=== PATIENT | female | born 1985 | race Caucasian/White ===

== ENCOUNTER 2020-12-18 09:17 | Outpatient (REF) | payer MEDICAID, SELFPAY ==
--- NOTE | ~2020-12-18 | US_ITS ---
EXAMINATION: US ABDOMEN COMPLETE CLINICAL INFORMATION: Follow up renal and splenic cysts. COMPARISON: Renal ultrasound 04/09/2020. CT abdomen and pelvis 11/14/2019. TECHNIQUE: Real-time imaging of the abdominal viscera. FINDINGS: PANCREAS: Normal. ABDOMINAL AORTA: The proximal, mid, and distal segments are normal in caliber. INFERIOR VENA CAVA: Visualized portions are normal. LIVER: Normal. The liver is normal in size. The liver contour is normal. Parenchymal echogenicity is normal. No focal hepatic lesion. There is no intrahepatic biliary duct dilatation seen. GALLBLADDER: Surgically absent. COMMON BILE DUCT: Normal in caliber measuring 0.3 cm in diameter. RIGHT KIDNEY: Normal. No hydronephrosis. No renal calculi or focal parenchymal lesions. The kidney measures 10.8 cm in maximum dimension. LEFT KIDNEY: Normal. No hydronephrosis. No renal calculi or focal parenchymal lesions. The kidney measures 10.2 cm in maximum dimension. SPLEEN: There are numerous small clustered anechoic cysts versus one cyst with septation measuring 2.8 x 2.6 x 2.1 cm. The spleen measures 10.1 cm in maximum dimension. FREE FLUID: None. US/US abdomen complete IMPRESSION: Single septated cyst versus cluster of cysts in the spleen as described above. Rest of the abdominal ultrasound is unremarkable.
== END 2020-12-18 09:18 | disposition home or self-care (01) ==
LOC: HO.US 09:17
PROVIDERS: PCP Nurse Practitioner Family; Visit Provider Nurse Practitioner Family
DX: D73.4 Cyst of spleen (principal)
CPT/HCPCS: 76700

== ENCOUNTER 2021-02-21 18:18 | Emergency (ER) | payer MEDICAID, SELFPAY ==
--- NOTE | ~2021-02-21 | CT_ITS ---
EXAMINATION: CT ABDOMEN AND PELVIS WITHOUT CONTRAST CLINICAL INFORMATION: Abdominal pain. COMPARISON: November 14, 2019. TECHNIQUE: Contiguous axial thin section helical images of the abdomen and pelvis were performed without oral or IV contrast. The data set was reformatted in the coronal and sagittal planes and reviewed on an independent workstation. DLP: 639 mGy-cm. FINDINGS: The visualized lung bases are clear. The visualized portions of the heart are unremarkable. The liver is of normal size and attenuation without focal lesions nor intrahepatic biliary ductal dilation. The patient is status post cholecystectomy. Surgical clips are identified. The pancreas and adrenal glands are unremarkable. The spleen is of normal contour and attenuation. There are numerous areas of low-attenuation consistent with the presumed cysts identified on the prior CT. Both kidneys are of normal size and attenuation without hydronephrosis or nephrolithiasis. There is no abdominal free fluid. There is neither mesenteric nor retroperitoneal lymphadenopathy. Normal unopacified loops of small and large bowel are identified. A normal appendix is identified. There is no pelvic free fluid. The urinary bladder is unremarkable. There is neither pelvic nor inguinal lymphadenopathy. Bone windows: Neither sclerotic nor lytic bone lesions are identified. CT/CT abdomen pelvis wo con IMPRESSION: No acute abdominal or pelvic inflammatory or infectious processes. Automated exposure control (Care Dose) Adjustment of the mA and/or kv according to patient size (this includes techniques or standardized protocols for targeted exams where dose is matched to indication / reason for exam; i.e. extremities or head).
[2021-02-21 18:23] VITALS: BP 121/59; PULSE 77; RESP 18; TEMP 37.3; O2SAT 100; BMI 34.0
[2021-02-21 20:16] VITALS: BP 102/53; PULSE 59; RESP 16; TEMP 36.9; O2SAT 99
--- NOTE | 2021-02-21 20:22 | ED.FEMALEGU ---
HPI - Female Genitourinary General Chief complaint: Urogenital-Female Stated complaint: low back pain Time Seen by Provider: 02/21/21 22:04 Source: patient Mode of arrival: ambulatory Limitations: no limitations History of Present Illness HPI Narrative: 35-year-old female with no significant past medical history presents with several days of 10/10 lower abdominal pain, vaginal discharge, pelvic pain, and intermittent fevers and chills. She does not report any risk for sexually transmitted infection, does not report any trauma or assault. She also states that pain increases on sexual intercourse. She did recently have a partial hysterectomy on 12/13/2020, and did not report any adverse affects of the surgical procedure. She denies chest pain or pressure, palpitations, shortness of breath, shortness of breath on exertion, abdominal distention, dysuria, hematuria, and edema. MD elicited complaint: vaginal discharge and pelvic pain Onset (ago): day(s) Location of symptoms: suprapubic, vaginal and pelvis Severity: severe Female Urogenital Radiation: Suprapubic Severity scale (1-10): 9 Quality of pain: burning, stabbing and aching Consistency: constant Vaginal discharge: white and vaginal odor Vaginal bleeding: none Exacerbating factors: intercourse, movement and palpation Relieving factors: none Associated symptoms: abdominal pain, fever and chills Treatment prior to arrival: NSAIDs Sexual activity: Yes Patient : No Related Data Previous Rx's Medication Instructions Recorded ibuprofen 600 mg PO Q6H PRN #30 tab 02/21/21 metronidazole [Flagyl] 500 mg PO Q12H 7 Days #14 tab 02/21/21 Allergies Allergy/AdvReac Type Severity Reaction Status Date / Time No Known Allergies Allergy Unverified 07/25/20 19:43 [No Known Allergies*] Review of Systems Review of Systems: Constitutional: Positive Fever, positive Chills ENT/Mouth: No sore throat, No Rhinorrhea Eyes: No Eye Pain, No Redness Cardiovascular: No Chest Pain, No SOB Respiratory: No Cough, No Sputum, No Wheezing Gastrointestinal: positive Nausea, No Vomiting, No Diarrhea, positive abdominal pain, Genitourinary: Positive vaginal discharge, No irregular bleeding, No Dysuria, No Urinary Frequency, positive pelvic pain Musculoskeletal: No Myalgias Skin: No rash Neuro: No Weakness, No Headache Psych: No Anxiety/Panic, No Depression Heme/Lymph: No bruising, No Lymphadenopathy Endocrine: No Polyuria, No Polydipsia Yes all other systems are reviewed and are negative COUNT INCLUDES THE [facility] Past Medical History Attestation statement: The following information was validated with the patient. Source: old records reviewed Medical History Anxiety Asthma Depression Surgical History History of partial hysterectomy Social History Social History Advance Directives: No Advance Directives Information Provided: Yes Physical Exam Vital Signs: Vital Signs: Last Vital Signs Temp 97.9 F 02/21/21 22:07 Pulse 57 02/21/21 22:07 Resp 16 02/21/21 22:07 BP 116/53 L 02/21/21 22:07 Pulse Ox 100 02/21/21 22:07 Body Mass Index 34.0 Appearance: Alert. Oriented X3. Mild distress. Eyes: Pupils equal, round and reactive to light. ENT: Pharynx normal. Neck: Normal inspection. Neck supple. CVS: Normal heart rate and rhythm. Pulses normal. Respiratory: No respiratory distress. Breath sounds normal. Abdomen: Soft and diffusely tender greater to the lower abdomen than the upper abdomen Skin: Skin warm and dry. Normal skin color. Normal skin turgor. Extremities: No lower extremity edema. Neuro: No motor deficit. No sensory deficit. : General: Yes Bimanual renal exam normal bilaterally External Female Exam: normal external appearance Speculum Exam - Vagina: normal appearance of the vagina and abnormal vaginal discharge white and malodorous Speculum Exam - Cervix: normal appearance of the cervix Bimanual exam- vagina & uterus: other (Uterus absent) Bimanual Exam- Adnexa, other: normal adnexae Course Course Course Narrative: 35-year-old female past medical history of partial hysterectomy on 12/13/2020 presents with pelvic pain, vaginal discharge, and subjective fevers and chills. Will order CT scan of abdomen and pelvis, CBC, Chem 7, urinalysis, and perform pelvic exam. Cervix visualized on pelvic exam, copious amounts of thin yeung watery malodorous vaginal discharge noted. 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 CT scan is negative for acute findings requiring emergent intervention. Plan of care is to treat for bacterial vaginosis with Flagyl. Side effects of Flagyl alcohol discussed in detail with patient. Patient verbalized understanding of and agrees to plan of care discharge home. MDM - Female Genitourinary Differential Diagnosis Differential diagnosis: Likely urinary tract infection, bacterial vaginosis, trichomoniasis, cervicitis and vaginitis Medical Records Attestation: I reviewed the patient's medical records. Lab Data Attestation: I reviewed the patient's lab results. Result diagrams: 02/21/21 21:25 02/21/21 21:25 Labs: Lab Results 02/21/21 02/21/21 02/21/21 Range/Units 20:21 21:25 21:25 WBC 10.1 (4.8-10.8) X10*3/uL RBC 4.36 (4.20-5.50) X10*6/uL Hgb 13.2 (12.0-16.0) g/dl Hct 40.3 (37-47) % MCV 92.4 (80-98) fL MCH 30.3 (27.0-33.0) pg MCHC 32.8 (31.0-35.0) g/dl RDW 13.6 (11.0-16.0) % Plt Count 223 (160-400) X10*3/uL MPV 10.3 (9.4-12.3) fL Immature Gran % (Auto) 0.3 (0.0-0.4) % Neut % (Auto) 59.4 (45-73) % Lymph % (Auto) 32.1 (20-40) % [place] % (Auto) 6.2 (2-11) % Eos % (Auto) 1.5 (0-4) % Baso % (Auto) 0.5 (0-2) % Lymph # (Auto) 3.2 (1.2-4.9) X10*3/uL [place] # (Auto) 0.6 (0.1-1.2) X10*3/uL Eos # (Auto) 0.2 (0.0-0.4) X10*3/uL Baso # (Auto) 0.1 (0.0-0.2) X10*3/uL Abs Immat Gran (auto) 0.03 (0.00-0.03) X10*3/uL Absolute Neuts (auto) 6.0 (2.0-8.3) X10*3/uL Absolute Nucleated RBC 0.000 (0.0-0.012) X10*3/uL Nucleated RBC % (auto) 0.0 (0.0-0.2) /100WBC Sodium 141 (135-145) mmol/L Potassium 4.2 (3.3-5.1) mmol/L Chloride 110 H (96-108) mmol/L Carbon Dioxide 22 (22-29) mmol/L Anion Gap 13 (12-20) BUN 17 H (9-16) mg/dL Creatinine 0.69 (0.5-1.4) mg/dL Estim Creat Clear Calc 111.2 Estimated GFR > 60 Random Glucose 84 (60-115) mg/dL Lactic Acid (0.5-2.0) mmol/L Calcium 8.8 (8.4-10.2) mg/dL Total Bilirubin (0.0-1.0) mg/dL Direct Bilirubin (0.0-0.5) mg/dL AST (5-31) U/L ALT (0-31) U/L Alkaline Phosphatase (39-117) U/L Total Protein (6.5-8.0) g/dL Albumin (3.5-5.0) g/dL Lipase (8-78) U/L Urine Color YELLOW Urine Appearance CLEAR Urine pH 5.5 (5.0-8.0) Ur Specific [place] >= 1.030 H (1.005-1.025) Urine Protein NEG (NEG-TRACE) MG/DL Urine Glucose (UA) NEG (NEG) MG/DL Urine Ketones NEG (NEG) MG/DL Urine Blood NEG (NEG) Urine Nitrite NEG (NEG) Ur Leukocyte Esterase NEG (NEG) 02/21/21 02/21/21 02/21/21 Range/Units 21:25 21:25 21:25 WBC Cancelled (4.8-10.8) X10*3/uL RBC Cancelled (4.20-5.50) X10*6/uL Hgb Cancelled (12.0-16.0) g/dl Hct Cancelled (37-47) % MCV Cancelled (80-98) fL MCH Cancelled (27.0-33.0) pg MCHC Cancelled (31.0-35.0) g/dl RDW Cancelled (11.0-16.0) % Plt Count Cancelled (160-400) X10*3/uL MPV Cancelled (9.4-12.3) fL Immature Gran % (Auto) Cancelled (0.0-0.4) % Neut % (Auto) Cancelled (45-73) % Lymph % (Auto) Cancelled (20-40) % [place] % (Auto) Cancelled (2-11) % Eos % (Auto) Cancelled (0-4) % Baso % (Auto) Cancelled (0-2) % Lymph # (Auto) Cancelled (1.2-4.9) X10*3/uL [place] # (Auto) Cancelled (0.1-1.2) X10*3/uL Eos # (Auto) Cancelled (0.0-0.4) X10*3/uL Baso # (Auto) Cancelled (0.0-0.2) X10*3/uL Abs Immat Gran (auto) Cancelled (0.00-0.03) X10*3/uL Absolute Neuts (auto) Cancelled (2.0-8.3) X10*3/uL Absolute Nucleated RBC Cancelled (0.0-0.012) X10*3/uL Nucleated RBC % (auto) Cancelled (0.0-0.2) /100WBC Sodium 140 (135-145) mmol/L Potassium 4.2 (3.3-5.1) mmol/L Chloride 110 H (96-108) mmol/L Carbon Dioxide 22 (22-29) mmol/L Anion Gap 12 (12-20) BUN 16 (9-16) mg/dL Creatinine 0.68 (0.5-1.4) mg/dL Estim Creat Clear Calc 112.9 Estimated GFR > 60 Random Glucose 84 (60-115) mg/dL Lactic Acid 1.0 (0.5-2.0) mmol/L Calcium 8.8 (8.4-10.2) mg/dL Total Bilirubin 0.4 (0.0-1.0) mg/dL Direct Bilirubin 0.2 (0.0-0.5) mg/dL AST 18 (5-31) U/L ALT 17 (0-31) U/L Alkaline Phosphatase 67 (39-117) U/L Total Protein 6.7 (6.5-8.0) g/dL Albumin 4.0 (3.5-5.0) g/dL Lipase 22 (8-78) U/L Urine Color Urine Appearance Urine pH (5.0-8.0) Ur Specific [place] (1.005-1.025) Urine Protein (NEG-TRACE) MG/DL Urine Glucose (UA) (NEG) MG/DL Urine Ketones (NEG) MG/DL Urine Blood (NEG) Urine Nitrite (NEG) Ur Leukocyte Esterase (NEG) Imaging Data CT scan - abdomen: Attestation: I personally reviewed and interpreted this imaging study as follows: Radiologist's impression: EXAMINATION: CT ABDOMEN AND PELVIS WITHOUT CONTRAST CLINICAL INFORMATION: Abdominal pain. COMPARISON: November 14, 2019. TECHNIQUE: Contiguous axial thin section helical images of the abdomen and pelvis were performed without oral or IV contrast. The data set was reformatted in the coronal and sagittal planes and reviewed on an independent workstation. DLP: 639 mGy-cm. FINDINGS: The visualized lung bases are clear. The visualized portions of the heart are unremarkable. The liver is of normal size and attenuation without focal lesions nor intrahepatic biliary ductal dilation. The patient is status post cholecystectomy. Surgical clips are identified. The pancreas and adrenal glands are unremarkable. The spleen is of normal contour and attenuation. There are numerous areas of low-attenuation consistent with the presumed cysts identified on the prior CT. Both kidneys are of normal size and attenuation without hydronephrosis or nephrolithiasis. There is no abdominal free fluid. There is neither mesenteric nor retroperitoneal lymphadenopathy. Normal unopacified loops of small and large bowel are identified. A normal appendix is identified. There is no pelvic free fluid. The urinary bladder is unremarkable. There is neither pelvic nor inguinal lymphadenopathy. Bone windows: Neither sclerotic nor lytic bone lesions are identified. CT/CT abdomen pelvis wo con IMPRESSION: No acute abdominal or pelvic inflammatory or infectious processes. Automated exposure control (Care Dose) Adjustment of the mA and/or kv according to patient size (this includes techniques or standardized protocols for targeted exams where dose is matched to indication / reason for exam; i.e. extremities or head). Discharge Plan Discharge Clinical Impression: Bacterial vaginosis, Abdominal pain Patient Disposition: Home, Self-Care Instructions: Bacterial Vaginosis (ED), Abdominal Pain (ED) Additional Instructions: You were evaluated for abdominal pain. CT scan of abdomen and pelvis are negative for acute findings requiring emergent intervention. Your pelvic exam showed a copious amount of vaginal discharge consistent with bacterial vaginosis. We are treating you with Flagyl 500 mg twice a day for the next 7 days. Do not drink alcohol while taking this medication. You will have serious side effects. Please consider following up with Gastroenterology for chronic epigastric pain. I have made a referral for you. Please call on request an appointment. Thank you for choosing this emergency department for evaluation. Please follow-up with primary care physician as needed. Return to the emergency department for any new, concerning, or worsening symptoms. Prescriptions: New metronidazole [Flagyl] 500 mg tablet 500 mg PO Q12H 7 Days Qty: 14 RF: 0 ibuprofen 600 mg tablet 600 mg PO Q6H PRN (Reason: pain) Qty: 30 RF: 0 Referrals: Bob Joshi MD [Physician] - 2 days (Epigastric pain) Interventions: ED Discharge Assessment Last Done: 02/21/21 23:10 Discharge Date/Time: 02/21/21 23:12
[2021-02-21 20:29] LABS: Appearance Urine CLEAR; Color Urine YELLOW; Glucose Urine UA NEG (NEG); Leukocyte Esterase Urine NEG (NEG); Nitrite Urine NEG (NEG); PH 5.5 (5.0-8.0); Specific Gravity - Urine >= 1.030 (1.005-1.025); Urine Blood NEG (NEG); Urine Ketones NEG (NEG); Urine Protein NEG (NEG-TRACE)
--- NOTE | 2021-02-21 21:02 | PC.NURSE ---
NERUPA PCT IN MULE DEVELOPER FOR VAGINAL EXAM
--- NOTE | 2021-02-21 21:14 | PC.NURSE ---
THIS PATIENT SET UP AND ASSIST RETIREMENT MANAGER CANDY WITH PATIENT PELVIC EXAM .
[2021-02-21] MEDS: 0.9 % Sodium Chloride 1,000 ML 999 ML IVCONT (21:33)
[2021-02-21] MEDS: Morphine Sulfate 4 MG/ML CARTRIDGE IVPUSH ×2 (21:33→22:25)
[2021-02-21 21:34] LABS: MANUAL DIFF FLAG NO
[2021-02-21] MEDS: ondansetron HCL 4 MG/2 ML VIAL IVPUSH (21:34)
[2021-02-21 21:49] LABS: Basophils Absolute Auto 0.1 X10*3/uL (0.0-0.2); Basophils Percent Auto 0.5 % (0-2); Eosinophils Absolute Auto 0.2 X10*3/uL (0.0-0.4); Eosinophils Percent Auto 1.5 % (0-4); Hematocrit 40.3 % (37-47); Hemoglobin 13.2 g/dl (12.0-16.0); Imm Gran Abs Auto 0.03 X10*3/uL (0.00-0.03); Imm Gran Pct Auto 0.3 % (0.0-0.4); Lymphocytes Absolute Auto 3.2 X10*3/uL (1.2-4.9); Lymphocytes Percent Auto 32.1 % (20-40); Mean Corpuscular HGB Conc 32.8 g/dl (31.0-35.0); Mean Corpuscular Hemoglobin 30.3 pg (27.0-33.0); Mean Corpuscular Volume 92.4 fL (80-98); Mean Platelet Volume 10.3 fL (9.4-12.3); Monocytes Absolute Auto 0.6 X10*3/uL (0.1-1.2); Monocytes Percent Auto 6.2 % (2-11); Neutrophils Percent Auto 59.4 % (45-73); Platelet Count 223 X10*3/uL (160-400); Red Blood Count 4.36 X10*6/uL (4.20-5.50); Red Cell Distribution Width 13.6 % (11.0-16.0); White Blood Count 10.1 X10*3/uL (4.8-10.8)
[2021-02-21 22:07] VITALS: BP 116/53; PULSE 57; RESP 16; TEMP 36.6; O2SAT 100
[2021-02-21 22:12] LABS: Anion Gap 13 (12-20); Blood Urea Nitrogen 17 mg/dL (9-16); Calcium 8.8 mg/dL (8.4-10.2); Carbon Dioxide 22 mmol/L (22-29); Chloride 110 mmol/L (96-108); Creatinine Clr Calc Pharmacy 111.2; Estimated Glomerular Filt Rate > 60; Glucose Random 84 mg/dL (60-115); Potassium 4.2 mmol/L (3.3-5.1); Sodium 141 mmol/L (135-145)
[2021-02-21 22:15] LABS: Alanine Aminotransferase 17 U/L (0-31); Alkaline Phosphatase 67 U/L (39-117); Anion Gap 12 (12-20); Aspartate Amino Transferase 18 U/L (5-31); Bilirubin Direct 0.2 mg/dL (0.0-0.5); Bilirubin Total 0.4 mg/dL (0.0-1.0); Blood Urea Nitrogen 16 mg/dL (9-16); Calcium 8.8 mg/dL (8.4-10.2); Carbon Dioxide 22 mmol/L (22-29); Chloride 110 mmol/L (96-108); Creatinine Clr Calc Pharmacy 112.9; Estimated Glomerular Filt Rate > 60; Glucose Random 84 mg/dL (60-115); Lipase 22 U/L (8-78); Potassium 4.2 mmol/L (3.3-5.1); Sodium 140 mmol/L (135-145); Total Protein 6.7 g/dL (6.5-8.0)
[2021-02-21] MEDS: Ketorolac Tromethamine 30 MG/ML VIAL IVPUSH (22:26)
[2021-02-21] MEDS: metroNIDAZOLE 500 MG TABLET PO (22:53)
[2021-02-22 03:29] LABS: CT PCR NOT DETECTED (Not Detect.); NG PCR NOT DETECTED (Not Detect.)
[2021-02-22 12:10] LABS: BV Int Neg Control Negative (Negative); BV Int Pos Control Positive (Positive)
== END 2021-02-21 23:12 | disposition home or self-care (01) ==
PROVIDERS: Nurse Practitioner Family; Emergency Provider Internal Medicine; PCP Pediatrics
DX: N76.0 Acute vaginitis (principal); R10.30 Lower abdominal pain, unspecified; R50.9 Fever, unspecified
CPT/HCPCS: 36415; 74176; 80048; 80076; 81003; 83605; 83690; 85025; 87040; 87480; 87491; 87510; 87591; 87660; 96365; 96375; 99284; J1885; J2270; J2405

== ENCOUNTER 2021-07-23 07:32 | Outpatient (REF) | payer MEDICAID, SELFPAY ==
--- NOTE | ~2021-07-23 | CT_ITS ---
EXAMINATION: CT ABDOMEN AND PELVIS WITHOUT CONTRAST CLINICAL INFORMATION: Kidney stone COMPARISON: Previous CT of the abdomen and pelvis most recent February 2021 and abdominal ultrasound most recent December 2020 TECHNIQUE: Multidetector volumetric imaging was performed from the superior aspect of the liver through the pubic symphysis. Sagittal and coronal reformatted images were obtained on the technologist's workstation. This CT examination was performed using dose optimization techniques as appropriate, variously including the following: *Automated exposure control *Adjustment of mA and/or kV according to patient size (this includes techniques or standardized protocols for targeted exams where dose is matched to indication/reason for exam; i.e. extremities or head) *Use of iterative reconstruction technique DLP: 552 mGy-cm FINDINGS: LUNG BASES: The visualized lung bases are unremarkable. LIVER, GALLBLADDER, AND BILIARY TREE: The liver is normal in size, shape, and attenuation. No focal hepatic lesion or biliary ductal dilatation is present. The gallbladder has been removed. PANCREAS: Unremarkable. SPLEEN: There are multiple low-attenuation lesions in the spleen probably representing cysts that are stable. ADRENAL GLANDS: Unremarkable. KIDNEYS AND URETERS: There is a small 2 mm stone in the mid right kidney. No no other stone is seen. No hydronephrosis, ureteral dilatation or ureteral stone is seen. BLADDER: Unremarkable. GASTROINTESTINAL TRACT: The small and large bowel are unremarkable. The appendix is unremarkable. ABDOMINAL WALL: No significant hernia is appreciated. LYMPH NODES: Normal. VASCULAR: Unremarkable. PELVIC VISCERA: Unremarkable. OSSEOUS STRUCTURES: Unremarkable. CT/CT abdomen pelvis wo con IMPRESSION: Probable small right renal stone. No hydronephrosis. Stable low-attenuation splenic lesions probably representing cysts.
== END 2021-07-23 07:33 | disposition home or self-care (01) ==
LOC: HO.CT 07:32
PROVIDERS: Absent Provider Nurse Practitioner Primary Care; PCP Nurse Practitioner Primary Care; Visit Provider Emergency Medicine
DX: R34 Anuria and oliguria (principal); R31.9 Hematuria, unspecified; Z87.442 Personal history of urinary calculi
CPT/HCPCS: 74176

== ENCOUNTER 2021-10-08 07:58 | Outpatient (REF) | payer MEDICAID, SELFPAY ==
[2021-10-08 10:48] LABS: Alanine Aminotransferase 18 U/L (0-31); Alkaline Phosphatase 68 U/L (39-117); Aspartate Amino Transferase 17 U/L (5-31); Bilirubin Direct < 0.2 mg/dL (0.0-0.5); Bilirubin Total 0.3 mg/dL (0.0-1.0); Lipase 30 U/L (8-78); Total Protein 6.9 g/dL (6.5-8.0)
[2021-10-08 11:13] LABS: Folate 14.9 ng/mL (> or = 4.0); Vitamin B12 415 pg/mL (200-900)
[2021-10-09 10:12] LABS: H Pylori Breath Test Negative (Negative)
[2021-10-11 12:51] LABS: Transglutaminase Ab IgG <1.0 U/mL; Transglutaminase IgA <1.0 U/mL
[2021-10-13 14:51] LABS: Vitamin D 25-OH, D2 <4 ng/mL; Vitamin D 25-OH, D3 25 ng/mL; Vitamin D 25-OH, Total 25 ng/mL (30-100)
== END 2021-10-08 07:59 | disposition home or self-care (01) ==
LOC: HO.LAB 07:58
PROVIDERS: PCP Nurse Practitioner Primary Care; Referring Provider Nurse Practitioner Primary Care; Visit Provider Nurse Practitioner Family
DX: R19.7 Diarrhea, unspecified (principal); R10.11 Right upper quadrant pain; E55.9 Vitamin D deficiency, unspecified; R14.0 Abdominal distension (gaseous); K58.2 Mixed irritable bowel syndrome; Z79.899 Other long term (current) drug therapy
CPT/HCPCS: 36415; 80076; 81479; 82306; 82397; 82607; 82746; 83013; 83516; 83520; 83690; 86140; 88346; 88350; 99202

== ENCOUNTER 2021-11-05 12:31 | Emergency (ER) | payer MEDICAID, SELFPAY ==
[2021-11-05 15:23] VITALS: BP 109/61; PULSE 70; RESP 16; TEMP 36.8; O2SAT 98; BMI 33.2
--- NOTE | 2021-11-05 15:54 | ED.GENADULT ---
HPI - General Adult General Chief complaint: Upper Respiratory Symptoms Stated complaint: covid symptoms Time Seen by Provider: 11/05/21 15:18 Source: patient Mode of arrival: ambulatory Limitations: no limitations History of Present Illness HPI narrative: Patient presents to ED for sore throat and chills. Patient was exposed to family member was positive for COVID. Patient states herself and son having symptoms. Patient states no chest pain or shortness of breath. Related Data Home Medications Medication Instructions Recorded Confirmed albuterol sulfate 90 mcg/actuation 0 mcg INHALATION 10/08/21 aerosol inhaler (ProAir HFA) cholecalciferol (vitamin D3) 25 25 mcg PO DAILY 10/08/21 mcg (1,000 unit) capsule Previous Rx's Medication Instructions Recorded cholestyramine (with sugar) 4 gram 4 g PO BID #378 g 10/08/21 oral powder methylcellulose (laxative) 500 mg 500 mg PO DAILY #30 tab 10/08/21 tablet (Citrucel) pantoprazole 40 mg tablet,delayed 40 mg PO DAILY #30 tab 10/08/21 release Allergies Allergy/AdvReac Type Severity Reaction Status Date / Time No Known Allergies Allergy Unverified 10/08/21 08:08 [No Known Allergies*] Review of Systems Review of Systems: Yes all other systems are reviewed and are negative Constitutional: Constitutional: Reports as per HPI, Reports no additional constitutional complaints and Reports chills Eyes: Eyes: Reports as per HPI and Reports no additional eye complaints ENT: Reports system reviewed and no additional complaints, except as documented, Reports as per HPI and Reports sore throat Cardiovascular: Cardiovascular: Reports as per HPI and Reports no additional cardiovascular complaints Respiratory: Respiratory: Reports as per HPI and Reports no additional respiratory complaints Gastrointestinal: Gastrointestinal: Reports as per HPI and Reports no additional gastrointestinal complaints Genitourinary: Genitourinary: Reports no additional female genitourinary complaints and Reports as per HPI Integumentary/Breasts: Skin/Breast: Reports system reviewed and no additional complaints, except as docu and Reports as per HPI Neurologic: Reports system reviewed and no additional complaints, except as documented and Reports as per HPI [facility] Past Medical History Medical History (Updated 11/05/21 @ 16:51 by LEW Ray) Anxiety Asthma Depression Surgical History (Updated 10/08/21 @ 08:09 by CRISTINO Erazo) History of partial hysterectomy Hx of cholecystectomy Social History Social History Advance Directives: No Advance Directives Information Provided: No Patient : No Physical Exam Vital Signs: Vital Signs: Last Vital Signs Temp 98.3 F 11/05/21 15:23 Pulse 70 11/05/21 15:23 Resp 16 11/05/21 15:23 BP 109/61 11/05/21 15:23 Pulse Ox 98 11/05/21 15:23 BMI result Body Mass Index 33.2 Const: General: cooperative, healthy appearing, comfortable, no acute distress, well developed, alert, awake and Physically active Orientation/consciousness: patient oriented x3 HENMT: Head: Yes normal to inspection, Yes No palpable skull fracture present, Yes normocephalic, Yes atraumatic and No abrasion Ears: hearing grossly normal bilaterally, external ears normal, TM's normal bilaterally, EAC's normal, mastoids normal and no periauricular adenopathy Throat: Yes posterior oropharynx normal, Yes tonsils normal and Yes uvula midline Eyes: General: appearance normal, both eyes and all related structures Neck: Neck: Yes normal visual inspection, Yes full ROM, Yes no lymphadenopathy, Yes no meningeal signs, Yes trachea midline, Yes supple, No anterior neck swelling and No tender Chest: Chest palpation & inspection: normal inspection of the chest and normal palpation of entire chest wall Resp: Effort & Inspection: normal respiratory effort and able to speak in complete sentences Auscultation: clear to auscultation bilaterally Cardio: Jugular venous distension: no JVD Heart sounds: S1 normal heart sound present and S2 normal heart sound present GI: Inspection: Yes normal to inspection and No abdominal wall ecchymosis Palpation (GI): Soft to palpation, not firm, nontender, no guarding and not rigid : General: No CVA tenderness and Yes no CVA tenderness Back/Spine/Pelvis: Back: no CVA tenderness, No CVA tenderness and No back tenderness Skin: General skin exam: no rashes or lesions noted and elasticity normal Neuro: General: patient oriented x3, gait normal, no meningeal signs and CN's II-XI intact bilaterally Cranial nerves: Yes CN's II-XII intact bilaterally Extrem: General: Yes normal to inspection and Yes full ROM Psych: Appearance: grossly normal, well kempt and not disheveled Course Course Course Narrative: Is swabbed for COVID and strep. Patient will obtain Reevaluation(s) Reevaluation #1: Patient test came back negative. Mother informed this may be a false negative and should get re-tested in 4 to 5 days Medical Decision Making Lab Data Labs: Lab Results 11/05/21 11/05/21 Range/Units 15:40 15:40 Influenza Type A (PCR) NEGATIVE (Negative) Influenza Type B (PCR) NEGATIVE (Negative) RSV RNA Qual (PCR) NEGATIVE (Negative) SARS-CoV-2 RNA (RT-PCR) NEGATIVE (Negative) S. pyogenes GrpA ENRIQUE Negative (Negative) Discharge Plan Discharge Clinical Impression: Acute viral syndrome Patient Disposition: Home, Self-Care Instructions: Viral Syndrome (ED) Additional Instructions: Your COVID/strep/influenza/RSV came back negative. You may have a false negative test for COVID. Recommend retesting in 4-5 hours if symptoms worsen. Please follow-up with primary care provider. Return to the ED for any chest pain, shortness of breath, weakness, dizziness, abdominal pain, sore throat, headache, ear pain, or any other concerning symptoms. Please follow-up with provider Prescriptions: No Action cholecalciferol (vitamin D3) 25 mcg (1,000 unit) capsule 25 mcg PO DAILY RF: 0 albuterol sulfate [ProAir HFA] 90 mcg/actuation HFA aerosol inhaler 0 mcg inhalation RF: 0 cholestyramine (with sugar) 4 gram powder 4 g PO BID Qty: 378 RF: 0 pantoprazole 40 mg tablet,delayed release (DR/EC) 40 mg PO DAILY Qty: 30 RF: 2 Citrucel 500 mg tablet 500 mg PO DAILY Qty: 30 RF: 2 Interventions: ED Discharge Assessment Last Done: 11/05/21 17:15 Discharge Date/Time: 11/05/21 17:15 Print Language: Mold[place]
[2021-11-05 15:57] LABS: Strep A Nucleic Acid Negative (Negative)
[2021-11-05 16:25] LABS: Influenza A PCR NEGATIVE (Negative); Influenza B PCR NEGATIVE (Negative); Resp Syncy Virus RNA Qual PCR NEGATIVE (Negative); SARS COV2 PCR INHOUSE NEGATIVE (Negative)
== END 2021-11-05 17:15 | disposition home or self-care (01) ==
PROVIDERS: Physician Assistant; Emergency Provider Emergency Medicine; PCP Nurse Practitioner Primary Care
DX: B34.9 Viral infection, unspecified (principal); Z20.822 Contact with and (suspected) exposure to COVID-19; J02.9 Acute pharyngitis, unspecified; J45.909 Unspecified asthma, uncomplicated
CPT/HCPCS: 0241U; 87651; 99283

== ENCOUNTER 2021-11-14 12:47 | Emergency (ER) | payer MEDICAID, SELFPAY ==
[2021-11-14 13:47] VITALS: BP 100/58; PULSE 74; RESP 18; TEMP 36.7; O2SAT 97; BMI 33.2
[2021-11-14 14:22] LABS: COVID-19 Test Negative (Negative)
--- NOTE | 2021-11-14 16:12 | ED.GENADULT ---
HPI - General Adult General Chief complaint: Upper Respiratory Symptoms Stated complaint: diarrhea exposed to covid Time Seen by Provider: 11/14/21 16:12 History of Present Illness HPI narrative: Patient complains of diarrhea several times yesterday but improving today No nausea vomiting or abdominal pain, she is able to eat and drink normally no recent travel no fever Related Data Home Medications Medication Instructions Recorded Confirmed albuterol sulfate 90 mcg/actuation 0 mcg INHALATION 10/08/21 aerosol inhaler (ProAir HFA) cholecalciferol (vitamin D3) 25 25 mcg PO DAILY 10/08/21 mcg (1,000 unit) capsule Previous Rx's Medication Instructions Recorded cholestyramine (with sugar) 4 gram 4 g PO BID #378 g 10/08/21 oral powder methylcellulose (laxative) 500 mg 500 mg PO DAILY #30 tab 10/08/21 tablet (Citrucel) pantoprazole 40 mg tablet,delayed 40 mg PO DAILY #30 tab 10/08/21 release Allergies Allergy/AdvReac Type Severity Reaction Status Date / Time No Known Allergies Allergy Verified 11/14/21 13:47 [No Known Allergies*] Review of Systems Review of Systems: Positive for diarrhea Negatives no fever no chills no dizziness or weakness no fainting no feeling faint no headache no neck pain no chest pain no shortness of breath no abdominal pain no vomiting no nausea no dysuria no rash Yes all other systems are reviewed and are negative [facility] Past Medical History Source: nursing notes reviewed Medical History (Updated 11/14/21 @ 16:15 by LEW Low) Anxiety Asthma Depression Surgical History (Updated 10/08/21 @ 08:09 by CRISTINO Erazo) History of partial hysterectomy Hx of cholecystectomy Social History Social History Advance Directives: No Advance Directives Information Provided: No Physical Exam Vital Signs: Vital Signs: Last Vital Signs Temp 98.0 F 11/14/21 13:47 Pulse 74 11/14/21 13:47 Resp 18 11/14/21 13:47 BP 100/58 L 11/14/21 13:47 Pulse Ox 97 11/14/21 13:47 BMI result Body Mass Index 33.2 General appearance is no acute distress The eyes are not anicteric with no pallor The pharynx mucous membranes are moist Neck is supple Respiratory no distress Abdomen soft nontender Extremities full range of motion x4 Course Course Course Narrative: Well-appearing well hydrated patient with a negative COVID test tolerating p.o. is discharged with recommendation to stay hydrated and use Imodium if needed if diarrhea continues Medical Decision Making Lab Data Labs: Lab Results 11/14/21 Range/Units 13:51 COVID-19 (LUCINDA) Negative (Negative) COVID-19 Clin Com See Note Discharge Plan Discharge Clinical Impression: Diarrhea Patient Disposition: Home, Self-Care Additional Instructions: COVID test was negative You look well-hydrated now, drink plenty of fluids Use Imodium if needed , it is available [id number] Return any time if worse especially dehydrated severe vomiting pain fever any worse condition or any concerns Prescriptions: No Action cholecalciferol (vitamin D3) 25 mcg (1,000 unit) capsule 25 mcg PO DAILY RF: 0 albuterol sulfate [ProAir HFA] 90 mcg/actuation HFA aerosol inhaler 0 mcg inhalation RF: 0 cholestyramine (with sugar) 4 gram powder 4 g PO BID Qty: 378 RF: 0 pantoprazole 40 mg tablet,delayed release (DR/EC) 40 mg PO DAILY Qty: 30 RF: 2 Citrucel 500 mg tablet 500 mg PO DAILY Qty: 30 RF: 2 Interventions: ED Discharge Assessment Last Done: 11/14/21 17:16 Discharge Date/Time: 11/14/21 17:17
== END 2021-11-14 17:17 | disposition home or self-care (01) ==
PROVIDERS: Emergency Provider Emergency Medicine; PCP Nurse Practitioner Primary Care
DX: R19.7 Diarrhea, unspecified (principal); Z20.822 Contact with and (suspected) exposure to COVID-19
CPT/HCPCS: 87635; 99283

== ENCOUNTER 2022-02-16 09:00 | Outpatient (RCR) | payer MEDICAID, SELFPAY | END 2022-03-16 09:25 | disposition home or self-care (01) | LOC: HO.PT 09:00 | PROVIDERS: PCP Nurse Practitioner Primary Care; Visit Provider Nurse Practitioner Primary Care | DX: M54.9 Dorsalgia, unspecified (principal) | CPT/HCPCS: 97110; 97112; 97140; 97161 ==

== ENCOUNTER 2022-02-18 08:04 | Day surgery (SDC) | payer MEDICAID, SELFPAY ==
[2022-02-12 15:43] VITALS: BMI 33.4
--- NOTE | 2022-02-17 09:38 | P.CONAN_ITS ---
Documented by User: Jennifer Henderson NP 02/17/22 09:42 HPI - Anesthesia Eval Consult details Narrative: 36yo F for Upper Endoscopy COUNT INCLUDES THE [facility] Past Medical History Medical History Anxiety Asthma Depression GERD (gastroesophageal reflux disease) Surgical History Surgical History History of partial hysterectomy Hx of cholecystectomy Social History Social History Patient Tobacco Use Status: Never used Tobacco Use of substances other than those prescribed or required for medical reasons: No Are you DNR?: No Advance Directives: No Advance Directives Information Provided: Yes Patient : No (partial hysterectomy) Meds Allergies Allergy/AdvReac Type Severity Reaction Status Date / Time No Known Allergies Allergy Verified 11/14/21 13:47 [No Known Allergies*] Home Medications Medication Instructions Recorded Confirmed Last Taken Type albuterol sulfate 90 mcg/actuation 0 mcg INHALATION 10/08/21 Unknown History aerosol inhaler (ProAir HFA) cholecalciferol (vitamin D3) 25 25 mcg PO DAILY 10/08/21 Unknown History mcg (1,000 unit) capsule Exam Exam Date and Time: February 17, 2022 0938 Height,Weight and Vital Signs: Height 5 ft 1 in Weight 80.286 kg Assessment and Plan Assessment Anesthesia Assessment: Chart Reviewed Documented by User: Susan Gray MD 02/18/22 08:34 COUNT INCLUDES THE [facility] Past Medical History Medical History Anxiety Asthma Depression GERD (gastroesophageal reflux disease) Surgical History Surgical History History of partial hysterectomy Hx of cholecystectomy History of Problems with Anesthesia: No Social History Social History Patient Tobacco Use Status: Never used Tobacco Use of substances other than those prescribed or required for medical reasons: No Are you DNR?: No Advance Directives: No Advance Directives Information Provided: Yes Patient : No (partial hysterectomy) Meds Allergies Allergy/AdvReac Type Severity Reaction Status Date / Time No Known Allergies Allergy Verified 11/14/21 13:47 [No Known Allergies*] Home Medications Medication Instructions Recorded Confirmed Last Taken Type albuterol sulfate 90 mcg/actuation 0 mcg INHALATION 10/08/21 Unknown History aerosol inhaler (ProAir HFA) cholecalciferol (vitamin D3) 25 25 mcg PO DAILY 10/08/21 Unknown History mcg (1,000 unit) capsule Exam Airway Mallampati Class: II TM Dist: >3cm Neck ROM: Full Loose/Missing/Broken Teeth: No Heart: RRR Lungs: CTA Assessment and Plan Assessment Anesthesia Assessment: Anesthesia Plan Discussed Final Anesthetic Review History of Problems with Anesthesia: No NPO: Yes ASA Class: II Final Preanesthetic Review: Consent Obtained/Reviewed and Anes Risks/Benef Reviewed Patient Risk: Low Procedure Risk: Intermediate Anesthetic Plan Anesthetic Plan: MAC: Disposition: Standard PACU
[2022-02-18 08:26] VITALS: BMI 31.7
[2022-02-18 08:34] VITALS: BP 100/56; PULSE 72; RESP 16; TEMP 35.9; O2SAT 97
[2022-02-18] MEDS: Lactated Ringers 1,000 ML 100 ML IVCONT (08:40)
--- NOTE | 2022-02-18 08:59 | P.HPSUR_ITS ---
Pre-Procedural Eval Section A Date of Service: 02/18/22 Section B Chief Complaint: dysphagia Relevant Family History (Specify if Yes): No Relevant Social History: None Present Medications: see Short Stay Collaborative assessment Medical History: Significant History (Anxiety Asthma Depression GERD (gastroesophageal reflux disease)) History of Previous Operations: Relevant previous surgery/procedure and date(s) (History of partial hysterectomy Hx of cholecystectomy) Allergies: Allergies Allergy/AdvReac Type Severity Reaction Status Date / Time No Known Allergies Allergy Verified 11/14/21 13:47 [No Known Allergies*] Review of Systems Sugical H&P ROS: Negative: Constitution, Cardiovascular, Respiratory, Neurological, Psychiatric, Hem-Onc, Allergic/Immunologic, Gastrointestinal, Genitourinary, Musculoskeletal, Integumentary, Endocrine and Eyes/Ea rs/Nose/Throat Exam Surgical H&P Exam: Normal: HEENT, Normal: Heart, Normal: Lungs, Normal: Extremities, Normal: Abdomen, Normal: Skin and Normal: Neurological Plan Diagnosis/Plan: Unchanged I have reviewed the history and physical and performed a pertinent physical examination on my patient. No changes have occurred unless specified.
--- NOTE | 2022-02-18 09:24 | P.BOP_ITS ---
Brief Operative Note Date of Service: 02/18/22 Pre-op diagnosis: dysphagia Post-op diagnosis: same Procedure: see op note Surgeon: Tea Ron MD Anesthesia: MAC Was an Manager Plant used for this Procedure?: No Estimated blood loss (mL): 0 Condition: stable Disposition: PACU
--- NOTE | 2022-02-18 09:25 | W.PM.OPN ---
Operative Note Operative Note Date of Service: 02/18/22 Narrative: Procedure Description: EGD Indication: dysphagia Anesthesia: MAC FLEXIBLE TRANSORAL UPPER GASTROINTESTINAL ENDOSCOPY UPPER ENDOSCOPY Consent: Indications for the procedure and potential complications of bleeding, perforation, reaction to medications and missed diagnosis were discussed with the patient and informed consent was obtained. Instrument: Olympus GIF H 190 J mid size upper endoscope Monitoring: Vital signs and clinical assessment, continuous EKG monitoring, Pulse oximetry, Carbon Dioxide monitoring and blood pressure monitoring were done throughout the procedure. Procedure: The patient was placed in the left lateral decubitis position and pre-procedure medications were administered and a bite block was placed. The endoscope was inserted into the mouth and advanced under direct vision to the third part of duodenum. A careful inspection was made as the upper endoscope was withdrawn including a retroflexed examination of the proximal stomach; Findings and interventions are described below. Findings: Larynx:normal Esophagus: GE junction at 35 cm, diaphragm hiatus at 35 cm, LA grade A esophagitis at GEJ, with boggy mucosa and erythema and small erosion. Balloon dilation done at lower esophagus to 20 mm with heme noted and small tear. UES also stretched to 19 mm, no tear seen. Biopsies taken from proximal and distal esophagus in separate jars. At around 30 cm there was a yellowish nodule, probably a small lipoma or glycogen deposit, this was biopsied Stomach: Patchy gastric erythema with red streaks seen in antrum . Biopsies were obtained. Grade 2 flap valve on retroflexed examination of the cardia. Duodenum: mild bulbar duodenitis, bx taken Intervention: Biopsies as noted above, balloon dilation Impression/Findings: gastritis duodenitis; erosive esophagitis esophageal stricture esophgeal nodule PLAN: ensure compliance with PPI Reflux precautions
[2022-02-18 09:34] VITALS: BP 90/50; PULSE 63; RESP 16; TEMP 36.2; O2SAT 95
[2022-02-18 09:49] VITALS: BP 108/62; PULSE 58; RESP 18; TEMP 36.2; O2SAT 99
[2022-02-18] MEDS: Acetaminophen 325 MG TABLET 650 MG PO (10:00)
[2022-02-18 10:04] VITALS: BP 105/62; PULSE 48; RESP 16; O2SAT 97
[2022-02-18 10:19] VITALS: BP 103/59; PULSE 59; RESP 16; TEMP 36.2; O2SAT 98
== END 2022-02-18 10:48 | disposition home or self-care (01) ==
PROVIDERS: PCP Nurse Practitioner Primary Care; Visit Provider Internal Medicine Gastroenterology
PROC: 0DJ08ZZ Inspection of Upper Intestinal Tract, Via Natural or Artificial Opening Endoscopic (ICD-10-PCS; CPT 43235; principal; 2022-02-18 09:20)
DX: K20.80 Other esophagitis without bleeding (principal); K22.2 Esophageal obstruction; K22.89 Other specified disease of esophagus; K29.50 Unspecified chronic gastritis without bleeding; K29.80 Duodenitis without bleeding; K44.9 Diaphragmatic hernia without obstruction or gangrene; K21.9 Gastro-esophageal reflux disease without esophagitis; K58.2 Mixed irritable bowel syndrome; J45.909 Unspecified asthma, uncomplicated; F32.9 Major depressive disorder, single episode, unspecified; Z90.49 Acquired absence of other specified parts of digestive tract
CPT/HCPCS: 43249; 43239; 88305; 88341; 88342; C1726; J3010

== ENCOUNTER 2022-03-04 09:23 | Outpatient (REF) | payer MEDICAID, SELFPAY ==
[2022-03-04 12:02] LABS: Hematocrit 40.7 % (37.0-47.0); Hemoglobin 13.4 g/dl (12.0-16.0); Mean Corpuscular HGB Conc 32.9 g/dl (31.0-35.0); Mean Corpuscular Hemoglobin 30.6 pg (27.0-33.0); Mean Corpuscular Volume 92.9 fL (80.0-98.0); Mean Platelet Volume 10.5 fL (9.4-12.3); Platelet Count 242 X10*3/uL (160-400); Red Blood Count 4.38 X10*6/uL (4.20-5.50); Red Cell Distribution Width 12.9 % (11.0-16.0); White Blood Count 5.9 X10*3/uL (4.8-10.8)
== END 2022-03-04 09:24 | disposition home or self-care (01) ==
LOC: HO.LAB 09:23
PROVIDERS: PCP Nurse Practitioner Primary Care; Referring Provider Nurse Practitioner Primary Care; Visit Provider Nurse Practitioner Family
DX: K20.0 Eosinophilic esophagitis (principal); K21.9 Gastro-esophageal reflux disease without esophagitis
CPT/HCPCS: 36415; 85027; 86003; 99212

== ENCOUNTER 2022-10-09 17:57 | Emergency (ER) | payer MEDICAID, SELFPAY ==
--- NOTE | ~2022-10-09 | CT_ITS ---
EXAMINATION: CT ABDOMEN AND PELVIS WITHOUT CONTRAST CLINICAL INFORMATION: Right flank pain COMPARISON: 07/23/2021 TECHNIQUE: Multidetector volumetric imaging was performed from the superior aspect of the liver through the pubic symphysis. Sagittal and coronal reformatted images were obtained on the technologist's workstation. This CT examination was performed using dose optimization techniques as appropriate, variously including the following: *Automated exposure control *Adjustment of mA and/or kV according to patient size (this includes techniques or standardized protocols for targeted exams where dose is matched to indication/reason for exam; i.e. extremities or head) *Use of iterative reconstruction technique DLP: 656 mGy-cm FINDINGS: LUNG BASES: The visualized lung bases are unremarkable. LIVER, GALLBLADDER, AND BILIARY TREE: The liver is normal in size, shape, and attenuation. No focal hepatic lesion or biliary ductal dilatation is present. Cholecystectomy PANCREAS: Unremarkable. SPLEEN: Unremarkable. ADRENAL GLANDS: Unremarkable. KIDNEYS AND URETERS: The kidneys are normal in size, shape, and attenuation. No hydronephrosis, hydroureter, or measurable calculi seen. No perinephric stranding. BLADDER: Unremarkable. GASTROINTESTINAL TRACT: The small and large bowel are unremarkable. The appendix is unremarkable. ABDOMINAL WALL: No significant hernia is appreciated. LYMPH NODES: Normal. VASCULAR: Unremarkable. PELVIC VISCERA: Unremarkable. OSSEOUS STRUCTURES: Unremarkable. CT/CT abdomen pelvis wo IV con IMPRESSION: * No acute findings, specifically no urinary calculi or hydronephrosis. * Previous cholecystectomy. * Exam otherwise unremarkable. Fleischner guidelines were followed.
[2022-10-09 18:05] VITALS: BP 122/101; PULSE 84; RESP 18; TEMP 36.8; O2SAT 99; BMI 34.0
--- NOTE | 2022-10-09 18:07 | ED.GENADULT ---
HPI - General Adult General Chief complaint: Abdominal Pain <LEW Boogie - Last Filed: 10/09/22 18:09> Stated complaint: Kidney pain, vomitting, nauseous <LEW Boogie - Last Filed: 10/09/22 18:09> Time Seen by Provider: 10/09/22 20:59 <LEW Boogie - Last Filed: 10/09/22 18:09> Source: patient <LEW Boogie - Last Filed: 10/09/22 18:09> Mode of arrival: wheelchair <LEW Boogie - Last Filed: 10/09/22 18:09> Limitations: no limitations <LEW Boogie - Last Filed: 10/09/22 18:09> History of Present Illness HPI narrative: 37-year-old female who presents emergency department for evaluation of right-sided abdominal and flank pain x 8 days. Patient states that she developed right-sided abdominal pain and she points to her right upper quadrant when asked to localize the pain. She states the pain did radiate to her right flank. She states the pain is been an intermittent pain which is sharp, 7/10 at its worst, worse with movement and not worse with breathing. She states that approximately 6 days ago she started to feel sick with a flu-like illness which involved nausea, headache, cough, shortness of breath and body aches. She took a home COVID-19 test and this was positive. She was not vaccinated for COVID-19. She states that her COVID symptoms have significantly improved, she has continued to have occasional chills but no fever, occasional cough, dyspnea on exertion, nausea vomiting and diarrhea. She states she does have asthma is had used her inhaler several times over the past week. She states that the pain in her right side has gotten worse over the past 2-3 days therefore she came to the emergency department for evaluation. She states she does have a history of kidney stones in the pain feels similar to her kidney stone pain. Her last menstrual period was approximately 1 month prior <Damian Claudio MD - Last Filed: 10/10/22 00:17> MD complaint: 7 <Damian Claudio MD - Last Filed: 10/10/22 00:17> Onset (ago): day(s) <Damian Claudio MD - Last Filed: 10/10/22 00:17> Location: abdomen and right <Damian Claudio MD - Last Filed: 10/10/22 00:17> Radiation: flank (Right) <Damian Claudio MD - Last Filed: 10/10/22 00:17> Severity: moderate and severe <Damian Claudio MD - Last Filed: 10/10/22 00:17> Severity scale (1-10): 7 <Damian Claudio MD - Last Filed: 10/10/22 00:17> Quality: sharp <Damian Claudio MD - Last Filed: 10/10/22 00:17> Pain Consistency: intermittent <Damian Claudio MD - Last Filed: 10/10/22 00:17> Relieving factors: none <Damian Claudio MD - Last Filed: 10/10/22 00:17> Exacerbating factors: movement <Damian Claudio MD - Last Filed: 10/10/22 00:17> Associated symptoms: cough, fever/chills, headaches, malaise, nausea/vomiting and shortness of breath <Damian Claudio MD - Last Filed: 10/10/22 00:17> Treatments prior to arrival: NSAID and other (Acetaminophen) <Damian Claudio MD - Last Filed: 10/10/22 00:17> Related Data Home medications: Home Medications Medication Instructions Recorded Confirmed albuterol sulfate 90 mcg/actuation 0 mcg inhalation 10/08/21 aerosol inhaler (ProAir HFA) cholecalciferol (vitamin D3) 25 25 mcg PO DAILY 10/08/21 mcg (1,000 unit) capsule Previous Rx's Medication Instructions Recorded methylcellulose (laxative) 500 mg 500 mg PO DAILY #30 tabs 10/08/21 tablet (Citrucel) cholestyramine (with sugar) 4 gram 4 g PO BID #378 grams 03/04/22 oral powder famotidine 40 mg tablet 40 mg PO BEDTIME #30 tabs 03/04/22 pantoprazole 40 mg tablet,delayed 40 mg PO DAILY #90 tabs 03/04/22 release morphine 15 mg immediate release 15 mg PO Q4-6H PRN pain #10 tabs 10/10/22 tablet ondansetron 4 mg disintegrating 4 mg PO Q6-8H PRN nausea and 10/10/22 tablet vomiting #14 tabs <LEW Boogie - Last Filed: 10/09/22 18:09> Allergies/adverse reactions: Allergies Allergy/AdvReac Type Severity Reaction Status Date / Time No Known Allergies Allergy Verified 03/04/22 09:34 [No Known Allergies*] <LEW Boogie - Last Filed: 10/09/22 18:09> Review of Systems Review of Systems: Yes all other systems are reviewed and are negative <Damian Claudio MD - Last Filed: 10/10/22 00:17> [facility] Past Medical History [facility] Narrative: Social history: She denies tobacco, alcohol and drug use. <Damian Claudio MD - Last Filed: 10/10/22 00:17> Medical History: Medical History Anxiety Asthma Depression GERD (gastroesophageal reflux disease) <LEW Boogie - Last Filed: 10/09/22 18:09> Surgical History: Surgical History History of esophagogastroduodenoscopy (EGD) History of partial hysterectomy Hx of cholecystectomy <LEW Bogoie - Last Filed: 10/09/22 18:09> Family History Family History: Family History Mother Diabetes Father HTN (hypertension) <LEW Boogie - Last Filed: 10/09/22 18:09> Social History Social History: Social History Patient Tobacco Use Status: Never used Tobacco Advance Directives: No Advance Directives Information Provided: No <LEW Boogie - Last Filed: 10/09/22 18:09> Physical Exam ED Vital Signs: Vital Signs - 24 hr 10/09/22 18:05 10/09/22 23:53 Temperature 98.3 F 98.5 F Pulse Rate 84 60 Respiratory Rate 18 18 Blood Pressure 122/101 H 101/51 L Pulse Oximetry 99 97 Oxygen Delivery Method Room Air Room Air BMI result Body Mass Index 34.0 <LEW Boogie - Last Filed: 10/09/22 18:09> Vital Signs - 24 hr 10/09/22 18:05 10/09/22 23:53 Temperature 98.3 F 98.5 F Pulse Rate 84 60 Respiratory Rate 18 18 Blood Pressure 122/101 H 101/51 L Pulse Oximetry 99 97 Oxygen Delivery Method Room Air Room Air BMI result Body Mass Index 34.0 <Damina Claudio MD - Last Filed: 10/10/22 00:17> Const General: cooperative and no acute distress <Damian Claudio MD - Last Filed: 10/10/22 00:17> Orientation/consciousness: oriented to person and oriented to place <Damian Claudio MD - Last Filed: 10/10/22 00:17> Limitations: no limitations <Damian Claudio MD - Last Filed: 10/10/22 00:17> HENMT Head: Yes normal to inspection, Yes normocephalic and Yes atraumatic <Damian Claudio MD - Last Filed: 10/10/22 00:17> Ears: external ears normal <Damian Claudio MD - Last Filed: 10/10/22 00:17> General nose exam: Normal external nose present <Damian Claudio MD - Last Filed: 10/10/22 00:17> Face and sinus: Yes normal facial exam <Damian Claudio MD - Last Filed: 10/10/22 00:17> Mouth: Normal oral and palatal mucosa present <Damian Claudio MD - Last Filed: 10/10/22 00:17> Throat: Yes posterior oropharynx normal <Damian Claudio MD - Last Filed: 10/10/22 00:17> Eyes General: appearance normal, both eyes and all related structures <Damian Claudio MD - Last Filed: 10/10/22 00:17> Pupils: Equal, round and reactive pupils present <Damian Claudio MD - Last Filed: 10/10/22 00:17> Neck Neck: Yes normal visual inspection, Yes no lymphadenopathy, Yes trachea midline and Yes supple <Damian Claudio MD - Last Filed: 10/10/22 00:17> Chest Other: Tender right lower ribcage anteriorly and posteriorly <Damian Claudio MD - Last Filed: 10/10/22 00:17> Chest palpation & inspection: normal inspection of the chest <Damian Claudio MD - Last Filed: 10/10/22 00:17> Resp Effort & Inspection: normal respiratory effort and able to speak in complete sentences <Damian Claudio MD - Last Filed: 10/10/22 00:17> Auscultation: clear to auscultation bilaterally <Damian Claudio MD - Last Filed: 10/10/22 00:17> Cardio Rate: regular rate <Damian Claudio MD - Last Filed: 10/10/22 00:17> Rhythm: regular rhythm <Damian Claudio MD - Last Filed: 10/10/22 00:17> Heart sounds: S1 normal heart sound present, S2 normal heart sound present and no murmurs <Damian Claudio MD - Last Filed: 10/10/22 00:17> GI Inspection: Yes normal to inspection <Damian Claudio MD - Last Filed: 10/10/22 00:17> Palpation (GI): Soft to palpation, Tenderness to palpation present (GI) in the RLQ (Mild) and in the RUQ ([id number]) and no guarding <Damian Claudio MD - Last Filed: 10/10/22 00:17> Auscultation: normal bowel sounds <MD Jj Brumfield Last Filed: 10/10/22 00:17> General: Yes no CVA tenderness <MD Jj Brumfield Last Filed: 10/10/22 00:17> Back/Spine/Pelvis Back: no CVA tenderness <Damian Claudio MD - Last Filed: 10/10/22 00:17> Skin Other: There are no skin lesions noted on the patient's right anterior or posterior chest, no rashes or lesions noted on the patient's right abdomen <Damian Claudio MD - Last Filed: 10/10/22 00:17> Neuro General: oriented to person and oriented to place <Damian Claudio MD - Last Filed: 10/10/22 00:17> Cranial nerves: Yes CN's II-XII intact bilaterally and Yes Equal, round and reactive pupils present <Damian Claudio MD - Last Filed: 10/10/22 00:17> Cognition (Neuro): normal cognition <Damian Claudio MD - Last Filed: 10/10/22 00:17> Motor exam (neuro): 5/5 motor strength present throughout <Damian Claudio MD - Last Filed: 10/10/22 00:17> Extrem General: Yes normal to inspection <Damian Claudio MD - Last Filed: 10/10/22 00:17> Psych Appearance: grossly normal <Damian Claudio MD - Last Filed: 10/10/22 00:17> Speech and movement: Normal speech and movement present <Damian Claudio MD - Last Filed: 10/10/22 00:17> Affect: normal affect <Damian Claudio MD - Last Filed: 10/10/22 00:17> Attitude: cooperative <Damian Claudio MD - Last Filed: 10/10/22 00:17> Thought process: Normal thought process present <Damian Claudio MD - Last Filed: 10/10/22 00:17> Thought content: Normal thought content present <Damian Claudio MD - Last Filed: 10/10/22 00:17> Course Course Course Narrative: RME performed by Elsa Adamson PA-C. Patient is a 37 year old female presenting to the emergency department with right sided flank pain. Patient states that she has a history of kidney stones and as of this last Wednesday, 4 days ago, she tested positive for COVID-19. CBC, CMP, HCG, UA, and CT abd ordered. Patient placed back in the waiting room pending results and bed availability. <LEW Boogie - Last Filed: 10/09/22 18:09> RME performed by Elsa Adamson PA-C. Patient is a 37 year old female presenting to the emergency department with right sided flank pain. Patient states that she has a history of kidney stones and as of this last Wednesday, 4 days ago, she tested positive for COVID-19. CBC, CMP, HCG, UA, and CT abd ordered. Patient placed back in the waiting room pending results and bed availability. Course:RME above reviewed: 37-year-old female who presents emergency department for evaluation of 8 days of right-sided chest and upper abdominal pain radiating to her right flank, COVID-19 positive 6 days prior with bowel symptoms which have significantly improved, continues to have right-sided pain worse with movement, nausea, vomiting, chills. Vital signs were unremarkable. Physical examination did reveal right lower chest wall tenderness anteriorly and posteriorly with right upper quadrant tenderness, no CVA tenderness. Patient's laboratory evaluation revealed a normal CBC, CMP, and negative quantitative beta-hCG. CT scan of the abdomen pelvis without IV contrast did not reveal a clear cause for the patient's pain. At this time I suspect that is probably related to her viral syndrome and is consistent with musculoskeletal pain I did discuss this with her. Patient was ordered to get Toradol 15 mg IV, Zofran 4 mg IV and normal saline x1 L. I did add a lipase and will obtain a urine for urinalysis. 2319: Urinalysis unremarkable-consistent with non clean catch specimen. Lipase was normal . Patient only got minimal relief with the above treatment. Patient was ordered to get morphine 4 mg IV and Zofran 4 mg IV. 0011: Patient's pain improved after the above treatment is now 6/10. She was ordered to get morphine 4 mg IV. The patient will be discharged home. She was advised to take Tylenol and ibuprofen for pain not relieved by these medications she was prescribed morphine. She was also given a prescription for Zofran ODT. I did discuss the possibility of shingles with the patient, I told if she develops a rash she should return to the emergency department or follow-up with PCP. At this time I do not have a clear cause for pain she was advised to return if her symptoms get worse <Damian Claudio MD - Last Filed: 10/10/22 00:17> Medications Administered Discontinued Medications Generic Name Dose Route Start Last Admin Trade Name Yolanda PRN Reason Stop Dose Admin Sodium Chloride 1,000 mls @ 999 mls/hr 10/09/22 21:14 10/09/22 23:33 Ns IV 10/09/22 22:14 Infused .Q1H1M STA Infusion Ketorolac Tromethamine 15 mg 10/09/22 21:14 10/09/22 21:56 Ketorolac Tromethamine 15 Mg/Ml Vial IVPUSH 10/09/22 21:15 15 mg ONCE STA Administration Morphine Sulfate 4 mg 10/09/22 23:19 10/09/22 23:28 Morphine Sulfate 4 Mg/Ml Cartridge IVPUSH 10/09/22 23:20 4 mg ONCE STA Administration Protocol Ondansetron HCl 4 mg 10/09/22 21:14 10/09/22 21:55 Ondansetron Hcl 4 Mg/2 Ml Vial IVPUSH 10/09/22 21:15 4 mg ONCE ONE Administration Ondansetron HCl 4 mg 10/09/22 23:19 10/09/22 23:28 Ondansetron Hcl 4 Mg/2 Ml Vial IVPUSH 10/09/22 23:20 4 mg ONCE ONE Administration <LEW Boogie - Last Filed: 10/09/22 18:09> Medications Administered Discontinued Medications Generic Name Dose Route Start Last Admin Trade Name Yolanda PRN Reason Stop Dose Admin Sodium Chloride 1,000 mls @ 999 mls/hr 10/09/22 21:14 10/09/22 23:33 Ns IV 10/09/22 22:14 Infused .Q1H1M STA Infusion Ketorolac Tromethamine 15 mg 10/09/22 21:14 10/09/22 21:56 Ketorolac Tromethamine 15 Mg/Ml Vial IVPUSH 10/09/22 21:15 15 mg ONCE STA Administration Morphine Sulfate 4 mg 10/09/22 23:19 10/09/22 23:28 Morphine Sulfate 4 Mg/Ml Cartridge IVPUSH 10/09/22 23:20 4 mg ONCE STA Administration Protocol Ondansetron HCl 4 mg 10/09/22 21:14 10/09/22 21:55 Ondansetron Hcl 4 Mg/2 Ml Vial IVPUSH 10/09/22 21:15 4 mg ONCE ONE Administration Ondansetron HCl 4 mg 10/09/22 23:19 10/09/22 23:28 Ondansetron Hcl 4 Mg/2 Ml Vial IVPUSH 10/09/22 23:20 4 mg ONCE ONE Administration <Damian Claudio MD - Last Filed: 10/10/22 00:17> Medical Decision Making Lab Data Result diagrams: : 10/09/22 20:15 10/09/22 20:15 <LEW Boogie - Last Filed: 10/09/22 18:09> Labs: Lab Results 10/09/22 10/09/22 10/09/22 Range/Units 20:15 20:15 20:15 WBC 9.3 (4.8-10.8) X10*3/uL RBC 4.40 (4.20-5.50) X10*6/uL Hgb 13.3 (12.0-16.0) g/dl Hct 39.6 (37.0-47.0) % MCV 90.0 (80.0-98.0) fL MCH 30.2 (27.0-33.0) pg MCHC 33.6 (31.0-35.0) g/dl RDW 12.8 (11.0-16.0) % Plt Count 250 (160-400) X10*3/uL MPV 9.7 (9.4-12.3) fL Immature Gran % (Auto) 0.3 (0.0-0.4) % Neut % (Auto) 50.7 (45-73) % Lymph % (Auto) 40.8 H (20-40) % [place] % (Auto) 6.3 (2-11) % Eos % (Auto) 1.6 (0-4) % Baso % (Auto) 0.3 (0-2) % Lymph # (Auto) 3.8 (1.2-4.9) X10*3/uL [place] # (Auto) 0.6 (0.1-1.2) X10*3/uL Eos # (Auto) 0.2 (0.0-0.4) X10*3/uL Baso # (Auto) 0.0 (0.0-0.2) X10*3/uL Abs Immat Gran (auto) 0.03 (0.00-0.03) X10*3/uL Absolute Neuts (auto) 4.7 (2.0-8.3) x10*3/uL Absolute Nucleated RBC 0.000 (0.0-0.012) X10*3/uL Nucleated RBC % (auto) 0.0 (0.0-0.2) /100WBC Sodium 135 (135-145) mmol/L Potassium 4.3 (3.3-5.1) mmol/L Chloride 102 (96-108) mmol/L Carbon Dioxide 27 (22-29) mmol/L Anion Gap 10 L (12-20) BUN 13 (9-16) mg/dL Creatinine 0.73 (0.5-1.4) mg/dL Estim Creat Clear Calc 103.1 Estimated GFR > 60 Random Glucose 99 (60-115) mg/dL Calcium 9.3 (8.4-10.2) mg/dL Magnesium 2.1 (1.6-2.6) mg/dL Total Bilirubin 0.2 (0.0-1.0) mg/dL AST 17 (5-31) U/L ALT 15 (0-31) U/L Alkaline Phosphatase 59 (39-117) U/L Total Protein 6.9 (6.5-8.0) g/dL Albumin 4.1 (3.5-5.0) g/dL Lipase 28 (8-78) U/L Beta HCG, Quant < 2 mIU/mL Urine Color Urine Appearance Urine pH (5.0-9.0) Ur Specific Richardson (1.005-1.025) Urine Protein (Neg-Trace) mg/dL Urine Glucose (UA) (Negative) mg/dL Urine Ketones (Negative) mg/dL Urine Blood (Negative) Urine Nitrite (Negative) Ur Leukocyte Esterase (Negative) Urine RBC (0-2) /HPF Urine WBC (0-5) /HPF Ur Squamous Epith Cells (0-2) /HPF Urine Bacteria (None Seen) Hyaline Casts (0-2) /LPF 10/09/22 Range/Units 22:00 WBC (4.8-10.8) X10*3/uL RBC (4.20-5.50) X10*6/uL Hgb (12.0-16.0) g/dl Hct (37.0-47.0) % MCV (80.0-98.0) fL MCH (27.0-33.0) pg MCHC (31.0-35.0) g/dl RDW (11.0-16.0) % Plt Count (160-400) X10*3/uL MPV (9.4-12.3) fL Immature Gran % (Auto) (0.0-0.4) % Neut % (Auto) (45-73) % Lymph % (Auto) (20-40) % [place] % (Auto) (2-11) % Eos % (Auto) (0-4) % Baso % (Auto) (0-2) % Lymph # (Auto) (1.2-4.9) X10*3/uL [place] # (Auto) (0.1-1.2) X10*3/uL Eos # (Auto) (0.0-0.4) X10*3/uL Baso # (Auto) (0.0-0.2) X10*3/uL Abs Immat Gran (auto) (0.00-0.03) X10*3/uL Absolute Neuts (auto) (2.0-8.3) x10*3/uL Absolute Nucleated RBC (0.0-0.012) X10*3/uL Nucleated RBC % (auto) (0.0-0.2) /100WBC Sodium (135-145) mmol/L Potassium (3.3-5.1) mmol/L Chloride (96-108) mmol/L Carbon Dioxide (22-29) mmol/L Anion Gap (12-20) BUN (9-16) mg/dL Creatinine (0.5-1.4) mg/dL Estim Creat Clear Calc Estimated GFR Random Glucose (60-115) mg/dL Calcium (8.4-10.2) mg/dL Magnesium (1.6-2.6) mg/dL Total Bilirubin (0.0-1.0) mg/dL AST (5-31) U/L ALT (0-31) U/L Alkaline Phosphatase (39-117) U/L Total Protein (6.5-8.0) g/dL Albumin (3.5-5.0) g/dL Lipase (8-78) U/L Beta HCG, Quant mIU/mL Urine Color Yellow Urine Appearance Clear Urine pH 6.5 (5.0-9.0) Ur Specific Richardson 1.020 (1.005-1.025) Urine Protein Negative (Neg-Trace) mg/dL Urine Glucose (UA) Negative (Negative) mg/dL Urine Ketones Negative (Negative) mg/dL Urine Blood Negative (Negative) Urine Nitrite Negative (Negative) Ur Leukocyte Esterase Moderate (2+) H (Negative) Urine RBC 3-5 H (0-2) /HPF Urine WBC 11-20 H (0-5) /HPF Ur Squamous Epith Cells 11-20 (0-2) /HPF Urine Bacteria 1+ (None Seen) Hyaline Casts 0-2 (0-2) /LPF <LEW Boogie - Last Filed: 10/09/22 18:09> Lab Results 10/09/22 10/09/22 10/09/22 Range/Units 20:15 20:15 20:15 WBC 9.3 (4.8-10.8) X10*3/uL RBC 4.40 (4.20-5.50) X10*6/uL Hgb 13.3 (12.0-16.0) g/dl Hct 39.6 (37.0-47.0) % MCV 90.0 (80.0-98.0) fL MCH 30.2 (27.0-33.0) pg MCHC 33.6 (31.0-35.0) g/dl RDW 12.8 (11.0-16.0) % Plt Count 250 (160-400) X10*3/uL MPV 9.7 (9.4-12.3) fL Immature Gran % (Auto) 0.3 (0.0-0.4) % Neut % (Auto) 50.7 (45-73) % Lymph % (Auto) 40.8 H (20-40) % [place] % (Auto) 6.3 (2-11) % Eos % (Auto) 1.6 (0-4) % Baso % (Auto) 0.3 (0-2) % Lymph # (Auto) 3.8 (1.2-4.9) X10*3/uL [place] # (Auto) 0.6 (0.1-1.2) X10*3/uL Eos # (Auto) 0.2 (0.0-0.4) X10*3/uL Baso # (Auto) 0.0 (0.0-0.2) X10*3/uL Abs Immat Gran (auto) 0.03 (0.00-0.03) X10*3/uL Absolute Neuts (auto) 4.7 (2.0-8.3) x10*3/uL Absolute Nucleated RBC 0.000 (0.0-0.012) X10*3/uL Nucleated RBC % (auto) 0.0 (0.0-0.2) /100WBC Sodium 135 (135-145) mmol/L Potassium 4.3 (3.3-5.1) mmol/L Chloride 102 (96-108) mmol/L Carbon Dioxide 27 (22-29) mmol/L Anion Gap 10 L (12-20) BUN 13 (9-16) mg/dL Creatinine 0.73 (0.5-1.4) mg/dL Estim Creat Clear Calc 103.1 Estimated GFR > 60 Random Glucose 99 (60-115) mg/dL Calcium 9.3 (8.4-10.2) mg/dL Magnesium 2.1 (1.6-2.6) mg/dL Total Bilirubin 0.2 (0.0-1.0) mg/dL AST 17 (5-31) U/L ALT 15 (0-31) U/L Alkaline Phosphatase 59 (39-117) U/L Total Protein 6.9 (6.5-8.0) g/dL Albumin 4.1 (3.5-5.0) g/dL Lipase 28 (8-78) U/L Beta HCG, Quant < 2 mIU/mL Urine Color Urine Appearance Urine pH (5.0-9.0) Ur Specific Richardson (1.005-1.025) Urine Protein (Neg-Trace) mg/dL Urine Glucose (UA) (Negative) mg/dL Urine Ketones (Negative) mg/dL Urine Blood (Negative) Urine Nitrite (Negative) Ur Leukocyte Esterase (Negative) Urine RBC (0-2) /HPF Urine WBC (0-5) /HPF Ur Squamous Epith Cells (0-2) /HPF Urine Bacteria (None Seen) Hyaline Casts (0-2) /LPF 10/09/22 Range/Units 22:00 WBC (4.8-10.8) X10*3/uL RBC (4.20-5.50) X10*6/uL Hgb (12.0-16.0) g/dl Hct (37.0-47.0) % MCV (80.0-98.0) fL MCH (27.0-33.0) pg MCHC (31.0-35.0) g/dl RDW (11.0-16.0) % Plt Count (160-400) X10*3/uL MPV (9.4-12.3) fL Immature Gran % (Auto) (0.0-0.4) % Neut % (Auto) (45-73) % Lymph % (Auto) (20-40) % [place] % (Auto) (2-11) % Eos % (Auto) (0-4) % Baso % (Auto) (0-2) % Lymph # (Auto) (1.2-4.9) X10*3/uL [place] # (Auto) (0.1-1.2) X10*3/uL Eos # (Auto) (0.0-0.4) X10*3/uL Baso # (Auto) (0.0-0.2) X10*3/uL Abs Immat Gran (auto) (0.00-0.03) X10*3/uL Absolute Neuts (auto) (2.0-8.3) x10*3/uL Absolute Nucleated RBC (0.0-0.012) X10*3/uL Nucleated RBC % (auto) (0.0-0.2) /100WBC Sodium (135-145) mmol/L Potassium (3.3-5.1) mmol/L Chloride (96-108) mmol/L Carbon Dioxide (22-29) mmol/L Anion Gap (12-20) BUN (9-16) mg/dL Creatinine (0.5-1.4) mg/dL Estim Creat Clear Calc Estimated GFR Random Glucose (60-115) mg/dL Calcium (8.4-10.2) mg/dL Magnesium (1.6-2.6) mg/dL Total Bilirubin (0.0-1.0) mg/dL AST (5-31) U/L ALT (0-31) U/L Alkaline Phosphatase (39-117) U/L Total Protein (6.5-8.0) g/dL Albumin (3.5-5.0) g/dL Lipase (8-78) U/L Beta HCG, Quant mIU/mL Urine Color Yellow Urine Appearance Clear Urine pH 6.5 (5.0-9.0) Ur Specific Richardson 1.020 (1.005-1.025) Urine Protein Negative (Neg-Trace) mg/dL Urine Glucose (UA) Negative (Negative) mg/dL Urine Ketones Negative (Negative) mg/dL Urine Blood Negative (Negative) Urine Nitrite Negative (Negative) Ur Leukocyte Esterase Moderate (2+) H (Negative) Urine RBC 3-5 H (0-2) /HPF Urine WBC 11-20 H (0-5) /HPF Ur Squamous Epith Cells 11-20 (0-2) /HPF Urine Bacteria 1+ (None Seen) Hyaline Casts 0-2 (0-2) /LPF <Damian Claudio MD - Last Filed: 10/10/22 00:17> Discharge Plan Discharge Clinical Impression: Acute right flank pain Abdominal pain Qualifiers: Abdominal location: right upper quadrant Qualified Code(s): R10.11 - Right upper quadrant pain <LEW Boogie - Last Filed: 10/09/22 18:09> Patient Disposition: Home, Self-Care <LEW Boogie - Last Filed: 10/09/22 18:09> Instructions: Abdominal Pain (ED) <LEW Boogie - Last Filed: 10/09/22 18:09> Additional Instructions: Your laboratory evaluation was unremarkable. The CT scan of your abdomen pelvis was normal and did not reveal a clear cause for your pain. At this time, I do not know what is causing your pain, if you developed a rash on the right side of your body in the area of the pain then this could be shingles in you should return to the emergency department her see your doctor to get started on medications for shingles. Take ibuprofen 200 mg pills, 3 pills every 6 hours as needed for pain. Take Tylenol (acetaminophen) 2 pills every 4-6 hours as needed for pain. For pain not relieved by ibuprofen or Tylenol take morphine 15 mg pills, 1 pill every 4 hours as needed for pain. This medication will make you sleepy, do not drive or work while taking this medication. Morphine is a narcotic medication and can be addicting. If you are concerned about addiction you can ask the pharmacist for less pills or do not get this prescription filled. Take Zofran ODT 4 mg pills, 1 pill dissolved in your mouth every 8 hours as needed for nausea and vomiting. Follow-up with your doctor in 2 days. Please return to the emergency department if your symptoms get worse or if you develop any symptoms that are concerning to you. <LEW Boogie - Last Filed: 10/09/22 18:09> Prescriptions: New morphine 15 mg tablet 15 mg PO Q4-6H PRN (Reason: pain) Qty: 10 0RF Rx Instructions: The patient may ask for partial fill; Partial Fill upon patient request. ondansetron 4 mg tablet,disintegrating 4 mg PO Q6-8H PRN (Reason: nausea and vomiting) Qty: 14 0RF No Action cholecalciferol (vitamin D3) 25 mcg (1,000 unit) capsule 25 mcg PO DAILY albuterol sulfate [ProAir HFA] 90 mcg/actuation HFA aerosol inhaler 0 mcg inhalation Citrucel 500 mg tablet 500 mg PO DAILY Qty: 30 2RF Rx Instructions: take it with full glass of water cholestyramine (with sugar) 4 gram powder 4 g PO BID Qty: 378 3RF Rx Instructions: no meds 1 hr before/4-6 hr after dose pantoprazole 40 mg tablet,delayed release (DR/EC) 40 mg PO DAILY Qty: 90 2RF Rx Instructions: take one tablet half an hour before breakfast famotidine 40 mg tablet 40 mg PO BEDTIME Qty: 30 3RF <LEW Boogie - Last Filed: 10/09/22 18:09>
--- OUTSIDE RECORDS SUMMARY | 2022-10-09 18:26 | XMS_ITS ---
:1985 Author Organization [facility] - OB/Family Planning Address [address] [place] [address] Care Team Providers Name Role Phone Priti Dunn Unavailable Unavailable PROBLEMS Type Condition ICD9-CM Code PCI86-JQ Code Onset Condition SNO MED Code Dates Status Problem Depression with F41.8 Active 2315 32836 anxiety Problem Homeless Z59.0 Active [id number] ALLERGIES No Known Allergies ENCOUNTERS Encounter Location Date Diagnosis [facility] - OB/Family [address] [place] [address], Jun, [place] [address] Z30.432 and Enco unter for initial prescrip tion of contraceptive pi lls Z30.011 [facility] - Fam Med [address] [place] [address], Jun, Generaliz ed abdominal pain [place] R10.84 ; Homeles s Z59.0 and Unspecified contraceptive nm nagerica Z30.9 [facility] - PASS [address] [place] [address], May, [place] HC - PASS [address] [place] [address], May, [place] [facility] - PASS [address] [place] [address], Apr, Encounter for screening [place] for infections w ith a predominantly se xual mode of transmission Z11.3 and Encounter for sc reening for infectious a nd parasitic diseas es, unspecified Z11. 9 [facility] - Patient Walk-In [address] [place] [address], Apr, Va ginal discharge N89.8 ; Center [place] Other specified bacterial agents as the ca use of diseases classif ied elsewhere B96.89 and Acute vaginitis N76.0 [facility] - Pediatrics [address] [facility], Feb, [place] LC - Fam Med [address] [facility], Feb, [place] [facility] - Fam Med [address] [facility], Feb, Dysuria R 30.0 ; Screening [place] for venereal dis ease Z11.3 and Weight loss R63.4 HC - Patient Walk-In [address] [place] [address], Dec, Ac sherie pain of left knee Center [place] M25.562 HC - PSC [address] [facility], Dec, [place] HC - PSC [address] [facility], Nov, [place] [facility] - PSC [address] [facility], Nov, [place] [facility] - PSC [address] [facility], Nov, [place] IMMUNIZATIONS Vaccine Route Administration Date Status Hepatitis B - Immune (Titer) Unknown February 28, 2019 Adm inistered SOCIAL HISTORY Qualifiers Date Never Smoker REASON FOR REFERRAL FUNCTIONAL STATUS PLAN OF CARE Activity Details Follow Up prn Reason: VITAL SIGNS Height 5 ft 3 in in 2019-06-27 Height 5ft 3in in 2019-05-03 Height 5ft 3in in 2019-02-27 Height 5 ft 3 in in 2018-12-15 Weight 170 lbs 2019-06-27 Weight 171.8 lbs 2019-06-20 Weight 166 lbs 2019-05-03 Weight 164.6 lbs 2019-02-27 Weight 174 lbs 2018-12-15 BMI 30.11 kg/m2 2019-06-27 BMI 29.40 kg/m2 2019-05-03 BMI 29.15 kg/m2 2019-02-27 BMI 30.82 kg/m2 2018-12-15 Temperature 98.8 degrees Fahrenheit 2019-06-20 Temperature F:98.4 degrees Fahrenheit 2019-05-03 Temperature 98.2 degrees Fahrenheit 2019-02-27 Temperature 98.1 degrees Fahrenheit 2018-12-15 Heart Rate 80 /min 2019-06-27 Heart Rate 86 /min 2019-06-20 Heart Rate 63 /min 2019-05-03 Heart Rate 89 /min 2019-02-27 Heart Rate 97 /min 2018-12-15 Respiratory Rate 18 /min 2019-05-03 Respiratory Rate 16 /min 2019-02-27 Respiratory Rate 16 /min 2018-12-15 Blood pressure systolic 117 mm Hg 2019-06-27 Blood pressure diastolic 78 mm Hg 2019-06-27 MEDICATIONS Medication Instructions Dosage Frequency Start End Date Duration Stat us Mirena 52 mg by intrauterine 1 ea Act manpreet administration once ibuprofen 800 orally 3 times a 1 tab(s) 8h Dec, day(s) Active mg day 2018 MetroGel-Vagina intravaginally 1 appful Apr, 5 day(s) Active l 0.75% once a day (at 2018 bedtime) raNITIdine 150 orally 2 times a 1 tab(s) Jun, Active mg day PRN for 2018 abdominal pain Aviane 20 orally once a day 1 tab(s) 24h Jun, 84 days Act manpreet mcg-100 mcg 2018 PROCEDURES Procedure Date Ordered Result Body Site VENIPUNCT, ROUTINE* May 03, 2019 ([id number]) ESTABLISHED PATIENT LEVEL 3 Jun 20, 2019 URINALYSIS W/O MICRO February 27, 2019 SPECIMEN HANDLING May 03, 2019 ([id number]) ESTABLISHED PATIENT LEVEL 3 May 03, 2019 SPECIMEN HANDLING May 03, 2019 SPECIMEN HANDLING February 27, 2019 URINE TEST February 27, 2019 SIALIDASE ENZYME ASSAY May 03, 2019 VITAL SIGNS RECORDED May 03, 2019 ([id number]) ESTAB PATIENT LEVEL 4 February 27, 2019 IUD Removal Jun 27, 2019 ([id number]) NURSE VISIT; ESTABLISHED May 03, 2019 RESULTS Name Result Date Reference Range GC-Chlamydia (Sexually Corea 2019-05-03 Dis (Amp. DNA Probe)-[facility] Chlamydia Chlamydia/GC Specimen Type N. gonorrhoeae DNA Chlamydia Trachomatis DNA Chlamydia/GC Specimen Type N. gonorrhoeae DNA Hepatitis C Antibody-[facility] 2019-05-03 Hep C Ab initials RPR (Rapid Plasma Reagin) 2019-05-03 Test-[facility] RPR Qual RPR HIV 1/2 Ag/Ab Combo 2019-05-03 (Preferred) HIV HIV-1/HIV-2 Ag/Ab Combo Screen GC-Chlamydia (Sexually Corea 2019-05-03 Dis (Amp. DNA Probe)-[facility] Specimen Type Endocervical Specimen Type Endocervical Specimen Type Endocervical Chlam DNA Not Detected Not Detected Chlam DNA Not Detected Not Detected GC DNA Not Detected Not Detected GC DNA Not Detected Not Detected BV Blue 2019-05-03 Positive positive Negative Vaginitis Screen 2019-05-03 Vaginitis Screen Patient:WINTER CAO Vaginitis Screen Vaginitis Screen Vaginitis Screen Micro-Stains and Preparations Vaginitis Screen Vaginitis Screen Vaginitis Screen PROCEDURE: Vaginitis Screen [*1] Vaginitis Screen SOURCE: Vag BODY SITE: Vaginitis Screen COLLECTED DATE/TIME: 05/03/2019 22:09 EDT RECEIVED DATE/TIME: 05/03/2019 22:22 EDT Vaginitis Screen START DATE/TIME: 05/03/2019 22:22 EDT FREE TEXT SOURCE: Vaginitis Screen ORDERING PHYSICIAN: Alix ALBERT (LCHC), Nereyda Vaginitis Screen Vaginitis Screen FINAL REPORT Vaginitis Screen Final Report [] Vaginitis Screen Verified Date/Time: 05/03/2019 23:51 EDT Vaginitis Screen Clue cells seen Vaginitis Screen No yeast seen Vaginitis Screen Trichomonas antigen not detected Vaginitis Screen Vaginitis Screen Vaginitis Screen Performing Locations Vaginitis Screen *1: This test was performed at: Vaginitis Screen Laboratory, [facility], [address] [place] [address], [place], [address] Glomerular Filtration Rate 2019-02-27 (GFR) Estimated Afn Amer GFR >90 Non-Afn Amer GFR >90 Urine Test 2019-02-27 Result negative Urinalysis Dipstick 2019-02-27 Sp. Gr. 1.030 pH 5 Leuk NEG Nitrite NEG Protein TRACE Glucose NOR Ketone 3+ Urobili NOR Bili 2+ Blood 50 Color/Clarity DRK YELLOW Hemoglobin 50 Initials VW URINE COLOR -URINE CLARITY -SPECIFIC GRAVITY -URINE PH -PROTEIN, URINE, QUAL -GLUCOSE,URINE,QUAL -KETONES, URINE -BILIRUBIN, URINE -URINE OCCULT BLOOD -UROBILINOGEN -MISC. URINE MACROSCOPIC -URINE NITRITE -URINE ANGELA.ESTERASE CBC 2019-02-27 WBC 8.7 3.7-11.2 RBC 4.48 3.90-5.20 Hgb 13.8 11.8-16.0 Hct 42.2 36.0-47.0 MCV 94.2 80.0-100.0 MCH 30.8 26.0-34.0 MCHC 32.7 31.0-37.0 Platelet 259 150-400 RDW-SD 45.2 35.0-51.0 MPV 11.0 9.4-12.4 Comprehensive Metabolic 2019-02-27 Panel-[facility] BUN 16 6-20 Creatinine 0.836 0.550-1.300 Sodium Lvl 137 136-146 Potassium Lvl 4.9 3.6-5.2 Chloride 109 98-110 CO2 24 21-32 Anion Gap 4 3-11 Total Protein 7.9 6.0-8.4 Albumin Lvl 4.4 3.2-5.0 Calcium Lvl 10.0 8.5-10.5 Glucose Lvl 84 70-110 Bili Total 0.6 0.2-1.2 Alk Phos 79 30-117 AST 19 6-40 ALT 58 6-55 GC-Chlamydia (Sexually Corea 2019-02-27 Dis (Amp. DNA Probe)-[facility] Specimen Type Urine Specimen Type Urine Specimen Type Urine Chlam DNA Not Detected Not Detected Chlam DNA Not Detected Not Detected GC DNA Not Detected Not Detected GC DNA Not Detected Not Detected Hepatitis B Surface 2019-02-27 Antibody-[facility] Hep Bs Ab Reactive Non Reactive Hep B Surface Ab >1000 Concentration Hepatitis B Surface 2019-02-27 Antigen-[facility] Hep Bs Ag Negative Negative Hepatitis C Antibody-[facility] 2019-02-27 Hep C Ab Non Reactive Non Reactive RPR (Rapid Plasma Reagin) 2019-02-27 Test-[facility] RPR Qual Non Reactive Non Reactive Urine Culture-[facility] 2019-02-27 Urine Culture Patient:WINTER CAO Urine Culture Urine Culture Urine Culture Routine Cultures Urine Culture Urine Culture Urine Culture PROCEDURE: Urine Culture [*1] Urine Culture SOURCE: U CleanCatch BODY SITE: Urine Culture COLLECTED DATE/TIME: 02/27/2019 19:09 EDT RECEIVED DATE/TIME: 02/27/2019 20:42 EDT Urine Culture START DATE/TIME: 02/27/2019 20:42 EDT FREE TEXT SOURCE: Urine Culture ORDERING PHYSICIAN: Lisa Cabrera Urine Culture Urine Culture FINAL REPORT Urine Culture Final Report [] Urine Culture Verified Date/Time: 02/28/2019 16:33 EDT Urine Culture 20,000 cfu/ml Mixed Gram positive species and Gram negative species Urine Culture 3 or more organisms present. Urine Culture Suggests contamination with genital/perineal brett. Urine Culture If clinically indicated, repeat sample Urine Culture should be considered. Urine Culture Urine Culture Urine Culture Performing Locations Urine Culture *1: This test was performed at: Urine Culture Laboratory, [facility], [address], [place], [address] HIV 1/2 Ag/Ab Combo 2019-02-27 (Preferred) HIV-1/HIV-2 Ag/Ab Combo Non Reactive Non Reac tive Screen TSH Reflex Panel 2019-02-27 3rd Gen TSH 0.865 0.358-3.740 REASON FOR VISIT 4 wk F/U, 34 yo female here remove IUD want start BCP > [place]/VERONICAA, 34 y/o female ER F/U Kannan/MALIKA , Returning for 4TH GEN, HCV, RPR, and GC/CHLAMYDIA throat lab results... Teresaeras PASS. , Returning for 4TH GEN, HCV, RPR, and GC/CHLAMYDIA throat lab results... MFerreras PASS, pass appt reminder- 05/23/19, STI's testing, pelvic pain, pelvic pain, yellow vaginal discharge with foul odor, denies itchiness. LMP 2 years ago. , F / U , Lab Results , lab results , 33 y.o female presents for f.u from [facility] in, got sent to ER. ER said kidney stones and UTI. Kostas DALY, discharge f/u , pwc f/u from 12/15/18, left knee pain, left knee pain Insurance Providers [facility] Member Patient Patient Patient Patient Patient Subscriber Subscriber Subscriber Group Insurance Plan Plan Plan Plan ID Relationship Address Phone Name Date of ID Name Date of No Type Insurance Insurance Insurance Coverage to Subscriber Address Phone Name Dates PASS [phone] PASS self WINTER [id number] [employer] [address] [address] ALLWAYS MY [phone] ALLWAYS MY self W[place] [address] [id number] [facility] [id number] [place] [id number] [facility] [phone] [place] [address] [id number] [address] DOLORES DALY [address] ALLWAYS MY [phone] ALLWAYS MY self WINTER 1984 0509 [id number] CARE [id number] [address] 20 CARE [facility] [facility]/OPTUM [place] [facility] [facility] [id number] BHS KIMMY [address] KIMMY self W[place] [id number] 9[address] HEALTH COL[place] 1 [facility] CHOICE [address] PENDING [address] PEND[address] self W[place] [id number] INSURANCE [facility] [id number] [employer] [phone] [employer] self W[place] [id number] CARE PLAN [id number] 00 CARE PLAN COLON AR[place]UL[place] [facility] [address]
[2022-10-09 20:21] LABS: MANUAL DIFF FLAG NO
[2022-10-09 20:25] LABS: Basophils Percent Auto 0.3 % (0-2); Eosinophils Absolute Auto 0.2 X10*3/uL (0.0-0.4); Eosinophils Percent Auto 1.6 % (0-4); Hematocrit 39.6 % (37.0-47.0); Hemoglobin 13.3 g/dl (12.0-16.0); Imm Gran Abs Auto 0.03 X10*3/uL (0.00-0.03); Imm Gran Pct Auto 0.3 % (0.0-0.4); Lymphocytes Absolute Auto 3.8 X10*3/uL (1.2-4.9); Lymphocytes Percent Auto 40.8 % (20-40); Mean Corpuscular HGB Conc 33.6 g/dl (31.0-35.0); Mean Corpuscular Hemoglobin 30.2 pg (27.0-33.0); Mean Platelet Volume 9.7 fL (9.4-12.3); Monocytes Absolute Auto 0.6 X10*3/uL (0.1-1.2); Monocytes Percent Auto 6.3 % (2-11); Neutrophils Absolute Auto 4.7 x10*3/uL (2.0-8.3); Neutrophils Percent Auto 50.7 % (45-73); Platelet Count 250 X10*3/uL (160-400); Red Cell Distribution Width 12.8 % (11.0-16.0); White Blood Count 9.3 X10*3/uL (4.8-10.8)
[2022-10-09 20:44] LABS: Alanine Aminotransferase 15 U/L (0-31); Albumin Level 4.1 g/dL (3.5-5.0); Alkaline Phosphatase 59 U/L (39-117); Anion Gap 10 (12-20); Aspartate Amino Transferase 17 U/L (5-31); Bilirubin Total 0.2 mg/dL (0.0-1.0); Blood Urea Nitrogen 13 mg/dL (9-16); Calcium 9.3 mg/dL (8.4-10.2); Carbon Dioxide 27 mmol/L (22-29); Chloride 102 mmol/L (96-108); Creatinine Clr Calc Pharmacy 103.1; Estimated Glomerular Filt Rate > 60; Glucose Random 99 mg/dL (60-115); Magnesium 2.1 mg/dL (1.6-2.6); Potassium 4.3 mmol/L (3.3-5.1); Sodium 135 mmol/L (135-145); Total Protein 6.9 g/dL (6.5-8.0)
[2022-10-09 20:51] LABS: HCG Quantitative < 2 mIU/mL
[2022-10-09 21:46] LABS: Lipase 28 U/L (8-78)
[2022-10-09] MEDS: 0.9 % Sodium Chloride 1,000 ML 999 ML IV (21:53)
[2022-10-09] MEDS: ondansetron HCL 4 MG/2 ML VIAL IVPUSH ×2 (21:55→23:28)
[2022-10-09] MEDS: Ketorolac Tromethamine 15 MG/ML VIAL IVPUSH (21:56)
[2022-10-09 22:11] LABS: Appearance Urine Clear; Color Urine Yellow; Glucose Urine UA Negative (Negative); Leukocyte Esterase Urine Moderate (2+) (Negative); Nitrite Urine Negative (Negative); PH 6.5 (5.0-9.0); UMIC TRIGGER UACC YES; Urine Blood Negative (Negative); Urine Ketones Negative (Negative); Urine Protein Negative (Neg-Trace)
[2022-10-09 23:13] LABS: Bacteria Urine 1+ (None Seen); Hyaline Casts Urine 0-2 /LPF (0-2); UACC Culture Trigger YES
[2022-10-09] MEDS: Morphine Sulfate 4 MG/ML CARTRIDGE IVPUSH (23:28)
[2022-10-09 23:53] VITALS: BP 101/51; PULSE 60; RESP 18; TEMP 36.9; O2SAT 97
[2022-10-10] MEDS: Morphine Sulfate 4 MG/ML CARTRIDGE IVPUSH (00:43)
[2022-10-10 00:47] VITALS: BP 103/65; PULSE 64
--- NOTE | 2022-10-10 01:40 | PC.NURSE ---
Prior to d/c pt resting in bed, still reports pain at 6/10 in the abdomen. Pt. reported epigastric pain that quickly subsided. Provided with ice water and saltines and this helped. Epigastric pain resolved. IV removed, pt medicated per JAN and pt. d/c'd to home.
== END 2022-10-10 01:45 | disposition home or self-care (01) ==
PROVIDERS: Physician Assistant Medical; Emergency Provider Emergency Medicine Emergency Medical Services; PCP Nurse Practitioner Primary Care
DX: R10.31 Right lower quadrant pain (principal); U07.1 COVID-19; Z87.442 Personal history of urinary calculi; Z79.899 Other long term (current) drug therapy
CPT/HCPCS: 36415; 74176; 80053; 81001; 81003; 83690; 83735; 84702; 85025; 87086; 96374; 96375; 96376; 99284; J1885; J2270; J2405

== ENCOUNTER 2022-12-17 17:12 | Emergency (ER) | payer MEDICAID, SELFPAY ==
[2022-12-17 17:19] VITALS: BP 128/71; PULSE 76; RESP 18; TEMP 35.8; O2SAT 97; BMI 34.1
--- OUTSIDE RECORDS SUMMARY | 2022-12-17 18:41 | XMS_ITS ---
:1985 Author Organization [facility] - OB/Family Planning Address [address] [place] [address] Care Team Providers Name Role Phone Priti Dunn Unavailable Unavailable PROBLEMS Type Condition ICD9-CM Code FQR58-JT Code Onset Condition SNO MED Code Dates Status Problem Depression with F41.8 Active 2315 20956 anxiety Problem Homeless Z59.0 Active [id number] ALLERGIES No Known Allergies ENCOUNTERS Encounter Location Date Diagnosis [facility] - OB/Family [address] [place] [address], Jun, [place] [address] Z30.432 and Enco unter for initial prescrip tion of contraceptive pi lls Z30.011 [facility] - Fam Med [address] [place] [address], Jun, Generaliz ed abdominal pain [place] R10.84 ; Homeles s Z59.0 and Unspecified contraceptive al nagerica Z30.9 [facility] - PASS [address] [place] [address], May, [place] HC - PASS [address] [place] [address], May, [place] [facility] - PASS [address] [place] [address], Apr, Encounter for screening [place] for infections w ith a predominantly se xual mode of transmission Z11.3 and Encounter for sc reening for infectious a nd parasitic diseas es, unspecified Z11. 9 [facility] - Patient Walk-In [address] [place] [address], Apr, Va ginal discharge N89.8 ; Center [place] Other specified bacterial agents as the ca use of diseases classif ied elsewhere B96.89 and Acute vaginitis N76.0 [facility] - Pediatrics [address] [facility], Feb, [place] LC - Fam Med [address] [facility], Feb, [place] [facility] - Fam Med [address] [facility], Feb, Dysuria R 30.0 ; Screening [place] for venereal dis ease Z11.3 and Weight loss R63.4 HC - Patient Walk-In [address] [place] [address], Dec, Ac sherie pain of left knee Center [place] M25.562 HC - PSC [address] [facility], Dec, [place] HC - PSC [address] [facility], Nov, [place] [facility] - PSC [address] [facility], Nov, [place] [facility] - PSC [address] [facility], Nov, [place] IMMUNIZATIONS Vaccine Route Administration Date [...] PROCEDURES Procedure Date Ordered Result Body Site IUD Removal Jun 27, 2019 ([id number]) NURSE VISIT; ESTABLISHED May 03, 2019 SPECIMEN HANDLING February 27, 2019 URINALYSIS W/O MICRO February 27, 2019 SPECIMEN HANDLING May 03, 2019 SPECIMEN HANDLING May 03, 2019 VENIPUNCT, ROUTINE* May 03, 2019 ([id number]) ESTABLISHED PATIENT LEVEL 3 Jun 20, 2019 VITAL SIGNS RECORDED May 03, 2019 URINE TEST February 27, 2019 ([id number]) ESTAB PATIENT LEVEL 4 February 27, 2019 SIALIDASE ENZYME ASSAY May 03, 2019 ([id number]) ESTABLISHED PATIENT LEVEL 3 May 03, 2019 RESULTS Name Result Date Reference Range GC-Chlamydia (Sexually Corea 2019-05-03 Dis (Amp. DNA Probe)-[facility] Chlamydia Chlamydia/GC Specimen Type N. gonorrhoeae DNA Chlamydia Trachomatis DNA Chlamydia/GC Specimen Type N. gonorrhoeae DNA Hepatitis C Antibody-[facility] 2019-05-03 Hep C Ab initials RPR (Rapid Plasma Reagin) 2019-05-03 Test-[facility] RPR Qual RPR HIV 1/2 Ag/Ab Combo 2019-05-03 (Preferred) HIV HIV-1/HIV-2 Ag/Ab Combo Screen GC-Chlamydia (Sexually Corea 2019-05-03 Dis (Amp. DNA Probe)-[facility] Specimen Type Endocervical Specimen Type Endocervical Specimen [...] test was performed at: Vaginitis Screen Laboratory, [facility], [address] [place] [address], [place], [address] Glomerular Filtration Rate 2019-02-27 (GFR) Estimated Afn [...] 35.0-51.0 MPV 11.0 9.4-12.4 Comprehensive Metabolic 2019-02-27 Panel-[facility] BUN 16 6-20 Creatinine 0.836 0.550-1.300 Sodium Lvl 137 136-146 Potassium Lvl 4.9 3.6-5.2 Chloride 109 98-110 CO2 24 21-32 Anion Gap 4 3-11 Total Protein 7.9 6.0-8.4 Albumin Lvl 4.4 3.2-5.0 Calcium Lvl 10.0 8.5-10.5 Glucose Lvl 84 70-110 Bili Total 0.6 0.2-1.2 Alk Phos 79 30-117 AST 19 6-40 ALT 58 6-55 GC-Chlamydia (Sexually Corea 2019-02-27 Dis (Amp. DNA Probe)-[facility] Specimen Type Urine Specimen Type Urine Specimen Type Urine Chlam DNA Not Detected Not Detected Chlam DNA Not Detected Not Detected GC DNA Not Detected Not Detected GC DNA Not Detected Not Detected Hepatitis B Surface 2019-02-27 Antibody-[facility] Hep Bs Ab Reactive Non Reactive Hep B Surface Ab >1000 Concentration Hepatitis B Surface 2019-02-27 Antigen-[facility] Hep Bs Ag Negative Negative Hepatitis C Antibody-[facility] 2019-02-27 Hep C Ab Non Reactive Non Reactive RPR (Rapid Plasma Reagin) 2019-02-27 Test-[facility] RPR Qual Non Reactive Non Reactive Urine Culture-[facility] 2019-02-27 Urine Culture Patient:WINTER CAO Urine Culture [...] test was performed at: Urine Culture Laboratory, [facility], [address], [place], [address] HIV 1/2 Ag/Ab Combo 2019-02-27 (Preferred) HIV-1/HIV-2 Ag/Ab Combo Non Reactive Non Reac tive Screen TSH Reflex Panel 2019-02-27 3rd Gen TSH 0.865 0.358-3.740 REASON FOR VISIT 4 wk F/U, 34 yo female here remove IUD want start BCP > [place]/VERONICAA, 34 y/o female ER F/U Kannan/MLAIKA , Returning for 4TH GEN, HCV, RPR, and GC/CHLAMYDIA throat lab results... MFerreras PASS. , Returning for 4TH GEN, HCV, RPR, and GC/CHLAMYDIA throat lab results... MFerreras PASS, pass appt reminder- 05/23/19, STI's testing, pelvic pain, pelvic pain, yellow vaginal discharge with foul odor, denies itchiness. LMP 2 years ago. , F / U , Lab Results , lab results , 33 y.o female presents for f.u from [facility] in, got sent to ER. ER said kidney stones and UTI. Kostas DALY, discharge f/u , pwc f/u from 12/15/18, left knee pain, left knee pain Insurance Providers [facility] Member Patient Patient Patient Patient Patient Subscriber Subscriber Subscriber Group Insurance Plan Plan Plan Plan ID Relationship Address Phone Name Date of ID Name Date of No Type Insurance Insurance Insurance Coverage to Subscriber Address Phone Name Dates ALLWAYS MY [phone] ALLWAYS MY self W[place] 1984 [id number] CARE [id number] [address] 20 CARE [facility] BHS/OPTUM [place] B[facility]/OPTUM [place] [id number] BHS PASS [phone] PASS self W[place] [id number] [address] [address] ALLWAYS MY [phone] ALLWAYS MY self W[place] 1984 [address] [id number] CARE [id number] [place] [address] [employer] [phone] [employer] self W[place] [id number] CARE PLAN [id number] 00 CARE PLAN [facility] [address] KIMMY [address] self W[place] [id number] HEALTH 9118 HEALTH COL[place] 1 [facility] [place] CHOICE [id number] [place] [phone] [place] self W[place] 1984 [address]509 [id number] 24 [address] MALIK[place] [address] PENDING 161 PENDING self W[place] [id number] INSURANCE [facility] [id number]
[2022-12-17 18:43] LABS: MANUAL DIFF FLAG NO
[2022-12-17 18:45] LABS: Basophils Absolute Auto 0.1 X10*3/uL (0.0-0.2); Basophils Percent Auto 0.6 % (0-2); Eosinophils Absolute Auto 0.2 X10*3/uL (0.0-0.4); Eosinophils Percent Auto 1.7 % (0-4); Hemoglobin 13.1 g/dl (12.0-16.0); Imm Gran Abs Auto 0.03 X10*3/uL (0.00-0.03); Imm Gran Pct Auto 0.3 % (0.0-0.4); Lymphocytes Absolute Auto 3.3 X10*3/uL (1.2-4.9); Lymphocytes Percent Auto 30.3 % (20-40); Mean Corpuscular HGB Conc 33.6 g/dl (31.0-35.0); Mean Corpuscular Hemoglobin 30.8 pg (27.0-33.0); Mean Corpuscular Volume 91.5 fL (80.0-98.0); Mean Platelet Volume 9.8 fL (9.4-12.3); Monocytes Absolute Auto 0.7 X10*3/uL (0.1-1.2); Neutrophils Absolute Auto 6.7 x10*3/uL (2.0-8.3); Neutrophils Percent Auto 61.1 % (45-73); Platelet Count 262 X10*3/uL (160-400); Red Blood Count 4.26 X10*6/uL (4.20-5.50); Red Cell Distribution Width 12.9 % (11.0-16.0); White Blood Count 10.9 X10*3/uL (4.8-10.8)
[2022-12-17 18:46] LABS: Appearance Urine Clear; Color Urine Yellow; Glucose Urine UA Negative (Negative); Leukocyte Esterase Urine Trace (Negative); Nitrite Urine Negative (Negative); UMIC TRIGGER UACC YES; Urine Blood Negative (Negative); Urine Ketones Negative (Negative); Urine Protein Negative (Neg-Trace)
[2022-12-17 18:48] LABS: Bacteria Urine 1+ (None Seen); Hyaline Casts Urine 0-2 /LPF (0-2); RBC Urine 0-2 /HPF (0-2); Squamous Epithelial Cell Urine 0-2 /HPF (0-2); UPreg QC Valid YES; Urine Pregnancy NEGATIVE (NEGATIVE); WBC Urine 0-5 /HPF (0-5)
[2022-12-17 18:58] LABS: Alanine Aminotransferase 19 U/L (0-31); Albumin Level 3.9 g/dL (3.5-5.0); Alkaline Phosphatase 61 U/L (39-117); Anion Gap 12 (12-20); Aspartate Amino Transferase 16 U/L (5-31); Bilirubin Direct < 0.2 mg/dL (0.0-0.5); Bilirubin Total 0.2 mg/dL (0.0-1.0); Blood Urea Nitrogen 18 mg/dL (9-16); Calcium 9.1 mg/dL (8.4-10.2); Carbon Dioxide 26 mmol/L (22-29); Chloride 108 mmol/L (96-108); Creatinine Clr Calc Pharmacy 81.1; Estimated Glomerular Filt Rate > 60; Glucose Random 101 mg/dL (60-115); Lipase 23 U/L (8-78); Potassium 4.4 mmol/L (3.3-5.1); Sodium 142 mmol/L (135-145); Total Protein 6.5 g/dL (6.5-8.0)
[2022-12-17 22:23] VITALS: BP 104/50; PULSE 73; RESP 18; O2SAT 99
[2022-12-17 22:51] VITALS: BP 108/70; PULSE 79; RESP 18; TEMP 36.8; O2SAT 99
--- NOTE | 2022-12-17 23:08 | ED_ITS ---
HPI - Abdominal Pain General Chief Complaint: Abdominal Pain Stated Complaint: right lower abd and back pain Time Seen by Provider: 12/17/22 23:04 Source: patient Mode of arrival: ambulatory Limitations: no limitations History of Present Illness HPI narrative: Patient is 37 years old with history of GERD depression asthma anxiety status post cholecystectomy with chronic abdominal pain had multiple CT scans in last 2 years and ultrasound all negative for kidney stone. Patient already seen by district adviser possible patient has IBS comes here for 2 days of pain loaded on the right side was spread to other side with nausea, vomiting and diarrhea 2- 3 times a day no fever no chills Related Data Home Medications Medication Instructions Recorded Confirmed albuterol sulfate 90 mcg/actuation 0 mcg inhalation 10/08/21 aerosol inhaler (ProAir HFA) cholecalciferol (vitamin D3) 25 25 mcg PO DAILY 10/08/21 mcg (1,000 unit) capsule Previous Rx's Medication Instructions Recorded methylcellulose (laxative) 500 mg 500 mg PO DAILY #30 tabs 10/08/21 tablet (Citrucel) cholestyramine (with sugar) 4 gram 4 g PO BID #378 grams 03/04/22 oral powder famotidine 40 mg tablet 40 mg PO BEDTIME #30 tabs 03/04/22 pantoprazole 40 mg tablet,delayed 40 mg PO DAILY #90 tabs 03/04/22 release morphine 15 mg immediate release 15 mg PO Q4-6H PRN pain #10 tabs 10/10/22 tablet ondansetron 4 mg disintegrating 4 mg PO Q6-8H PRN nausea and 10/10/22 tablet vomiting #14 tabs dicyclomine 20 mg tablet 20 mg PO TID PRN abdominal pain 12/17/22 #20 tabs Allergies Allergy/AdvReac Type Severity Reaction Status Date / Time No Known Allergies Allergy Verified 03/04/22 09:34 [No Known Allergies*] Review of Systems Review of Systems Yes all other systems are reviewed and are negative PMFSH Past Medical History Medical History Anxiety Asthma Depression GERD (gastroesophageal reflux disease) Surgical History History of esophagogastroduodenoscopy (EGD) History of partial hysterectomy Hx of cholecystectomy Family History Family History Mother Diabetes Father HTN (hypertension) Social History Social History Alcohol intake: current Alcohol intake frequency: holidays/special occasions only Patient Tobacco Use Status: Never used Tobacco Smoked in Last 30 Days: No Use of substances other than those prescribed or required for medical reasons: No Advance Directives: No Advance Directives Information Provided: No Patient : No Physical Exam ED Vital Signs: Vital Signs - 24 hr 12/17/22 17:19 12/17/22 22:23 12/17/22 22:51 Temperature 96.5 F L 98.2 F Pulse Rate 76 73 79 Respiratory Rate 18 18 18 Blood Pressure 128/71 104/50 L 108/70 Pulse Oximetry 97 99 99 Oxygen Delivery Method Room Air Room Air Room Air BMI result Body Mass Index 34.1 Appearance: Alert. Oriented X3. No acute distress. Eyes: PERRLA, No Nystagmus ENT: Pharynx normal. Oral Mucosa moist Neck: Normal inspection. Neck supple. CVS: Normal heart rate and rhythm. Pulses normal. Respiratory: No respiratory distress. Equal air entry bilateral, no wheezing/rales/rhonchi Abdomen: Soft mild discomfort right mid abdomen, Bowel sounds are present, no mass palpable, no CVA tenderness Skin: Skin warm and dry. Normal skin color. Normal skin turgor. Extremities: No lower extremity edema. No calf tenderness Neuro: Oriented X 3. No motor deficit. Medical Decision Making Medical Decision Making MDM Narrative: Patient on specific chronic abdominal pain multiple CT scans in last 2 years negative for any kidney stone or pathology been told that she likely IBS [place] been followed by district adviser today labs were stable no acute pathology suspected will discharge patient home on dicyclomine Lab Data [facility] Lab Attestation statement: I reviewed the patient's lab results. 12/17/22 18:37 12/17/22 18:37 Labs: Lab Results 12/17/22 12/17/22 12/17/22 Range/Units 18:37 18:37 18:37 WBC 10.9 H (4.8-10.8) X10*3/uL RBC 4.26 (4.20-5.50) X10*6/uL Hgb 13.1 (12.0-16.0) g/dl Hct 39.0 (37.0-47.0) % MCV 91.5 (80.0-98.0) fL MCH 30.8 (27.0-33.0) pg MCHC 33.6 (31.0-35.0) g/dl RDW 12.9 (11.0-16.0) % Plt Count 262 (160-400) X10*3/uL MPV 9.8 (9.4-12.3) fL Immature Gran % (Auto) 0.3 (0.0-0.4) % Neut % (Auto) 61.1 (45-73) % Lymph % (Auto) 30.3 (20-40) % [place] % (Auto) 6.0 (2-11) % Eos % (Auto) 1.7 (0-4) % Baso % (Auto) 0.6 (0-2) % Lymph # (Auto) 3.3 (1.2-4.9) X10*3/uL [place] # (Auto) 0.7 (0.1-1.2) X10*3/uL Eos # (Auto) 0.2 (0.0-0.4) X10*3/uL Baso # (Auto) 0.1 (0.0-0.2) X10*3/uL Abs Immat Gran (auto) 0.03 (0.00-0.03) X10*3/uL Absolute Neuts (auto) 6.7 (2.0-8.3) x10*3/uL Absolute Nucleated RBC 0.000 (0.0-0.012) X10*3/uL Nucleated RBC % (auto) 0.0 (0.0-0.2) /100WBC Sodium 142 (135-145) mmol/L Potassium 4.4 (3.3-5.1) mmol/L Chloride 108 (96-108) mmol/L Carbon Dioxide 26 (22-29) mmol/L Anion Gap 12 (12-20) BUN 18 H (9-16) mg/dL Creatinine 0.93 (0.5-1.4) mg/dL Estim Creat Clear Calc 81.1 Estimated GFR > 60 Random Glucose 101 (60-115) mg/dL Calcium 9.1 (8.4-10.2) mg/dL Total Bilirubin 0.2 (0.0-1.0) mg/dL Direct Bilirubin < 0.2 (0.0-0.5) mg/dL AST 16 (5-31) U/L ALT 19 (0-31) U/L Alkaline Phosphatase 61 (39-117) U/L Total Protein 6.5 (6.5-8.0) g/dL Albumin 3.9 (3.5-5.0) g/dL Lipase 23 (8-78) U/L Urine Color Yellow Urine Appearance Clear Urine pH 6.0 (5.0-9.0) Ur Specific [place] 1.020 (1.005-1.025) Urine Protein Negative (Neg-Trace) mg/dL Urine Glucose (UA) Negative (Negative) mg/dL Urine Ketones Negative (Negative) mg/dL Urine Blood Negative (Negative) Urine Nitrite Negative (Negative) Ur Leukocyte Esterase Trace H (Negative) Urine RBC 0-2 (0-2) /HPF Urine WBC 0-5 (0-5) /HPF Ur Squamous Epith Cells 0-2 (0-2) /HPF Urine Bacteria 1+ (None Seen) Hyaline Casts 0-2 (0-2) /LPF Urine Test (NEGATIVE) 12/17/22 Range/Units 18:37 WBC (4.8-10.8) X10*3/uL RBC (4.20-5.50) X10*6/uL Hgb (12.0-16.0) g/dl Hct (37.0-47.0) % MCV (80.0-98.0) fL MCH (27.0-33.0) pg MCHC (31.0-35.0) g/dl RDW (11.0-16.0) % Plt Count (160-400) X10*3/uL MPV (9.4-12.3) fL Immature Gran % (Auto) (0.0-0.4) % Neut % (Auto) (45-73) % Lymph % (Auto) (20-40) % [place] % (Auto) (2-11) % Eos % (Auto) (0-4) % Baso % (Auto) (0-2) % Lymph # (Auto) (1.2-4.9) X10*3/uL [place] # (Auto) (0.1-1.2) X10*3/uL Eos # (Auto) (0.0-0.4) X10*3/uL Baso # (Auto) (0.0-0.2) X10*3/uL Abs Immat Gran (auto) (0.00-0.03) X10*3/uL Absolute Neuts (auto) (2.0-8.3) x10*3/uL Absolute Nucleated RBC (0.0-0.012) X10*3/uL Nucleated RBC % (auto) (0.0-0.2) /100WBC Sodium (135-145) mmol/L Potassium (3.3-5.1) mmol/L Chloride (96-108) mmol/L Carbon Dioxide (22-29) mmol/L Anion Gap (12-20) BUN (9-16) mg/dL Creatinine (0.5-1.4) mg/dL Estim Creat Clear Calc Estimated GFR Random Glucose (60-115) mg/dL Calcium (8.4-10.2) mg/dL Total Bilirubin (0.0-1.0) mg/dL Direct Bilirubin (0.0-0.5) mg/dL AST (5-31) U/L ALT (0-31) U/L Alkaline Phosphatase (39-117) U/L Total Protein (6.5-8.0) g/dL Albumin (3.5-5.0) g/dL Lipase (8-78) U/L Urine Color Urine Appearance Urine pH (5.0-9.0) Ur Specific [place] (1.005-1.025) Urine Protein (Neg-Trace) mg/dL Urine Glucose (UA) (Negative) mg/dL Urine Ketones (Negative) mg/dL Urine Blood (Negative) Urine Nitrite (Negative) Ur Leukocyte Esterase (Negative) Urine RBC (0-2) /HPF Urine WBC (0-5) /HPF Ur Squamous Epith Cells (0-2) /HPF Urine Bacteria (None Seen) Hyaline Casts (0-2) /LPF Urine Test NEGATIVE (NEGATIVE) Discharge Plan Discharge Clinical Impression: Irritable bowel syndrome Patient Disposition: Home, Self-Care Instructions: Irritable Bowel Syndrome (ED) Additional Instructions: Drink plenty of fluids Medication as prescribed for abdominal discomfort Follow-up with district adviser Prescriptions: New dicyclomine 20 mg tablet 20 mg PO TID PRN (Reason: abdominal pain) Qty: 20 0RF No Action morphine 15 mg tablet 15 mg PO Q4-6H PRN (Reason: pain) Qty: 10 0RF Rx Instructions: The patient may ask for partial fill; Partial Fill upon patient request. ondansetron 4 mg tablet,disintegrating 4 mg PO Q6-8H PRN (Reason: nausea and vomiting) Qty: 14 0RF cholecalciferol (vitamin D3) 25 mcg (1,000 unit) capsule 25 mcg PO DAILY albuterol sulfate [ProAir HFA] 90 mcg/actuation HFA aerosol inhaler 0 mcg inhalation Citrucel 500 mg tablet 500 mg PO DAILY Qty: 30 2RF Rx Instructions: take it with full glass of water cholestyramine (with sugar) 4 gram powder 4 g PO BID Qty: 378 3RF Rx Instructions: no meds 1 hr before/4-6 hr after dose pantoprazole 40 mg tablet,delayed release (DR/EC) 40 mg PO DAILY Qty: 90 2RF Rx Instructions: take one tablet half an hour before breakfast famotidine 40 mg tablet 40 mg PO BEDTIME Qty: 30 3RF
[2022-12-17] MEDS: Dicyclomine HCl 10 MG CAPSULE 20 MG PO (23:52)
== END 2022-12-18 00:05 | disposition home or self-care (01) ==
PROVIDERS: Emergency Provider Internal Medicine; PCP Nurse Practitioner Primary Care
DX: K58.9 Irritable bowel syndrome, unspecified (principal); K21.9 Gastro-esophageal reflux disease without esophagitis; Z90.49 Acquired absence of other specified parts of digestive tract; Z90.711 Acquired absence of uterus with remaining cervical stump; Z79.899 Other long term (current) drug therapy
CPT/HCPCS: 36415; 80053; 81001; 81025; 82248; 83690; 85025; 99283; 99284

== ENCOUNTER 2023-03-08 19:01 | Emergency (ER) | payer MEDICAID, SELFPAY ==
--- NOTE | 2023-03-08 19:10 | ED.ABDPAIN ---
HPI - Abdominal Pain General Chief Complaint: Nausea/Vomiting/Diarrhea Stated Complaint: ABD PAIN Time Seen by Provider: 03/08/23 19:09 Source: patient Mode of arrival: EMS Limitations: no limitations History of Present Illness HPI narrative: epigastric pain getting worse all day. Nausea no vomiting. Patient states she had a fever of 101 at home. Headache as well. patient with 4 CT scans of the abdomen in the past 2 years. MD elicited complaint: abdominal pain Pertinent past history: other (irritable bowel syndrome) Onset (ago): hour(s) Pain Consistency: constant Location: epigastric Severity: moderate Associated symptoms: nausea Related Data Home Medications Medication Instructions Recorded Confirmed albuterol sulfate 90 mcg/actuation 0 mcg inhalation 10/08/21 aerosol inhaler (ProAir HFA) cholecalciferol (vitamin D3) 25 25 mcg PO DAILY 10/08/21 mcg (1,000 unit) capsule Previous Rx's Medication Instructions Recorded methylcellulose (laxative) 500 mg 500 mg PO DAILY #30 tabs 10/08/21 tablet (Citrucel) cholestyramine (with sugar) 4 gram 4 g PO BID #378 grams 03/04/22 oral powder famotidine 40 mg tablet 40 mg PO BEDTIME #30 tabs 03/04/22 pantoprazole 40 mg tablet,delayed 40 mg PO DAILY #90 tabs 03/04/22 release morphine 15 mg immediate release 15 mg PO Q4-6H PRN pain #10 tabs 10/10/22 tablet ondansetron 4 mg disintegrating 4 mg PO Q6-8H PRN nausea and 10/10/22 tablet vomiting #14 tabs dicyclomine 20 mg tablet 20 mg PO TID PRN abdominal pain 12/17/22 #20 tabs ondansetron 4 mg disintegrating 4 mg PO Q8H 4 days #12 tabs 03/08/23 tablet pantoprazole 40 mg tablet,delayed 40 mg PO DAILY #20 tabs 03/08/23 release (Protonix) Allergies Allergy/AdvReac Type Severity Reaction Status Date / Time No Known Allergies Allergy Verified 03/08/23 19:15 [No Known Allergies*] Review of Systems Review of Systems Yes all other systems are reviewed and are negative Constitutional: Reports fever(s) Gastrointestinal: Reports abdominal pain PMFSH Past Medical History Medical History Anxiety Asthma Depression GERD (gastroesophageal reflux disease) Surgical History History of esophagogastroduodenoscopy (EGD) History of partial hysterectomy Hx of cholecystectomy Family History Family History Mother Diabetes Father HTN (hypertension) Social History Social History Alcohol intake: current Alcohol intake frequency: holidays/special occasions only Patient Tobacco Use Status: Never used Tobacco Advance Directives: No Advance Directives Information Provided: No Patient : No Physical Exam ED Vital Signs: Vital Signs - 24 hr 03/08/23 19:11 03/08/23 20:41 03/08/23 21:13 Temperature 99.6 F 98.6 F Pulse Rate 116 H 93 94 Respiratory Rate 20 18 16 Blood Pressure 122/57 L 91/48 L Pulse Oximetry 96 97 96 Oxygen Delivery Method Room Air Room Air Room Air BMI result Body Mass Index 33.6 Const Other: very anxious Nutritional Appearance: average body habitus Orientation/consciousness: oriented to person and patient oriented x3 Limitations: no limitations HENMT Head: Yes normal to inspection Ears: external ears normal General nose exam: Normal external nose present Mouth: Normal oral and palatal mucosa present and oropharynx normal Throat: Yes posterior oropharynx normal Eyes General: appearance normal, both eyes and all related structures Neck Neck: Yes normal visual inspection Chest Chest palpation & inspection: normal inspection of the chest Resp Auscultation: clear to auscultation bilaterally Cardio Jugular venous distension: no JVD Rate: regular rate Rhythm: regular rhythm Heart sounds: S1 normal heart sound present and S2 normal heart sound present GI Other: diffuse tenderness completely soft Palpation (GI): Soft to palpation Auscultation: normal bowel sounds General: Yes no CVA tenderness Back/Spine/Pelvis Back: no CVA tenderness Skin General skin exam: no rashes or lesions noted Neuro General: oriented to person and patient oriented x3 Cranial nerves: Yes CN's II-XII intact bilaterally Motor exam (neuro): 5/5 motor strength present throughout Extrem General: Yes normal to inspection Psych Appearance: grossly normal Course Reevaluation(s) Reevaluation #1: patient with multiple visits for the same with negative workup, today no fever, labs normal will dc home on protonix and zofran Time: 21:31 Medical Decision Making Differential Diagnosis Differential Diagnoses: The differential diagnosis associated with the presentation includes (gastritis, IBS, chronic pain) Lab Data MDM Lab Attestation statement: I reviewed the patient's lab results. 03/08/23 19:33 03/08/23 19:33 Labs: Lab Results 03/08/23 03/08/23 03/08/23 Range/Units 19:33 19:33 20:44 WBC 12.0 H (4.8-10.8) X10*3/uL RBC 4.49 (4.20-5.50) X10*6/uL Hgb 13.7 (12.0-16.0) g/dl Hct 41.0 (37.0-47.0) % MCV 91.3 (80.0-98.0) fL MCH 30.5 (27.0-33.0) pg MCHC 33.4 (31.0-35.0) g/dl RDW 13.2 (11.0-16.0) % Plt Count 241 (160-400) X10*3/uL MPV 10.0 (9.4-12.3) fL Immature Gran % (Auto) 0.2 (0.0-0.4) % Neut % (Auto) 91.9 H (45-73) % Lymph % (Auto) 4.4 L (20-40) % [place] % (Auto) 3.2 (2-11) % Eos % (Auto) 0.1 (0-4) % Baso % (Auto) 0.2 (0-2) % Lymph # (Auto) 0.5 L (1.2-4.9) X10*3/uL [place] # (Auto) 0.4 (0.1-1.2) X10*3/uL Eos # (Auto) 0.0 (0.0-0.4) X10*3/uL Baso # (Auto) 0.0 (0.0-0.2) X10*3/uL Abs Immat Gran (auto) 0.03 (0.00-0.03) X10*3/uL Absolute Neuts (auto) 11.0 H (2.0-8.3) x10*3/uL Absolute Nucleated RBC 0.000 (0.0-0.012) X10*3/uL Nucleated RBC % (auto) 0.0 (0.0-0.2) /100WBC Smear Tech's Comments VERIFIED Sodium 138 (135-145) mmol/L Potassium 4.0 (3.3-5.1) mmol/L Chloride 108 (96-108) mmol/L Carbon Dioxide 21 L (22-29) mmol/L Anion Gap 13 (12-20) BUN 15 (9-16) mg/dL Creatinine 0.77 (0.5-1.4) mg/dL Estim Creat Clear Calc 97.2 Estimated GFR > 60 Random Glucose 117 H (60-115) mg/dL Calcium 8.8 (8.4-10.2) mg/dL Total Bilirubin 0.9 (0.0-1.0) mg/dL AST 16 (5-31) U/L ALT 16 (0-31) U/L Alkaline Phosphatase 64 (39-117) U/L Total Protein 6.5 (6.5-8.0) g/dL Albumin 3.8 (3.5-5.0) g/dL Lipase 12 (8-78) U/L Urine Color Yellow Urine Appearance Clear Urine pH 6.0 (5.0-9.0) Ur Specific [place] 1.025 (1.005-1.025) Urine Protein Negative (Neg-Trace) mg/dL Urine Glucose (UA) Negative (Negative) mg/dL Urine Ketones Trace (Negative) mg/dL Urine Blood Trace H (Negative) Urine Nitrite Negative (Negative) Ur Leukocyte Esterase Small (1+) H (Negative) Urine RBC 3-5 H (0-2) /HPF Urine WBC 0-5 (0-5) /HPF Ur Squamous Epith Cells 3-5 (0-2) /HPF Urine Bacteria Trace (None Seen) Hyaline Casts 0-2 (0-2) /LPF External Record Review External record reviewed: Prior outpatient radiology Tests considered The following testing was considered but not selected: I considered getting a CT of the abdomen but patient with multiple CT in the past, soft abdomen, no fever, normal labs Chronic Conditions Patient?s care impacted by: Other (IBS) Medications Administered Discontinued Medications Generic Name Dose Route Start Last Admin Trade Name Freq PRN Reason Stop Dose Admin Acetaminophen 975 mg 03/08/23 20:36 03/08/23 20:39 Acetaminophen 325 Mg Tablet PO 03/08/23 20:37 975 mg ONCE ONE Administration Ondansetron HCl 4 mg 03/08/23 19:19 03/08/23 19:37 Ondansetron Hcl 4 Mg/2 Ml Vial IVPUSH 03/08/23 19:20 4 mg ONCE ONE Administration Pantoprazole Sodium 40 mg 03/08/23 19:19 03/08/23 19:37 Pantoprazole Sodium 40 Mg/10 Ml Vial IVPUSH 03/08/23 19:20 40 mg ONCE ONE Administration Discharge Plan Discharge Clinical Impression: Irritable bowel syndrome (IBS), Gastritis and duodenitis Patient Disposition: Home, Self-Care Instructions: Gastritis (DC), Irritable Bowel Syndrome (ED) Prescriptions: New pantoprazole [Protonix] 40 mg tablet,delayed release (DR/EC) 40 mg PO DAILY Qty: 20 0RF ondansetron 4 mg tablet,disintegrating 4 mg PO Q8H 4 Days Qty: 12 0RF No Action morphine 15 mg tablet 15 mg PO Q4-6H PRN (Reason: pain) Qty: 10 0RF Rx Instructions: The patient may ask for partial fill; Partial Fill upon patient request. ondansetron 4 mg tablet,disintegrating 4 mg PO Q6-8H PRN (Reason: nausea and vomiting) Qty: 14 0RF dicyclomine 20 mg tablet 20 mg PO TID PRN (Reason: abdominal pain) Qty: 20 0RF cholecalciferol (vitamin D3) 25 mcg (1,000 unit) capsule 25 mcg PO DAILY albuterol sulfate [ProAir HFA] 90 mcg/actuation HFA aerosol inhaler 0 mcg inhalation Citrucel 500 mg tablet 500 mg PO DAILY Qty: 30 2RF Rx Instructions: take it with full glass of water cholestyramine (with sugar) 4 gram powder 4 g PO BID Qty: 378 3RF Rx Instructions: no meds 1 hr before/4-6 hr after dose pantoprazole 40 mg tablet,delayed release (DR/EC) 40 mg PO DAILY Qty: 90 2RF Rx Instructions: take one tablet half an hour before breakfast famotidine 40 mg tablet 40 mg PO BEDTIME Qty: 30 3RF Referrals: Suha Mehta NP [Primary Care Provider] - 1 week
[2023-03-08 19:11] VITALS: BP 122/57; BP 132/92; PULSE 113; PULSE 116; RESP 20; TEMP 37.6; O2SAT 96; O2SAT 98; BMI 33.6
[2023-03-08] MEDS: Pantoprazole Sodium 40 MG/10 ML VIAL IVPUSH (19:37)
[2023-03-08] MEDS: ondansetron HCL 4 MG/2 ML VIAL IVPUSH (19:37)
[2023-03-08 19:49] LABS: Basophils Percent Auto 0.2 % (0-2); Eosinophils Percent Auto 0.1 % (0-4); Hemoglobin 13.7 g/dl (12.0-16.0); Imm Gran Abs Auto 0.03 X10*3/uL (0.00-0.03); Imm Gran Pct Auto 0.2 % (0.0-0.4); Lymphocytes Absolute Auto 0.5 X10*3/uL (1.2-4.9); Lymphocytes Percent Auto 4.4 % (20-40); MANUAL DIFF FLAG SCAN; Mean Corpuscular HGB Conc 33.4 g/dl (31.0-35.0); Mean Corpuscular Hemoglobin 30.5 pg (27.0-33.0); Mean Corpuscular Volume 91.3 fL (80.0-98.0); Monocytes Absolute Auto 0.4 X10*3/uL (0.1-1.2); Monocytes Percent Auto 3.2 % (2-11); Neutrophils Percent Auto 91.9 % (45-73); Platelet Count 241 X10*3/uL (160-400); Red Blood Count 4.49 X10*6/uL (4.20-5.50); Red Cell Distribution Width 13.2 % (11.0-16.0); SCAN SMEAR FLAG 1
[2023-03-08 20:04] LABS: Alanine Aminotransferase 16 U/L (0-31); Albumin Level 3.8 g/dL (3.5-5.0); Alkaline Phosphatase 64 U/L (39-117); Anion Gap 13 (12-20); Aspartate Amino Transferase 16 U/L (5-31); Bilirubin Total 0.9 mg/dL (0.0-1.0); Blood Urea Nitrogen 15 mg/dL (9-16); Calcium 8.8 mg/dL (8.4-10.2); Carbon Dioxide 21 mmol/L (22-29); Chloride 108 mmol/L (96-108); Creatinine Clr Calc Pharmacy 97.2; Estimated Glomerular Filt Rate > 60; Glucose Random 117 mg/dL (60-115); Lipase 12 U/L (8-78); Sodium 138 mmol/L (135-145); Total Protein 6.5 g/dL (6.5-8.0)
[2023-03-08 20:19] LABS: SLIDE REVIEW VERIFIED
[2023-03-08] MEDS: Acetaminophen 325 MG TABLET 975 MG PO (20:39)
[2023-03-08 20:41] VITALS: PULSE 93; RESP 18; O2SAT 97
[2023-03-08 20:51] LABS: Appearance Urine Clear; Color Urine Yellow; Glucose Urine UA Negative (Negative); Leukocyte Esterase Urine Small (1+) (Negative); Nitrite Urine Negative (Negative); Specific Gravity - Urine 1.025 (1.005-1.025); UMIC TRIGGER UACC YES; Urine Blood Trace (Negative); Urine Ketones Trace mg/dL (Negative); Urine Protein Negative (Neg-Trace)
[2023-03-08 21:03] LABS: Bacteria Urine Trace (None Seen); Hyaline Casts Urine 0-2 /LPF (0-2); UACC Culture Trigger YES; WBC Urine 0-5 /HPF (0-5)
[2023-03-08 21:13] VITALS: BP 91/48; PULSE 94; RESP 16; TEMP 37; O2SAT 96
[2023-03-08 21:42] VITALS: BP 99/53; PULSE 91; RESP 16; O2SAT 98
== END 2023-03-08 21:51 | disposition home or self-care (01) ==
PROVIDERS: Emergency Provider Emergency Medicine; PCP Nurse Practitioner Primary Care
DX: K58.9 Irritable bowel syndrome, unspecified (principal); K29.70 Gastritis, unspecified, without bleeding; Z79.899 Other long term (current) drug therapy
CPT/HCPCS: 36415; 80053; 81001; 83690; 85025; 87086; 96374; 96375; 99282; 99284; J2405

== ENCOUNTER → 2023-03-19 16:21 | Outpatient (BNVA) | payer MEDICAID, SELFPAY | PROVIDERS: PCP Nurse Practitioner Primary Care; Visit Provider Nurse Practitioner Family | DX: K21.00 Gastro-esophageal reflux disease with esophagitis, without bleeding (principal); K20.0 Eosinophilic esophagitis; K59.01 Slow transit constipation; K58.1 Irritable bowel syndrome with constipation; R13.10 Dysphagia, unspecified; Z90.49 Acquired absence of other specified parts of digestive tract | CPT/HCPCS: 99212 ==

== ENCOUNTER 2023-03-29 09:35 | Outpatient (REF) | payer MEDICAID, SELFPAY ==
[2023-03-29 11:30] LABS: Folate 8.2 ng/mL (> or = 4.0); TSH reflex Free T4 1.63 uIU/mL (0.32-4.0); Vitamin B12 257 pg/mL (200-900)
[2023-04-04 15:39] LABS: Vitamin D 25-OH, D2 <4 ng/mL; Vitamin D 25-OH, D3 19 ng/mL; Vitamin D 25-OH, Total 19 ng/mL (30-100)
== END 2023-03-29 09:36 | disposition home or self-care (01) ==
LOC: HO.LAB 09:35
PROVIDERS: PCP Nurse Practitioner Primary Care; Visit Provider Nurse Practitioner Family
DX: K21.9 Gastro-esophageal reflux disease without esophagitis (principal); R19.7 Diarrhea, unspecified; E55.9 Vitamin D deficiency, unspecified; K59.00 Constipation, unspecified
CPT/HCPCS: 36415; 82306; 82607; 82746; 84443; 86003

== ENCOUNTER 2023-10-14 10:56 | Emergency (ER) | payer MEDICAID, SELFPAY ==
[2023-10-14 11:23] VITALS: BP 143/88; PULSE 94; RESP 16; TEMP 36.3; O2SAT 97; BMI 34.4
--- NOTE | 2023-10-14 11:26 | ED.GENADULT ---
HPI - General Adult General Chief complaint: General Medical Stated complaint: Body pain 4 days Time Seen by Provider: 10/14/23 15:54 Source: patient, RN notes reviewed and old records reviewed Mode of arrival: ambulatory History of Present Illness HPI narrative: 38-year-old female with a past medical history of GERD, depression, anxiety, asthma, presenting to the ED complaining of low back pain radiating to buttocks/RLE x 4 days. Admits to taking Tylenol/ibuprofen and Flexeril at home without relief also reports chills/myalgias. Denies injury/trauma or fall, numbness/tingling, incontinence/retention, abdominal pain, nausea/vomiting, hematuria, dysuria Related Data Home Medications Medication Instructions Recorded Confirmed albuterol sulfate 90 mcg/actuation 0 mcg inhalation 10/08/21 aerosol inhaler (ProAir HFA) Previous Rx's Medication Instructions Recorded ondansetron 4 mg disintegrating 4 mg PO Q8H 4 days #12 tabs 03/08/23 tablet esomeprazole magnesium 20 mg 20 mg PO DAILY #30 tabs 03/19/23 tablet,delayed release (Nexium 24HR) sennosides 8.6 mg tablet (Natural 17.2 mg (2 x 8.6 mg) PO BEDTIME 03/19/23 Senna Laxative) constipation #60 tabs acetaminophen 500 mg tablet 500 mg PO Q6H PRN fever or pain 10/14/23 (Tylenol Extra Strength) #14 tabs cyclobenzaprine 5 mg tablet 5 mg PO Q8H PRN pain (scale score 10/14/23 7-10) 5 days #14 tabs lidocaine 5 % topical patch 1 patch topical DAILY PRN pain #30 10/14/23 (Lidoderm) ea Allergies Allergy/AdvReac Type Severity Reaction Status Date / Time No Known Allergies Allergy Verified 03/19/23 16:30 [No Known Allergies*] Review of Systems Review of Systems: Constitutional: No Fever, + Chills, No Fatigue, No Malaise ENT/Mouth: No Ear Pain, No Nasal Congestion, No sore throat, No Rhinorrhea, No Swallowing Difficulty Eyes: No Eye Pain, No Swelling, No Redness, No Vision Changes Cardiovascular: No Chest Pain, No SOB, No Edema, No Palpitations Respiratory: No Cough, No Sputum, No Dyspnea Gastrointestinal: No Nausea, No Vomiting, No Diarrhea, No Constipation, No Abdominal pain Genitourinary: No Dysuria, No Urinary Frequency, No Hematuria, No Urinary Incontinence/retention, No Urgency, No Flank Pain Musculoskeletal: +Joint pain, + Myalgias, No Joint Swelling Skin: No Skin Lesions, No rash Neuro: No Weakness, No Numbness, No Paresthesias, No Headache Yes all other systems are reviewed and are negative Constitutional: Constitutional: Reports as per HPI Neurologic: Denies Abnormal speech present [facility] Past Medical History Attestation statement: The following information was validated with the patient. Source: old records reviewed Medical History GERD (gastroesophageal reflux disease) Depression Anxiety Asthma Surgical History History of esophagogastroduodenoscopy (EGD) Hx of cholecystectomy History of partial hysterectomy Family History Family History Mother Diabetes Father HTN (hypertension) Social History Social History Alcohol intake: current Alcohol intake frequency: holidays/special occasions only Patient Tobacco Use Status: Never used Tobacco Advance Directives: No Physical Exam ED Vital Signs: Vital Signs - 24 hr 10/14/23 11:23 10/14/23 15:56 Temperature 97.4 F 98.1 F Pulse Rate 94 82 Respiratory Rate 16 16 Blood Pressure 143/88 H 104/55 L Pulse Oximetry 97 98 Oxygen Delivery Method Room Air Room Air BMI result Body Mass Index 34.4 Const General: cooperative, healthy appearing and no acute distress Orientation/consciousness: patient oriented x3 Limitations: no limitations [facility] Head: Yes normal to inspection and Yes atraumatic Ears: hearing grossly normal bilaterally General nose exam: Normal external nose present Face and sinus: Yes normal facial exam Eyes General: appearance normal, both eyes and all related structures EOM: EOMs intact bilaterally Neck Neck: Yes normal visual inspection and Yes no meningeal signs Resp Effort & Inspection: normal respiratory effort and no respiratory distress Auscultation: clear to auscultation bilaterally Cardio Rate: regular rate Heart sounds: S1 normal heart sound present and S2 normal heart sound present GI Inspection: Yes normal to inspection Palpation (GI): Soft to palpation, nontender, no guarding and not rigid General: Yes no CVA tenderness Back/Spine/Pelvis Other: No midline cervical/thoracic/lumbar spinous tenderness/step-off or deformity. + right-sided lower lumbar MSK tenderness to palpation reproducing subjective complaint. No rash/erythema Back: no CVA tenderness Skin Rashes: no rashes Wounds: no wounds Neuro General: patient oriented x3, gait normal, tone normal, moves all extremities, no meningeal signs and no focal motor deficits Cranial nerves: Yes CN's II-XII intact bilaterally Cognition (Neuro): normal cognition Speech: No Abnormal speech present Gait exam (Neuro): Normal gait present Motor exam (neuro): 5/5 motor strength present throughout Extrem General: Yes normal to inspection Course Course Course Narrative: This is an RME: Additional HPI, ROS, PE not included below will be deferred to primary provider. This is a 23-lcuu-vvv-female, with a history of GERD, depression, asthma, anxiety presenting to the emergency department with a complaint of diffuse body aches x 4 days. Reporting some constipation. No tick bites, no rashes. No animals that spend time outside. Vital signs stable. Patient is nontoxic appearing Plan: Labs, UA, viral swabs -labs reassuring -urine contaminated with 11-20 epithelials, will hold on antibiotic treatment at this time until culture results Results discussed with patient including worrisome signs and symptoms and strict return precautions, and when to return to the emergency department. They verbalized understanding and feel safe for discharge at this time. Medications Administered Discontinued Medications Generic Name Dose Route Start Last Admin Trade Name Yolanda PRN Reason Stop Dose Admin Ketorolac Tromethamine 30 mg 10/14/23 16:11 10/14/23 17:15 Ketorolac Tromethamine 30 Mg/Ml Vial IM 10/14/23 16:12 30 mg ONCE ONE Administration Lidocaine 1 patch 10/14/23 16:11 10/14/23 17:14 Lidocaine 4 % Patch Adh..Patch TRANSDERMA 10/14/23 16:12 1 patch ONCE ONE Administration Protocol Medical Decision Making Medical Decision Making MDM Narrative: 38-year-old female with a past medical history of GERD, depression, anxiety, asthma, presenting to the ED complaining of low back pain radiating to buttocks/RLE x 4 days. On exam vital signs stable, NAD, nontoxic appearing, physical exam as noted above, no midline spinous tenderness throughout or red flag symptoms. Abdomen soft/nontender. Right-sided MSK reproducible pain. Concern for sciatica/MSK pain/strain vs viral syndrome. Renal stones/pyelo on differential however lower. Unlikely ovarian pathology/torsion or appendicitis Plan: Labs, viral testing, UA, pain control Please refer to course for remaining clinical decision making, interpretation of labs/imaging results, and discussions with consultants and/or family members. Differential Diagnosis Differential Diagnoses: The differential diagnosis associated with the presentation includes As above Admission/Observation Consideration of admission/observation: Escalation of care including admission/observation considered Lab Data MDM Lab Attestation statement: I reviewed the patient's lab results. 10/14/23 12:43 10/14/23 12:43 Labs: Lab Results 10/14/23 10/14/23 Range/Units 12:43 16:47 WBC 7.9 (4.8-10.8) X10*3/uL RBC 4.30 (4.20-5.50) X10*6/uL Hgb 13.3 (12.0-16.0) g/dl Hct 39.5 (37.0-47.0) % MCV 91.9 (80.0-98.0) fL MCH 30.9 (27.0-33.0) pg MCHC 33.7 (31.0-35.0) g/dl RDW 12.8 (11.0-16.0) % Plt Count 231 (160-400) X10*3/uL MPV 9.9 (9.4-12.3) fL Immature Gran % (Auto) 0.4 (0.0-0.4) % Neut % (Auto) 56.8 (45-73) % Lymph % (Auto) 33.8 (20-40) % [place] % (Auto) 6.2 (2-11) % Eos % (Auto) 2.3 (0-4) % Baso % (Auto) 0.5 (0-2) % Lymph # (Auto) 2.7 (1.2-4.9) X10*3/uL [place] # (Auto) 0.5 (0.1-1.2) X10*3/uL Eos # (Auto) 0.2 (0.0-0.4) X10*3/uL Baso # (Auto) 0.0 (0.0-0.2) X10*3/uL Abs Immat Gran (auto) 0.03 (0.00-0.03) X10*3/uL Absolute Neuts (auto) 4.5 (2.0-8.3) x10*3/uL Absolute Nucleated RBC 0.000 (0.0-0.012) X10*3/uL Nucleated RBC % (auto) 0.0 (0.0-0.2) /100WBC Sodium 140 (135-145) mmol/L Potassium 4.1 (3.3-5.1) mmol/L Chloride 109 H (96-108) mmol/L Carbon Dioxide 26 (22-29) mmol/L Anion Gap 9 L (12-20) BUN 15 (9-16) mg/dL Creatinine 0.75 (0.5-1.4) mg/dL Estim Creat Clear Calc 100.0 Estimated GFR > 60 Random Glucose 91 (60-115) mg/dL Calcium 8.9 (8.4-10.2) mg/dL Magnesium 2.0 (1.6-2.6) mg/dL Total Bilirubin 0.1 (0.0-1.0) mg/dL Direct Bilirubin < 0.2 (0.0-0.5) mg/dL AST 18 (5-31) U/L ALT 17 (0-31) U/L Alkaline Phosphatase 57 (39-117) U/L Total Protein 6.8 (6.5-8.0) g/dL Albumin 3.8 (3.5-5.0) g/dL Urine Color Yellow Urine Appearance Cloudy Urine pH 6.5 (5.0-9.0) Ur Specific [place] 1.015 (1.005-1.025) Urine Protein Negative (Neg-Trace) mg/dL Urine Glucose (UA) Negative (Negative) mg/dL Urine Ketones Negative (Negative) mg/dL Urine Blood Negative (Negative) Urine Nitrite Negative (Negative) Ur Leukocyte Esterase Moderate (2+) H (Negative) Urine RBC 0-2 (0-2) /HPF Urine WBC 21-50 H (0-5) /HPF Ur Squamous Epith Cells 11-20 (0-2) /HPF Urine Bacteria 4+ (None Seen) Hyaline Casts 0-2 (0-2) /LPF Urine Test NEGATIVE (NEGATIVE) Influenza Type A (PCR) NEGATIVE (Negative) Influenza Type B (PCR) NEGATIVE (Negative) RSV RNA Qual (PCR) NEGATIVE (Negative) SARS-CoV-2 RNA (RT-PCR) NEGATIVE (Negative) Radiology Impression Discussion of test interpretation with radiology: I have reviewed the radiologist's reading. External Record Review External record reviewed: Inpatient record, Office record, Outpatient record, Prior outpatient labs, Prior outpatient radiology, Primary care record and Outside ED record Tests considered The following testing was considered but not selected: As above Prescription Management I considered prescription management with: Pain Medication Discharge Plan Discharge Clinical Impression: Low back pain Patient Disposition: Home, Self-Care Instructions: Acute Low Back Pain (ED) Additional Instructions: Your pain is likely musculoskeletal Flexeril is a muscle relaxer, take at night as it makes you drowsy, do not drive, drink alcohol, or operate machinery while taking it Naproxen as an anti-inflammatory / pain medication, take with food Lidoderm patches are numbing patches, apply to painful area In addition take Tylenol at home If symptoms persist or worsen, pain becomes unbearable, you developed urinary retention or incontinence, or weakness return to the ED Prescriptions: New acetaminophen [Tylenol Extra Strength] 500 mg tablet 500 mg PO Q6H PRN (Reason: fever or pain) Qty: 14 0RF lidocaine [Lidoderm] 5 % adhesive patch,medicated 1 patch topical DAILY MDD remove after 12 hours PRN (Reason: pain) Qty: 30 0RF Rx Instructions: leave on most painful area for up to 12 hrs cyclobenzaprine 5 mg tablet 5 mg PO Q8H PRN (Reason: pain (scale score 7-10)) 5 Days Qty: 14 0RF No Action ondansetron 4 mg tablet,disintegrating 4 mg PO Q8H 4 Days Qty: 12 0RF albuterol sulfate [ProAir HFA] 90 mcg/actuation HFA aerosol inhaler 0 mcg inhalation esomeprazole magnesium [Nexium 24HR] 20 mg tablet,delayed release (DR/EC) 20 mg PO DAILY Qty: 30 2RF sennosides [Natural Senna Laxative] 8.6 mg tablet 17.2 mg PO BEDTIME Qty: 60 2RF Referrals: uSha Mehta LITHOGRAPHIC PRESS OPERATOR APPRENTICE [Primary Care Provider] - 5 days
--- OUTSIDE RECORDS SUMMARY | 2023-10-14 12:46 | XMS_ITS ---
Author Name Priti Dunn Address [address] [place] [address] Organization [facility] - OB/Family Yao nning Address [address] [place] [address] Care Team Providers Care Embroidery Specialist Name Role Phone Priti Dunn Unavailable [phone] PROBLEMS Type Condition ICD9-CM Code BLE62-ES Code Onset Dates Condition Status SNOMED Code Problem Depression with anxiety F41.8 Active 658557812 Problem Homeless Z59.0 Active 73284252 ALLERGIES No Known Allergies ENCOUNTERS Encounter Location Date Diagnosis [facility] - OB/Family Planning [address] [place] [address] Jun, Encounter for IUD removal Z30.432 and Encounter for initial prescription of contraceptive pills Z30.011 [facility] - Fam Med [address] [place] [address] Jun, Generalized abdominal pain R10.84 ; Homeless Z59.0 and Unspecified contraceptive management Z30.9 [facility] [address] [place] [address] May, [facility] [address] [place] [address] May, [facility] - [facility] [address] [place] [address] Apr, Encounter for screening for infections with a predominantly sexual mode of transmission Z11.3 and Encounter for screening for infectious and parasitic diseases, unspecified Z11.9 [facility] - Patient Walk-In Center [address] [place] [address] Apr, Vaginal discharge N89.8 ; Other specified bacterial agents as the cause of diseases classified elsewhere B96.89 and Acute vaginitis N76.0 [facility] - Pediatrics [address] [place] [address] Feb, [facility] - Fam Med [address] [place] [address] Feb, [facility] - [facility] Med [address] [place] [address] Feb, Dysuria R30.0 ; Screening for venereal disease Z11.3 and Weight loss R63.4 [facility] - Patient Walk-In Center [address] [facility] [place] [address] Dec, Acute pain of left knee M25.562 [facility] - PSC [address] [place] [address], [place] [address] Dec, [facility] - [address] [place] [address] Nov, [facility] - [facility] [address] [place] [address] Nov, [facility] - [address] [place] [address] Nov, IMMUNIZATIONS Vaccine Route Administration Date Status Hepatitis B - Immune (Titer) Unknown February 28 Administered SOCIAL HISTORY Qualifiers Date Never Smoker REASON [...] 30.82 kg/m2 2018-12-15 Temperature 98.8 degrees Fahrenheit Temperature F:98.4 degrees Fahrenheit 05-03 Temperature 98.2 degrees Fahrenheit Temperature 98.1 degrees Fahrenheit Heart Rate 80 /min 2019-06-27 Heart Rate 86 /min 2019-06-20 Heart Rate 63 /min 2019-05-03 Heart Rate 89 /min 2019-02-27 Heart Rate 97 /min 2018-12-15 Respiratory Rate 18 /min 2019-05-03 Respiratory Rate 16 /min 2019-02-27 Respiratory Rate 16 /min 2018-12-15 Blood pressure systolic 117 mm Hg Blood pressure diastolic 78 mm Hg 2019-06 MEDICATIONS Medication Instructions Dosage Frequency Start Date End Date Duration Status Mirena 52 mg by intrauterine administration once 1 ea Active ibuprofen 800 mg orally 3 times a day 1 tab(s) 8h Dec, 7 day(s) Active MetroGel-Vagina l 0.75% intravaginally once a day (at bedtime) 1 appful Apr, 5 day(s) Active raNITIdine 150 mg orally 2 times a day PRN for abdominal pain 1 tab(s) Jun, Active Aviane 20 mcg-100 mcg orally once a day 1 tab(s) 24h Jun, 84 days Active PROCEDURES Procedure Date Ordered Result Body Site VENIPUNCT, ROUTINE* May 03, 2019 ([id number]) ESTABLISHED PATIENT LEVEL 3 Jun 20, 2019 URINALYSIS W/O MICRO February 27, 2019 SPECIMEN HANDLING May 03, 2019 ([id number]) ESTABLISHED PATIENT LEVEL 3 May 03, 2019 SPECIMEN HANDLING May 03, 2019 SPECIMEN HANDLING February 27, 2019 URINE TEST February 27, 2019 SIALIDASE ENZYME ASSAY May 03, 2019 VITAL SIGNS RECORDED May 03, 2019 ([id number]) ESTAB PATIENT LEVEL 4 February 27, 2019 IUD Removal Jun 27, 2019 ([id number]) NURSE VISIT; ESTABLISHED May 03, 2019 RESULTS Name Result Date Reference Range GC-Chlamydia (Sexually Corea Dis (Amp. DNA Probe)-[facility] 2019-05-03 Chlamydia Chlamydia/GC Specimen Type N. gonorrhoeae DNA Chlamydia Trachomatis DNA Chlamydia/GC Specimen Type N. gonorrhoeae DNA Hepatitis C Antibody-[facility] 2019-05-03 Hep C Ab initials RPR (Rapid Plasma Reagin) Test-[facility] 2019-05-03 RPR Qual RPR HIV 1/2 Ag/Ab Combo (Preferred) 2019-05-03 HIV HIV-1/HIV-2 Ag/Ab Combo Screen GC-Chlamydia (Sexually Corea Dis (Amp. DNA Probe)-[facility] 2019-05-03 Specimen Type Endocervical Specimen Type Endocervical Specimen [...] 05/03/2019 22:22 EDT Vaginitis Screen START DATE/TIME: 04/09 22:22 EDT FREE TEXT SOURCE: Vaginitis Screen ORDERING PHYSICIAN: Alix oBothHAZARD ARH REGIONAL MEDICAL CENTEROli ALBERT, Nereyda Vaginitis Screen Vaginitis Screen FINAL REPORT Vaginitis Screen Final Report [] Vaginitis Screen Verified Date/Time: 05/03/2019 23:51 EDT Vaginitis Screen Clue cells seen Vaginitis Screen No yeast seen Vaginitis Screen Trichomonas antigen not detected Vaginitis Screen Vaginitis Screen Vaginitis Screen Performing Locations Vaginitis Screen *1: This test was pe rformed at: Vaginitis Screen Laboratory, [facility], [address] [place] [address], [id number] Glomerular Filtration Rate (GFR) Estimated 2019-02-27 Afn Amer GFR >90 Non-Afn Amer GFR [...] 45.2 35.0-51.0 MPV 11.0 9.4-12.4 Comprehensive Metabolic Panel-[facility] 2019-02-27 BUN 16 6-20 Creatinine 0.836 0.550-1.300 Sodium Lvl 137 136-146 Potassium Lvl 4.9 3.6-5.2 Chloride 109 98-110 CO2 24 21-32 Anion Gap 4 3-11 Total Protein 7.9 6.0-8.4 Albumin Lvl 4.4 3.2-5.0 Calcium Lvl 10.0 8.5-10.5 Glucose Lvl 84 70-110 Bili Total 0.6 0.2-1.2 Alk Phos 79 30-117 AST 19 6-40 ALT 58 6-55 GC-Chlamydia (Sexually Corea Dis (Amp. DNA Probe)-[facility] 2019-02-27 Specimen Type Urine Specimen Type Urine Specimen Type Urine Chlam DNA Not Detected Not Detected Chlam DNA Not Detected Not Detected GC DNA Not Detected Not Detected GC DNA Not Detected Not Detected Hepatitis B Surface Antibody-[facility] 2019-02-27 Hep Bs Ab Reactive Non Reactive Hep B Surface Ab Concentration >1000 Hepatitis B Surface Antigen-[facility] 2019-02-27 Hep Bs Ag Negative Negative Hepatitis C Antibody-[facility] 2019-02-27 Hep C Ab Non Reactive Non Reactive RPR (Rapid Plasma Reagin) Test-[facility] 2019-02-27 RPR Qual Non Reactive Non Reactive Urine Culture-[facility] 2019-02-27 Urine Culture Patient:WINTER CAO Urine Culture Urine Culture Urine Culture Routine Cultures Urine Culture Urine Culture Urine Culture PROCEDURE: Urine Cul ture [*1] Urine Culture SOURCE: U CleanCatch BODY SITE: Urine Culture COLLECTED DATE/TIME: 02/27/2019 19:09 EDT RECEIVED DATE/TIME: 02/27/2019 20:42 EDT Urine Culture START DATE/TIME: 02/07 20:42 EDT FREE TEXT SOURCE: Urine Culture ORDERING PHYSICIAN: Lisa Cabrera Urine Culture Urine Culture FINAL REPORT Urine Culture Final Report [] Urine Culture Verified Date/Time: 02/28/2019 16:33 EDT Urine Culture 20,000 cfu/ml Mixed Gram positive species and Gram negative species Urine Culture 3 or more organisms present. Urine Culture Suggests contaminati on with genital/perineal brett. Urine Culture If clinically indica miguel angel, repeat sample Urine Culture should be considered. Urine Culture Urine Culture Urine Culture Performing Locations Urine Culture *1: This test was pe rformed at: Urine Culture Laboratory, [address], [place], [address] HIV 1/2 Ag/Ab Combo (Preferred) 2019-02-27 HIV-1/HIV-2 Ag/Ab Combo Screen Non Reactive Non Reactive TSH Reflex Panel 2019-02-27 3rd Gen TSH 0.865 0.358-3.740 REASON FOR VISIT 4 wk F/U, 34 yo female here remove IUD want start BCP >S Macy/CCMA, 34 y/o female ER F/U Kannan/MALIKA , Returning for 4TH GEN, HCV, RPR, and GC/CHLAMYDIA throat lab results... MFerreras PASS. , Returning for 4TH GEN, HCV, RPR, and GC/CHLAMYDIA throatlab results... MFerreras PASS, pass appt reminder- 05/23/19, STI's testing, pelvic pain, pelvic pain, yellow vaginal discharge with foul odor, denies itchiness. LMP 2 years ago. , F / U , Lab Results , lab results , 33 y.o female presents for f.u from [facility] in, got sent to ER. ER said kidney stones and UTI. Kostas DALY, discharge f/u , pwc f/u from 12/15/18, left knee pain, left knee pain Insurance Providers Health Insurance Type Health Plan Insurance Address Health Plan Insurance Phone Health Plan Insurance Name Health Plan Coverage Dates Member ID Patient Relationship to Subscriber Patient Address Patient Phone Patient Name Patient Date of Subscriber ID Subscriber Name Subscriber Date of Group No [employer] [address] [id number] P[employer] self [employer] [id number] PENDING INSURANCE [address] [id number] PENDING INSURANCE self WINTER COLON [id number] [facility] [address] [place] [address] [employer] [place] self WINTER COLON [id number] [employer] [address] [place] [address] [employer] self WINTER COLON [id number] 1 [employer] [address] [address] [facility] [address] [employer] self WINTER COLON [id number] [employer] [address] [facility] [address] [employer] self WINTER COLON [id number] [facility] [address] [place] [address] [place] self [place]INTER [place] [id number]
[2023-10-14 12:49] LABS: MANUAL DIFF FLAG NO
[2023-10-14 12:51] LABS: Basophils Percent Auto 0.5 % (0-2); Eosinophils Absolute Auto 0.2 X10*3/uL (0.0-0.4); Eosinophils Percent Auto 2.3 % (0-4); Hematocrit 39.5 % (37.0-47.0); Hemoglobin 13.3 g/dl (12.0-16.0); Imm Gran Abs Auto 0.03 X10*3/uL (0.00-0.03); Imm Gran Pct Auto 0.4 % (0.0-0.4); Lymphocytes Absolute Auto 2.7 X10*3/uL (1.2-4.9); Lymphocytes Percent Auto 33.8 % (20-40); Mean Corpuscular HGB Conc 33.7 g/dl (31.0-35.0); Mean Corpuscular Hemoglobin 30.9 pg (27.0-33.0); Mean Corpuscular Volume 91.9 fL (80.0-98.0); Mean Platelet Volume 9.9 fL (9.4-12.3); Monocytes Absolute Auto 0.5 X10*3/uL (0.1-1.2); Monocytes Percent Auto 6.2 % (2-11); Neutrophils Absolute Auto 4.5 x10*3/uL (2.0-8.3); Neutrophils Percent Auto 56.8 % (45-73); Platelet Count 231 X10*3/uL (160-400); Red Cell Distribution Width 12.8 % (11.0-16.0); White Blood Count 7.9 X10*3/uL (4.8-10.8)
[2023-10-14 13:13] LABS: Alanine Aminotransferase 17 U/L (0-31); Albumin Level 3.8 g/dL (3.5-5.0); Alkaline Phosphatase 57 U/L (39-117); Anion Gap 9 (12-20); Aspartate Amino Transferase 18 U/L (5-31); Bilirubin Direct < 0.2 mg/dL (0.0-0.5); Bilirubin Total 0.1 mg/dL (0.0-1.0); Blood Urea Nitrogen 15 mg/dL (9-16); Calcium 8.9 mg/dL (8.4-10.2); Carbon Dioxide 26 mmol/L (22-29); Chloride 109 mmol/L (96-108); Estimated Glomerular Filt Rate > 60; Glucose Random 91 mg/dL (60-115); Potassium 4.1 mmol/L (3.3-5.1); Sodium 140 mmol/L (135-145); Total Protein 6.8 g/dL (6.5-8.0)
[2023-10-14 13:29] LABS: Influenza A PCR NEGATIVE (Negative); Influenza B PCR NEGATIVE (Negative); Resp Syncy Virus RNA Qual PCR NEGATIVE (Negative); SARS COV2 PCR INHOUSE NEGATIVE (Negative)
[2023-10-14 15:56] VITALS: BP 104/55; PULSE 82; RESP 16; TEMP 36.7; O2SAT 98
[2023-10-14 17:01] LABS: Appearance Urine Cloudy; Color Urine Yellow; Glucose Urine UA Negative (Negative); Leukocyte Esterase Urine Moderate (2+) (Negative); Nitrite Urine Negative (Negative); PH 6.5 (5.0-9.0); Specific Gravity - Urine 1.015 (1.005-1.025); UMIC TRIGGER UACC YES; Urine Blood Negative (Negative); Urine Ketones Negative (Negative); Urine Protein Negative (Neg-Trace)
[2023-10-14 17:02] LABS: UPreg QC Valid YES; Urine Pregnancy NEGATIVE (NEGATIVE)
[2023-10-14 17:07] LABS: Bacteria Urine 4+ (None Seen); Hyaline Casts Urine 0-2 /LPF (0-2); RBC Urine 0-2 /HPF (0-2); UACC Culture Trigger YES; WBC Urine 21-50 /HPF (0-5)
[2023-10-14] MEDS: Lidocaine 4 % Patch ADH..PATCH 1 PATCH TRANSDERMA (17:14)
[2023-10-14] MEDS: Ketorolac Tromethamine 30 MG/ML VIAL IM (17:15)
== END 2023-10-14 19:29 | disposition home or self-care (01) ==
PROVIDERS: Physician Assistant; Physician Assistant Medical; Emergency Provider Internal Medicine; PCP Nurse Practitioner Primary Care
DX: M54.50 Low back pain, unspecified (principal); Z20.822 Contact with and (suspected) exposure to COVID-19; Z20.828 Contact with and (suspected) exposure to other viral communicable diseases; Z90.49 Acquired absence of other specified parts of digestive tract; Z90.711 Acquired absence of uterus with remaining cervical stump
CPT/HCPCS: 0241U; 36415; 80048; 80076; 81001; 81003; 81025; 83735; 85025; 87086; 96372; 99283; 99284; J1885

== ENCOUNTER 2023-11-05 08:20 | Emergency (ER) | payer MEDICAID, SELFPAY ==
[2023-11-05 09:01] VITALS: BP 113/72; PULSE 122; RESP 20; TEMP 37.4; O2SAT 95; BMI 34.3
--- OUTSIDE RECORDS SUMMARY | 2023-11-05 09:21 | XMS_ITS ---
Author Name Priti Dunn Address [address] [place] [address] Organization [facility] - OB/Family Yao nning Address [address] [place] [address] Care Team Providers Care Family Life Educator Name Role Phone Priti Dunn Unavailable [phone] PROBLEMS Type Condition ICD9-CM Code VFL59-PF Code Onset Dates Condition Status SNOMED Code Problem Depression with anxiety F41.8 Active 562895166 Problem Homeless Z59.0 Active [id number] ALLERGIES No Known Allergies ENCOUNTERS Encounter Location Date Diagnosis [facility] - OB/Family Planning [address] [place] [address] Jun, Encounter for IUD removal Z30.432 and Encounter for initial prescription of contraceptive pills Z30.011 [facility] - Fam Med [address] [place] [address] Jun, Generalized abdominal pain R10.84 ; Homeless Z59.0 and Unspecified contraceptive management Z30.9 [facility] - [facility] [address] [place] [address] May, [facility] [address] [place] [address] May, [facility] - [facility] [address] [place] [address] Apr, Encounter for screening for infections with a predominantly sexual mode of transmission Z11.3 and Encounter for screening for infectious and parasitic diseases, unspecified Z11.9 [facility] - Patient Walk-In [facility] [address] [place] [address] Apr, Vaginal discharge N89.8 ; Other specified bacterial agents as the cause of diseases classified elsewhere B96.89 and Acute vaginitis N76.0 [facility] - Pediatrics [address] [facility] [place] [address] Feb, [facility] - Fam Med [address] [place] [address] Feb, [facility] - [facility] Med [address] [facility] [place] [address] Feb, Dysuria R30.0 ; Screening for venereal disease Z11.3 and Weight loss R63.4 [facility] - Patient Walk-In [facility] [address] [place] [address] Dec, Acute pain of left knee M25.562 [facility] - PSC [address] [place] [address], [place] [address] Dec, [facility] - [address] [place] [address] Nov, [facility] - [facility] [address] [facility] [place] [address] Nov, [facility] - [address] [place] [address] Nov, IMMUNIZATIONS Vaccine Route Administration Date Status [...] PROCEDURES Procedure Date Ordered Result Body Site (53598) ESTABLISHED PATIENT LEVEL 3 Jun 20, 2019 URINE TEST February 27, 2019 ([id number]) ESTABLISHED PATIENT LEVEL 3 May 03, 2019 SPECIMEN HANDLING May 03, 2019 ([id number]) NURSE VISIT; ESTABLISHED May 03, 2019 SPECIMEN HANDLING May 03, 2019 SPECIMEN HANDLING February 27, 2019 SIALIDASE ENZYME ASSAY May 03, 2019 VITAL SIGNS RECORDED May 03, 2019 IUD Removal Jun 27, 2019 ([id number]) ESTAB PATIENT LEVEL 4 February 27, 2019 VENIPUNCT, ROUTINE* May 03, 2019 URINALYSIS W/O MICRO February 27, 2019 RESULTS Name Result Date Reference Range GC-Chlamydia (Sexually Corea Dis (Amp. DNA Probe)-[facility] 2019-05-03 Chlamydia Chlamydia/GC Specimen Type N. gonorrhoeae DNA Chlamydia Trachomatis DNA Chlamydia/GC Specimen Type N. gonorrhoeae DNA Hepatitis C Antibody-[facility] 2019-05-03 Hep C Ab initials RPR (Rapid Plasma Reagin) Test-[facility] 2019-05-03 RPR Qual RPR HIV 1/2 Ag/Ab Combo (Preferred) 2019-05-03 HIV HIV-1/HIV-2 Ag/Ab Combo Screen GC-Chlamydia (Sexually Corea Dis (Amp. DNA Probe)-[facility] 2019-05-03 Specimen Type Endocervical Specimen Type Endocervical [...] TEXT SOURCE: Vaginitis Screen ORDERING PHYSICIAN: Alix BoothB[facility] ALBERT, Nereyda Vaginitis Screen Vaginitis Screen FINAL REPORT Vaginitis Screen Final Report [] Vaginitis Screen Verified Date/Time: 05/03/2019 23:51 EDT Vaginitis Screen Clue cells seen Vaginitis Screen No yeast seen Vaginitis Screen Trichomonas antigen not detected Vaginitis Screen Vaginitis Screen Vaginitis Screen Performing Locations Vaginitis Screen *1: This test was pe rformed at: Vaginitis Screen Laboratory, [facility], [address] [place] [address], [id number] Glomerular Filtration Rate (GFR) Estimated 2019-02-27 Afn [...] 45.2 35.0-51.0 MPV 11.0 9.4-12.4 Comprehensive Metabolic Panel-[facility] 2019-02-27 BUN 16 6-20 Creatinine 0.836 0.550-1.300 Sodium Lvl 137 136-146 Potassium Lvl 4.9 3.6-5.2 Chloride 109 98-110 CO2 24 21-32 Anion Gap 4 3-11 Total Protein 7.9 6.0-8.4 Albumin Lvl 4.4 3.2-5.0 Calcium Lvl 10.0 8.5-10.5 Glucose Lvl 84 70-110 Bili Total 0.6 0.2-1.2 Alk Phos 79 30-117 AST 19 6-40 ALT 58 6-55 GC-Chlamydia (Sexually Corea Dis (Amp. DNA Probe)-[facility] 2019-02-27 Specimen Type Urine Specimen Type Urine Specimen Type Urine Chlam DNA Not Detected Not Detected Chlam DNA Not Detected Not Detected GC DNA Not Detected Not Detected GC DNA Not Detected Not Detected Hepatitis B Surface Antibody-[facility] 2019-02-27 Hep Bs Ab Reactive Non Reactive Hep B Surface Ab Concentration >1000 Hepatitis B Surface Antigen-[facility] 2019-02-27 Hep Bs Ag Negative Negative Hepatitis C Antibody-[facility] 2019-02-27 Hep C Ab Non Reactive Non Reactive RPR (Rapid Plasma Reagin) Test-[facility] 2019-02-27 RPR Qual Non Reactive Non Reactive Urine Culture-[facility] 2019-02-27 Urine Culture Patient:WINTER CAO Urine Culture [...] was pe rformed at: Urine Culture Laboratory, [address], [place], [address] HIV 1/2 Ag/Ab Combo (Preferred) 2019-02-27 HIV-1/HIV-2 [...] y.o female presents for f.u from [facility] in, got sent to ER. ER [...] Subscriber Name Subscriber Date of Group No [employer] [address] [place] [address] [employer] self [employer] [id number] 1 [employer] [address] [address] [facility] [address] [employer] self [employer] [id number] [employer] [address] [place] [address] [employer] self [employer] [id number] [employer] [address] [place] [address] [employer] self [employer] [id number] 01 [facility] [address] [facility] [address] [place] [employer] [id number] [employer] [address] [facility] [address] [employer] self [employer] [id number] [employer] [address] [facility] [address] [employer] self [employer] [id number]
[2023-11-05 09:40] LABS: IDNOW Serial# 08D9AD1C; Influenza A Positive (Negative); Influenza B2 Negative (Negative)
--- NOTE | 2023-11-05 09:40 | ED_ITS ---
HPI - General Adult General Chief complaint: General Medical Stated complaint: Flu Symptoms Time Seen by Provider: 11/05/23 09:19 Source: patient Mode of arrival: ambulatory Limitations: no limitations History of Present Illness HPI narrative: 38-year-old female history of asthma presents to ED for URI symptoms. Patient states chest pain only when she coughs, nasal congestion, fever, chills, body aches, and night sweats. Patient states her children were sick 1st and then she had similar symptoms. Patient states her D[employer] tested negative for RSV COVID and influenza. Patient denies any shortness of breath, calf pain, coughing up blood, pleurisy, recent long travel, recent surgery, or leg swelling. Related Data Home Medications Medication Instructions Recorded Confirmed albuterol sulfate 90 mcg/actuation 0 mcg inhalation 10/08/21 aerosol inhaler (ProAir HFA) Previous Rx's Medication Instructions Recorded ondansetron 4 mg disintegrating 4 mg PO Q8H 4 days #12 tabs 03/08/23 tablet esomeprazole magnesium 20 mg 20 mg PO DAILY #30 tabs 03/19/23 tablet,delayed release (Nexium 24HR) sennosides 8.6 mg tablet (Natural 17.2 mg (2 x 8.6 mg) PO BEDTIME 03/19/23 Senna Laxative) constipation #60 tabs acetaminophen 500 mg tablet 500 mg PO Q6H PRN fever or pain 10/14/23 (Tylenol Extra Strength) #14 tabs cyclobenzaprine 5 mg tablet 5 mg PO Q8H PRN pain (scale score 10/14/23 7-10) 5 days #14 tabs lidocaine 5 % topical patch 1 patch topical DAILY PRN pain #30 10/14/23 (Lidoderm) ea oseltamivir 75 mg capsule (Tamiflu) 75 mg PO BID 5 days #10 caps 11/05/23 Allergies Allergy/AdvReac Type Severity Reaction Status Date / Time No Known Allergies Allergy Verified 11/05/23 09:01 [No Known Allergies*] Review of Systems Review of Systems: Coughing, fever, chills, nasal congestion, body aches, night sweats, chills Yes all other systems are reviewed and are negative PMFSH Past Medical History Medical History GERD (gastroesophageal reflux disease) Depression Anxiety Asthma Surgical History History of esophagogastroduodenoscopy (EGD) Hx of cholecystectomy History of partial hysterectomy Family History Family History Mother Diabetes Father HTN (hypertension) Social History Social History Alcohol intake: current Alcohol intake frequency: holidays/special occasions only Patient Tobacco Use Status: Never used Tobacco Advance Directives: No Advance Directives Information Provided: No Physical Exam ED Vital Signs: Vital Signs - 24 hr 11/05/23 09:01 11/05/23 10:45 Temperature 99.3 F Pulse Rate 122 H Respiratory Rate 20 17 Blood Pressure 113/72 Pulse Oximetry 95 Oxygen Delivery Method Room Air BMI result Body Mass Index 34.3 Const General: cooperative, healthy appearing, comfortable, no acute distress, well developed, alert, awake and Physically active Orientation/consciousness: oriented to person, oriented to place, oriented to time and patient oriented x3 HENMT Head: Yes normal to inspection, Yes No palpable skull fracture present, Yes normocephalic and Yes atraumatic Ears: hearing grossly normal bilaterally, external ears normal, TM's normal bilaterally, TM normal on the right, TM normal on the left, EAC's normal, mastoids normal and no periauricular adenopathy Throat: Yes posterior oropharynx normal, Yes tonsils normal and Yes uvula midline Eyes General: appearance normal, both eyes and all related structures Neck Neck: Yes normal visual inspection, Yes full ROM, Yes no lymphadenopathy, Yes no meningeal signs, Yes trachea midline, Yes supple, No anterior neck swelling and No tender Chest Chest palpation & inspection: normal inspection of the chest and normal palpation of entire chest wall Resp Effort & Inspection: normal respiratory effort and able to speak in complete sentences Auscultation: clear to auscultation bilaterally Cardio Jugular venous distension: no JVD Heart sounds: S1 normal heart sound present and S2 normal heart sound present GI Inspection: Yes normal to inspection Palpation (GI): Soft to palpation, not firm, nontender, no guarding and not rigid General: Yes no CVA tenderness Back/Spine/Pelvis Back: no CVA tenderness and No back tenderness Skin General skin exam: no rashes or lesions noted, elasticity normal and turgor normal Neuro General: oriented to person, oriented to place, oriented to time, patient oriented x3, gait normal, tone normal, moves all extremities, Normal light touch and pain sensation, no meningeal signs, no focal motor deficits, CN's II-XI intact bilaterally and normal sensation to monofilament Extrem Other: bilateral lower extremity negative for swelling, pitting edema, or calf tenderness General: Yes normal to inspection and Yes full ROM Psych Appearance: grossly normal, well kempt and not disheveled Medical Decision Making Medical Decision Making MDM Narrative: 38-year-old female with history of asthma presents with URI symptoms. Patient's children were sick with similar symptoms and now she has them. Patient denies any shortness of breath, weakness, leg swelling, calf pain, coughing up blood, pleurisy, recent long travel, recent surgery or estrogen control pills. COVID swabs ordered. Lungs clear. 10:15am; patient positive for influenza. Patient will be discharged with Tamiflu. Patient educated oral hydration and rest. Differential Diagnosis Differential Diagnoses: The differential diagnosis associated with the presentation includes ( Influenza, COVID, RSV) Admission/Observation Consideration of admission/observation: Escalation of care including admission/observation considered Lab Data [facility] Lab Attestation statement: I reviewed the patient's lab results. Labs: Lab Results 11/05/23 Range/Units 09:16 COVID-19 (LUCINDA) Negative (Negative) COVID-19 Clin Com See Note Influenza Type A (ENRIQUE) Positive A (Negative) Influenza Type B (ENRIQUE) Negative (Negative) Influenza A & B Note See Note Independent Historian Clinical information obtained from an independent historian. History obtained from or confirmed by: Other ( patient) External Record Review External record reviewed: Other ( prior visit) Prescription Management I considered prescription management with: Other ( Tamiflu) Discharge Plan Discharge Clinical Impression: Influenza Patient Disposition: Home, Self-Care Instructions: Influenza (ED) Additional Instructions: return to the ED immediately for any chest pain, shortness of breath, coughing up blood, weakness, dizziness, or any other concerning symptoms. Please follow up with PCP. Prescriptions: New oseltamivir [Tamiflu] 75 mg capsule 75 mg PO BID 5 Days Qty: 10 0RF No Action ondansetron 4 mg tablet,disintegrating 4 mg PO Q8H 4 Days Qty: 12 0RF acetaminophen [Tylenol Extra Strength] 500 mg tablet 500 mg PO Q6H PRN (Reason: fever or pain) Qty: 14 0RF lidocaine [Lidoderm] 5 % adhesive patch,medicated 1 patch topical DAILY MDD remove after 12 hours PRN (Reason: pain) Qty: 30 0RF Rx Instructions: leave on most painful area for up to 12 hrs cyclobenzaprine 5 mg tablet 5 mg PO Q8H PRN (Reason: pain (scale score 7-10)) 5 Days Qty: 14 0RF albuterol sulfate [ProAir HFA] 90 mcg/actuation HFA aerosol inhaler 0 mcg inhalation esomeprazole magnesium [Nexium 24HR] 20 mg tablet,delayed release (DR/EC) 20 mg PO DAILY Qty: 30 2RF sennosides [Natural Senna Laxative] 8.6 mg tablet 17.2 mg PO BEDTIME Qty: 60 2RF Stand Alone Forms: Work/School Release Interventions: ED Discharge Assessment Last Done: 11/05/23 10:45 Discharge Date/Time: 11/05/23 10:46 Print Language: Portuguese
[2023-11-05 09:41] LABS: COVID-19 Test Negative (Negative); IDNOW Serial# 9DB6401D
[2023-11-05 10:45] VITALS: RESP 17
== END 2023-11-05 10:46 | disposition home or self-care (01) ==
PROVIDERS: Emergency Provider Emergency Medicine; PCP Nurse Practitioner Primary Care
DX: J10.1 Influenza due to other identified influenza virus with other respiratory manifestations (principal); R05.9 Cough, unspecified; R09.81 Nasal congestion; R61 Generalized hyperhidrosis; Z11.52 Encounter for screening for COVID-19
CPT/HCPCS: 87502; 87635; 99283

== ENCOUNTER 2024-02-11 18:46 | Outpatient (REF) | payer MEDICAID, SELFPAY ==
--- NOTE | ~2024-02-11 | MR_ITS ---
EXAMINATION: MR BRAIN WITHOUT CONTRAST CLINICAL INFORMATION: Episode of right-sided facial and right upper extremity numbness COMPARISON: None TECHNIQUE: Multiplanar multisequence MR imaging of the brain was obtained without intravenous contrast. FINDINGS: There is no acute infarct on diffusion-weighted imaging. There is no intracranial hemorrhage on iron-sensitive imaging. No extra-axial collection or mass effect/herniation. Normal parenchymal signal characteristics. No hydrocephalus. The ventricles are normal in morphology and size. The major flow voids at the skull base are preserved. The midline structures are normal. The cerebellar tonsils are normally positioned. The craniocervical junction is normal. Marrow signal is within normal limits. The visualized soft tissues are without significant abnormality. No signal abnormality within the paranasal sinuses or within the mastoid air cells. MR/MR head/brain wo con IMPRESSION: Unremarkable noncontrast MRI of the brain.
== END 2024-02-11 18:47 | disposition home or self-care (01) ==
LOC: HO.MRI 18:46
PROVIDERS: PCP Nurse Practitioner Primary Care; Visit Provider Nurse Practitioner Primary Care
DX: R20.0 Anesthesia of skin (principal)
CPT/HCPCS: 70551

== ENCOUNTER 2024-04-27 10:58 | Emergency (ER) | payer MEDICAID, SELFPAY ==
[2024-04-27] VITALS (7 sets, daily range): BP systolic 94–153; BP diastolic 45–106; PULSE 62–74; RESP 15–18; TEMP 36.6–36.7; O2SAT 97–99; BMI 34.6; BMI 27.1; BMI 36.9
--- NOTE | ~2024-04-27 | CT_ITS ---
EXAMINATION: CT ABDOMEN AND PELVIS WITHOUT CONTRAST CLINICAL INFORMATION: Right lower abdominal pain and right flank pain with urinary COMPARISON: CT abdomen pelvis 10/09/2022 TECHNIQUE: Multidetector volumetric imaging was performed from the superior aspect of the liver through the pubic symphysis. Sagittal and coronal reformatted images were obtained on the technologist's workstation. This CT examination was performed using dose optimization techniques as appropriate, variously including the following: *Automated exposure control *Adjustment of mA and/or kV according to patient size (this includes techniques or standardized protocols for targeted exams where dose is matched to indication/reason for exam; i.e. extremities or head) *Use of iterative reconstruction technique DLP: 609 mGy-cm FINDINGS: LUNG BASES: The visualized lung bases are unremarkable. LIVER, GALLBLADDER, AND BILIARY TREE: The liver is normal in size, shape, and attenuation. No focal hepatic lesion or biliary ductal dilatation is present. Status post cholecystectomy. PANCREAS: Unremarkable. SPLEEN: Splenic hypodensities are again seen and unchanged which are unremarkable and almost always nonpathologic ADRENAL GLANDS: Unremarkable. KIDNEYS AND URETERS: The kidneys are normal in size, shape, and attenuation. There is a 1 to 2 mm punctate stone present in the lower pole calyx on the right (3:37). No hydronephrosis, hydroureter, or calculi seen. No perinephric stranding. BLADDER: Unremarkable. GASTROINTESTINAL TRACT: The small and large bowel are unremarkable. The appendix is unremarkable. ABDOMINAL WALL: No significant hernia is appreciated. LYMPH NODES: No retroperitoneal lymphadenopathy. VASCULAR: Unremarkable PELVIC VISCERA: The uterus and adnexa are unremarkable. OSSEOUS STRUCTURES: Unremarkable. CT/CT abdomen pelvis wo IV con IMPRESSION: 1. A cause for the patient's right lower quadrant pain and right flank pain has not been found. The appendix is normal. 2. Incidental note made of a 1 to 2 mm nonobstructing right lower pole renal calculus. Fleischner guidelines were followed.
--- NOTE | 2024-04-27 11:25 | ED_ITS ---
HPI - Abdominal Pain General Chief Complaint: Abdominal Pain Stated Complaint: Abd pain R side, nausea Time Seen by Provider: 04/27/24 12:27 Source: patient Mode of arrival: ambulatory Limitations: no limitations History of Present Illness ED Provider: Dr. Mary Franklin HPI narrative: Patient comes to the emergency room complaining of right-sided flank pain. Patient states that she has had right-sided flank pain since this morning. Patient denies vomiting or diarrhea, complaining of nausea. Denies hematuria, but states that she has had mild dysuria starting this morning. Patient states that she has had kidney stones in the past and the discomfort is similar. Related Data Home Medications ?Medication ?Instructions ?Recorded ?Confirmed albuterol sulfate 90 mcg/actuation 0 mcg inhalation 10/08/21 aerosol inhaler (ProAir HFA) Previous Rx's ?Medication ?Instructions ?Recorded ondansetron 4 mg disintegrating 4 mg PO Q8H 4 days #12 tabs 03/08/23 tablet esomeprazole magnesium 20 mg 20 mg PO DAILY #30 tabs 03/19/23 tablet,delayed release (Nexium 24HR) sennosides 8.6 mg tablet (Natural 17.2 mg (2 x 8.6 mg) PO BEDTIME 03/19/23 Senna Laxative) constipation #60 tabs acetaminophen 500 mg tablet 500 mg PO Q6H PRN fever or pain 10/14/23 (Tylenol Extra Strength) #14 tabs cyclobenzaprine 5 mg tablet 5 mg PO Q8H PRN pain (scale score 10/14/23 7-10) 5 days #14 tabs lidocaine 5 % topical patch 1 patch topical DAILY PRN pain #30 10/14/23 (Lidoderm) ea oseltamivir 75 mg capsule (Tamiflu) 75 mg PO BID 5 days #10 caps 11/05/23 ketorolac 10 mg tablet 10 mg PO .B.i.d. PRN pain #7 tabs 04/27/24 Allergies Allergy/AdvReac Type Severity Reaction Status Date / Time No Known Allergies Allergy Verified 04/27/24 13:12 Review of Systems Review of Systems Constitutional : No Weight loss, No Fever, No Chills, No Night Sweats, No Fatigue, No Malaise ENT/Mouth : No Hearing loss, No Ear Pain, No Nasal Congestion, No Sinus Pain, No Hoarseness, No sore throat, No Rhinorrhea, No Swallowing Difficulty Eyes: No Eye Pain, No Swelling, No Redness, No Foreign Body, No Discharge, No Vision Changes Cardiovascular : No Chest Pain, No SOB, No Dyspnea on Exertion, No Orthopnea, No Edema, No Palpitations Respiratory : No Cough, No Sputum, No Wheezing, No Smoke Exposure, No Dyspnea Gastrointestinal : Complaining of Nausea, No Vomiting, No Diarrhea, No Constipation, No abdominal Pain, No Hematochezia, No Melena Genitourinary : no irregular bleeding, No Dysuria, No Urinary Frequency, No Hematuria, No Urinary Incontinence, No Urgency, complaining of right-sided Flank Pain, No Urinary Flow Changes, No Hesitancy Musculoskeletal : No joint pain, No Myalgias, No Joint Swelling Skin : No Skin Lesions, No rash Neuro : No Weakness, No Numbness, No Paresthesias, No Loss of Consciousness, No Dizziness, No Headache Psych : No Anxiety/Panic, No Depression, No SI/HI/AH/VH, No Social Issues, Heme/Lymph: No Bruising, No Bleeding,No Lymphadenopathy Endocrine : No Polyuria, No Polydipsia, No Temperature Intolerance [facility] Past Medical History Medical History (Updated 04/27/24 @ 14:45 by Mary Franklin MD) Kidney stones GERD (gastroesophageal reflux disease) Depression Anxiety Asthma Surgical History History of esophagogastroduodenoscopy (EGD) Hx of cholecystectomy History of partial hysterectomy Family History Family History Mother Diabetes Father HTN (hypertension) Social History Social History Alcohol intake: current Alcohol intake frequency: holidays/special occasions only Patient Tobacco Use Status: Never used Tobacco Advance Directives: No Advance Directives Information Provided: Yes Physical Exam ED Vital Signs: Vital Signs - 24 hr 04/27/24 11:25 04/27/24 11:35 04/27/24 13:05 Temperature 98 F 98 F 98.0 F Pulse Rate 74 65 65 Respiratory Rate 18 18 18 Blood Pressure 113/63 153/106 H 94/45 L Pulse Oximetry 98 98 97 Oxygen Delivery Method Room Air Room Air Room Air BMI result Body Mass Index 36.9 Const Other: Appearance: Alert. Oriented X3. No acute distress. Eyes: Pupils equal, round and reactive to light. ENT: Pharynx normal. Neck: Normal inspection. Neck supple. No lymph nodes noted. No crepitus CVS: Normal heart rate and rhythm. Pulses normal. Normal S1 and S2 Respiratory: No respiratory distress. Breath sounds normal. No Wheezing. No rales Abdomen: Soft , pain to palpation in the right lower quadrant and CVA, no rebound or guarding Skin: Skin warm and dry. Normal skin color. Normal skin turgor. Extremities: No lower extremity edema. No Lacerations. No Rash Neuro: Oriented X 3. No motor deficit. No sensory deficit. Moving all extremities. No slurred speech. CN 2 through 12 grossly intact Psych: calm, cooperative, normal affect Course Course Course Narrative: This is a Rapid Medical Exam performed in triage by Nadja Mccarthy PA-C. Full HPI, ROS and PE to be performed by primary ED provider. 39 year-old w/ PMHx presenting to the ED c/o RLQ pain radiating to R flank with nausea and dysuria x this morning. Admits pain is similar to prior stones in the past. PE: Abdomen soft with RUQ and RLQ tenderness, no CVAT. Plan: Labs, UA, , CT AP ordered Medical Decision Making Medical Decision Making [facility] Narrative: -my interpretation of labs, normal hematology and chemistry, urinalysis negative shows chronic leukocyte esterase, no white blood cells in the urine, +2 bacteria. Patient's urinalysis from the past looks similar with no growth in the microbiology report Patient states she has had kidney stones in the past and feels similar, CT scan pending -patient receiving IV fluids, ketorolac and Zofran -my interpretation of CT scan: No ureterolithiasis -patient may have a renal colic, may have passed stone, at this time, patient feels more comfortable. Discussed the findings with the patient. -patient agreeable with plan, patient requesting the phone number for Urology for an outpatient up Differential Diagnosis Differential Diagnoses: The differential diagnosis associated with the presentation includes (As above) Admission/Observation Consideration of admission/observation: Escalation of care including admission/observation considered (Given patient's symptoms and presentation, observation was considered) Lab Data [facility] Lab Attestation statement: I reviewed the patient's lab results. 04/27/24 12:01 04/27/24 12:01 Labs: Lab Results 04/27/24 Range/Units 12:01 WBC 8.8 (4.8-10.8) X10*3/uL RBC 4.29 (4.20-5.50) X10*6/uL Hgb 13.3 (12.0-16.0) g/dl Hct 39.4 (37.0-47.0) % MCV 91.8 (80.0-98.0) fL MCH 31.0 (27.0-33.0) pg MCHC 33.8 (31.0-35.0) g/dl RDW 13.0 (11.0-16.0) % Plt Count 235 (160-400) X10*3/uL MPV 10.0 (9.4-12.3) fL Immature Gran % (Auto) 0.2 (0.0-0.4) % Neut % (Auto) 59.3 (45-73) % Lymph % (Auto) 31.5 (20-40) % Wilson % (Auto) 6.1 (2-11) % Eos % (Auto) 2.2 (0-4) % Baso % (Auto) 0.7 (0-2) % Lymph # (Auto) 2.8 (1.2-4.9) X10*3/uL Wilson # (Auto) 0.5 (0.1-1.2) X10*3/uL Eos # (Auto) 0.2 (0.0-0.4) X10*3/uL Baso # (Auto) 0.1 (0.0-0.2) X10*3/uL Abs Immat Gran (auto) 0.02 (0.00-0.03) X10*3/uL Absolute Neuts (auto) 5.2 (2.0-8.3) x10*3/uL Absolute Nucleated RBC 0.000 (0.0-0.012) X10*3/uL Nucleated RBC % (auto) 0.0 (0.0-0.2) /100WBC Sodium 138 (135-145) mmol/L Potassium 3.8 (3.3-5.1) mmol/L Chloride 106 (96-108) mmol/L Carbon Dioxide 26 (22-29) mmol/L Anion Gap 10 L (12-20) BUN 12 (9-16) mg/dL Creatinine 0.84 (0.5-1.4) mg/dL Estim Creat Clear Calc 78.4 Estimated GFR > 60 Random Glucose 98 (60-115) mg/dL Calcium 9.1 (8.4-10.2) mg/dL Magnesium 1.8 (1.6-2.6) mg/dL Total Bilirubin 0.4 (0.0-1.0) mg/dL Direct Bilirubin 0.1 (0.0-0.5) mg/dL AST 15 (5-31) U/L ALT 13 (0-31) U/L Alkaline Phosphatase 52 (39-117) U/L Total Protein 6.7 (6.5-8.0) g/dL Albumin 3.9 (3.5-5.0) g/dL Lipase 24 (8-78) U/L Urine Color Yellow Urine Appearance Clear Urine pH 5.5 (5.0-9.0) Ur Specific [place] 1.015 (1.005-1.025) Urine Protein Negative (Neg-Trace) mg/dL Urine Glucose (UA) Negative (Negative) mg/dL Urine Ketones Negative (Negative) mg/dL Urine Blood Negative (Negative) Urine Nitrite Negative (Negative) Ur Leukocyte Esterase Trace H (Negative) Urine RBC 0-2 (0-2) /HPF Urine WBC 0-5 (0-5) /HPF Ur Squamous Epith Cells 3-5 (0-2) /HPF Urine Bacteria 2+ (None Seen) Hyaline Casts 0-2 (0-2) /LPF Urine Test NEGATIVE (NEGATIVE) Independent Interpretation I performed an independent interpretation of an: CT Scan Radiology Impression Discussion of test interpretation with radiology: I have reviewed the radiologist's reading. Radiologist Impression: FINDINGS: LUNG BASES: The visualized lung bases are unremarkable. LIVER, GALLBLADDER, AND BILIARY TREE: The liver is normal in size, shape, and attenuation. No focal hepatic lesion or biliary ductal dilatation is present. Status post cholecystectomy. PANCREAS: Unremarkable. SPLEEN: Splenic hypodensities are again seen and unchanged which are unremarkable and almost always nonpathologic ADRENAL GLANDS: Unremarkable. KIDNEYS AND URETERS: The kidneys are normal in size, shape, and attenuation. There is a 1 to 2 mm punctate stone present in the lower pole calyx on the right (3:37). No hydronephrosis, hydroureter, or calculi seen. No perinephric stranding. BLADDER: Unremarkable. GASTROINTESTINAL TRACT: The small and large bowel are unremarkable. The appendix is unremarkable. ABDOMINAL WALL: No significant hernia is appreciated. LYMPH NODES: No retroperitoneal lymphadenopathy. VASCULAR: Unremarkable PELVIC VISCERA: The uterus and adnexa are unremarkable. OSSEOUS STRUCTURES: Unremarkable. CT/CT abdomen pelvis wo IV con IMPRESSION: 1. A cause for the patient's right lower quadrant pain and right flank pain has not been found. The appendix is normal. 2. Incidental note made of a 1 to 2 mm nonobstructing right lower pole renal calculus. Fleischner guidelines were followed. Medications Administered Discontinued Medications Generic Name Dose Route Start Last Admin Trade Name Freq PRN Reason Stop Dose Admin Sodium Chloride 1,000 mls @ 999 mls/hr 04/27/24 12:36 04/27/24 13:23 Ns IVCONT 04/27/24 13:36 999 mls/hr .Q1H1M ONE Administration Ketorolac Tromethamine 30 mg 04/27/24 12:36 04/27/24 13:22 Ketorolac Tromethamine 30 Mg/Ml Vial IVPUSH 04/27/24 12:37 30 mg ONCE ONE Administration Ondansetron HCl 4 mg 04/27/24 12:36 04/27/24 13:22 Ondansetron Hcl 4 Mg/2 Ml Vial IVPUSH 04/27/24 12:37 4 mg ONCE ONE Administration Critical Care Time Critical Care Time Critical Care Time: Yes Total Critical Care Time: 30 Attestation: I have personally provided critical care time. Time includes review of lab data, radiology results, discussion with consultants, and monitoring for potential decompensation. Intervention performed as documented. Discharge Plan Discharge Clinical Impression: Acute flank pain Patient Disposition: Home, Self-Care Instructions: Flank Pain (ED) Additional Instructions: Please follow-up with your primary care physician tomorrow. If you have any worsening or new symptoms, please return to the emergency room or call 911 Prescriptions: New ketorolac 10 mg tablet 10 mg PO .B.i.d. PRN (Reason: pain) Qty: 7 0RF No Action ondansetron 4 mg tablet,disintegrating 4 mg PO Q8H 4 Days Qty: 12 0RF oseltamivir [Tamiflu] 75 mg capsule 75 mg PO BID 5 Days Qty: 10 0RF acetaminophen [Tylenol Extra Strength] 500 mg tablet 500 mg PO Q6H PRN (Reason: fever or pain) Qty: 14 0RF lidocaine [Lidoderm] 5 % adhesive patch,medicated 1 patch topical DAILY MDD remove after 12 hours PRN (Reason: pain) Qty: 30 0RF Rx Instructions: leave on most painful area for up to 12 hrs cyclobenzaprine 5 mg tablet 5 mg PO Q8H PRN (Reason: pain (scale score 7-10)) 5 Days Qty: 14 0RF albuterol sulfate [ProAir HFA] 90 mcg/actuation HFA aerosol inhaler 0 mcg inhalation esomeprazole magnesium [Nexium 24HR] 20 mg tablet,delayed release (DR/EC) 20 mg PO DAILY Qty: 30 2RF sennosides [Natural Senna Laxative] 8.6 mg tablet 17.2 mg PO BEDTIME Qty: 60 2RF Referrals: Dell Haddad MD [Physician] - 04/27/24 2:47 pm Print Language: Yoruba
[2024-04-27 12:09] LABS: MANUAL DIFF FLAG NO
[2024-04-27 12:10] LABS: Basophils Absolute Auto 0.1 X10*3/uL (0.0-0.2); Basophils Percent Auto 0.7 % (0-2); Eosinophils Absolute Auto 0.2 X10*3/uL (0.0-0.4); Eosinophils Percent Auto 2.2 % (0-4); Hematocrit 39.4 % (37.0-47.0); Hemoglobin 13.3 g/dl (12.0-16.0); Imm Gran Abs Auto 0.02 X10*3/uL (0.00-0.03); Imm Gran Pct Auto 0.2 % (0.0-0.4); Lymphocytes Absolute Auto 2.8 X10*3/uL (1.2-4.9); Lymphocytes Percent Auto 31.5 % (20-40); Mean Corpuscular HGB Conc 33.8 g/dl (31.0-35.0); Mean Corpuscular Volume 91.8 fL (80.0-98.0); Monocytes Absolute Auto 0.5 X10*3/uL (0.1-1.2); Monocytes Percent Auto 6.1 % (2-11); Neutrophils Absolute Auto 5.2 x10*3/uL (2.0-8.3); Neutrophils Percent Auto 59.3 % (45-73); Platelet Count 235 X10*3/uL (160-400); Red Blood Count 4.29 X10*6/uL (4.20-5.50); White Blood Count 8.8 X10*3/uL (4.8-10.8)
[2024-04-27 12:13] LABS: Appearance Urine Clear; Color Urine Yellow; Glucose Urine UA Negative (Negative); Leukocyte Esterase Urine Trace (Negative); Nitrite Urine Negative (Negative); PH 5.5 (5.0-9.0); Specific Gravity - Urine 1.015 (1.005-1.025); UMIC TRIGGER UACC YES; Urine Blood Negative (Negative); Urine Ketones Negative (Negative); Urine Protein Negative (Neg-Trace)
[2024-04-27 12:14] LABS: UPreg QC Valid YES; Urine Pregnancy NEGATIVE (NEGATIVE)
[2024-04-27 12:15] LABS: Bacteria Urine 2+ (None Seen); Hyaline Casts Urine 0-2 /LPF (0-2); RBC Urine 0-2 /HPF (0-2); WBC Urine 0-5 /HPF (0-5)
[2024-04-27 12:27] LABS: Alanine Aminotransferase 13 U/L (0-31); Albumin Level 3.9 g/dL (3.5-5.0); Alkaline Phosphatase 52 U/L (39-117); Anion Gap 10 (12-20); Aspartate Amino Transferase 15 U/L (5-31); Bilirubin Direct 0.1 mg/dL (0.0-0.5); Bilirubin Total 0.4 mg/dL (0.0-1.0); Blood Urea Nitrogen 12 mg/dL (9-16); Calcium 9.1 mg/dL (8.4-10.2); Carbon Dioxide 26 mmol/L (22-29); Chloride 106 mmol/L (96-108); Creatinine Clr Calc Pharmacy 78.4; Estimated Glomerular Filt Rate > 60; Glucose Random 98 mg/dL (60-115); Lipase 24 U/L (8-78); Magnesium 1.8 mg/dL (1.6-2.6); Potassium 3.8 mmol/L (3.3-5.1); Sodium 138 mmol/L (135-145); Total Protein 6.7 g/dL (6.5-8.0)
--- NOTE | 2024-04-27 12:52 | PC.NURSE ---
Pt taken to CT scan
[2024-04-27] MEDS: ondansetron HCL 4 MG/2 ML VIAL IVPUSH (13:22)
[2024-04-27] MEDS: Ketorolac Tromethamine 30 MG/ML VIAL IVPUSH (13:22)
[2024-04-27] MEDS: 0.9 % Sodium Chloride 1,000 ML 999 ML IVCONT (13:23)
[2024-04-27] MEDS: traMADoL HCL 50 MG TABLET PO (15:03)
== END 2024-04-27 15:10 | disposition home or self-care (01) ==
PROVIDERS: Physician Assistant; Emergency Provider Emergency Medicine
DX: R10.9 Unspecified abdominal pain (principal); R10.31 Right lower quadrant pain; R30.0 Dysuria; N20.0 Calculus of kidney; J45.909 Unspecified asthma, uncomplicated; Z87.442 Personal history of urinary calculi
CPT/HCPCS: 36415; 74176; 80048; 80076; 81001; 81025; 83690; 83735; 85025; 96361; 96374; 96375; 99284; 99285; J1885; J2405

== ENCOUNTER 2024-06-16 12:39 | Outpatient (AMB) | payer MEDICAID, SELFPAY ==
--- NOTE | 2024-06-06 14:32 | MHC.OFFVIS ---
Intake Visit Reasons: kidney stones(CT 04/27) Allergies No Known Allergies Allergy (Verified 04/27/24 13:12) PFS Medical History (Updated 04/28/24 @ 00:00 by Priscila Solano) Kidney stones GERD (gastroesophageal reflux disease) Depression Anxiety Asthma Surgical History History of esophagogastroduodenoscopy (EGD) Hx of cholecystectomy History of partial hysterectomy Family History Mother Diabetes Father HTN (hypertension) Social History Alcohol intake: current Alcohol intake frequency: holidays/special occasions only Patient Tobacco Use Status: Never used Tobacco Coding
--- NOTE | 2024-06-16 13:02 | MHC.OFFVIS ---
Intake Visit Reasons: kidney stones(CT 04/27) Intake Note: Tabatha is a 39 year old female who presents to the office today for kidney stones (CT 04/27) Urology meds:None Blood thinners:None Allergies No Known Allergies Allergy (Verified 06/16/24 13:02) HPI Comments Details: Tabatha is a 39 year old female who presents to the office today for kidney stones states she gets pain right side (CT 04/27) CTAP 1-2 mm punctate stone right lower pole. I discussed the stones are tiny and less likely related to her right-sided back pain and her symptoms may be musculoskeletal. Discussed importance of adequate fluid hydration, adding lemon to her fluids. discussed diet changes, low-sodium and low oxalate diet. Will check 24 hour urine. [facility] Medical History (Updated 06/23/24 @ 11:12 by Dell Haddad MD) Kidney stones GERD (gastroesophageal reflux disease) Depression Anxiety Asthma Surgical History (Updated 06/16/24 @ 13:34 by Dell Haddad MD) History of esophagogastroduodenoscopy (EGD) Hx of cholecystectomy History of partial hysterectomy Family History Mother Diabetes Father HTN (hypertension) Social History Alcohol intake: current Alcohol intake frequency: holidays/special occasions only Patient Tobacco Use Status: Never used Tobacco Review of Systems Const All systems reviewed & are unremarkable except as noted in HPI and below Reports no additional complaints Eyes Reports no additional complaints ENT Reports no additional complaints Card Reports no additional complaints Resp Reports no additional complaints GI Reports no additional complaints Reports as per HPI Musc Reports no additional complaints Skin/Breast Reports system reviewed and no additional complaints, except as documented Neuro Reports no additional complaints Psych Reports no additional complaints Endo Reports no additional complaints Carlos/Lymph Reports no additional complaints Aller/Immun Reports no additional complaints Physical Exam Const General: cooperative, healthy appearing and no acute distress Orientation/consciousness: patient oriented x3 HEENT Head: Yes normal to inspection, Yes normocephalic and Yes atraumatic Eyes Conjunctivae: conjunctivae normal Neck Neck: Yes normal visual inspection and Yes trachea midline Chest Chest palpation & inspection: normal inspection of the chest Resp Effort & Inspection: normal respiratory effort Cardio Rate: regular rate GI Inspection: Yes normal to inspection Skin General skin exam: no rashes or lesions noted Neuro General: patient oriented x3 Extrem General: No edema Psych Appearance: grossly normal Results AMB Urinalysis, Automated UA Leukoctes 0 Brayden/uL Last Edit by Manasa Xie CMA on 06/16/24 13:10 UA Nitrite Negative Last Edit by Maansa Xie CMA on 06/16/24 13:10 UA Urobilinogen 0.2 mg/dL Last Edit by Manasa Xie CMA on 06/16/24 13:10 UA Protein 0 mg/dL Last Edit by Manasa Xie CMA on 06/16/24 13:10 UA pH 6.0 Last Edit by Manasa Xie CMA on 06/16/24 13:10 UA Blood 10 Bryon/uL Last Edit by Manasa Xie CMA on 06/16/24 13:10 UA Specific [place] 1.015 Last Edit by Manasa Xie CMA on 06/16/24 13:10 UA Ketone Negative Last Edit by Manasa Xie CMA on 06/16/24 13:10 UA Bilirubin 0 mg/dL Last Edit by Manasa Xie CMA on 06/16/24 13:10 UA Glucose 0 mg/dL Last Edit by Manasa Xie CMA on 06/16/24 13:10 Results Reviewed Results Reviewed: Laboratory Last Values Urine pH (Auto) 6.0 06/16/24 13:06 Specific [place] (Auto) 1.015 06/16/24 13:06 Urine Protein (Auto) 0 mg/dL 06/16/24 13:06 Glucose (UA)(Auto) 0 mg/dL 06/16/24 13:06 Urine Ketones (Auto) Negative 06/16/24 13:06 Urine Blood (Auto) 10 Bryon/uL 06/16/24 13:06 Urine Nitrite (Auto) Negative 06/16/24 13:06 Urine Bilirubin (Auto) 0 mg/dL 06/16/24 13:06 Urine Urobilinogen (Auto) 0.2 mg/dL 06/16/24 13:06 Leukocyte Esterase (Auto) 0 Brayden/uL 06/16/24 13:06 Date of Service: 04/27/24 EXAMINATION: CT ABDOMEN AND PELVIS WITHOUT CONTRAST CLINICAL INFORMATION: Right lower abdominal pain and right flank pain with urinary COMPARISON: CT abdomen pelvis 10/09/2022 TECHNIQUE: Multidetector volumetric imaging was performed from the superior aspect of the liver through the pubic symphysis. Sagittal and coronal reformatted images were obtained on the technologist's workstation. This CT examination was performed using dose optimization techniques as appropriate, variously including the following: *Automated exposure control *Adjustment of mA and/or kV according to patient size (this includes techniques or standardized protocols for targeted exams where dose is matched to indication/reason for exam; i.e. extremities or head) *Use of iterative reconstruction technique DLP: 609 mGy-cm FINDINGS: LUNG BASES: The visualized lung bases are unremarkable. LIVER, GALLBLADDER, AND BILIARY TREE: The liver is normal in size, shape, and attenuation. No focal hepatic lesion or biliary ductal dilatation is present. Status post cholecystectomy. PANCREAS: Unremarkable. SPLEEN: Splenic hypodensities are again seen and unchanged which are unremarkable and almost always nonpathologic ADRENAL GLANDS: Unremarkable. KIDNEYS AND URETERS: The kidneys are normal in size, shape, and attenuation. There is a 1 to 2 mm punctate stone present in the lower pole calyx on the right (3:37). No hydronephrosis, hydroureter, or calculi seen. No perinephric stranding. BLADDER: Unremarkable. GASTROINTESTINAL TRACT: The small and large bowel are unremarkable. The appendix is unremarkable. ABDOMINAL WALL: No significant hernia is appreciated. LYMPH NODES: No retroperitoneal lymphadenopathy. VASCULAR: Unremarkable PELVIC VISCERA: The uterus and adnexa are unremarkable. OSSEOUS STRUCTURES: Unremarkable. IMPRESSION: 1. A cause for the patient's right lower quadrant pain and right flank pain has not been found. The appendix is normal. 2. Incidental note made of a 1 to 2 mm nonobstructing right lower pole renal calculus. Assessment & Plan Assessment & Plan (1) Kidney stones: Code(s): N20.0 - Calculus of kidney Category: Medical Plan 24 hr urine Orders: Orders AMB Urinalysis Automated 06/16/24 N20.0 - Calculus of kidney Coding Level of Care Code Est Pt Level 3 (46252) Diagnoses Kidney stones N20.0
== END 2024-06-16 13:29 | disposition home or self-care (01) ==
PROVIDERS: PCP Nurse Practitioner Primary Care; Visit Provider Urology
DX: N20.0 Calculus of kidney (principal)
CPT/HCPCS: 99213

== ENCOUNTER → 2024-06-16 12:39 | Outpatient (BNVA) | payer MEDICAID, SELFPAY | PROVIDERS: PCP Nurse Practitioner Primary Care; Visit Provider Urology | DX: N20.0 Calculus of kidney (principal); M54.9 Dorsalgia, unspecified | CPT/HCPCS: 81003; 99212 ==

== ENCOUNTER 2024-09-12 10:52 | Emergency (ER) | payer OTHER, SELFPAY ==
--- NOTE | 2024-09-12 | ECG_ITS ---
Test Reason : chest pain Blood Pressure : / mmHG Vent. Rate : 084 BPM Atrial Rate : 084 BPM P-R Int : 126 ms QRS Dur : 080 ms QT Int : 382 ms P-R-T Axes : 027 000 041 degrees QTc Int : 451 ms Normal sinus rhythm Normal ECG When compared with ECG of 23-NOV-2019 08:07, No significant change was found Referred By: Generic ED Physician Electronically Signed By:EUNICE GUAMAN MD
--- NOTE | ~2024-09-12 | XR_ITS ---
EXAMINATION: XR CHEST CLINICAL INFORMATION: Chest pain. Shortness of breath. Cough. COMPARISON: X-ray dated November 23, 2019 TECHNIQUE: 2 views of the chest were obtained. FINDINGS: No consolidation, pleural effusion or pneumothorax. Cardiomediastinal silhouette is normal in size. Osseous structures are intact. Vascular clips right upper quadrant abdomen and likely cholecystectomy. XR/XR chest 2V IMPRESSION: No acute airspace disease. Electronically signed by: Mitchel Wing MD 09/12/2024 01:38 PM [facility]
[2024-09-12 11:00] VITALS: BP 102/63; PULSE 85; RESP 16; TEMP 36.7; O2SAT 97; BMI 35.8
[2024-09-12 11:19] LABS: MANUAL DIFF FLAG NO
[2024-09-12 11:24] LABS: Basophils Absolute Auto 0.1 X10*3/uL (0.0-0.2); Basophils Percent Auto 0.9 % (0-2); Eosinophils Absolute Auto 0.2 X10*3/uL (0.0-0.4); Eosinophils Percent Auto 2.5 % (0-4); Hematocrit 40.3 % (37.0-47.0); Hemoglobin 13.6 g/dl (12.0-16.0); Imm Gran Abs Auto 0.03 X10*3/uL (0.00-0.03); Imm Gran Pct Auto 0.4 % (0.0-0.4); Lymphocytes Absolute Auto 2.4 X10*3/uL (1.2-4.9); Lymphocytes Percent Auto 31.5 % (20-40); Mean Corpuscular HGB Conc 33.7 g/dl (31.0-35.0); Mean Corpuscular Volume 91.8 fL (80.0-98.0); Monocytes Absolute Auto 0.4 X10*3/uL (0.1-1.2); Monocytes Percent Auto 5.3 % (2-11); Neutrophils Absolute Auto 4.6 x10*3/uL (2.0-8.3); Neutrophils Percent Auto 59.4 % (45-73); Platelet Count 272 X10*3/uL (160-400); Red Blood Count 4.39 X10*6/uL (4.20-5.50); Red Cell Distribution Width 12.6 % (11.0-16.0); White Blood Count 7.7 X10*3/uL (4.8-10.8)
[2024-09-12 11:40] LABS: Alanine Aminotransferase 26 U/L (0-31); Albumin Level 3.9 g/dL (3.5-5.0); Alkaline Phosphatase 59 U/L (39-117); Anion Gap 14 (12-20); Aspartate Amino Transferase 25 U/L (5-31); Bilirubin Total 0.3 mg/dL (0.0-1.0); Blood Urea Nitrogen 15 mg/dL (9-16); Calcium 9.6 mg/dL (8.4-10.2); Carbon Dioxide 21 mmol/L (22-29); Chloride 110 mmol/L (96-108); Creatinine Clr Calc Pharmacy 94.9; Estimated Glomerular Filt Rate > 60; Glucose Random 122 mg/dL (60-115); Potassium 3.8 mmol/L (3.3-5.1); Sodium 141 mmol/L (135-145)
[2024-09-12 11:48] LABS: Troponin-I High Sensitivity < 2.7 ng/L (<3.5-17.0)
--- NOTE | 2024-09-12 11:48 | ED_ITS ---
HPI - URI/Sore Throat General Chief Complaint: Upper Respiratory Symptoms Stated Complaint: Chest pain, body aches Time Seen by Provider: 09/12/24 11:28 Source: patient Mode of arrival: ambulatory Limitations: no limitations History of Present Illness ED Provider: KIYA ROSS PA-C HPI Narrative: 39 year old female with pmhx significant for GERD, anxiety, depression, asthma presents to the ED today for evaluation of dry cough, diffuse chest pain (primarily on coughing), headache, chills, subjective fevers, nausea, and one episode of vomiting x24 hours. Admits her 4 year old son at home was diagnosed with pneumonia yesterday. Denies recent travel or long car rides. Denies sore throat, ear pain, neck pain, SOB, dyspnea, sputum production, hemoptysis, diarrhea, constipation, dysuria, hematuria, abdominal or flank pain. Related Data Home Medications ?Medication ?Instructions ?Recorded ?Confirmed albuterol sulfate 90 mcg/actuation 0 mcg inhalation 10/08/21 aerosol inhaler (ProAir HFA) Previous Rx's ?Medication ?Instructions ?Recorded ondansetron 4 mg disintegrating 4 mg PO Q8H 4 days #12 tabs 03/08/23 tablet esomeprazole magnesium 20 mg 20 mg PO DAILY #30 tabs 03/19/23 tablet,delayed release (Nexium 24HR) sennosides 8.6 mg tablet (Natural 17.2 mg (2 x 8.6 mg) PO BEDTIME 03/19/23 Senna Laxative) constipation #60 tabs acetaminophen 500 mg tablet 500 mg PO Q6H PRN fever or pain 10/14/23 (Tylenol Extra Strength) #14 tabs cyclobenzaprine 5 mg tablet 5 mg PO Q8H PRN pain (scale score 10/14/23 7-10) 5 days #14 tabs lidocaine 5 % topical patch 1 patch topical DAILY PRN pain #30 10/14/23 (Lidoderm) ea ketorolac 10 mg tablet 10 mg PO .B.i.d. PRN pain #7 tabs 04/27/24 azithromycin 250 mg tablet See Rx Instructions PO .COMPLEX #6 09/12/24 tabs prednisone 20 mg tablet 40 mg (2 x 20 mg) PO DAILY 4 days 09/12/24 #8 tabs Allergies Allergy/AdvReac Type Severity Reaction Status Date / Time No Known Allergies Allergy Verified 09/12/24 11:02 Review of Systems 2 Review of Systems: Constitutional: No fever, chills, fatigue, night sweats, weight changes ENT/Mouth: No ear pain, hearing loss, nasal congestion, sinus pain, rhinorrhea, sore throat Eyes: No eye pain, swelling, redness, vision changes, discharge Cardio: No palpitations, PHILLIP, orthopnea, peripheral edema, +chest pain Pulm: No SOB, sputum, wheezing, dyspnea, hemoptysis, +cough GI: No nausea, vomiting, hematemesis, abdominal pain, diarrhea, constipation, hematochezia, melena : No irregular bleeding, dysuria, frequency, urgency, hesitancy, hematuria, flank pain, urinary flow changes, urinary incontinence or retention MSK: No back pain, neck pain, joint pain, myalgias Skin: No lesions, rashes Neuro: No weakness, numbness, paresthesias, LOC, dizziness, +headache Psych: No anxiety/panic, depression, SI/HI, AH/VH All other systems reviewed and are negative. [facility] Past Medical History Attestation statement: The following information was validated with the patient. Source: old records reviewed and nursing notes reviewed Medical History Kidney stones GERD (gastroesophageal reflux disease) Depression Anxiety Asthma Surgical History History of esophagogastroduodenoscopy (EGD) Hx of cholecystectomy History of partial hysterectomy Family History Family History Mother Diabetes Father HTN (hypertension) Social History Social History Alcohol intake: current Alcohol intake frequency: holidays/special occasions only Patient Tobacco Use Status: Never used Tobacco Advance Directives: No Do you have a plan to hurt others: No Plan Physical Exam 2 Vital Signs: Vital Signs: Last Vital Signs Temp 98.3 F 09/12/24 12:59 Pulse 63 09/12/24 12:59 Resp 14 09/12/24 12:59 BP 102/56 L 09/12/24 12:59 Pulse Ox 98 09/12/24 12:59 O2 Del Method Room Air 09/12/24 12:59 BMI result Body Mass Index 35.8 Vital signs stable General: Well appearing, in no acute distress. Skin: Warm, dry, intact. No rashes or lesions. Head: Normocephalic, atraumatic. EENT: Hearing is intact b/l. Conjunctiva clear. Sclera is anicteric. PERRLA. EOM intact. Moist mucous membranes.? Neck: Supple without LAD. FROM. Trachea midline.? Cardiac: Chest wall symmetric. RRR. No reproducible chest wall tenderness, crepitus. No palpable deformity. Lungs: Normal respiratory effort without accessory muscle use. CTA bilaterally. No rales, rhonchi, or wheezes.? Abdomen: Soft, non-tender, non-distended. No rebound tenderness or guarding. Positive BS x4. No CVAT bilaterally. Back: No midline spinous or paraspinal tenderness. No step off deformity. Ext: Upper and lower extremities atraumatic, without tenderness, deformity, swelling or erythema. Full ROM throughout. no calf tenderness b/l. Neuro: AOx3. Normal speech. Strength 5/5 intact throughout. Sensation intact to light touch. NV intact distally. Ambulating with steady gait. Psych: Appropriate mood and affect. Responds appropriately to questions. Course Course Course Narrative: 1330 -- cbc without leukocytosis or left shift. no anemia, h&h stable. Chemistry without acute electrolyte abnormality requiring intervention. Random glucose 122. No ALICIA. Normal liver function. Troponin undetectable. EKG showing normal sinus rhythm with a rate of 84 beats per minute, QT 382, QTC 451, no acute ischemic changes or ST elevations. Unlikely ACS. Beta HCG undetectable > not . She tested negative for COVID, flu, RSV. > chest x-ray pending. 1418 -- Chest x-ray does not demonstrate pneumonia or effusion. > re-evaluation, reports improvement in headache with Toradol, Benadryl and Reglan. She was also provided with a dose of Solu-Medrol in ED. > likely upper respiratory infection. Given her son at home has pneumonia, will send home with prednisone and Z-Rodrigo for treatment. Medications Administered Discontinued Medications Generic Name Dose Route Start Last Admin Trade Name Freq PRN Reason Stop Dose Admin Diphenhydramine HCl 25 mg 09/12/24 12:02 09/12/24 12:31 Diphenhydramine Hcl 25 Mg Capsule PO 09/12/24 12:03 25 mg ONCE ONE Administration Ketorolac Tromethamine 30 mg 09/12/24 12:02 09/12/24 12:29 Ketorolac Tromethamine 30 Mg/Ml Vial IM 09/12/24 12:03 30 mg ONCE ONE Administration Methylprednisolone Sodium Succinate 60 mg 09/12/24 12:52 09/12/24 13:14 Methylprednisolone Sod Succ 125 Mg/2 Ml Vial IM 09/12/24 12:53 60 mg ONCE ONE Administration Metoclopramide HCl 10 mg 09/12/24 12:02 09/12/24 12:31 Metoclopramide Hcl 10 Mg Tablet PO 09/12/24 12:03 10 mg ONCE ONE Administration Medical Decision Making Medical Decision Making [facility] Narrative: 39 year old female with pmhx significant for GERD, anxiety, depression, asthma presents to the ED today for evaluation of dry cough, diffuse chest pain (primarily on coughing), headache, chills, subjective fevers, nausea, and one episode of vomiting x24 hours. Vital signs stable. Afebrile. Not hypoxic or tachycardic. She is nontoxic-appearing and in no acute distress. Lungs are CTA bilaterally with equal breath sounds. No tripoding or increased effort of breathing. No audible wheezes. No noted cough. Posterior oropharynx WNL. Bilateral EACs and TMs WNL. Skin warm, dry, intact. No calf tenderness bilaterally. Exam is nonfocal. Differential diagnosis includes viral syndrome, pneumonia, bronchitis, asthma exacerbation, tension vs migraine headache, gastroenteritis, IUP, ACS, arrhythmia, costochondritis, pleuritis, MSK sprain/strain. Lower suspicion for PE, effusion, ruptured aneurysm. PERC 0. Plan for labs, viral swabs, ekg, cxr, pain control, and re-evaluation. Differential Diagnosis Differential Diagnoses: The differential diagnosis associated with the presentation includes as above. Admission/Observation not indicated. Lab Data [facility] Lab Attestation statement: I reviewed the patient's lab results. as above. 09/12/24 11:14 09/12/24 11:14 Labs: Lab Results 09/12/24 Range/Units 11:14 WBC 7.7 (4.8-10.8) X10*3/uL RBC 4.39 (4.20-5.50) X10*6/uL Hgb 13.6 (12.0-16.0) g/dl Hct 40.3 (37.0-47.0) % MCV 91.8 (80.0-98.0) fL MCH 31.0 (27.0-33.0) pg MCHC 33.7 (31.0-35.0) g/dl RDW 12.6 (11.0-16.0) % Plt Count 272 (160-400) X10*3/uL MPV 10.0 (9.4-12.3) fL Immature Gran % (Auto) 0.4 (0.0-0.4) % Neut % (Auto) 59.4 (45-73) % Lymph % (Auto) 31.5 (20-40) % Dupage % (Auto) 5.3 (2-11) % Eos % (Auto) 2.5 (0-4) % Baso % (Auto) 0.9 (0-2) % Lymph # (Auto) 2.4 (1.2-4.9) X10*3/uL Dupage # (Auto) 0.4 (0.1-1.2) X10*3/uL Eos # (Auto) 0.2 (0.0-0.4) X10*3/uL Baso # (Auto) 0.1 (0.0-0.2) X10*3/uL Abs Immat Gran (auto) 0.03 (0.00-0.03) X10*3/uL Absolute Neuts (auto) 4.6 (2.0-8.3) x10*3/uL Absolute Nucleated RBC 0.000 (0.0-0.012) X10*3/uL Nucleated RBC % (auto) 0.0 (0.0-0.2) /100WBC Sodium 141 (135-145) mmol/L Potassium 3.8 (3.3-5.1) mmol/L Chloride 110 H (96-108) mmol/L Carbon Dioxide 21 L (22-29) mmol/L Anion Gap 14 (12-20) BUN 15 (9-16) mg/dL Creatinine 0.80 (0.5-1.4) mg/dL Estim Creat Clear Calc 94.9 Estimated GFR > 60 Random Glucose 122 H (60-115) mg/dL Calcium 9.6 (8.4-10.2) mg/dL Total Bilirubin 0.3 (0.0-1.0) mg/dL AST 25 (5-31) U/L ALT 26 (0-31) U/L Alkaline Phosphatase 59 (39-117) U/L Troponin I High Sens < 2.7 (<3.5-17.0) ng/L Total Protein 7.0 (6.5-8.0) g/dL Albumin 3.9 (3.5-5.0) g/dL Beta HCG, Quant < 2 mIU/mL Influenza Type A (PCR) NEGATIVE (Negative) Influenza Type B (PCR) NEGATIVE (Negative) RSV RNA Qual (PCR) NEGATIVE (Negative) SARS-CoV-2 RNA (RT-PCR) NEGATIVE (Negative) Independent Interpretation I performed an independent interpretation of an: EKG and Plain X-Ray Interpretation: EKG showing normal sinus rhythm with a rate of 84 beats per minute, QT 382, QTC 451, no acute ischemic changes or ST elevations. Chest x-ray without infiltrate or consolidation Radiology Impression Discussion of test interpretation with radiology: I have reviewed the radiologist's reading. Radiologist Impression: EXAMINATION: XR CHEST CLINICAL INFORMATION: Chest pain. Shortness of breath. Cough. COMPARISON: X-ray dated November 23, 2019 TECHNIQUE: 2 views of the chest were obtained. FINDINGS: No consolidation, pleural effusion or pneumothorax. Cardiomediastinal silhouette is normal in size. Osseous structures are intact. Vascular clips right upper quadrant abdomen and likely cholecystectomy. XR/XR chest 2V IMPRESSION: No acute airspace disease. Electronically signed by: Mitchel Wing MD 09/12/2024 01:38 PM [facility] External Record Review External record reviewed: Inpatient record Prescription Management I considered prescription management with: Antibiotic (zpak) and Other (prednisone) Chronic Conditions Patient?s care impacted by: Other (asthma) Social Determinants Patient?s care significantly limited by Social Determinants of Health including: Other Social Determinant of Health Critical Care Time Critical Care Time Critical Care Time: No Discharge Plan Discharge Clinical Impression: Upper respiratory infection Patient Disposition: Home, Self-Care Instructions: Upper Respiratory Infection (ED) Additional Instructions: Your blood work today is reassuring. Your cardiac enzyme is normal. Your EKG is normal. You tested negative for COVID, flu, RSV. Your chest x-ray does not show evidence of pneumonia however given your exposure at home, you will be treated for this. Azithromycin as an antibiotic that has been sent to your pharmacy for you to take over the next 5 days. I have also sent a steroid called prednisone to your pharmacy for you to take over the next 4 days starting tomorrow. You received a dose of this already in the ED today. Follow up with your primary care provider this week. Return with new or worsening symptoms. In the case of an emergency call 911. Prescriptions: New prednisone 20 mg tablet 40 mg PO DAILY 4 Days Qty: 8 0RF azithromycin 250 mg tablet See Rx Instructions .ROUTE .COMPLEX Qty: 6 0RF Rx Instructions: For 250 mg dose pack: take 500 mg today (day 1), then 250 mg for 4 days (days 2-5) No Action ondansetron 4 mg tablet,disintegrating 4 mg PO Q8H 4 Days Qty: 12 0RF acetaminophen [Tylenol Extra Strength] 500 mg tablet 500 mg PO Q6H PRN (Reason: fever or pain) Qty: 14 0RF lidocaine [Lidoderm] 5 % adhesive patch,medicated 1 patch topical DAILY MDD remove after 12 hours PRN (Reason: pain) Qty: 30 0RF Rx Instructions: leave on most painful area for up to 12 hrs cyclobenzaprine 5 mg tablet 5 mg PO Q8H PRN (Reason: pain (scale score 7-10)) 5 Days Qty: 14 0RF ketorolac 10 mg tablet 10 mg PO .B.i.d. PRN (Reason: pain) Qty: 7 0RF albuterol sulfate [ProAir HFA] 90 mcg/actuation HFA aerosol inhaler 0 mcg inhalation esomeprazole magnesium [Nexium 24HR] 20 mg tablet,delayed release (DR/EC) 20 mg PO DAILY Qty: 30 2RF sennosides [Natural Senna Laxative] 8.6 mg tablet 17.2 mg PO BEDTIME Qty: 60 2RF Referrals: Suha Mehta, [employer] [Primary Care Provider] - Stand Alone Forms: Work/School Release Print Language: Kazakh
[2024-09-12 12:18] LABS: Influenza A PCR NEGATIVE (Negative); Influenza B PCR NEGATIVE (Negative); Resp Syncy Virus RNA Qual PCR NEGATIVE (Negative); SARS COV2 PCR INHOUSE NEGATIVE (Negative)
[2024-09-12] MEDS: Ketorolac Tromethamine 30 MG/ML VIAL IM (12:29)
[2024-09-12] MEDS: Metoclopramide HCl 10 MG TABLET PO (12:31)
[2024-09-12] MEDS: diphenhydrAMINE HCL 25 MG CAPSULE PO (12:31)
[2024-09-12 12:59] VITALS: BP 102/56; PULSE 63; RESP 14; TEMP 36.8; O2SAT 98
[2024-09-12] MEDS: methylPREDNISolone Sod Succ 125 MG/2 ML VIAL 60 MG IM (13:14)
[2024-09-12 13:23] LABS: HCG Quantitative < 2 mIU/mL
[2024-09-12 14:44] VITALS: BP 102/56; PULSE 63; RESP 14; TEMP 36.8; O2SAT 98
== END 2024-09-12 14:45 | disposition home or self-care (01) ==
PROVIDERS: Physician Assistant Medical; Emergency Provider Emergency Medicine; PCP Nurse Practitioner Primary Care
DX: J06.9 Acute upper respiratory infection, unspecified (principal); R07.89 Other chest pain; M79.10 Myalgia, unspecified site; R05.9 Cough, unspecified; R51.9 Headache, unspecified; R50.9 Fever, unspecified; R11.2 Nausea with vomiting, unspecified; R10.2 Pelvic and perineal pain; Z03.818 Encounter for observation for suspected exposure to other biological agents ruled out
CPT/HCPCS: 0241U; 71046; 80053; 84484; 84702; 85025; 93005; 96372; 99284; J1885; J2919

== ENCOUNTER → 2024-09-12 10:57 | Outpatient (BNV) | payer OTHER, SELFPAY | PROVIDERS: Emergency Provider Emergency Medicine; PCP Nurse Practitioner Primary Care; Visit Provider Internal Medicine Cardiovascular Disease | DX: R07.9 Chest pain, unspecified (principal) | CPT/HCPCS: 93010 ==

== ENCOUNTER → 2024-09-12 11:48 | Outpatient (BNV) | payer OTHER, SELFPAY | PROVIDERS: Emergency Provider Emergency Medicine; PCP Nurse Practitioner Primary Care; Visit Provider Radiology Diagnostic Radiology | DX: R07.9 Chest pain, unspecified (principal) | CPT/HCPCS: 71046 ==

== ENCOUNTER 2024-12-05 15:18 | Outpatient (REF) | payer OTHER, SELFPAY ==
--- NOTE | ~2024-12-05 | XR_ITS ---
EXAMINATION: XR KNEE, RIGHT CLINICAL INFORMATION: right knee pain times years, right knee giving out COMPARISON: None available. TECHNIQUE: Three views of the right knee. FINDINGS: No fracture or joint effusion. Alignment is anatomic. Joint spaces are maintained. No abnormal soft tissue calcification. XR/XR knee RT 3V IMPRESSION: Normal right knee. Electronically signed by: Kvng Sarmiento MD 12/05/2024 03:40 PM [facility]
== END 2024-12-05 15:19 | disposition home or self-care (01) ==
LOC: HO.HHCX 15:18
PROVIDERS: Visit Provider Internal Medicine
DX: M25.561 Pain in right knee (principal); G89.29 Other chronic pain
CPT/HCPCS: 73562

== ENCOUNTER → 2024-12-05 15:18 | Outpatient (BNV) | payer OTHER, SELFPAY | PROVIDERS: Visit Provider Radiology Diagnostic Radiology | DX: M25.561 Pain in right knee (principal) | CPT/HCPCS: 73562 ==

== ENCOUNTER 2025-01-08 18:35 | Outpatient (REF) | payer OTHER, SELFPAY ==
--- OUTSIDE RECORDS SUMMARY | 2025-01-08 19:31 | XMS_ITS | Clinical Summary ---
Author Organization [employer] Address [address] [place] [address] Care Team Providers Care Remote Ruby On Rails Developer Name Role Phone Suha Mehta Unavailable Suha Mehta Primary Care Provider [phone] Allergies No known active allergies Medications * This document contains information received from the source organization and may not represent a complete record from that organization. acetaminophen (Tylenol) 500 MG tablet Take 2 tablets by mouth every 6 (six) hours if needed. Do Not exceed 4000 grams in one day 1 Active fluticasone (Flonase) 50 MCG/ACT nasal spray Administer 1-2 sprays into affected nostril(s) if needed at bedtime. Administer 1-2 sprays into affected nostril(s) at bed time. 2 Active omeprazole (PriLOSEC) [address] capsule Take 1 capsule by mouth before breakfast. 2 Active Misc. Devices (Pulse Oximeter) misc - 2 Active Spacer/Aero-Hol ding Chambers (Compact Space Chamber) device Use with albuterol as needed. 0 Active tamsulosin (Flomax) 0.4 MG 24 hr capsule Take 1 capsule by mouth before breakfast. 1 Active [facility] Saline Nasal [place] 0.65 % nasal sprayIndication s:Nasal congestion 1-2 SPRAY ON EACH NOSTRIL EVERY 2-3 HOURS NEEDED FOR NASAL CONGESTION 44 mL 3 Active albuterol (Ventolin HFA) 108 (90 Base) MCG/ACT inhaler INHALE 2 PUFFS BY INHALATION ROUTE EVERY 4 TO 6 HOURS IF NEEDED 18 g 1 3 Active diclofenac (Cataflam) 50 MG tabletIndicatio ns:Acute right-sided low back pain with right-sided sciatica Take 1 tablet (50 mg) by mouth 2 times daily. Take with food 14 tablet 3 Active hydrOXYzine HCl (Atarax) 10 MG tabletIndicatio ns:Anxiety take 1 - 2 Tablet by Oral route every 8 hours as needed for anxiety 60 tablet 2 3 Active sertraline (Zoloft) 25 MG tabletIndicatio ns:Anxiety TAKE 1 TABLET BY MOUTH EVERY DAY 90 tablet 4 Active cholecalciferol (D3-1000) 25 MCG (1000 UT) capsule TAKE 1 CAPSULE BY MOUTH EVERY DAY 90 capsule 4 Active metroNIDAZOLE (Flagyl) 500 MG tablet Take 1 tablet (500 mg) by mouth 2 times daily for 7 days. 14 tablet 5 01/16/20 25 Active Active Problems Problem Noted Date Diagnosed Date Routine physical examination 12/05/2024 Assessment & Plan (12/05/2024 3:02 PM EST): Within normal limits aside from mild right knee tenderness Pap: last one 2018 at [facility], will refer to Vicenta Bishop. Pt is s/p RADHA Mammogram: ordered given strong Fam Hx of breast cancer Chronic pain of right knee 12/05/2024 Assessment & Plan (12/05/2024 2:55 PM EST): Patient c/o chronic right knee pain, reports a Hx of an injury years ago recently c/o knee giving way and falling. Etiology ? Meniscal derangement ? Plan: plain films right knee Ortho consult, might need an MRI Family history of breast cancer 12/05/2024 Assessment & Plan (12/05/2024 2:57 PM EST): Patient reports a strong family hx of breast cancer. 2 paternal aunts diagnosed with breast cancer early 30s Pt interested in being screened with mammogram Allergies 12/05/2024 Assessment & Plan (12/05/2024 3:14 PM EST): Patient tells me she would like to be tested for allergies, since she feels there have been a couple of instances in which she has eaten bars that contain nuts and feels like her throat became itchy . No sob, no anaphylaxis Plan: Advise to abstain from nut containing food for now Referral to shipping and receiving specialist Anxiety 07/01/2023 Asthma 07/01/2023 Carrier of group B Streptococcus 07/01/2023 Gastritis and duodenitis 07/01/2023 History of esophagogastroduodenoscopy (EGD) 06/09 History of partial hysterectomy 07/01/2023 Homeless 07/01/2023 Hx of cholecystectomy 07/01/2023 Irritable bowel syndrome (IBS) 07/01/2023 GERD (gastroesophageal reflux disease) Depression 07/01/2023 Acute upper respiratory infection 10/20/2022 Obesity (BMI 30-39.9) 10/20/2022 Assessment & Plan (12/05/2024 3:10 PM EST): Patient has been counseled and educated about diet and exercise. Will obtain a FBS and Lipid profile Subcutaneous cyst 10/20/2022 Renal cyst, left 10/20/2022 Gastroesophageal reflux disease 10/20/2022 Mixed anxiety and depressive disorder 10/20/2022 Assessment & Plan (12/05/2024 3:12 PM EST): Pt tells me she is seeing a therapist but would be interested in seeing our tv technician for med management Had been taking Zoloft in the past but no longer Splenic cyst 10/20/2022 Vitamin D deficiency 10/20/2022 History of renal calculi 10/20/2022 Counseling for control, oral contraceptive s 10/20/2022 Counseling on health promotion and disease preve ntion 10/20/2022 Encounters * This document contains information received from the source organization and may not represent a complete record from that organization. Date Type Department Care Team Description 01/08/2025 1:45 PM EST Office Visit [facility] [address] [place] [phone] Vicenta Cervantes CNM Cervical cancer screening (Primary Dx); Abnormal uterine bleeding; Acute vaginitis; Encntr screen for infections w sexl mode of transmiss 01/08/2025 Travel 12/27/[address] [address] Eladia Ahumada [place] 12/27/[address] [address] Eladia Ahumada [place] March recall (Tried calling pt to schedule appt for march,nums are not in service,unable to leave message.sending letter) 12/26/2024 Travel 12/12/2024 [facility] Health Information Management [address] [place] [id number] Best Jon MD MAMMOGRAM ORDER 12/07/[address] [address] Suha Mehta ANP 12/05/2024 2:30 PM EST Office Visit [address] [address] Best Jon MD Routine physical examination (Primary Dx); Chronic pain of right knee; Family history of breast cancer; Breast cancer screening by mammogram; Hx of abnormal cervical Pap smear; Obesity (BMI 30-39.9); Mixed anxiety and depressive disorder; Allergy, initial encounter 12/05/2024 Travel 11/24/[address] [address] uSha Mehta ANP Chart Prep 11/23/2024 Patient Outreach [address] [address] Suha Mehta ANP Pre-visit Planning (SDOH Screening negative and Tobacco screening negative) 10/19/[address] [address] Suha Mehta ANP No Show 10/10/2024 Patient Outreach [address] [address] Suha Mehta ANP Pre-visit Planning (Pre-visit planning - LVM ) from Last 3 Months Immunizations Name Administration Dates Next Due HPV, Quadrivalent 08/30/2012,11/21/2008 Hep A, Adult 12/01/2019 Influenza, IIV3, injectable 08/04/2011 Influenza, Unspecified 08/30/2012,07/29/2010,01/2009,12/31/2008 Td (adult), unspecified 06/13/2008 Tdap 06/05/2020,06/08/2019,08/30/2012 Family History Medical History Relation Name Comments Breast cancer Father's Brother 2 paternal aunts with breast cancer Cervical cancer Maternal Grandmother Stomach cancer Other paternal great aunt Relation Name Status Comments Father's Brother Maternal Grandmother Other paternal great aunt Social History Tobacco Use Types Packs/Day Years Used Date Smoking Tobacco: Never Passive Smoke Exposure: Never Smokeless Tobacco: Never Tobacco Cessation:Counseling Given: Not Answered Alcohol Use Standard Drinks/Week Comments Not Currently 0 (1 standard drink = 0.6 oz pur e alcohol) Depression Answer Date Recorded Patient Health Questionnaire-9 Score 13 12/05/2024 Patient Health Questionnaire-9 Score 13 12/05/2024 Last PHQ-9: Questionnaire Data Not on file 0 12/05/2024 Housing Stability Answer Date Recorded What is your housing situation today? I have juanito lackey 11/23/[address] you li ve. Do you have problems with any of the following? None of the above 11/23/2024 Food Insecurity Answer Date Recorded Within the past 12 months, y ou worried that your food would run out before you got money to buy more: Never True 11/23/2024 Within the past 12 months,th e food you bought just didn't last and you didn't have enough money to get more: Never True Transportation Answer Date Recorded In the past 12 months, has l ack of transportation kept you from medical appts, meetings, work or from getting things needed for daily living? No 11/23/2024 Utilities Answer Date Recorded In the past 12 months, has t he electric, gas, oil or water company threatened to shut off services in your home? No 11/23/2024 Depression Answer Date Recorded Patient Health Questionnaire-2 Score 2 12/05/2024 Internet Access Answer Date Recorded Internet Access Q1 Yes 11/23/2024 Internet Access Q2 Not on file 11/23/2024 Comments No Sex and Gender Information Value Date Recorded Sex Assigned at Female 09/07/2022 10:36 AM EDT Legal Sex Female 10:36 AM EDT Gender Identity Female 09/07/2022 10:36 AM EDT Sexual Orientation Choose not to disclose 2021 5:14 PM EDT Sexual Orientation Straight 09/09/2022 5: 14 PM EDT Last Filed Vital Signs Vital Sign Reading Time Taken Comments Blood Pressure 129/74 01/08/2025 1:39 PM EST Pulse 67 01/08/2025 1:39 PM EST Temperature 36.6 ??C (97.9 ??F) 01/08/2025 1:39 PM ES T Respiratory Rate 16 01/08/2025 1:39 PM EST Oxygen Saturation 98% 01/08/2025 1:39 PM EST Inhaled Oxygen Concentration - - Weight 85.8 kg (189 lb 3.2 oz) 01/08/2025 1:39 P M EST Height 154.9 cm (5' 1 ) 01/08/2025 1:39 PM EST Body Mass Index 35.75 01/08/2025 1:39 PM EST Plan of Treatment Health Maintenance Due Date Last Done Comments Lipid Panel 1985 Hepatitis B Vaccines (1 of 3 - 19+ 3-dose series) 2005 Pneumococcal Vaccine: Pediatrics (0 to 5 Years) and At-Risk Patients (6 to 49) Years) (1 of 2 - PCV) 2005 Pap Smear 2007 HPV Vaccines (3 - 3-dose series) 11/22/2012 08/30/2012, 11/21/2008 Cervical Cancer Screening 2016 HPV/Cotest 2016 COVID-19 Vaccine (2023- season) 2024 Influenza Vaccine (#1) 2024 2, 08/04/2011, 07/29/2010, Additional history exists Depression Monitoring (PHQ-9) 06/04/2025 12/05/2024, 12/05/2024 Alcohol/Substance Use Screening 12/05/2025 12/05/2024 Depression Screening 12/05/2025 12/05/2024, 12/05/19 25 SDOH Screening 12/05/2025 12/05/2024 Family Planning (PISQ) 01/08/2026 01/08/2025 Tobacco Screening 01/08/2026 01/08/2025 DTaP/Tdap/Td Vaccines (4 - Td or Tdap) 06/05/2030 06/05/2020, 06/08/2019, 08/30/2012, Additional history exists Zoster Vaccines (1 of 2) 2036 RSV Patients and Patients Aged 60 years or older (1 - 1-dose 75+ series) 2061 Hepatitis A Vaccines Aged Out 12/01/2019 No long er eligible based on patient's age to complete this topic HIV Screening Completed 01/13/2022, 11/15/2019 Hepatitis C Screening Completed 01/13/2022, 020 HIB Vaccines Aged Out No longer eligi ble based on patient's age to complete this topic IPV Vaccines Aged Out No longer eligi ble based on patient's age to complete this topic Meningococcal Vaccine Aged Out No leydi darlene eligible based on patient's age to complete this topic RSV under 20 months Aged Out No longe r eligible based on patient's age to complete this topic Rotavirus Vaccines Aged Out No longer eligible based on patient's age to complete this topic Procedures Procedure Name Priority Date/Time Associated Diagnosis Comments POCT , URINE Routine 01/08/2025 2:13 PM EST Abnormal uterine bleeding POCT WET MOUNT/SRINIVASAN Routine 01/08/2025 2: 07 PM EST Acute vaginitis XR KNEE 3 VIEWS RIGHT Routine 12/05/2024 3:18 PM EST Chronic pain of right knee ZZZ HISTORICAL HEPATITIS C AB W/REFL TO HCV RNA, QN, PCR Routine 01/13/2022 10:32 AM EST HIV 1/2 ANTIGEN/ANTIBODY, FOURTH GENERATION W/RFL Routine 01/13/2022 10:32 AM EST from Last 3 Months or Most Recently Relevant to Health Maintenance Results * POCT , urine manually resulted (01/08/2025 2:13 PM EST) Pathologist [facility] Preg Test, Ur Negative Negative, Indeterminate, None Detected, Invalid, Specimen unsatisfactory for evaluation, Weakly Positive QC Media Lot # [id number] Lot# Expiration Date [id number] Urine 01/08/2025 2:13 PM EST Vicenta FRANK POINT OF CARE TEST ENTER/ EDIT ORDERABLES Final Result * POCT fern test, vaginal fluid manually resulted (01/08/2025 2:07 PM EST) [facility] SRINIVASAN Prep Positive Comment:pH 5, pos whiff, pos clue, neg wbc, neg yeast, neg trich Vaginal Fluid Vaginal structure / Unknown 01/08/2025 2:07 PM EST Impressions Vicenta Cervantes CNM - 01/08/2025 2:07 PM EST Bacterial vaginosis Vicenta Cervantes [facility] POINT OF CARE TEST ENTER/ EDIT ORDERABLES Final Result * XR Knee 3 Views Right (12/05/2024 3:18 PM EST) Anatomical Region Laterality Modality Lower Extremities, Knee Right Radiogra phic Imaging 12/05/2024 3:18 PM EST Narrative 12/05/2024 3:43 PM EST ?[facility] ?[address] ?[place] [address] ?XRay Report ? Signed ? Patient: Colon,Tabatha M ?MR#: [id number] ?? 4 ? : 1985 ?Acct:[id number] ? Age/Sex: 39 / F ?ADM Date: 01/28/25 ? Loc: HO.HHCX ? Attending : Best Craig MD ? Ordering Physician: Best Craig MD ?? Date of Service: 12/05/24 ?? Procedure(s): XR knee RT 3V ?? Accession Number(s): [id number] ? cc: Best Craig MD ? EXAMINATION: ?? XR KNEE, RIGHT ? CLINICAL INFORMATION: ?? right knee pain times years, right knee giving out ? COMPARISON: ?? None available. ? TECHNIQUE: ?? Three views of the right knee. ? FINDINGS: ?? No fracture or joint effusion. Alignment is anatomic. Joint spaces are ?? maintained. No abnormal soft tissue calcification. ? XR/XR knee RT 3V ?? IMPRESSION: ?? Normal right knee. ? Electronically signed by: ??Kvng Sarmiento MD ??12/05/2024 03:40 PM EST RP ? Dictated By: ?Kvng Sarmiento MD ? Signed By: ?<Electronically signed by Kvng Sarmiento MD in OV> ?12/05/24 1540 ? DD/ 1518 ? TD/TT: 12/05/24 1531 ? Dial Lathe Operator: ? Procedure Note Donotradhainterpreter, Image - 12/05/2024 [place] [address] XRay Report Signed Patient: Tabatha Díaz MMR#: [id number] 4 : 1985Acct:[id number] Age/Sex: 39 / FADM Date: 12/05/24 Loc: HO.HHCX Attending Dr: Best Craig MD Ordering Physician: Best Craig MD Date of Service: 12/05/24 Procedure(s): XR knee RT 3V Accession Number(s): [id number] cc: Best Craig MD EXAMINATION: XR KNEE, RIGHT CLINICAL INFORMATION: right knee pain times years, right knee giving out COMPARISON: None available. TECHNIQUE: Three views of the right knee. FINDINGS: No fracture or joint effusion. Alignment is anatomic. Joint spaces are maintained. No abnormal soft tissue calcification. XR/XR knee RT 3V IMPRESSION: Normal right knee. Electronically signed by: Kvng Sarmiento MD 12/05/2024 03:40 PM [facility] Dictated By: Kvng Sarmiento MD Signed By: <Electronically signed by Kvng Sarmiento MD in OV> 12/05/24 1540 DD/ 1518 TD/TT: 12/05/24 1531 Dial Lathe Operator: Best Guerrero MD IMG XR PROCEDURES Fin al Result * HEPATITIS C AB W/REFL TO HCV RNA, QN, PCR (01/13/2022 10:32 AM EST) HEPATITIS C ANTIBODY NON-REACT YOCASTA NON-REACT YOCASTA [facility] INDEX 0.01 <1.00 [facility] Comment: ?? HCV antibody was non-reactive. There is no laboratory ?? evidence of HCV infection. ?? In most cases, no further action is required. However, if recent HCV exposure is suspected, a test for HCV RNA (test code 89902) is suggested. ?? For additional information please refer to http://[employer]/faq/ZJR63o2 (This link is being provided for informational/ educational purposes only.) ?? 01/13/2022 10:3 2 AM EST us Suha Mehta ANP HISTORICAL/NON ORDERABLE LABS Fi nal Result [facility] [address] * HIV 1/2 ANTIGEN/ANTIBODY,FOURTH GENERATION W/RFL (01/13/2022 10:32 AM EST) HIV-1/2 ANTIGEN AND ANTIBODIES, 4TH GENERATION W/ REFLEX NON-REACT YOCASTA NON-REACT YOCASTA [facility] Comment: HIV-1 antigen and HIV-1/HIV-2 antibodies were not detected. There is no laboratory evidence of HIV infection. ?? PLEASE NOTE: This information has been disclosed to you from records whose confidentiality may be protected by state law. ??If your state requires such protection, then the state law prohibits you from making any further disclosure of the information without the specific written consent of the person to whom it pertains, or as otherwise permitted by law. A general authorization for the release of medical or other information is NOT sufficient for this purpose. ? For additional information please refer to http://[employer]/faq/LKS434 (This link is being provided for informational/ educational purposes only.) ? The performance of this assay has not been clinically validated in patients less than 2 years old. ?? 01/13/2022 10:3 2 AM EST Suha GRACIA LAB BLOOD ORDERABLES Final Resul t [facility] [address] from Last 3 Months or Most Recently Relevant to Health Maintenance Insurance [facility] , [address] [place] [address] Care Teams Remote Ruby On Rails Developer Relationship Specialty Start Date End Date Suha Mehta ANP [address] [place] [address] PCP - General Family Medicine 10/20/22 Suha Mehta ANP [address] [place] [address] Family [facility] 11/08/21
--- OUTSIDE RECORDS SUMMARY | 2025-01-08 19:31 | XMS_ITS | Encounter Summary ---
Author Organization [employer] Address [address] [place] [address] Care Team Providers Care Tower Observer Name Role Phone Suha Mehta Unavailable Suha Mehta Primary Care Provider [phone] Encounter Details Date Type Department Care Team (Latest Contact Info) Description 01/08/2025 Travel Social History Tobacco Use Types Packs/Day Years Used Date Smoking Tobacco: Never Passive Smoke Exposure: Never Smokeless Tobacco: Never Alcohol Use Standard Drinks/Week Comments Not Currently [...] Orientation Straight 09/09/2022 5: 14 PM EDT documented as of this encounter Plan of Treatment Not on file documented as of this encounter Visit Diagnoses Not on filedocumented in this encounter Additional Health Concerns Assessment Noted Time PHQ-9 Depression Total Score: 13 025 2:39 PM EST documented as of this encounter Care Teams Tower Observer Relationship Specialty Start Date End Date Suha Mehta ANP [address] [place] [address] PCP - General Family Medicine 10/20/22 Suha Mehta ANP [address] [place] [address] Family Medicine 11/08/21 documented as of this encounter
--- OUTSIDE RECORDS SUMMARY | 2025-01-08 19:31 | XMS_ITS | Encounter Summary ---
Author Organization [employer] Address [address] [place] [address] Care Team Providers Care Regional Liaison Name Role Phone Suha Mehta Unavailable Suha Mehta Primary Care Provider [phone] Reason for Visit * Reason Onset Date Comments May recall 12/27/2024 Tried calling pt to schedule appt for march,nums are not in service,unable to leave message.sending letter Encounter Details Date Type Department Care Team ([facility] st Contact Info) Description 12/27/2024 Telephone [facility] [address] [place], [place] [phone] Eladia Ahumada [place] May recall (Tried calling pt to schedule appt for march,nums are not in service,unable to leave message.sending letter) Social History Tobacco Use Types Packs/Day Years [...] the past 12 months, has t he [employer], gas, oil or water company threatened to shut off services in your home? No 11/23/2024 Depression Answer Date Recorded Patient Health Questionnaire-2 Score 2 12/05/2024 Internet Access Answer Date Recorded Internet Access Q1 Yes 11/23/2024 Internet Access Q2 Not on file 11/23/2024 Comments Unknown Sex and Gender Information Value Date Recorded Sex Assigned at Female 09/07/2022 10:36 AM EDT Legal Sex Female 10:36 AM EDT Gender Identity Female 09/07/2022 10:36 AM EDT Sexual Orientation Choose not to disclose 2021 5:14 PM EDT Sexual Orientation Straight 09/09/2022 5: 14 PM EDT documented as of this encounter Miscellaneous Notes * Telephone Encounter - Eladia Ahumada [place] - 12/27/2024 9:35 AM EST Tried calling pt to schedule appt for march,nums are not in service,unable to leave message.sending letter documented in this encounter Plan of Treatment Not on file documented as of this encounter Visit Diagnoses Not on filedocumented in this encounter Additional Health Concerns Assessment Noted Time PHQ-9 Depression Total Score: 13 025 2:39 PM EST documented as of this encounter Care Teams Regional Liaison Relationship Specialty Start Date End Date Suha Mehta ANP [address] [place] [address] PCP - General Family Medicine 10/20/22 Suha Mehta ANP [address] [place] [address] Family Medicine 11/08/21 documented as of this encounter
--- OUTSIDE RECORDS SUMMARY | 2025-01-08 19:31 | XMS_ITS | Encounter Summary ---
Author Organization [employer] Address [address] [place] [address] Care Team Providers Care Inspector Ball Points Name Role Phone Suha Mehta Unavailable Suha Mehta Primary Care Provider [phone] Encounter Details Date Type Department Care Team (Late st Contact Info) Description 12/27/2024 Telephone [facility] MED[facility]INE [address] [place], [place] [phone] Eladia Ahumada [place] Social History Tobacco Use Types Packs/Day Years [...] documented as of this encounter Care Teams Inspector Ball Points Relationship Specialty Start Date End Date Suha Mehta ANP [address] [place] [address] PCP - General Family Medicine 10/20/22 Suha Mehta ANP [address] [place] [address] Family Medicine 11/08/21 documented as of this encounter
--- OUTSIDE RECORDS SUMMARY | 2025-01-08 19:31 | XMS_ITS | Encounter Summary ---
Author Organization [facility] [employer] [facility] [employer] Address [address] [place] [address] Care Team Providers Care Plastic Installer Name Role Phone Suha Mehta Unavailable Suha Mehta Primary Care Provider [phone] Reason for Visit * Reason Comments Gynecologic Exam Encounter Details Date Type Department Care Team (Late st Contact Info) Description 01/08/2025 1:45 PM EST Office Visit [facility] [address] [place], [place] [phone] Vicenta Cervantes CNM [address] [place], [place] [phone] Cervical cancer screening (Primary Dx); Abnormal uterine bleeding; Acute vaginitis; Encntr screen for infections w sexl mode of transmiss Social History Tobacco Use Types Packs/Day Years [...] PM EDT documented as of this encounter Last Filed Vital Signs Vital Sign Reading [...] Mass Index 35.75 01/08/2025 1:39 PM EST documented in this encounter Progress Notes * Vicenta Cervantes, MIGNON - 01/08/2025 1:45 PM EST Subjective Patient ID: Tabatha Díaz is a 39 y.o. 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 History of abnormal pap/colpo 15 years ago, normal since then. History of bacterial vaginosis. Notes some vaginal discharge, odor and pain with sex recently. 1 skilled nursing [facility] partner, no safety concerns. Has tubal ligation, not planning any more pregnancies. History of ovarian cysts. Monthly menses x 5 days usually. LMP 01/02 x 2 days which was atypical. Also notes bilateral breast tenderness which is unusual. Review of Systems Genitourinary: Positive for dyspareunia, menstrual problem, pelvic pain and vaginal discharge. Negative for dysuria, frequency, genital sores, hematuria, urgency, vaginal bleeding and vaginal pain. No breast mass, no nipple discharge Objective BP 129/74 (BP Location: Left arm, Patient Position: Sitting, BP Cuff Size: Large adult) Pulse 67 Temp 97.9 ??F (36.6 ??C) (Temporal) Resp 16 Ht 5' 1 (1.549 m) Wt 189 lb 3.2 oz (85.8 kg) LMP 01/02/2025 (Exact Date) SpO2 98% BMI 35.75 kg/m?? Physical Exam Constitutional: Appearance: Normal appearance. Chest: Breasts: Right: Normal. No swelling, bleeding, inverted nipple, mass, nipple discharge, skin change or tenderness. Left: Normal. No swelling, bleeding, inverted nipple, mass, nipple discharge, skin change or tenderness. Genitourinary: General: Normal vulva. Labia: Right: No rash, tenderness, lesion or injury. Left: No rash, tenderness, lesion or injury. Vagina: Normal. No signs of injury and foreign body. No vaginal discharge, erythema, tenderness, bleeding or lesions. Cervix: No cervical motion tenderness, discharge, friability, lesion, erythema, cervical bleeding or eversion. Uterus: Normal. Not enlarged and not tender. Adnexa: Left adnexa normal. Right: Tenderness present. No mass or fullness. Left: No mass, tenderness or fullness. Comments: Mild tenderness right adnexa. Milky discharge Lymphadenopathy: Upper Body: Right upper body: No supraclavicular or axillary adenopathy. Left upper body: No supraclavicular or axillary adenopathy. Neurological: Mental Status: She is alert. Psychiatric: Mood and Affect: Mood normal. Behavior: Behavior normal. Assessment/Plan Diagnoses and all orders for this visit: Cervical cancer screening - Pap Smear Cotest 3 y if normal/neg due to history of colpo 15 y ago, no records available. Will contact with results. Abnormal uterine bleeding - POCT , urine manually resulted Light menses x 1. test negative today. Will observe. Pap based STI testing sent today. Acute vaginitis - POCT fern test, vaginal fluid manually resulted For metronidazole as prescribed. Avoid vaginal irritants. Report worsening/persistent symptoms. Abstain from sex during treatment. Exam not suspicious for PID. Will order ultrasound if pain persists after treatment. Encntr screen for infections w sexl mode of transmiss - STI testing add on (NG, CT, Trich) Pap based STI testing sent today. Exam not suspicious for PID. Will order ultrasound if pain persists. Other orders - metroNIDAZOLE (Flagyl) 500 MG tablet; Take 1 tablet (500 mg) by mouth 2 times daily for 7 days. documented in this encounter Plan of Treatment Scheduled Orders Name Type Priority Associated Diagnoses Orde r Schedule Pap Smear Pathology and Cytology Routine Cervical cancer screening Ordered: 01/08/2025 STI testing add on (NG, CT, Trich) Pathology and Cytology Routine Encntr screen for infections w sexl mode of transmiss Ordered: 01/08/2025 documented as of this encounter Procedures Procedure Name Priority Date/Time Associated Diagnosis Comments POCT , URINE Routine 01/08/2025 2:13 PM EST Abnormal uterine bleeding POCT WET [place]/SRINIVASAN Routine 01/08/2025 2: 07 PM EST Acute vaginitis documented in this encounter Results * POCT , urine manually resulted (01/08/2025 2:13 PM EST) Preg Test, Ur Negative Negative, Indeterminate, None Detected, Invalid, Specimen unsatisfactory for evaluation, Weakly Positive QC Media Lot # [id number] Lot# Expiration Date [id number] Urine 01/08/2025 2:13 PM EST Vicenta FRANK POINT OF CARE TEST ENTER/ EDIT ORDERABLES Final Result * POCT fern test, vaginal fluid manually resulted (01/08/2025 2:07 PM EST) SRINIVASAN Prep Positive Comment:pH 5, pos whiff, pos clue, neg wbc, neg yeast, neg trich Vaginal Fluid Vaginal structure / Unknown 01/08/2025 2:07 PM EST Impressions Vicenta Cervantes CNM - 01/08/2025 2:07 PM EST Bacterial vaginosis Vicenta Cervantes [facility] POINT OF CARE TEST ENTER/ EDIT ORDERABLES Final Result documented in this encounter Visit Diagnoses Diagnosis Cervical cancer screening- Primary Screening for malignant neoplasm of the cervix Abnormal uterine bleeding Unspecified disorder of menstruation and other abnormal bleeding from female genital tract Acute vaginitis Unspecified vaginitis and vulvovaginitis Encntr screen for infections w sexl mode of transmiss documented in this encounter Additional Health Concerns Assessment Noted Time PHQ-9 Depression Total Score: 13 12/05/ 025 2:39 PM EST documented as of this encounter Care Teams Plastic Installer Relationship Specialty Start Date End Date Suha Mehta ANP [address] [place] [address] PCP - General Family Medicine 10/20/22 Suha Mehta ANP [address] [place] [address] Family Medicine 11/08/21 documented as of this encounter
--- OUTSIDE RECORDS SUMMARY | 2025-01-08 19:31 | XMS_ITS | Encounter Summary ---
Author Organization [employer] Address [address] [place] [address] Care Team Providers Care Auto Club Travel Counselor Name Role Phone Suha Mehta Unavailable Suha Mehta Primary Care Provider [phone] Encounter Details Date Type Department Care Team (Latest Contact Info) Description 12/26/2024 Travel Social History Tobacco Use Types Packs/Day [...] documented as of this encounter Care Teams Auto Club Travel Counselor Relationship Specialty Start Date End Date Suha Mehta ANP [address] [place] [address] PCP - General Family Medicine 10/20/22 Suha Mehta ANP [address] [place] [address] Family Medicine 11/08/21 documented as of this encounter
--- OUTSIDE RECORDS SUMMARY | 2025-01-08 19:31 | XMS_ITS | Encounter Summary ---
Author Organization [employer] Address [address] [facility] 7 [place] [address] Care Team Providers Care Reprint Sorter Name Role Phone Suha Mehta Unavailable Suha Mehta Primary Care Provider [phone] Reason for Visit * Reason Onset Date Comments MAMMOGRAM ORDER 12/12/2024 Encounter Details Date Type Department Care Team ([facility] st Contact Info) Description 12/12/2024 Telephone [facility] [address] [place], [place] [phone] Best Jon MD [address] [place], [place] [phone] MAMMOGRAM ORDER Social History Tobacco Use Types Packs/Day Years [...] encounter Miscellaneous Notes * Telephone Encounter - Mari Alicea - 12/12/2024 11:46 AM EST Incoming fax from [facility] Per Mammogram protocols, patient will only be eligible for screening Mammograms beginning at the age of 40. For a patient to be eligible for a screenng mammogram before the age of 40, an immediate family would have to have been diagnosed with breast cance. For example mother, sister etc documented in this encounter Plan of Treatment Not on file documented as of this encounter Visit Diagnoses Not on filedocumented in this encounter Additional Health Concerns Assessment Noted Time PHQ-9 Depression Total Score: 13 025 2:39 PM EST documented as of this encounter Care Teams Reprint Sorter Relationship Specialty Start Date End Date Suha Mehta ANP [address] [place] [address] PCP - General Family Medicine 12/13/22 Suha Mehta ANP [address] [place] [address] Family Medicine 11/08/21 documented as of this encounter
[2025-01-12 10:01] LABS: HPV Genotype 16 Negative (Negative); HPV Genotype 18 Negative (Negative); HPV High Risk Negative (Negative)
== END 2025-01-08 18:36 | disposition home or self-care (01) ==
LOC: HO.HHCLNP 18:35
PROVIDERS: Visit Provider Advanced Practice Midwife
DX: Z12.4 Encounter for screening for malignant neoplasm of cervix (principal); Z11.3 Encounter for screening for infections with a predominantly sexual mode of transmission
CPT/HCPCS: 87491; 87591; 87626; 87661; 88175

== ENCOUNTER 2025-01-09 08:54 | Outpatient (AMB) | payer OTHER, SELFPAY ==
--- NOTE | 2025-01-09 09:02 | A.OFFVIS_ITS ---
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 Hx of injury on 2019. Patient reports ongoing pain for a few years. She mentions that her pain is on the medial aspect of the knee and she feels that her pain radiates up to her hip. Patient mentions that her pain is worse when she is walking, bending her knee and using the stairs. She has tried and failed 3 + months Tylenol, NSAIDs and Ice. 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 Díaz is a 39 year old female who presents to the office today for evaluation of chronic right knee pain. She reports that in 2019 she was carrying a laundry basket down the stairs and fell. Ever since then she has had right knee pain that has interfered with her activities of daily living. She has small children and when she picks them up she feels the most pain in the right knee. She reports that her pain is mostly located along the medial aspect of the joint. 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 No ecchymosis, erythema, or joint effusion. Tenderness to palpation along the medial and lateral joint lines. Greater pain medial joint line. Full knee extension and flexion. Negative Dave's. Negative anterior drawer. NVI. Assessment & Plan Assessment & Plan (1) Internal derangement of right knee: Code(s): M23.91 - Unspecified internal derangement of right knee Category: Medical Plan Ms. Díaz is a 39 year old female who presents to the office today for evaluation of chronic right knee pain. She reports that in 2019 she was carrying a laundry basket down the stairs and fell. Ever since then she has had right knee pain that has interfered with her activities of daily living. She has small children and when she picks them up she feels the most pain in the right knee. She reports that her pain is mostly located along the medial aspect of the joint. Patient has tried and failed Tylenol, anti-inflammatories and icing. She continues to have difficulties performing her activities of daily living. Therefore, I have ordered an MRI to evaluate the integrity of the right knee and surrounding structures. She will follow up after the MRI is obtained, sooner if needed. X-rays of the a new right knee which were obtained while in the office today and were reviewed by me, Kaylee Caraballo PA-C, revealed no acute fracture dislocation. No evidence of osteoarthritis. There is slight lateralization of the patella. Orders: Orders XR knee LT 1V Today M25.569 - Pain in unspecified knee XR knee RT 2V Today M25.569 - Pain in unspecified knee Coding Level of Care Code New Pt Level 4 (78104) Diagnoses Internal derangement of right knee M23.91
[2025-01-09 09:06] VITALS: BMI 35.7
--- OUTSIDE RECORDS SUMMARY | 2025-01-09 09:38 | XMS_ITS | Encounter Summary ---
Author Organization [employer] Address [address] [place] [address] Care Team Providers Care Pipe Organ Mechanic Apprentice Name Role Phone Suha Mehta Unavailable Suha Mehta Primary Care Provider [phone] Encounter Details Date Type Department Care Team (Late st Contact Info) Description 12/27/2024 Telephone [facility] [address] [place], [place] [phone] Eladia Ahumada [place] Social History Tobacco Use [...] documented as of this encounter Care Teams Pipe Organ Mechanic Apprentice Relationship Specialty Start Date End Date Suha Mehta ANP [address] [place] [address] PCP - General Family Medicine 10/20/22 Suha Mehta ANP [address] [place] [address] Family Medicine 11/08/21 documented as of this encounter
--- OUTSIDE RECORDS SUMMARY | 2025-01-09 09:38 | XMS_ITS | Encounter Summary ---
Author Organization [employer] Address [address] [facility] [address] [place] [address] Care Team Providers Care Head Bone Grinder Name Role Phone Suha Mehta Unavailable Suha Mehta Primary Care Provider [phone] Reason for Visit * Reason Onset Date Comments MAMMOGRAM ORDER 12/12/2024 Encounter Details Date Type Department Care Team ([facility] st Contact Info) Description 12/12/2024 Telephone [employer] [facility] [address] [place], [place] [phone] Best Jon MD [address] [place], [place] [phone] MAMMOGRAM ORDER Social History Tobacco Use Types [...] 11:46 AM EST Incoming fax from [facility], Per Mammogram protocols, patient will only be [...] documented as of this encounter Care Teams Head Bone Grinder Relationship Specialty Start Date End Date Suha Mehta ANP [address] [place] [address] PCP - General Family Medicine 12/13/22 Suha Mehta ANP [address] [place] [address] Family Medicine 11/08/21 documented as of this encounter
--- OUTSIDE RECORDS SUMMARY | 2025-01-09 09:38 | XMS_ITS | Encounter Summary ---
Author Organization [employer] Address [address] [facility] [facility] [place] [address] Care Team Providers Care Assistant Professor Nurse Education Name Role Phone Suha Mehta Unavailable Suha Mehta Primary Care Provider [phone] Reason for Visit * Reason Comments Gynecologic Exam Encounter Details Date Type Department Care Team (Late st Contact Info) Description 01/08/2025 1:45 PM EST Office Visit [facility] [address] [place], [place] [phone] Vicenta Cervantes CNM [address] [place], [place] [phone] Cervical cancer screening (Primary Dx); Abnormal uterine [...] a 39 y.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 History of abnormal pap/colpo 15 years ago, normal since then. History of bacterial vaginosis. Notes some vaginal discharge, odor and pain with sex recently. [facility], no safety concerns. Has tubal [...] Media Lot # [id number] Lot# Expiration Date [id number] Urine 01/08/2025 2:13 PM EST Vicenta FRANK [...] 2:07 PM EST Bacterial vaginosis Vicenta Cervantes [facility] POINT OF CARE TEST ENTER/ EDIT [...] documented as of this encounter Care Teams Assistant Professor Nurse Education Relationship Specialty Start Date End Date Suha Mehta ANP [address] [place] [address] PCP - General Family Medicine 10/20/22 Suha Mehta ANP [address] [place] [address] Family Medicine 11/08/21 documented as of this encounter
--- OUTSIDE RECORDS SUMMARY | 2025-01-09 09:39 | XMS_ITS | Encounter Summary ---
Author Organization [employer] Address [address] [place] [address] Care Team Providers Care Corrugator Operator Name Role Phone Suha Mehta Unavailable Suha Mehta Primary Care Provider [phone] Encounter Details Date Type Department Care Team [...] documented as of this encounter Care Teams Corrugator Operator Relationship Specialty Start Date End Date Suha Mehta ANP [address] [place] [address] PCP - General Family Medicine 10/20/22 Suha Mehta ANP [address] [place] [address] Family Medicine 11/08/21 documented as of this encounter
--- OUTSIDE RECORDS SUMMARY | 2025-01-09 09:39 | XMS_ITS | Encounter Summary ---
Author Organization [employer] Address [address] [facility] [address]t [place] [address] Care Team Providers Care Technical Account Executive Name Role Phone Suha Mehta Unavailable Suha Mehta Primary Care Provider [phone] Encounter Details Date Type Department Care Team [...] documented as of this encounter Care Teams Technical Account Executive Relationship Specialty Start Date End Date Suha Mehta ANP [address] [place] [address] PCP - General Family Medicine 10/20/22 Suha Mehta ANP [address] [place] [address] Family Medicine 11/08/21 documented as of this encounter
--- OUTSIDE RECORDS SUMMARY | 2025-01-09 09:39 | XMS_ITS | Clinical Summary ---
Author Organization [facility] Address [address] [place] [address] Care Team Providers Care Gis Programmer Name Role Phone Suha Mehta Unavailable Suha Mehta Primary Care Provider Allergies No known active allergies Medications * [...] before breakfast. 1 Active [facility] [place] 0.65 % nasal sprayIndication s:Nasal congestion 1-2 [...] knee tenderness Pap: last one 2018 at [facility], will refer to Vicenta Bishop. Pt [...] nut containing food for now Referral to e marketing specialist Anxiety 07/01/2023 Asthma 07/01/2023 Carrier of [...] but would be interested in seeing our deaf interpreter for med management Had been taking Zoloft [...] Description 01/08/2025 1:45 PM EST Office Visit [facility] [address] [place] [address] Vicenta Cervantes CNM Cervical cancer screening (Primary Dx); Abnormal uterine bleeding; Acute vaginitis; Encntr screen for infections w sexl mode of transmiss 01/08/2025 Travel 12/27/[address] [address] Eladia Ahumada [place] 12/27/[address] [address] Eladia Ahumada [place] March recall (Tried calling pt to schedule appt for march,nums are not in service,unable to leave message.sending letter) 12/26/2024 Travel 12/12/2024 Telephone [facility] [address] [place] [address] Best Jon MD MAMMOGRAM ORDER 12/07/[address] [address] Suha Mehta ANP 12/05/2024 2:30 PM EST Office Visit [address] [address] Best Jon MD Routine physical examination (Primary Dx); Chronic pain of right knee; Family history of breast cancer; Breast cancer screening by mammogram; Hx of abnormal cervical Pap smear; Obesity (BMI 30-39.9); Mixed anxiety and depressive disorder; Allergy, initial encounter 12/05/2024 Travel 11/24/[address] [address] Suha Mehta ANP Chart Prep 11/23/2024 Patient Outreach [address] [address] Suha Mehta ANP Pre-visit Planning (SDOH Screening negative and Tobacco screening negative) 10/19/[address] [phone] Suha Mehta ANP No Show from Last 3 Months Immunizations Name Administration [...] Cancer Screening 2016 HPV/Cotest 2016 COVID-19 Vaccine ( season) 2024 Influenza Vaccine (#1) 2024 2, [...] Media Lot # [id number] Lot# Expiration Date [id number] Urine 01/08/2025 2:13 PM EST Vicenta Cervantes CNM POINT OF CARE TEST ENTER/ EDIT ORDERABLES Final Result * POCT fern test, vaginal fluid manually resulted (01/08/2025 2:07 PM EST) SRINIVASAN Prep Positive Comment:pH 5, pos whiff, pos clue, neg wbc, neg yeast, neg trich Vaginal Fluid Vaginal structure / Unknown 01/08/2025 2:07 PM EST Impressions Vicenta Cervantes CNM - 01/08/2025 2:07 PM EST Bacterial vaginosis Vicenta Cervantes CNM POINT OF CARE TEST ENTER/ EDIT ORDERABLES Final Result * XR Knee 3 Views Right (12/05/2024 3:18 PM EST) Anatomical Region Laterality Modality Lower Extremities, Knee Right Radiogra phic Imaging 12/05/2024 3:18 PM EST Narrative 12/05/2024 3:43 PM EST ?[facility] ?[address] ?[place] [address] ?XRay Report ? Signed ? Patient: Colon,Tabatha M ?MR#: [id number] ?? 4 ? : 1985 ?Acct:[id number] ? Age/Sex: 39 / F ?ADM Date: 12/05/24 ? Loc: HO.HHCX ? Attending Dr: Best Craig MD ? Ordering Physician: Best Craig MD ?? Date of Service: 12/05/24 ?? Procedure(s): XR knee RT 3V ?? Accession Number(s): [id number] ? cc: Best Craig MD ? EXAMINATION: [...] DD/ 1518 ? TD/TT: 12/05/24 1531 ? Circus Supervisor: ? Procedure Note Donnelidater, Image - 12/05/[address] [address] XRay Report Signed Patient: Tabatha Díaz MMR#: [id number] 4 : 1985Acct:[id number] Age/Sex: 39 / FADM Date: 12/05/24 Loc: HO.HHCX Attending Dr: Best Craig MD Ordering Physician: Best Craig MD Date of Service: 12/05/24 Procedure(s): XR knee RT 3V Accession Number(s): [id number] cc: Best Craig MD EXAMINATION: XR KNEE, [...] by: Kvng Sarmiento MD 12/05/2024 03:40 PM [facility] Dictated By: Kvng Sarmiento MD Signed By: <Electronically signed by Kvng Sarmiento MD in OV> 12/05/24 1540 DD/ 1518 TD/TT: 12/05/24 1531 Circus Supervisor: us Best Guerrero MD IMG XR PROCEDURES Fin al Result * HEPATITIS C AB W/REFL TO HCV RNA, QN, PCR (01/13/2022 10:32 AM EST) HEPATITIS C ANTIBODY NON-REACT [facility] NON-REACT [facility] INDEX 0.01 <1.00 [facility] Comment: ?? HCV antibody was non-reactive. There is no laboratory ?? evidence of HCV infection. ?? In most cases, no further action is required. However, if recent HCV exposure is suspected, a test for HCV RNA (test code 98923) is suggested. ?? For additional information please refer to http://[employer]Active-Semi/faq/RRB93j4 (This link is being provided for informational/ educational purposes only.) ?? 01/13/2022 10:3 2 AM EST us Suha Mehta ANP HISTORICAL/NON ORDERABLE LABS Fi nal Result [facility] [address] * HIV 1/2 ANTIGEN/ANTIBODY,FOURTH GENERATION W/RFL (01/13/2022 10:32 AM EST) HIV-1/2 ANTIGEN AND ANTIBODIES, 4TH GENERATION W/ REFLEX NON-REACT [facility] NON-REACT [facility]A [facility] Comment: HIV-1 antigen and HIV-1/HIV-2 [...] ? For additional information please refer to http://[employer]/faq/JVX066 (This link is being provided for informational/ educational purposes only.) ? The performance of this assay has not been clinically validated in patients less than 2 years old. ?? 01/13/2022 10:3 2 AM EST Suha GRACIA LAB BLOOD ORDERABLES Final Resul t [facility] [address] [place] [address], from Last 3 Months or Most Recently Relevant to Health Maintenance Insurance [facility] , [address] [place] [address] Care Teams Gis Programmer Relationship Specialty Start Date End Date Suha Mehta ANP [address] [place] [address] PCP - General Family Medicine 10/20/22 Suha Mehta ANP [address] [place] [address] Family Medicine 11/08/21
--- OUTSIDE RECORDS SUMMARY | 2025-01-09 09:39 | XMS_ITS | Encounter Summary ---
Author Organization [employer] Address [address] [place] [address] Care Team Providers Care Pipeline Superintendent Division Name Role Phone Suha Mehta Unavailable Suha Mehta Primary Care Provider [phone] Reason for Visit * Reason Onset Date Comments May recall 12/27/2024 Tried calling pt to schedule appt for march,nums are not in service,unable to leave message.sending letter Encounter Details Date Type Department Care Team ([facility] st Contact Info) Description 12/27/2024 Telephone [facility] MEDICINE [address] [place], [place] [phone] Eladia Ahumada [place] May recall (Tried calling [...] the past 12 months, has t he [employer], gas, oil or water company threatened to [...] documented as of this encounter Care Teams Pipeline Superintendent Division Relationship Specialty Start Date End Date Suha Mehta ANP [address] [place] [address] PCP - General Family Medicine 10/20/22 Suha Mehta ANP [address] [place] [address] Family Medicine 11/08/21 documented as of this encounter
== END 2025-01-09 09:27 | disposition home or self-care (01) ==
PROVIDERS: Visit Provider Physician Assistant
DX: M23.91 Unspecified internal derangement of right knee (principal)
CPT/HCPCS: 99204

== ENCOUNTER → 2025-01-09 08:56 | Outpatient (BNV) | payer OTHER, SELFPAY | PROVIDERS: Visit Provider Radiology Diagnostic Radiology | DX: M25.561 Pain in right knee (principal) | CPT/HCPCS: 73560 ==

== ENCOUNTER 2025-01-09 09:46 | Outpatient (REF) | payer OTHER, SELFPAY ==
--- NOTE | ~2025-01-09 | XR_ITS ---
EXAMINATION: XR KNEE, RIGHT CLINICAL INFORMATION: M25.569 - Pain in unspecified knee COMPARISON: None available. TECHNIQUE: AP standing bilateral knees. [place] were the right knee. FINDINGS: AP bilateral knee: Medial and lateral compartment joint space is maintained normal. No bony erosive changes. No fracture or loose bodies seen. [place] view right knee reveals maintained joint space. No bony erosive changes, fracture or dislocation. The soft tissues are normal. XR/XR knee RT 2V IMPRESSION: Unremarkable AP bilateral knee standing. Unremarkable right knee sunrise view. Electronically signed by: Hal Napoles MD 01/09/2025 02:16 PM [facility]
--- OUTSIDE RECORDS SUMMARY | 2025-01-10 11:09 | XMS_ITS | Encounter Summary ---
Author Organization [employer] Address [address] [place] [address] Care Team Providers Care Sponge Maker Name Role Phone Suha Mehta Unavailable Suha Mehta Primary Care Provider [phone] Reason for Visit * Reason Onset Date Comments May recall 12/27/2024 Tried calling pt to schedule appt for march,nums are not in service,unable to leave message.sending letter Encounter Details Date Type Department Care Team ([facility] st Contact Info) Description 12/27/2024 Telephone [facility] MEDICINE [address] [place], [place] [phone] Eladia Ahumada [place] May recall (Tried calling [...] the past 12 months, has t he [employer], gas, oil or water company threatened to [...] documented as of this encounter Care Teams Sponge Maker Relationship Specialty Start Date End Date Suha Mehta ANP [address] [place] [address] PCP - General Family Medicine 10/20/22 Suha Mehta ANP [address] [place] [address] Family Medicine 11/08/21 documented as of this encounter
--- OUTSIDE RECORDS SUMMARY | 2025-01-10 11:09 | XMS_ITS | Clinical Summary ---
Author Organization [employer] Address [address] [place] [address] Care Team Providers Care Brick Setter Name Role Phone Suha Mehta Unavailable Suha Mehta Primary Care Provider [phone] Allergies No known active allergies Medications * This document contains information received from the source organization and may not represent a complete record from that organization. acetaminophen (Tylenol) 500 MG tablet Take 2 tablets by mouth every 6 (six) hours if needed. Do Not exceed 4000 grams in one day 07/25/20 21 Active fluticasone (Flonase) 50 MCG/ACT nasal spray Administer 1-2 sprays into affected nostril(s) if needed at bedtime. Administer 1-2 sprays into affected nostril(s) at bed time. 04/03/20 22 Active omeprazole (PriLOSEC) [address] capsule Take 1 capsule by mouth before breakfast. 02/25/20 22 Active Misc. Devices (Pulse Oximeter) misc - 12/04/19 22 Active Spacer/Aero-Ho lding Chambers (Compact Space Chamber) device Use with albuterol as needed. 12/07/19 20 Active tamsulosin (Flomax) 0.4 MG 24 hr capsule Take 1 capsule by mouth before breakfast. 07/21/20 21 Active [employer] Saline Nasal Lyman 0.65 % nasal sprayIndicatio ns:Nasal congestion 1-2 SPRAY ON EACH NOSTRIL EVERY 2-3 HOURS NEEDED FOR NASAL CONGESTION 44 mL 12/18/19 23 Active albuterol (Ventolin HFA) 108 (90 Base) MCG/ACT inhaler INHALE 2 PUFFS BY INHALATION ROUTE EVERY 4 TO 6 HOURS IF NEEDED 18 g 1 10/07/20 23 Active diclofenac (Cataflam) 50 MG tabletIndicati ons:Acute right-sided low back pain with right-sided sciatica Take 1 tablet (50 mg) by mouth 2 times daily. Take with food 14 tablet 10/18/20 23 Active cholecalcifero l (D3-1000) 25 MCG (1000 UT) capsule TAKE 1 CAPSULE BY MOUTH EVERY DAY 90 capsule 08/24/20 24 Active metroNIDAZOLE (Flagyl) 500 MG tablet Take 1 tablet (500 mg) by mouth 2 times daily for 7 days. 14 tablet 01/09/20 25 025 Active FLUoxetine (PROzac) 10 MG capsuleIndicat ions:Mixed anxiety and depressive disorder Take 1 capsule (10 mg) by mouth in the morning. 30 capsule 1 01/11/20 25 025 Active hydrOXYzine HCl (Atarax) 10 MG tabletIndicati ons:Anxiety Take 1 tablet (10 mg) by mouth if needed at bedtime for anxiety. 30 tablet 1 01/11/20 25 025 Active hydrOXYzine HCl (Atarax) 10 MG tabletIndicati ons:Anxiety take 1 - 2 Tablet by Oral route every 8 hours as needed for anxiety 60 tablet 2 10/18/20 23 025 Discontinued(Re order (will not trigger notification to Pharmacy)) sertraline (Zoloft) 25 MG tabletIndicati ons:Anxiety TAKE 1 TABLET BY MOUTH EVERY DAY 90 tablet 01/14/20 24 025 Discontinued(No n-compliance) Active Problems Problem Noted Date Diagnosed Date Alcohol use disorder, moderate, dependence 01/10 Routine physical examination 12/05/2024 Assessment & Plan (12/05/2024 3:02 PM EST): Within normal limits aside from mild right knee tenderness Pap: last one 2018 at [facility], will refer to Vicenta Bishop. Pt is [...] nut containing food for now Referral to wage and salary specialist Anxiety 07/01/2023 Asthma 07/01/2023 Carrier of [...] but would be interested in seeing our instructor psychiatric aide for med management Had been taking Zoloft [...] Description 01/08/2025 1:45 PM EST Office Visit [address] [address] Vicenta Cervantes CNM Cervical cancer screening (Primary Dx); Abnormal uterine bleeding; Acute vaginitis; Encntr screen for infections w sexl mode of transmiss 01/08/2025 Travel 12/27/[address] [address] Eladia Ahumada [place] 12/27/[address] [address] Eladia Ahumada [place] May recall (Tried calling pt to schedule appt for march,nums are not in service,unable to leave message.sending letter) 12/26/2024 Travel 12/12/2024 [facility] [place] [facility] [address] [place] [phone] Best Jon MD MAMMOGRAM ORDER 12/07/[address] [address] Suha Mehta, BASIL 12/05/2024 2:30 PM EST Office Visit [address] [address] Best Jon MD Routine physical examination (Primary Dx); Chronic pain of right knee; Family history of breast cancer; Breast cancer screening by mammogram; Hx of abnormal cervical Pap smear; Obesity (BMI 30-39.9); Mixed anxiety and depressive disorder; Allergy, initial encounter 12/05/2024 Travel 11/24/[address] [address] Suha Mehta ANP Chart Prep 11/23/2024 Patient Outreach [facility] [address] [facility] [place] [address] Suha Mehta ANP Pre-visit Planning (SDOH Screening negative and Tobacco screening negative) 10/19/2024 Telephone [facility] [address] [facility] [place] [address] Suha Mehta ANP No Show from Last [...] Media Lot # [id number] Lot# Expiration Date [id number] Urine 01/08/2025 2:13 PM EST Vicenta Cervantes [facility] POINT OF CARE TEST ENTER/ EDIT ORDERABLES Final Result * POCT fern test, vaginal fluid manually resulted (01/08/2025 2:07 PM EST) Pathologist [facility] SRINIVASAN Prep Positive Comment:pH 5, pos whiff, pos clue, neg wbc, neg yeast, neg trich Vaginal Fluid Vaginal structure / Unknown 01/08/2025 2:07 PM EST Impressions Vicenta Cervantes CNM - 01/08/2025 2:07 PM EST Bacterial vaginosis Vicenta FRANK POINT OF CARE TEST ENTER/ EDIT ORDERABLES Final Result * XR Knee 3 Views Right (12/05/2024 3:18 PM EST) Anatomical Region Laterality Modality Lower Extremities, Knee Right Radiogra phic Imaging 12/05/2024 3:18 PM EST Narrative 12/05/2024 3:43 PM EST ?[facility] ?[address] ?[place] [address] ?XRay Report ? Signed ? Patient: Colon,Tabatha M ?MR#: [id number] ?? 4 ? : 1985 ?Acct:[id number] ? Age/Sex: 39 / F ?ADM Date: /28/25 ? Loc: HO.HHCX ? Attending Dr: Best Craig MD ? Ordering Physician: Best Craig MD ?? Date of Service: 12/05/24 ?? Procedure(s): XR knee RT 3V ?? Accession Number(s): [id number] ? cc: Best Craig MD ? EXAMINATION: [...] DD/ 1518 ? TD/TT: 12/05/24 1531 ? Flour Mixer Helper: ? Procedure Note Lion Mackenzie - 12/05/[address] [address] XRay Report Signed Patient: Tabatha Díaz MMR#: [id number] 4 : 1985Acct:[id number] Age/Sex: 39 / FADM Date: 12/05/24 Loc: HO.HHCX Attending Dr: Best Craig MD Ordering Physician: Best Craig MD Date of Service: 12/05/24 Procedure(s): XR knee RT 3V Accession Number(s): [id number] cc: Best Craig MD EXAMINATION: XR KNEE, [...] by: Kvng Sarmiento MD 12/05/2024 03:40 PM EST Dictated By: Kvng Sarmiento MD Signed By: <Electronically signed by Kvng Sarmiento MD in OV> 12/05/24 1540 DD/ 1518 TD/TT: 12/05/24 1531 Flour Mixer Helper: Best Guerrero MD IMG XR PROCEDURES Fin [...] a test for HCV RNA (test code 30684) is suggested. ?? For additional information please refer to http://education.[employer]worth.CiDRA/faq/RXF95q0 (This link is being provided for informational/ educational purposes only.) ?? 01/13/2022 10:3 2 AM EST us Suha Mehta ANP HISTORICAL/NON ORDERABLE LABS Fi nal Result [facility] [address] * HIV 1/2 ANTIGEN/ANTIBODY,FOURTH GENERATION W/RFL [...] ? For additional information please refer to http://education.Buzz All Stars/faq/SRA407 (This link is being provided for informational/ educational purposes only.) ? The performance of this assay has not been clinically validated in patients less than 2 years old. ?? 01/13/2022 10:3 2 AM EST Suha Mehta [facility] BLOOD ORDERABLES Final Resul t [facility] [address] from Last 3 Months or Most Recently Relevant to Health Maintenance Insurance [facility] Care Teams Brick Setter Relationship Specialty Start Date End Date Suha Mehta ANP [address] [place] [address] PCP - General Family Medicine 10/20/22 Suha Mehta ANP [address] [place] [address] Family Medicine 11/08/21
--- OUTSIDE RECORDS SUMMARY | 2025-01-10 11:09 | XMS_ITS | Encounter Summary ---
Author Organization [employer] Address [address] 7[address] [place] [address] Care Team Providers Care Carpenter Ship Name Role Phone Suha Mehta Unavailable Suha Mehta Primary Care Provider [phone] Encounter Details Date Type Department Care Team (Late st Contact Info) Description 12/27/[address] [facility] MEDICINE [address] [place], [place] [phone] Eladia Ahumada [place] Social History Tobacco Use [...] documented as of this encounter Care Teams Carpenter Ship Relationship Specialty Start Date End Date Suha Mehta ANP [address] [place] [address] PCP - General Family Medicine 10/20/22 Suha Mehta ANP [address] [place] [address] Family Medicine 11/08/21 documented as of this encounter
--- OUTSIDE RECORDS SUMMARY | 2025-01-10 11:09 | XMS_ITS | Encounter Summary ---
Author Organization [employer] Address [address] [place] [address] Care Team Providers Care Humanities Teacher Name Role Phone Suha Mehta Unavailable Suha Mehta Primary Care Provider [phone] Reason for Visit * Reason Comments Gynecologic Exam Encounter Details Date Type Department Care Team (Late st Contact Info) Description 01/08/2025 1:45 PM EST Office Visit [facility] MEDICINE [address] [place], [place] [phone] Vicenta Cervantes CNM [address] [place], [place] [phone] Cervical cancer screening (Primary Dx); Abnormal uterine [...] a 39 y.o. female who presents for SMOKE TESTER visit Last pap 5+ years ago. History of abnormal pap/colpo 15 years ago, normal since then. History of bacterial vaginosis. Notes some vaginal discharge, odor and pain with sex recently. 1 senior living [facility] partner, no safety concerns. Has tubal [...] Media Lot # [id number] Lot# Expiration Date [id number] Urine 01/08/2025 2:13 PM EST Vicenta FRANK [...] 2:07 PM EST Bacterial vaginosis Vicenta Cervantes [facility] POINT OF CARE TEST ENTER/ EDIT ORDERABLES [...] documented as of this encounter Care Teams Humanities Teacher Relationship Specialty Start Date End Date Suha Mehta ANP [address] [place] [address] PCP - General Family Medicine 10/20/22 Suha Mehta ANP [address] [place] [address] Family Medicine 11/08/21 documented as of this encounter
--- OUTSIDE RECORDS SUMMARY | 2025-01-10 11:09 | XMS_ITS | Encounter Summary ---
Author Organization [employer] Address [address] [place] [address] Care Team Providers Care Client Manager Large Law Name Role Phone Suha Mehta Unavailable Suha Mehta Primary Care Provider [phone] Encounter Details Date Type Department Care Team [...] documented as of this encounter Care Teams Client Manager Large Law Relationship Specialty Start Date End Date Suha Mehta ANP [address] [place] [address] PCP - General Family Medicine 10/20/22 Suha Mehta ANP [address] [place] [address] Family Medicine 11/08/21 documented as of this encounter
--- OUTSIDE RECORDS SUMMARY | 2025-01-10 11:09 | XMS_ITS | Encounter Summary ---
Author Organization [employer] Address [address] [facility] 7 [place] [address] Care Team Providers Care Vice President Diversity Name Role Phone Suha Mehta Unavailable Suha Mehta Primary Care Provider [phone] Reason for Visit * Reason Onset Date Comments MAMMOGRAM ORDER 12/12/2024 Encounter Details Date Type Department Care Team ([facility] st Contact Info) Description 12/12/2024 Telephone [facility] 230 [place], [place] [phone] Best Jon MD [address] [place], [place] [phone] MAMMOGRAM ORDER Social History Tobacco Use Types [...] 12/12/2024 11:46 AM EST Incoming fax from [facility], Per Mammogram protocols, patient will only be [...] documented as of this encounter Care Teams Vice President Diversity Relationship Specialty Start Date End Date Suha Mehta ANP [address] [place] [address] PCP - General Family Medicine 12/13/22 Suha Mehta ANP [address] [place] [address] Family Medicine 11/08/21 documented as of this encounter
--- OUTSIDE RECORDS SUMMARY | 2025-01-10 11:09 | XMS_ITS | Encounter Summary ---
Author Organization [employer] Address [address] [place] [address] Care Team Providers Care Silverware Supervisor Name Role Phone Suha Mehta Unavailable Suha Mehta Primary Care Provider [phone] Encounter Details Date Type Department Care Team [...] documented as of this encounter Care Teams Silverware Supervisor Relationship Specialty Start Date End Date Suha Mehta ANP [address] [place] [address] PCP - General Family Medicine 10/20/22 Suha Mehta ANP [address] [place] [address] Family Medicine 11/08/21 documented as of this encounter
== END 2025-01-09 09:47 | disposition home or self-care (01) ==
LOC: HO.HOSX 09:46
PROVIDERS: Visit Provider Physician Assistant
DX: M23.91 Unspecified internal derangement of right knee (principal)
CPT/HCPCS: 73560

== ENCOUNTER 2025-01-20 19:03 | Outpatient (REF) | payer OTHER, SELFPAY ==
--- NOTE | ~2025-01-20 | MR_ITS ---
EXAMINATION: MRI RIGHT KNEE WITHOUT CONTRAST HISTORY: M23.91 - Unspecified internal derangement of right knee COMPARISON: Correlation is made with plain films of the right knee dated 01/09/2025 and 11/27/2024. TECHNIQUE: Coronal T1 and fat-suppressed proton density, sagittal proton density and fat-suppressed proton density, and axial fat suppressed T2 weighted MR images of the right knee were obtained. FINDINGS: Bone marrow: There is a tiny focus of subchondral marrow edema in the anterior aspect of the medial femoral condyle. There are tiny cysts in the posterior aspect of the medial tibial plateau. Bone marrow signal intensity is otherwise normal. Joint effusion: There is no joint effusion. Murcia's cyst: There is no Murcia's cyst. Articular cartilage: Intact Muscles/soft tissues: The visualized muscles demonstrate normal signal intensity. Anterior cruciate ligament: Intact Posterior cruciate ligament: Intact Medial collateral ligament: Intact Lateral collateral ligament: Intact Medial meniscus: Intact Lateral meniscus: Intact Flexor mechanism: The popliteus, gastrocnemius, and hamstring tendons are intact. Quadriceps tendon: Intact Patellar tendon: Intact Patellar retinacula: Intact MR/MR knee RT wo con IMPRESSION: Small focus of subchondral marrow edema in the anterior aspect of the medial femoral condyle. Otherwise unremarkable MRI of the right knee. Electronically signed by: Zelalem Mariscal MD 01/22/2025 08:07 AM EDT
== END 2025-01-20 19:04 | disposition home or self-care (01) ==
LOC: HO.MRI 19:03
PROVIDERS: PCP Nurse Practitioner Primary Care; Visit Provider Physician Assistant
DX: M23.91 Unspecified internal derangement of right knee (principal)
CPT/HCPCS: 73721

== ENCOUNTER → 2025-01-20 19:11 | Outpatient (BNV) | payer OTHER, SELFPAY | PROVIDERS: PCP Nurse Practitioner Primary Care; Visit Provider Radiology Diagnostic Radiology | DX: D75.89 Other specified diseases of blood and blood-forming organs (principal) | CPT/HCPCS: 73721 ==

== ENCOUNTER 2025-02-13 13:04 | Outpatient (AMB) | payer OTHER, SELFPAY ==
--- NOTE | 2025-02-13 13:04 | MHC.OFFVIS ---
Vital Signs 02/13/25 13:10 Height 5 ft 1 in Weight 189 lb BMI 35.7 Intake Visit Reasons: Tele - right knee MRI review Intake Note: Tabatha is a 39 year old female who presents today via telephone for her right knee MRI review. Patient reports yasmeen had a fall when she was getting out of her car on 02/11/25. She injured her back while she was stepping with her right knee. IMPRESSION: Small focus of subchondral marrow edema in the anterior aspect of the medial femoral condyle. Otherwise unremarkable MRI of the right knee. Allergies No Known Allergies Allergy (Verified 02/13/25 13:09) HPI HPI Tele - right knee MRI review: Details: Ms. Díaz is a 39 year old female who presents today via telephone for her right knee MRI review. Patient reports that she had a fall when she was getting out of her car on 02/11/25. She injured her back while she was stepping with her right knee. She continues to have right knee pain. She also endorses some numbness and tingling in the right lower extremity particularly in the foot. 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 Review of Systems Const All systems reviewed & are unremarkable except as noted in HPI and below Physical Exam Vital Signs: BMI result Body Mass Index 35.7 Extrem Other: Deferred due to tele health Telehealth Telehealth Telehealth Platform: Telephone Location of provider rendering services: practice address Location of patient: address on file Patient Identification confirmed using: Name, : Yes Telehealth method: voice only Patient verbally consented to treatment: Yes Patient verbally consented to billing insurance company: Yes Patient informed of any privacy concerns related to visit: Yes Minutes spent on Phone/Video with Pt.: 15 Assessment & Plan Assessment & Plan (1) Internal derangement of right knee: Code(s): M23.91 - Unspecified internal derangement of right knee Category: Medical Plan Ms. Díaz is a 39 year old female who presents today via telephone for her right knee MRI review. Patient reports that she had a fall when she was getting out of her car on 02/11/25. She injured her back while she was stepping with her right knee. She continues to have right knee pain. She also endorses some numbness and tingling in the right lower extremity particularly in the foot. We discussed the MRI findings are consistent with bone marrow edema on the anterior aspect of medial femoral condyle. I do feel as though the pain that she was experiencing while in the office in this area is directly related to the MRI findings. I have recommended physical therapy to work on lower extremity range of motion and strengthening. However, the patient also reports that she has sciatica, low back pain and occasional numbness and tingling in the right foot. Therefore, I have recommended a referral to Dr. Carrion for further evaluation and treatment in regards to her lower back. Right knee MRI obtained on 01/20/2025: IMPRESSION: Small focus of subchondral marrow edema in the anterior aspect of the medial femoral condyle. Otherwise unremarkable MRI of the right knee. Coding Level of Care Code Tele Est Pt Level 3 (09022) Diagnoses Internal derangement of right knee M23.91
[2025-02-13 13:10] VITALS: BMI 35.7
--- OUTSIDE RECORDS SUMMARY | 2025-02-13 15:53 | XMS_ITS | Encounter Summary ---
Author Organization [employer] Address [address] [place] [address] Care Team Providers Care Specialty Molder Name Role Phone Suha Mehta Unavailable Suha Mehta Primary Care Provider [phone] Encounter Details Date Type Department Care Team (Late st Contact Info) Description 02/12/2025 2:00 PM EDT Office Visit [facility] [address], [place] [phone] Susan Krishnamurthy MD [address] [place] [address] Viral upper respiratory tract infection (Primary Dx); Acute bilateral low back pain without sciatica; Cough, unspecified type Social History Tobacco Use Types Packs/Day Years [...] Sign Reading Time Taken Comments Blood Pressure 140/82 02/12/2025 2:53 PM EDT Pulse 80 02/12/2025 1:57 PM EDT Temperature 36.7 ??C (98 ??F) 02/12/2025 1:57 PM EDT Respiratory Rate 16 02/12/2025 1:57 PM EDT Oxygen Saturation 97% 02/12/2025 1:57 PM EDT Inhaled Oxygen Concentration - - Weight 85.7 kg (189 lb) 02/12/2025 1:57 PM EDT Height 154.9 cm (5' 1 ) 02/12/2025 1:57 PM EDT Body Mass Index 35.71 02/12/2025 1:57 PM EDT documented in this encounter Progress Notes * Susan Krishnamurthy MD - 02/12/2025 2:00 PM EDT SUBJECTIVE: Tabatha Díaz is a 39 y.o. year old female who presents for Walk In Center/cough . Denies recent illness, injury, or hospitalization. Acute Concerns: Social History Social History Narrative Not on file Patient Active Problem List Diagnosis Acute upper respiratory infection Obesity (BMI 30-39.9) Subcutaneous cyst Renal cyst, left Gastroesophageal reflux disease Mixed anxiety and depressive disorder Splenic cyst Vitamin D deficiency History of renal calculi Counseling for control, oral contraceptives Counseling on health promotion and disease prevention Anxiety Asthma Carrier of group B Streptococcus Gastritis and duodenitis History of esophagogastroduodenoscopy (EGD) History of partial hysterectomy Homeless Hx of cholecystectomy Irritable bowel syndrome (IBS) GERD (gastroesophageal reflux disease) Depression Routine physical examination Chronic pain of right knee Family history of breast cancer Allergies Alcohol use disorder, moderate, dependence (CMS/HCC) Family History Problem Relation Name Age of Onset Breast cancer Father's Brother 2 paternal aunts with breast cancer Cervical cancer Maternal Grandmother Stomach cancer Other paternal great aunt Review of Systems Constitutional: Negative for chills, fatigue and fever. HENT: Positive for congestion and rhinorrhea. Negative for ear pain, nosebleeds, sinus pressure, sore throat and trouble swallowing. Eyes: Negative for pain and discharge. Respiratory: Positive for cough and shortness of breath. Negative for chest tightness. Cardiovascular: Negative for chest pain, palpitations and leg swelling. Gastrointestinal: Negative for abdominal pain, blood in stool, constipation, diarrhea and nausea. Endocrine: Negative for polydipsia and polyuria. Genitourinary: Negative for dysuria, frequency, genital sores, pelvic pain and vaginal discharge. Musculoskeletal: Positive for arthralgias and back pain. Negative for neck pain. Skin: Negative for rash. Allergic/Immunologic: Negative for environmental allergies. Neurological: Negative for dizziness, seizures, weakness, light-headedness and headaches. Hematological: Negative for adenopathy. Psychiatric/Behavioral: Negative for agitation, behavioral problems, self-injury and suicidal ideas. OBJECTIVE: There were no vitals filed for this visit. Physical Exam HENT: Right Ear: Tympanic membrane and ear canal normal. Left Ear: Tympanic membrane and ear canal normal. Mouth/Throat: Mouth: Mucous membranes are moist. Pharynx: No oropharyngeal exudate or posterior oropharyngeal erythema. Eyes: Pupils: Pupils are equal, round, and reactive to light. Cardiovascular: Rate and Rhythm: Regular rhythm. Pulses: Normal pulses. Heart sounds: Normal heart sounds. No murmur heard. Pulmonary: Breath sounds: Normal breath sounds. Abdominal: General: Bowel sounds are normal. Palpations: Abdomen is soft. Tenderness: There is no abdominal tenderness. Musculoskeletal: General: Normal range of motion. Cervical back: Neck supple. Skin: General: Skin is warm. Neurological: General: No focal deficit present. Mental Status: She is alert and oriented to person, place, and time. Psychiatric: Mood and Affect: Mood normal. Behavior: Behavior normal. Office Visit on 02/12/2025 Component Date Value Ref Range Status Influenza B 02/12/2025 Negative Negative, Indeterminate Final QC Media Lot # 02/12/2025 [id number] Final Lot# Expiration Date 02/12/2025 1,082,026 Final Rapid Strep A Screen 02/12/2025 Negative Negative, None Detected Final QC Media Lot # 02/12/2025 [id number] Final Lot# Expiration Date 02/12/2025 1,252,026 Final Influenza A 02/12/2025 Negative Negative, Indeterminate Final QC Media Lot # 02/12/2025 [id number] Final Lot# Expiration Date 02/12/2025 1,082,026 Final Coronavirus Antigen PCR 02/12/2025 Negative Negative, Indeterminate, None Detected, Invalid, Specimen unsatisfactory for evaluation, Weakly Positive Final QC Media Lot # 02/12/2025 [id number] Final Lot# Expiration Date 02/12/2025 7,112,026 Final Problem List Items Addressed This Visit None Follow Up: Current Outpatient Medications on File Prior to Visit Medication Sig Dispense Refill acetaminophen (Tylenol) 500 MG tablet Take 2 tablets by mouth every 6 (six) hours if needed. Do Notexceed 4000 grams in one day albuterol (Ventolin HFA) 108 (90 Base) MCG/ACT inhaler INHALE 2 PUFFS BY INHALATION ROUTE EVERY 4 TO 6 HOURS IF NEEDED 18 g 1 cholecalciferol (D3-1000) 25 MCG (1000 UT) capsule TAKE 1 CAPSULE BY MOUTH EVERY DAY 90 capsule 0 [facility] Saline Nasal [place] 0.65 % nasal spray 1-2 SPRAY ON EACH NOSTRIL EVERY 2-3 HOURS NEEDED FOR NASAL CONGESTION 44 mL 0 diclofenac (Cataflam) 50 MG tablet Take 1 tablet (50 mg) by mouth 2 times daily. Take with food 14 tablet 0 FLUoxetine (PROzac) 10 MG capsule Take 1 capsule (10 mg) by mouth in the morning. 30 capsule 1 fluticasone (Flonase) 50 MCG/ACT nasal spray Administer 1-2 sprays into affected nostril(s) if needed at bedtime. Administer 1-2 sprays into affected nostril(s) at bed time. hydrOXYzine HCl (Atarax) 10 MG tablet Take 1 tablet (10 mg) by mouth if needed at bedtime for anxiety. 30 tablet 1 Misc. Devices (Pulse Oximeter) misc - omeprazole (PriLOSEC) [address] capsule Take 1 capsule by mouth before breakfast. [] ondansetron (Zofran) 4 MG tablet Take 1 tablet (4 mg) by mouth every 8 (eight) hours if needed for nausea or vomiting for up to 7 days. 20 tablet 0 Spacer/Aero-Holding Chambers (Compact Space Chamber) device Use with albuterol as needed. tamsulosin (Flomax) 0.4 MG 24 hr capsule Take 1 capsule by mouth before breakfast. No current facility-administered medications on file prior to visit. * Susan Krishnamurthy MD - 02/12/2025 2:00 PM EDT SUBJECTIVE: Tabatha Díaz is a 39 y.o. year old female who presents for Walk In [place] . Denies recent illness, injury, or hospitalization. She is here with his son. Acute Concerns: Patient co sore throat, nasal congestion, dry cough, pleuritic chest pain, headache and low-grade fever x 2 to 3 days. Last episode of fever was last night. She was using albuterol as needed with partial improvement of symptoms but she ran out 2 days ago. Her son has been sick with similar symptoms. She had a fall while getting out of the car at the pharmacy parking lot. She fell on her right side, did not hit her head or her lose of consciousness. She was able to get back On her own and went back home. She has mild low back and hip pain and right shoulder pain. No dizziness or vision changes. Social History Social History Narrative Not on file Patient Active Problem List Diagnosis Acute upper respiratory infection Obesity (BMI 30-39.9) Subcutaneous cyst Renal cyst, left Gastroesophageal reflux disease Mixed anxiety and depressive disorder Splenic cyst Vitamin D deficiency History of renal calculi Counseling for control, oral contraceptives Counseling on health promotion and disease prevention Anxiety Asthma Carrier of group B Streptococcus Gastritis and duodenitis History of esophagogastroduodenoscopy (EGD) History of partial hysterectomy Homeless Hx of cholecystectomy Irritable bowel syndrome (IBS) GERD (gastroesophageal reflux disease) Depression Routine physical examination Chronic pain of right knee Family history of breast cancer Allergies Alcohol use disorder, moderate, dependence (CMS/HCC) Viral upper respiratory tract infection Acute bilateral low back pain without sciatica Family History Problem Relation Name Age of Onset Breast cancer Father's Brother 2 paternal aunts with breast cancer Cervical cancer Maternal Grandmother Stomach cancer Other paternal great aunt Review of Systems OBJECTIVE: Vitals: 02/12/25 1357 02/12/25 1453 BP: (!) 132/99 (!) 140/82 BP Location: Left arm Right arm Patient Position: Sitting Sitting BP Cuff Size: Adult long Adult long Pulse: 80 Resp: 16 Temp: 98 ??F (36.7 ??C) TempSrc: Oral SpO2: 97% Weight: 189 lb (85.7 kg) Height: 5' 1 (1.549 m) Physical Exam HENT: Right Ear: Tympanic membrane and ear canal normal. Left Ear: Tympanic membrane and ear canal normal. Mouth/Throat: Mouth: Mucous membranes are moist. Pharynx: No oropharyngeal exudate or posterior oropharyngeal erythema. Eyes: Pupils: Pupils are equal, round, and reactive to light. Cardiovascular: Rate and Rhythm: Regular rhythm. Pulses: Normal pulses. Heart sounds: Normal heart sounds. No murmur heard. Pulmonary: Breath sounds: Normal breath sounds. Abdominal: General: Bowel sounds are normal. Palpations: Abdomen is soft. Tenderness: There is no abdominal tenderness. Musculoskeletal: General: Normal range of motion. Cervical back: Neck supple. Lumbar back: Tenderness present. Right hip: Tenderness present. Normal range of motion. Left hip: Tenderness present. Normal range of motion. Skin: General: Skin is warm. Neurological: General: No focal deficit present. Mental Status: She is alert and oriented to person, place, and time. Cranial Nerves: Cranial nerves 2-12 are intact. Motor: Motor function is intact. Gait: Gait is intact. Psychiatric: Mood and Affect: Mood normal. Behavior: Behavior normal. Office Visit on 02/12/2025 Component Date Value Ref Range Status Influenza B 02/12/2025 Negative Negative, Indeterminate Final QC Media Lot # 02/12/2025 [id number] Final Lot# Expiration Date 02/12/2025 1,082,026 Final Rapid Strep A Screen 02/12/2025 Negative Negative, None Detected Final QC Media Lot # 02/12/2025 [id number] Final Lot# Expiration Date 02/12/2025 1,252,026 Final Influenza A 02/12/2025 Negative Negative, Indeterminate Final QC Media Lot # 02/12/2025 [id number] Final Lot# Expiration Date 02/12/2025 1,082,026 Final Coronavirus Antigen PCR 02/12/2025 Negative Negative, Indeterminate, None Detected, Invalid, Specimen unsatisfactory for evaluation, Weakly Positive Final QC Media Lot # 02/12/2025 [id number] Final Lot# Expiration Date 02/12/2025 7,112,026 Final Problem List Items Addressed This Visit Viral upper respiratory tract infection - Primary Negative rapid viral test today. Rest (sleep at least 8 hours a night). Out of work today and tomorrow Hydrate with plenty of water (avoid caffeine and alcohol). Use saline nose drops to loosen mucus + Flonase nasal Take Acetaminophen (Tylenol??)/Ibuprofen as needed to reduce fever, headache, body aches or discomfort Gargle with salt water and use throat sprays/lozenges for throat pain. Use heated, humidified air. If you do not have a humidifier, take hot showers. Cover coughs and sneezes using the crook of your elbow. If you have a fever, stay home and away from others (self isolation) until fever-free for 72 hours (temperature should be less than 100??F without medication). Acute bilateral low back pain without sciatica Status post call fall out of parking lot. Apply heat to affected area, use Tylenol or ibuprofen as needed Can use diclofenac gel as needed and reconsult as needed if symptoms do not improve within 2 to 3 days Other Visit Diagnoses Cough, unspecified type Relevant Orders POCT Rapid Influenza B BOUCHER ID NOW (Completed) POCT Rapid Strep A BOUCHER ID NOW (Completed) POCT Rapid Influenza A BOUCHER ID NOW (Completed) POCT Rapid Covid-19 BOUCHER ID NOW (Completed) Follow Up: Current Outpatient Medications on File Prior to Visit Medication Sig Dispense Refill cholecalciferol (D3-1000) 25 MCG (1000 UT) capsule TAKE 1 CAPSULE BY MOUTH EVERY DAY 90 capsule 0 [facility] Saline Nasal [place] 0.65 % nasal spray 1-2 SPRAY ON EACH NOSTRIL EVERY 2-3 HOURS NEEDED FOR NASAL CONGESTION 44 mL 0 diclofenac (Cataflam) 50 MG tablet Take 1 tablet (50 mg) by mouth 2 times daily. Take with food 14 tablet 0 FLUoxetine (PROzac) 10 MG capsule Take 1 capsule (10 mg) by mouth in the morning. 30 capsule 1 hydrOXYzine HCl (Atarax) 10 MG tablet Take 1 tablet (10 mg) by mouth if needed at bedtime for anxiety. 30 tablet 1 Misc. Devices (Pulse Oximeter) misc - omeprazole (PriLOSEC) [address] capsule Take 1 capsule by mouth before breakfast. [] ondansetron (Zofran) 4 MG tablet Take 1 tablet (4 mg) by mouth every 8 (eight) hours if needed for nausea or vomiting for up to 7 days. 20 tablet 0 Spacer/Aero-Holding Chambers (Compact Space Chamber) device Use with albuterol as needed. tamsulosin (Flomax) 0.4 MG 24 hr capsule Take 1 capsule by mouth before breakfast. [DISCONTINUED] acetaminophen (Tylenol) 500 MG tablet Take 2 tablets by mouth every 6 (six) hours ifneeded. Do Not exceed 4000 grams in one day [DISCONTINUED] albuterol (Ventolin HFA) 108 (90 Base) MCG/ACT inhaler INHALE 2 PUFFS BY INHALATION ROUTE EVERY 4 TO 6 HOURS IF NEEDED 18 g 1 [DISCONTINUED] fluticasone (Flonase) 50 MCG/ACT nasal spray Administer 1-2 sprays into affected nostril(s) if needed at bedtime. Administer 1-2 sprays into affected nostril(s) at bed time. No current facility-administered medications on file prior to visit. documented in this encounter Miscellaneous Notes * Assessment & Plan Note - Susan Krishnamurthy MD - 02/12/2025 5:02 PM EDT Associated Problem(s): Acute bilateral low back pain without sciatica Status post call fall out of parking lot. Apply heat to affected area, use Tylenol or ibuprofen as needed Can use diclofenac gel as needed and reconsult as needed if symptoms do not improve within 2 to 3 days * Assessment & Plan Note - Susan Krishnamurthy MD - 02/12/2025 5:02 PM EDT Associated Problem(s): Viral upper respiratory tract infection Negative rapid viral test today. Rest (sleep at least 8 hours a night). Out of work today and tomorrow Hydrate with plenty of water (avoid caffeine and alcohol). Use saline nose drops to loosen mucus + Flonase nasal Take Acetaminophen (Tylenol??)/Ibuprofen as needed to reduce fever, headache, body aches or discomfort Gargle with salt water and use throat sprays/lozenges for throat pain. Use heated, humidified air. If you do not have a humidifier, take hot showers. Cover coughs and sneezes using the crook of your elbow. If you have a fever, stay home and away from others (self isolation) until fever-free for 72 hours (temperature should be less than 100??F without medication). documented in this encounter Plan of Treatment Upcoming Encounters Date Type Department Care Team (Late st Contact Info) Description 02/16/2025 2:00 PM EDT Office Visit [facility] [address] [place] [address] Timo Dominguez MD [address] [place] [address] documented as of this encounter Procedures Procedure Name Priority Date/Time Associated Diagnosis Comments POCT INFLUENZA B (ID NOW RAPID MOLECULAR) Routine 02/12/2025 2:19 PM EDT Cough, unspecified type POCT INFLUENZA A (ID NOW RAPID MOLECULAR) Routine 02/12/2025 2:18 PM EDT Cough, unspecified type POC BOUCHER ID NOW STREP A Routine 02/12/2025 2:13 PM EDT Cough, unspecified type POCT COVID-19 AG BOUCHER ID NOW Routine 02/12/2025 2:13 PM EDT Cough, unspecified type documented in this encounter Results * POCT Rapid Influenza B BOUCHER ID NOW (02/12/2025 2:19 PM EDT) Influenza B Negative Negative, Indeterminate [facility] QC Media Lot # [id number] [facility] Lot# Expiration Date [facility] Swab 02/12/2025 2:19 PM EDT us Susan Krishnamurthy MD POINT OF CARE TEST ENTER /EDIT ORDERABLES Final Result Performing Organization Address City/[facility]/ZIP Co de Phone Number [facility] [address] [place] [phone] * POCT Rapid Influenza A BOUCHER ID NOW (02/12/2025 2:18 PM EDT) [facility] Influenza A Negative Negative, Indeterminate [facility] QC Media Lot # [id number] [facility] Lot# Expiration Date [facility] Swab 02/12/2025 2:18 PM EDT us Susan Krishnamurthy MD POINT OF CARE TEST ENTER /EDIT ORDERABLES Final Result Performing Organization Address City/[facility]/ZIP Co de Phone Number [facility] [address] [place] [phone] * POCT Rapid Covid-19 BOUCHER ID NOW (02/12/2025 2:13 PM EDT) Coronavirus Antigen PCR Negative Negative, Indeterminate, None Detected, Invalid, Specimen unsatisfactory for evaluation, Weakly Positive QC Media Lot # [id number] Lot# Expiration Date 7447,026 Swab 02/12/2025 2:13 PM EDT Susan Krishnamurthy MD POINT OF CARE TEST ENTER /EDIT ORDERABLES Final Result * POCT Rapid Strep A BOUCHER ID NOW (02/12/2025 2:13 PM EDT) Pathologist [facility] Rapid Strep A Screen Negative Negative, None Detected QC Media Lot # [id number] Lot# Expiration Date 988,026 Swab 02/12/2025 2:13 PM EDT Susan Krishnamurthy MD POINT OF CARE TEST ENTER /EDIT ORDERABLES Final Result documented in this encounter Visit Diagnoses Diagnosis Viral upper respiratory tract infection- Primary Acute upper respiratory infections of unspecified site Acute bilateral low back pain without sciatica Cough, unspecified type documented in this encounter Additional Health Concerns Assessment Noted Time PHQ-9 Depression Total Score: 13 025 2:39 PM EST documented as of this encounter Care Teams Specialty Molder Relationship Specialty Start Date End Date Suha Mehta ANP [address] [place] [address] PCP - General Family Medicine 10/20/22 Suha Mehta ANP [address] [place] [address] Family Medicine 11/08/21 documented as of this encounter
--- OUTSIDE RECORDS SUMMARY | 2025-02-13 15:53 | XMS_ITS | Clinical Summary ---
Author Organization [facility] Address [address] [place] [address] Care Team Providers Care Food Packer Name Role Phone Joseph Lock Unavailable Joseph Lock Primary Care Provider [phone] Allergies No known active allergies Medications * This document contains information received from the source organization and may not represent a complete record from that organization. omeprazole (PriLOSEC) [address] capsule Take 1 capsule by mouth before breakfast. 02/25/20 22 Active Misc. Devices (Pulse Oximeter) misc - 12/04/19 22 Active Spacer/Aero-Ho lding Chambers (Compact Space Chamber) device Use with albuterol as needed. 12/07/19 20 Active tamsulosin (Flomax) 0.4 MG 24 hr capsule Take 1 capsule by mouth before breakfast. 07/21/20 21 Active [facility] Saline Nasal [place] 0.65 % nasal sprayIndicatio ns:Nasal congestion 1-2 SPRAY ON EACH NOSTRIL EVERY 2-3 HOURS NEEDED FOR NASAL CONGESTION 44 mL 12/18/19 23 Active diclofenac (Cataflam) 50 MG tabletIndicati ons:Acute right-sided low back pain with right-sided sciatica Take 1 tablet (50 mg) by mouth 2 times daily. Take with food 14 tablet 10/18/20 23 Active cholecalcifero l (D3-1000) 25 MCG (1000 UT) capsule TAKE 1 CAPSULE BY MOUTH EVERY DAY 90 capsule 08/24/20 24 Active FLUoxetine (PROzac) 10 MG capsuleIndicat ions:Mixed anxiety and depressive disorder Take 1 capsule (10 mg) by mouth in the morning. 30 capsule 1 01/11/20 25 025 Active hydrOXYzine HCl (Atarax) 10 MG tabletIndicati ons:Anxiety Take 1 tablet (10 mg) by mouth if needed at bedtime for anxiety. 30 tablet 1 01/11/20 25 025 Active albuterol (Ventolin HFA) 108 (90 Base) MCG/ACT inhaler INHALE 2 PUFFS BY INHALATION ROUTE EVERY 4 TO 6 HOURS IF NEEDED 18 g 1 02/13/20 25 Active fluticasone (Flonase) 50 MCG/ACT nasal spray Administer 1 spray into each nostril Once per day. Administer 1-2 sprays into affected nostril(s) at bed time. 16 g 02/13/20 25 Active Diclofenac Sodium 1 % gel Apply 1 inch topically if needed in the morning and at bedtime (pain). 60 g 02/13/20 25 025 Active acetaminophen (Tylenol) 500 MG tablet Take 2 tablets (1,000 mg) by mouth every 6 (six) hours if needed for mild pain or moderate pain. Do Not exceed 4000 grams in one day 90 tablet 02/13/20 25 Active acetaminophen (Tylenol) 500 MG tablet Take 2 tablets by mouth every 6 (six) hours if needed. Do Not exceed 4000 grams in one day 07/25/20 21 025 Discontinued(Re order (will not trigger notification to Pharmacy)) fluticasone (Flonase) 50 MCG/ACT nasal spray Administer 1-2 sprays into affected nostril(s) if needed at bedtime. Administer 1-2 sprays into affected nostril(s) at bed time. 04/03/20 22 025 Discontinued(Re order (will not trigger notification to Pharmacy)) albuterol (Ventolin HFA) 108 (90 Base) MCG/ACT inhaler INHALE 2 PUFFS BY INHALATION ROUTE EVERY 4 TO 6 HOURS IF NEEDED 18 g 1 10/07/20 23 025 Discontinued(Re order (will not trigger notification to Pharmacy)) metroNIDAZOLE (Flagyl) 500 MG tablet Take 1 tablet (500 mg) by mouth 2 times daily for 7 days. 14 tablet 01/09/20 25 025 ondansetron (Zofran) 4 MG tabletIndicati ons:Gastroente ritis Take 1 tablet (4 mg) by mouth every 8 (eight) hours if needed for nausea or vomiting for up to 7 days. 20 tablet 02/01/20 25 025 albuterol (Ventolin HFA) 108 (90 Base) MCG/ACT inhaler INHALE 2 PUFFS BY INHALATION ROUTE EVERY 4 TO 6 HOURS IF NEEDED 18 g 1 02/03/20 25 025 Discontinued(Re order (will not trigger notification to Pharmacy)) Active Problems Problem Noted Date Diagnosed Date Viral upper respiratory tract infection 02/13/20 Assessment & Plan (02/12/2025 5:02 PM EDT): Negative rapid viral test today. Rest (sleep [...] Acute bilateral low back pain without sciatica 0 02/12/2025 Assessment & Plan (02/12/2025 5:02 PM EDT): Status post call fall out of parking lot. Apply heat to affected area, use Tylenol or ibuprofen as needed Can use diclofenac gel as needed and reconsult as needed if symptoms do not improve within 2 to 3 days Alcohol use disorder, moderate, dependence 01/10 Routine physical examination 12/05/2024 Assessment & Plan (12/05/2024 3:02 PM EST): Within normal limits aside from mild right knee tenderness Pap: last one 2018 at [facility], will refer to Maria E Bishop. Pt is s/p RADHA Mammogram: ordered [...] nut containing food for now Referral to consumer electronic retail specialist Anxiety 07/01/2023 Asthma 07/01/2023 Carrier of [...] but would be interested in seeing our commercial internship for med management Had been taking Zoloft [...] organization. Date Type Department Care Team Description 02/12/2025 2:00 PM EDT [facility] [address] [address] Susan Krishnamurthy MD Viral upper respiratory tract infection (Primary Dx); Acute bilateral low back pain without sciatica; Cough, unspecified type 02/01/[address] [address] Joseph Lock ANP 01/31/2025 10:20 AM EDT [facility] [address] [address] Yokasta Gatica FNP Gastroenteritis (Primary Dx) 01/29/2025 Orders Only [address] [address] Maria E Bender CNM Encntr screen for infections w sexl mode of transmiss (Primary Dx) 01/26/[address] [address] Joseph Lock ANP Results 01/08/2025 1:45 PM EST Office Visit [address] [address] Maria E Bender CNM Cervical cancer screening (Primary Dx); Abnormal uterine bleeding; Acute vaginitis; Encntr screen for infections w sexl mode of transmiss 01/08/2025 Orders Only [address] [address] Billy Maria EMIGNON 01/08/2025 Travel 12/27/[address] [address] Eladia Ahumada [place] 12/27/[address] [address] Eladia Ahumada [place] May recall (Tried calling pt to schedule appt for march,nums are not in service,unable to leave message.sending letter) 12/26/2024 Travel 12/12/2024 Telephone [facility] [address] [place] [phone] Best Jon MD MAMMOGRAM ORDER 12/07/[address] [address] Joseph Lock ANP 12/05/2024 2:30 PM EST Office Visit [address] [address] Best Jon MD Routine physical examination (Primary Dx); Chronic pain of right knee; Family history of breast cancer; Breast cancer screening by mammogram; Hx of abnormal cervical Pap smear; Obesity (BMI 30-39.9); Mixed anxiety and depressive disorder; Allergy, initial encounter 12/05/2024 Travel 11/24/[address] [address] Joseph Lock ANP Chart Prep 11/23/2024 Patient Outreach [address] [address] Joseph Lock ANP Pre-visit Planning (SDOH Screening negative and Tobacco screening negative) from Last 3 Months Immunizations Name Administration [...] your housing situation today? I have juanito lcakey 11/23/[address] you li [...] Mass Index 35.71 02/12/2025 1:57 PM EDT Plan of Treatment Upcoming Encounters Date Type Department Care Team (Late st Contact Info) Description 02/16/2025 2:00 PM EDT Office Visit [facility] [address] [place], [place] [phone] Timo Dominguez MD [address] [place], [place] [phone] Health Maintenance Due Date Last Done Comments Lipid Panel 1985 Hepatitis B Vaccines (1 of 3 - 19+ 3-dose series) 2005 Pneumococcal Vaccine: Pediatrics (0 to 5 Years) and At-Risk Patients (6 to 49) Years) (1 of 2 - PCV) 2005 HPV Vaccines (3 - 3-dose series) 11/22/2012 08/30/2012, 11/21/2008 COVID-19 Vaccine ( season) 2024 Influenza Vaccine (#1) 2024 2, 08/04/2011, 07/29/2010, Additional history exists Depression Monitoring (PHQ-9) 06/04/2025 12/05/2024, 12/05/2024 Alcohol/Substance Use Screening 12/05/2025 12/05/2024 Depression Screening 12/05/2025 12/05/2024, 12/05/19 SDOH Screening 12/05/2025 12/05/2024 Family Planning (PISQ) 01/08/2026 01/08/2025 Tobacco Screening 02/12/2026 02/12/2025 Cervical Cancer Screening 01/09/2028 HPV/Cotest 01/09/2028 01/08/2025 Pap Smear 01/09/2028 01/08/2025 DTaP/Tdap/Td Vaccines (4 - Td or [...] 02/12/2025 2:18 PM EDT Cough, unspecified type POCT COVID-19 AG BOUCHER ID NOW Routine 02/12/2025 2:13 PM EDT Cough, unspecified type POC BOUCHER ID NOW STREP A Routine 02/12/2025 2:13 PM EDT Cough, unspecified type POCT INFLUENZA B (ID NOW RAPID MOLECULAR) Routine 01/31/2025 10:55 AM EDT Gastroenteritis POCT INFLUENZA A (ID NOW RAPID MOLECULAR) Routine 01/31/2025 10:55 AM EDT Gastroenteritis POCT RAPID COVID ANTIGEN Routine 01/31/2025 10:24 AM EDT Gastroenteritis MR KNEE WO CONTRAST RIGHT Routine 01/20/2025 7:11 PM EDT PAP SMEAR Routine 01/08/2025 2:13 PM EST Cervical cancer screening POCT , URINE Routine 01/08/2025 2:13 PM EST Abnormal uterine bleeding HPV DNA, LOW/HIGH RISK Routine 01/08/2025 2:13 PM EST POCT WET MOUNT/SRINIVASAN Routine 01/08/2025 2: 07 [...] Relevant to Health Maintenance Results * POCT Rapid Influenza B BOUCHER ID NOW (02/12/2025 2:19 PM EDT) Only the most recent of2 resultswithin the time period is included. Influenza B Negative Negative, Indeterminate [facility] QC Media Lot # [id number] [facility] Lot# Expiration Date ,026 [facility] Swab 02/12/2025 2:19 PM EDT us Susan Krishnamurthy MD POINT OF CARE TEST ENTER /EDIT ORDERABLES Final Result [facility] [address] [place] [phone] * POCT Rapid Influenza A BOUCHER ID NOW (02/12/2025 2:18 PM EDT) Only the most recent of2 resultswithin the time period is included. [facility] Influenza A Negative Negative, Indeterminate [facility] QC Media Lot # [id number] [facility] Lot# Expiration Date [facility] Swab 02/12/2025 2:18 PM EDT Susan Krishnamurthy MD POINT OF CARE TEST ENTER /EDIT ORDERABLES Final Result [facility] [address] [place] [phone] * POCT Rapid Strep A BOUCHER ID NOW (02/12/2025 2:13 PM EDT) [facility] Rapid Strep A Screen Negative Negative, None Detected QC Media Lot # [id number] Lot# Expiration Date Swab 02/12/2025 2:13 PM EDT Susan Krishnamurthy MD POINT OF CARE TEST ENTER /EDIT ORDERABLES Final Result * POCT Rapid Covid-19 BOUCHER ID NOW (02/12/2025 2:13 PM EDT) [facility] Coronavirus Antigen PCR Negative Negative, Indeterminate, None Detected, Invalid, Specimen unsatisfactory for evaluation, Weakly Positive QC Media Lot # [id number] Lot# Expiration Date ,026 Swab 02/12/2025 2:13 PM EDT Susan Krishnamurthy MD POINT OF CARE TEST ENTER /EDIT ORDERABLES Final Result * POCT Rapid COVID Ag (01/31/2025 10:24 AM EDT) [facility] Rapid COVID Ag Negative Swab 01/31/2025 10:2 4 AM EDT us Yokasta Gatica EXPERIMENTAL ROCKETSLED MECHANIC POINT OF CARE TEST ENTER/EDIT ORDERABLES Final Result * Knee w/o Contrast Right (01/20/2025 7:11 PM EDT) Anatomical Region Laterality Modality Magnetic Resonan ce 01/20/2025 7:11 PM EDT Narrative 01/22/2025 8:10 AM EDT ? [facility] ?[address] ?[place] [address] ? Magnetic Resonance Report ? Signed ? Patient: Colon,Tabatha M ?MR#: [id number] ?? 4 ? : 1985 ?Acct:[id number] ? Age/Sex: 39 / F ?ADM Date: 01/20/25 ? Loc: HO.MRI ? Attending Dr: Kaylee Caraballo PA-C ? Ordering Physician: Kaylee Caraballo PA-C ?? Date of Service: 01/20/25 ?? Procedure(s): MR knee RT wo con ?? Accession Number(s): [id number] ? cc: Kaylee Caraballo PA-C; JOSEPH LOCK NP ? EXAMINATION: MRI RIGHT KNEE WITHOUT CONTRAST ? HISTORY: M23.91 - Unspecified internal derangement of right knee ? COMPARISON: Correlation is made with plain films of the right knee ?? dated 01/09/2025 and 11/27/2024. ? TECHNIQUE: ??Coronal T1 and fat-suppressed proton density, sagittal ?? proton density and fat-suppressed proton density, and axial fat ?? suppressed T2 weighted MR images of the right knee were obtained. ? FINDINGS: ? Bone marrow: There is a tiny focus of subchondral marrow edema in the ?? anterior aspect of the medial femoral condyle. There are tiny cysts in ?? the posterior aspect of the medial tibial plateau. Bone marrow signal ?? intensity is otherwise normal. ? Joint effusion: There is no joint effusion. ? Murcia's cyst: There is no Murcia's cyst. ? Articular cartilage: Intact ? Muscles/soft tissues: The visualized muscles demonstrate normal signal ?? intensity. ? Anterior cruciate ligament: Intact ? Posterior cruciate ligament: Intact ? Medial collateral ligament: Intact ? Lateral collateral ligament: Intact ? Medial meniscus: Intact ? Lateral meniscus: Intact ? Flexor mechanism: The popliteus, gastrocnemius, and hamstring tendons ?? are intact. ? Quadriceps tendon: Intact ? Patellar tendon: Intact ? Patellar retinacula: Intact ? MR/MR knee RT wo con ?? IMPRESSION: ?? Small focus of subchondral marrow edema in the anterior aspect of the ?? medial femoral condyle. Otherwise unremarkable MRI of the right knee. ? Electronically signed by: ??Zelalem Mariscal MD ??01/22/2025 08:07 AM EDT ? Dictated By: ?Zelalem Mariscal MD ? Signed By: ?<Electronically signed by Zelalem Mariscal MD in OV> ?01/22/25 0807 ? DD/ 1911 ? TD/TT: 01/20/25 193 ? Bridge Maintainer: ? Procedure Note Lion Mackenzie - 01/22/2025 [place] [address] Magnetic Resonance Report Signed Patient: Tabatha Díaz MMR#: [id number] 4 : 1985Acct:[id number] Age/Sex: 39 / FADM Date: 01/20/25 Loc: HO.MRI Attending Dr: Kaylee Caraballo PA-C Ordering Physician: Kaylee Caraballo PA-C Date of Service: 01/20/25 Procedure(s): MR knee RT wo con Accession Number(s): [id number] cc: Kaylee Caraballo PA-C; JOSEPH LOCK NP EXAMINATION: MRI RIGHT KNEE WITHOUT CONTRAST HISTORY: M23.91 - Unspecified internal derangement of right knee COMPARISON: Correlation is made with plain films of the right knee dated 01/09/2025 and 11/27/2024. TECHNIQUE: Coronal T1 and fat-suppressed proton density, sagittal proton density and fat-suppressed proton density, and axial fat suppressed T2 weighted MR images of the right knee were obtained. FINDINGS: Bone marrow: There is a tiny focus of subchondral marrow edema in the anterior aspect of the medial femoral condyle. There are tiny cysts in the posterior aspect of the medial tibial plateau. Bone marrow signal intensity is otherwise normal. Joint effusion: There is no joint effusion. Murcia's cyst: There is no Murcia's cyst. Articular cartilage: Intact Muscles/soft tissues: The visualized muscles demonstrate normal signal intensity. Anterior cruciate ligament: Intact Posterior cruciate ligament: Intact Medial collateral ligament: Intact Lateral collateral ligament: Intact Medial meniscus: Intact Lateral meniscus: Intact Flexor mechanism: The popliteus, gastrocnemius, and hamstring tendons are intact. Quadriceps tendon: Intact Patellar tendon: Intact Patellar retinacula: Intact MR/MR knee RT wo con IMPRESSION: Small focus of subchondral marrow edema in the anterior aspect of the medial femoral condyle. Otherwise unremarkable MRI of the right knee. Electronically signed by: Zelalem Mariscal MD 01/22/2025 08:07 AM EDT Dictated By: Zelalem Mariscal MD Signed By: <Electronically signed by Zelalem Mariscal MD in OV> 01/22/25 0807 DD/ 10 TD/TT: 01/20/25 193 Bridge Maintainer: [facility] External Provider IM MRI PROCEDURES Final Result * HPV DNA, Low/High Risk (01/08/2025 2:13 PM EST) HPV High Risk Negative Negative [facility] HPV Genotype 16 Negative Negative [facility] HPV Genotype 18 Negative Negative [facility] Comment:HPV testing performe d at [facility] (CLIA#[id number]), [address] [place] [address].Testing for HPV was performed using the [employer]0system. The presence of HPV in the female genital tract isassociated with a number of diseases, including cervicalcarcinoma. The HPV DNA high risk pool tests for HPV 31, 33,35, 39, 45, 51, 52, 56, 58, 59, 66 and 68. The testing forHPV 16 and 18 genotypes has also been performed. A positiveresult indicates detection of nucleic acid sequences fromone or more subtypes, whereas a negative result indicatessuch sequences were not detected. 01/08/2025 2:13 PM EST 01/09/2025 9:45 AM EST Maria E Bender [facility] LAB BLOOD ORDERABLES Monik l Result [facility] [address] [place] [phone] * POCT , urine manually resulted (01/08/2025 2:13 PM EST) Preg Test, Ur Negative Negative, Indeterminate, None Detected, Invalid, Specimen unsatisfactory for evaluation, Weakly Positive QC Media Lot # [id number] Lot# Expiration Date [id number] Urine 01/08/2025 2:13 PM EST [facility] POINT OF CARE TEST ENTER/ EDIT ORDERABLES Final Result * Pap Smear (01/08/2025 2:13 PM EST) Swab Cervix uteri structure / Unknown 01/08/2025 2:13 PM EST 01/09/2025 9:45 AM EST Narrative [facility] - 01/11/2025 7:19 AM EST ----- ------- Name: Tabatha Díaz ?Age/Sex: 39/F ? : 1985 Unit#: [id number] ?? Attend Dr: MARIA E BENDER CNM ?Re01/08/25 ?Status: DEP REF ? Location: HO.HHCLNP ? Disch: ? ----- ------- SPEC : [id number] ? RECD: 01/09/25 ? STATUS: ??SOUT ? REQ NUM: [id number] ? RASHAUN: 01/08/25-859 ? SUBM DR: MARIA E BENDER CNM ? ENTERED: ??01/09/25 ?SP TYPE: Pap Smr ?OTHR DR: ? ORDERED: ??Pap Smear ? Interpretation ?? Satisfactory for evaluation. ?? Negative for intraepithelial lesion or malignancy. ?? Mild inflammation. ? HPV High Risk: ??Negative ? HPV Genotyping 16: ??Negative ?? HPV Genotyping 18: ??Negative ?Clinical Information LMP: Unknown date Previous PAP test: Unknown date/findings ? Material Received ?? Cervix ----- ------- Signed (signature on file) LATHA Knutson (ASCP) 01/11/25718 ? ----- ------- ? END OF REPORT ? us Maria E Bender [facility] LAB CYTOLOGY ORDERABLES F inal Result [facility] [address] [place] [phone] * POCT fern test, vaginal fluid manually resulted (01/08/2025 2:07 PM EST) SRINIVASAN Prep Positive Comment:pH 5, pos whiff, pos clue, neg wbc, neg yeast, neg trich Vaginal Fluid Vaginal structure / Unknown 01/08/2025 2:07 PM EST Impressions Maria E Bender, MIGNON - 01/08/2025 2:07 PM EST Bacterial vaginosis us Maria E Bender CNGenaro POINT OF CARE TEST ENTER/ EDIT ORDERABLES Final Result * XR Knee 3 Views Right (12/05/2024 3:18 PM EST) Anatomical Region Laterality Modality Lower Extremities, Knee Right Radiogra phic Imaging 12/05/2024 3:18 PM EST Narrative 12/05/2024 3:43 PM EST ?[facility] ?[address] ?[place] [address] ?XRay Report ? Signed ? Patient: Colon,Tabatha M ?MR#: [id number] ?? 4 ? : 1985 ?Acct:[id number] ? Age/Sex: 39 / F ?ADM Date: 12/05/24 ? Loc: HO.HHCX ? Attending Dr: Best Craig MD ? Ordering Physician: Best Craig MD ?? Date of Service: 12/05/24 ?? Procedure(s): XR knee RT 3V ?? Accession Number(s): [id number] ? cc: Best Craig MD ? EXAMINATION: [...] MD ? Signed By: ?<Electronically signed by vKng Sarmiento MD in OV> ?12/05/25 1540 ? DD/DT: //25 1518 ? TD/TT: 12/05/25 1531 ? Bridge Maintainer: ? Procedure Note Donotuseinterpreter, Image - 12/05/2024 [facility] [address] [place] [address] XRay Report Signed Patient: Tabatha Díaz MMR#: [id number] 4 : 1985Acct:[id number] Age/Sex: 39 / FADM Date: 12/05/24 Loc: HO.HHCX Attending Dr: Best Craig MD Ordering Physician: Best Craig MD Date of Service: 12/05/24 Procedure(s): XR knee RT 3V Accession Number(s): [id number] cc: Best Craig MD EXAMINATION: XR KNEE, [...] 12/05/24 1540 DD/ 1518 TD/TT: 12/05/24 1531 Bridge Maintainer: us Best Guerrero MD IMG XR PROCEDURES Fin al Result * HEPATITIS C AB W/REFL TO HCV RNA, QN, PCR (01/13/2022 10:32 AM EST) HEPATITIS C ANTIBODY NON-REACT YOCASTA NON-REACT YOCASTA [facility] INDEX 0.01 <1.00 [facility] Comment: ?? HCV antibody was non-reactive. There is no laboratory ?? evidence of HCV infection. ?? In most cases, no further action is required. However, if recent HCV exposure is suspected, a test for HCV RNA (test code 01329) is suggested. ?? For additional information please refer to http://Servergy.Change.org/faq/UDZ19s6 (This link is being provided for informational/ educational purposes only.) ?? 01/13/2022 10:3 2 AM EST us Joseph Lock ANP HISTORICAL/NON ORDERABLE LABS Fi nal Result Performing Organization Address [facility] Phone Number [facility] [address] * HIV 1/2 ANTIGEN/ANTIBODY,FOURTH GENERATION W/RFL (01/13/2022 10:32 AM EST) HIV-1/2 ANTIGEN AND ANTIBODIES, 4TH GENERATION W/ REFLEX NON-REACT YOCASTA NON-REACT YOCASTA [facility] Comment: HIV-1 antigen and HIV-1/HIV-2 [...] ? For additional information please refer to http://Servergy.Change.org/faq/AVP282 (This link is being provided for informational/ educational purposes only.) ? The performance of this assay has not been clinically validated in patients less than 2 years old. ?? 01/13/2022 10:3 2 AM EST us Joseph GRACIA LAB BLOOD ORDERABLES Final Resul t Performing Organization Address [facility] Number [facility] [address] from Last 3 Months or Most Recently Relevant to Health Maintenance Insurance [facility] , [address] [place] [address] Care Teams Food Packer Relationship Specialty Start Date End Date Joseph Lock ANP [address] [place] [address] PCP - General Family Medicine 10/20/22 Joseph Lock ANP [address] [place] [address] Family Medicine 11/08/21
== END 2025-02-13 13:10 | disposition home or self-care (01) ==
LOC: HO.HOS 13:04
PROVIDERS: PCP Nurse Practitioner Primary Care; Visit Provider Physician Assistant
DX: M23.91 Unspecified internal derangement of right knee (principal)
CPT/HCPCS: 98013

== ENCOUNTER → 2025-02-13 13:04 | Outpatient (BNVA) | payer OTHER, SELFPAY | PROVIDERS: PCP Nurse Practitioner Primary Care; Visit Provider Physician Assistant ==

== ENCOUNTER 2025-02-14 10:41 | Emergency (ER) | payer OTHER, SELFPAY ==
--- NOTE | ~2025-02-14 | XR_ITS ---
EXAMINATION: XR THORACIC SPINE CLINICAL INFORMATION: trauma COMPARISON: None available. TECHNIQUE: 3 views of the thoracic spine were obtained. FINDINGS: No acute cortical disruption or malalignment. No lytic or blastic lesions. Vascular clips in the right upper quadrant abdomen and likely prior cholecystectomy.. XR/XR thoracic spine 2V IMPRESSION: No acute fracture or trauma-related listhesis. Electronically signed by: Mitchel Wing MD 02/14/2025 01:05 PM EDT
--- NOTE | ~2025-02-14 | XR_ITS ---
EXAMINATION: XR LUMBOSACRAL SPINE CLINICAL INFORMATION: trauma COMPARISON: None available. TECHNIQUE: Three views of the lumbosacral spine. FINDINGS: No acute cortical disruption or malalignment. Rudimentary ribs at T12. Large right transverse processes of L5. XR/XR lumbar spine 2-3V IMPRESSION: No acute fracture or listhesis. Electronically signed by: Mitchel Wing MD 02/14/2025 01:07 PM EDT
[2025-02-14 10:48] VITALS: BP 164/108; PULSE 84; RESP 18; TEMP 36.8; O2SAT 98; BMI 35.3
--- NOTE | 2025-02-14 12:19 | ED.BACK ---
HPI - Back Pain/Injury General Chief Complaint: Back Pain/Injury Stated Complaint: injured back on wednesday / in a lot of pain Time Seen by Provider: 02/14/25 11:54 Source: patient Mode of arrival: ambulatory Limitations: no limitations History of Present Illness HPI Narrative: Patient fell on Wednesday in the parking lot getting out of the car visited urgent care on Wednesday comes in today because persistent pain. The pain is localized in the lower back no radiation of the pain no numbness or tingling MD elicited complaint: back pain and fall Onset (ago): day(s) (2) Timing: constant Severity: moderate Similar Symptoms Previously: Yes Location: lumbar spine Radiation: none Exacerbating factors: none Relieving factors: none Context: fall Associated symptoms: denies other symptoms Related Data Home Medications ?Medication ?Instructions ?Recorded ?Confirmed albuterol sulfate 90 mcg/actuation 0 mcg inhalation 10/08/21 aerosol inhaler (ProAir HFA) Previous Rx's ?Medication ?Instructions ?Recorded ondansetron 4 mg disintegrating 4 mg PO Q8H 4 days #12 tabs 03/08/23 tablet esomeprazole magnesium 20 mg 20 mg PO DAILY #30 tabs 03/19/23 tablet,delayed release (Nexium 24HR) sennosides 8.6 mg tablet (Natural 17.2 mg (2 x 8.6 mg) PO BEDTIME 03/19/23 Senna Laxative) constipation #60 tabs acetaminophen 500 mg tablet 500 mg PO Q6H PRN fever or pain 10/14/23 (Tylenol Extra Strength) #14 tabs cyclobenzaprine 5 mg tablet 5 mg PO Q8H PRN pain (scale score 10/14/23 7-10) 5 days #14 tabs lidocaine 5 % topical patch 1 patch topical DAILY PRN pain #30 10/14/23 (Lidoderm) ea ketorolac 10 mg tablet 10 mg PO .B.i.d. PRN pain #7 tabs 04/27/24 azithromycin 250 mg tablet See Rx Instructions PO .COMPLEX #6 09/12/24 tabs prednisone 20 mg tablet 40 mg (2 x 20 mg) PO DAILY 4 days 09/12/24 #8 tabs cyclobenzaprine 10 mg tablet 10 mg PO TID PRN muscle spasm/back 02/14/25 pain #14 tabs naproxen 500 mg tablet (Naprosyn) 500 mg PO BID PRN PAIN #20 tabs 02/14/25 Allergies Allergy/AdvReac Type Severity Reaction Status Date / Time No Known Allergies Allergy Verified 02/14/25 10:49 Review of Systems Constitutional: Constitutional: Reports no additional constitutional complaints Eyes: Eyes: Reports no additional eye complaints Gastrointestinal: Gastrointestinal: Reports no additional gastrointestinal complaints PMFSH Past Medical History Medical History Kidney stones GERD (gastroesophageal reflux disease) Depression Anxiety Asthma Surgical History History of esophagogastroduodenoscopy (EGD) Hx of cholecystectomy History of partial hysterectomy Family History Family History Mother Diabetes Father HTN (hypertension) Social History Social History Alcohol intake: current Alcohol intake frequency: holidays/special occasions only Patient Tobacco Use Status: Never used Tobacco Advance Directives: No Advance Directives Information Provided: Yes Current occupational status: employed 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 Physical Exam Vital Signs: Vital Signs: Last Vital Signs Temp 97.4 F 02/14/25 12:24 Pulse 78 02/14/25 12:30 Resp 14 02/14/25 12:30 BP 100/62 02/14/25 12:24 Pulse Ox 95 02/14/25 12:24 O2 Del Method Room Air 02/14/25 12:24 BMI result Body Mass Index 35.3 Not acute distress looks well Const: General: cooperative HEENT: Head: Yes normal to inspection Ears: hearing grossly normal bilaterally General nose exam: Normal external nose present Face and sinus: Yes normal facial exam Mouth: Normal oral and palatal mucosa present Neck: Neck: Yes normal visual inspection and Yes full ROM Chest: Chest palpation & inspection: normal inspection of the chest Resp: Effort & Inspection: normal respiratory effort Cardio: Rate: regular rate Rhythm: regular rhythm GI: Inspection: Yes normal to inspection Palpation (GI): Soft to palpation, not firm and nontender Back/Spine/Pelvis: Other: Tenderness in the LS spine Course Reevaluation(s) Reevaluation #1: On re-examination patient is feeling better imaging of the LS spine T-spine are negative anticipate discharge Medications Administered Discontinued Medications Generic Name Dose Route Start Last Admin Trade Name Freq PRN Reason Stop Dose Admin Albuterol Sulfate 4 puff 02/14/25 12:19 02/14/25 12:26 Albuterol Sulfate 90 Mcg 8 Gm Inhaler INHALE 02/14/25 12:20 4 puff ONCE ONE Administration Diazepam 5 mg 02/14/25 12:19 02/14/25 12:27 Diazepam 5 Mg Tablet PO 02/14/25 12:20 5 mg ONCE ONE Administration Ibuprofen 800 mg 02/14/25 12:19 02/14/25 12:27 Ibuprofen 800 Mg Tablet PO 02/14/25 12:20 800 mg ONCE ONE Administration Medical Decision Making Medical Decision Making [facility] Narrative: Patient is here complaining of lower back pain after a fall we will obtain imaging Differential Diagnosis Differential Diagnoses: The differential diagnosis associated with the presentation includes Lumbar strain spinal fracture Admission/Observation Consideration of admission/observation: Escalation of care including admission/observation considered Independent Interpretation I performed an independent interpretation of an: Plain X-Ray Radiology Impression Discussion of test interpretation with radiology: I have reviewed the radiologist's reading. Radiologist Impression: No fracture no dislocation Prescription Management I considered prescription management with: Pain Medication Discharge Plan Discharge Clinical Impression: Contusion of lower back Qualifiers: Encounter type: initial encounter Qualified Code(s): S30.0XXA - Contusion of lower back and pelvis, initial encounter Patient Disposition: Home, Self-Care Instructions: Acute Low Back Pain (ED) Additional Instructions: Follow-up with your primary care physician return to the emergency room if worse Prescriptions: New naproxen [Naprosyn] 500 mg tablet 500 mg PO BID PRN (Reason: PAIN) Qty: 20 0RF cyclobenzaprine 10 mg tablet 10 mg PO TID PRN (Reason: muscle spasm/back pain) Qty: 14 0RF No Action ondansetron 4 mg tablet,disintegrating 4 mg PO Q8H 4 Days Qty: 12 0RF prednisone 20 mg tablet 40 mg PO DAILY 4 Days Qty: 8 0RF azithromycin 250 mg tablet See Rx Instructions .ROUTE .COMPLEX Qty: 6 0RF Rx Instructions: For 250 mg dose pack: take 500 mg today (day 1), then 250 mg for 4 days (days 2-5) acetaminophen [Tylenol Extra Strength] 500 mg tablet 500 mg PO Q6H PRN (Reason: fever or pain) Qty: 14 0RF lidocaine [Lidoderm] 5 % adhesive patch,medicated 1 patch topical DAILY MDD remove after 12 hours PRN (Reason: pain) Qty: 30 0RF Rx Instructions: leave on most painful area for up to 12 hrs cyclobenzaprine 5 mg tablet 5 mg PO Q8H PRN (Reason: pain (scale score 7-10)) 5 Days Qty: 14 0RF ketorolac 10 mg tablet 10 mg PO .B.i.d. PRN (Reason: pain) Qty: 7 0RF albuterol sulfate [ProAir HFA] 90 mcg/actuation HFA aerosol inhaler 0 mcg inhalation esomeprazole magnesium [Nexium 24HR] 20 mg tablet,delayed release (DR/EC) 20 mg PO DAILY Qty: 30 2RF sennosides [Natural Senna Laxative] 8.6 mg tablet 17.2 mg PO BEDTIME Qty: 60 2RF Referrals: Suha Mehta, [employer] APPRENTICE [Primary Care Provider] - 2 days Stand Alone Forms: Work/School Release Print Language: Georgian
[2025-02-14 12:24] VITALS: BP 100/62; PULSE 78; RESP 14; TEMP 36.3; O2SAT 95
[2025-02-14] MEDS: Albuterol Sulfate 90 MCG 8 GM INHALER 4 PUFF INHALE (12:26)
[2025-02-14] MEDS: Ibuprofen 800 MG TABLET PO (12:27)
[2025-02-14] MEDS: diazePAM 5 MG TABLET PO (12:27)
[2025-02-14 12:30] VITALS: PULSE 78; RESP 14; O2SAT 94
--- OUTSIDE RECORDS SUMMARY | 2025-02-14 14:01 | XMS_ITS | Clinical Summary ---
Author Organization [employer] Address [address] [place] [address] Care Team Providers Care Heavy Equipment Rental Associate Name Role Phone Joseph Lock Unavailable Joseph Lock Primary Care Provider [phone] Allergies No known active allergies Medications * [...] breakfast. 07/21/20 21 Active [facility] Saline Nasal [place] 0.65 % nasal sprayIndicatio ns:Nasal congestion 1-2 [...] knee tenderness Pap: last one 2018 at [facility], will refer to Maria E Bishop. 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 for med management Had been taking Zoloft [...] Description 02/12/2025 2:00 PM EDT [facility] [address] [address] Susan Krishnamurthy MD Viral upper respiratory tract infection (Primary Dx); Acute bilateral low back pain without sciatica; Cough, unspecified type 02/01/[address] [address] Joseph Lock ANP 01/31/2025 10:20 AM EDT [facility] [address] [address] Yokasta Gatica FNP Gastroenteritis (Primary Dx) 01/29/2025 Orders Only [address] [address] Maria E Bender CNM Encntr screen for infections w sexl mode of transmiss (Primary Dx) 01/26/[address] [address] Joseph Lock ANP Results 01/08/2025 1:45 PM EST Office Visit [address] [address] Maria E Bender CNM Cervical cancer screening (Primary Dx); Abnormal uterine bleeding; Acute vaginitis; Encntr screen for infections w sexl mode of transmiss 01/08/2025 Orders Only [address] [address] Billy Maria EMIGNON 01/08/2025 Travel 12/27/[address] [address] Eladia Ahumada [place] 12/27/[address] [address] Eladia Ahumada [place] May recall (Tried calling pt to schedule appt for march,nums are not in service,unable to leave message.sending letter) 12/26/2024 Travel 12/12/2024 Telephone [facility] [address] [place] [phone] Best Jon MD MAMMOGRAM ORDER 12/07/[address] [address] Joseph Lock ANP 12/05/2024 2:30 PM EST Office Visit [address] [address] Best oJn MD Routine physical examination (Primary Dx); Chronic pain of right knee; Family history of breast cancer; Breast cancer screening by mammogram; Hx of abnormal cervical Pap smear; Obesity (BMI 30-39.9); Mixed anxiety and depressive disorder; Allergy, initial encounter 12/05/2024 Travel 11/24/[address] [address] Joseph Lock ANP Chart Prep 11/23/2024 Patient Outreach [address] [address] Joseph Lock ANP Pre-visit Planning (SDOH Screening [...] Description 02/16/2025 2:00 PM EDT Office Visit [facility] [address] [place], [place] [phone] Timo Dominguez MD [address] [place], [place] [phone] Health Maintenance Due Date Last Done Comments [...] Procedure Name Priority Date/Time Associated Diagnosis Comments XR LUMBAR SPINE 2-3 VIEWS Routine 02/14/2025 12:18 PM EDT XR THORACIC SPINE 2 VIEWS Routine 02/14/2025 12:18 PM EDT POCT INFLUENZA B (ID NOW RAPID MOLECULAR) [...] Recently Relevant to Health Maintenance Results * XR Lumbar Spine 2-3 Views (02/14/2025 12:18 PM EDT) Anatomical Region Laterality Modality Spine, L-spine Radiographic Marie ging 02/14/2025 12:1 8 PM EDT Narrative 02/14/2025 1:10 PM EDT ? [facility] ?[address] ?[place] [address] ?XRay Report ? Signed ? Patient: Colon,Tabatha M ?MR#: [id number] ?? 4 ? : 1985 ?Acct:[id number] ? Age/Sex: 39 / F ?ADM Date: 02/14/25 ? Loc: HO.ED ? Attending Dr: ? Ordering Physician: Marques Hernandez MD ?? Date of Service: 02/14/25 ?? Procedure(s): XR lumbar spine 2-3V ?? Accession Number(s): [id number] ? cc: Marques Hernandez MD; JOSEPH LOCK NP ? EXAMINATION: ?? XR LUMBOSACRAL SPINE ? CLINICAL INFORMATION: ?? trauma ? COMPARISON: ?? None available. ? TECHNIQUE: ?? Three views of the lumbosacral spine. ? FINDINGS: ?? No acute cortical disruption or malalignment. Rudimentary ribs at T12. ?? Large right transverse processes of L5. ? XR/XR lumbar spine 2-3V ?? IMPRESSION: ?? No acute fracture or listhesis. ? Electronically signed by: ??Mitchel Wing MD ??02/14/2025 01:07 PM ?? EDT RP ? Dictated By: ?Mitchel Gustafson MD ? Signed By: ?<Electronically signed by Mitchel Carmona MD in OV> ? 02/14/25 1307 ? DD/ 1218 ? TD/TT: 02/14/25 1248 ? Assistant Womens Volleyball Coach: ? Procedure Note Lion Mackenzie - 02/14/[address] [address] XRay Report Signed Patient: Tabatha Díaz MMR#: [id number] 4 : 1985Acct:[id number] Age/Sex: 39 / FADM Date: 02/14/25 Loc: HO.ED Attending Dr: Ordering Physician: Marques Hernandez MD Date of Service: 02/14/25 Procedure(s): XR lumbar spine 2-3V Accession Number(s): [id number] cc: Marques Hernandez MD; JOSEPH LOCK NP EXAMINATION: XR LUMBOSACRAL SPINE CLINICAL INFORMATION: trauma COMPARISON: None available. TECHNIQUE: Three views of the lumbosacral spine. FINDINGS: No acute cortical disruption or malalignment. Rudimentary ribs at T12. Large right transverse processes of L5. XR/XR lumbar spine 2-3V IMPRESSION: No acute fracture or listhesis. Electronically signed by: Mitchel Wing MD 02/14/2025 01:07 PM EDT RP Dictated By: Mitchel Gustafson MD Signed By: <Electronically signed by Mitchel Carmona MDin OV> 02/14/25 1307 DD/ 1218 TD/TT: 02/14/25 1248 Assistant Womens Volleyball Coach: [facility] External Provider IMG XR PROCEDURES Final Result * XR Thoracic Spine 2 Views (02/14/2025 12:18 PM EDT) Anatomical Region Laterality Modality Spine, T-spine Radiographic Marie ging 02/14/2025 12:1 8 PM EDT Narrative 02/14/2025 1:08 PM EDT ? [facility] ?[address] ?[place] [address] ?XRay Report ? Signed ? Patient: Tabatha Díaz ?MR#: [id number] ?? 4 ? : 1985 ?Acct:[id number] ? Age/Sex: 39 / F ?ADM Date: 02/14/25 ? Loc: HO.ED ? Attending Dr: ? Ordering Physician: Marques eHrnandez MD ?? Date of Service: 02/14/25 ?? Procedure(s): XR thoracic spine 2V ?? Accession Number(s): [id number] ? cc: Marques Hernandez MD; JOSEPH LOCK NP ? EXAMINATION: ?? XR THORACIC SPINE ? CLINICAL INFORMATION: ?? trauma ? COMPARISON: ?? None available. ? TECHNIQUE: ?? 3 views of the thoracic spine were obtained. ? FINDINGS: ?? No acute cortical disruption or malalignment. No lytic or blastic ?? lesions. ?? Vascular clips in the right upper quadrant abdomen and likely prior ?? cholecystectomy.. ? XR/XR thoracic spine 2V ?? IMPRESSION: ?? No acute fracture or trauma-related listhesis. ? Electronically signed by: ??Mitchel Wing MD ??02/14/2025 01:05 PM ?? EDT RP ? Dictated By: ?Mitchel Gustafson MD ? Signed By: ?<Electronically signed by Mitchel Carmona MD in OV> ? 02/14/25 1305 ? DD/ 1218 ? TD/TT: 02/14/25 1248 ? Assistant Womens Volleyball Coach: ? Procedure Note Gurdeep, Lion - 02/14/[address] [address] XRay Report Signed Patient: Tabatha Díaz MMR#: [id number] 4 : 1985Acct:[id number] Age/Sex: 39 / FADM Date: 02/14/25 Loc: HO.ED Attending Dr: Ordering Physician: Marques Hernandez MD Date of Service: 02/14/25 Procedure(s): XR thoracic spine 2V Accession Number(s): [id number] cc: Marques Hernandez MD; JOSEPH LOCK NP EXAMINATION: XR THORACIC SPINE CLINICAL INFORMATION: trauma COMPARISON: None available. TECHNIQUE: 3 views of the thoracic spine were obtained. FINDINGS: No acute cortical disruption or malalignment. No lytic or blastic lesions. Vascular clips in the right upper quadrant abdomen and likely prior cholecystectomy.. XR/XR thoracic spine 2V IMPRESSION: No acute fracture or trauma-related listhesis. Electronically signed by: Mitchel Wing MD 02/14/2025 01:05 PM EDT Dictated By: Mitchel Gustafson MD Signed By: <Electronically signed by Mitchel Carmona MDin OV> 02/14/25 1305 DD/ 1218 TD/TT: 02/14/25 1248 Assistant Womens Volleyball Coach: [facility] External Provider IMG XR PROCEDURES Final Result * POCT Rapid Influenza B BOUCHER ID NOW (02/12/2025 2:19 PM EDT) Only the most recent of2 resultswithin the time period is included. Pathologist [facility] Influenza B Negative Negative, Indeterminate [facility] QC Media Lot # [id number] [facility] Lot# Expiration Date [facility] Swab 02/12/2025 2:19 PM EDT Susan Krishnamurthy MD POINT OF CARE TEST ENTER /EDIT ORDERABLES Final Result Performing Organization Address [facility] de Phone Number [facility] [address] [place] [phone] * POCT Rapid Influenza A BOUCHER ID NOW (02/12/2025 2:18 PM EDT) Only the most recent of2 resultswithin the time period is included. [facility] Influenza A Negative Negative, Indeterminate [facility] QC Media Lot # [id number] [facility] Lot# Expiration Date [facility] Swab 02/12/2025 2:18 PM EDT Susan Krishnamurthy MD POINT OF CARE TEST ENTER /EDIT ORDERABLES Final Result Performing Organization Address [facility] de Phone Number [facility] [address] [place] [phone] * POCT Rapid Strep A BOUCHER ID NOW (02/12/2025 2:13 PM EDT) [facility] Rapid Strep A Screen Negative Negative, None Detected QC Media Lot # [id number] Lot# Expiration Date Swab 02/12/2025 2:13 PM EDT Susan Krishnamurthy MD POINT OF CARE TEST ENTER /EDIT ORDERABLES Final Result * POCT Rapid Covid-19 BOUCHER ID NOW (02/12/2025 2:13 PM EDT) [facility] Coronavirus Antigen PCR Negative Negative, Indeterminate, None Detected, Invalid, Specimen unsatisfactory for evaluation, Weakly Positive QC Media Lot # [id number] Lot# Expiration Date 090,026 Swab 02/12/2025 2:13 PM EDT us Susan Krishnamurthy MD POINT OF CARE TEST ENTER /EDIT ORDERABLES Final Result * POCT Rapid COVID Ag (01/31/2025 10:24 AM EDT) [facility] Rapid COVID Ag Negative Swab 01/31/2025 10:2 4 AM EDT us Yokasta Gatica PRESIDENT PRACTICING UROLOGIST POINT OF CARE TEST ENTER/EDIT ORDERABLES Final Result * MR Knee w/o Contrast Right (01/20/2025 7:11 PM EDT) Anatomical Region Laterality Modality Magnetic Resonan ce 01/20/2025 7:11 PM EDT Narrative 01/22/2025 8:10 AM EDT ? [facility] ?[address] ?[place] [address] ? Magnetic Resonance Report ? Signed ? Patient: Tabatha Díaz ?MR#: [id number] ?? 4 ? : 1985 ?Acct:[id number] ? Age/Sex: 39 / F ?ADM Date: 01/20/25 ? Loc: HO.MRI ? Attending Dr: Kaylee Caraballo PA-C ? Ordering Physician: Kaylee Caraballo PA-C ?? Date of Service: 01/20/25 ?? Procedure(s): MR knee RT wo con ?? Accession Number(s): [id number] ? cc: Kaylee Caraballo PA-C; JOSEPH LOCK [...] MD in OV> ?01/22/25 0807 ? DD/ 10 ? TD/TT: 01/20/251936 ? Assistant Womens Volleyball Coach: ? Procedure Note Lion Mackenzie - 01/22/[address] [address] Magnetic Resonance Report Signed Patient: Tabatha Díaz MMR#: [id number] 4 : 1985Acct:[id number] Age/Sex: 39 / FADM Date: 01/20/25 Loc: HO.MRI Attending Dr: Kaylee Caraballo PA-C Ordering Physician: Kaylee Caraballo PA-C Date of Service: 01/20/25 Procedure(s): MR knee RT wo con Accession Number(s): [id number] cc: Kaylee Caraballo PA-C; JOSEPH LOCK NP [...] in OV> 01/22/25 0807 DD/ 10 TD/TT: 01/20/251936 Assistant Womens Volleyball Coach: [facility] External Provider IMG MRI PROCEDURES Final Result * HPV DNA, Low/High Risk (01/08/2025 2:13 PM EST) HPV High Risk Negative Negative [facility] HPV Genotype 16 Negative Negative [facility] HPV Genotype 18 Negative Negative [facility] Comment:HPV testing performe d at [facility] (CLIA#[id number]), [address] [place] [phone].Testing for HPV was performed using the [employer] JUANIS 6800system. The presence of HPV in the female [...] 01/09/2025 9:45 AM EST Maria E Bender [facility] LAB BLOOD ORDERABLES Monik l Result [facility] [address] [place] [phone] * POCT , urine manually resulted (01/08/2025 2:13 PM EST) Preg Test, Ur Negative Negative, Indeterminate, None Detected, Invalid, Specimen unsatisfactory for evaluation, Weakly Positive QC Media Lot # [id number] Lot# Expiration Date [id number] Urine 01/08/2025 2:13 PM EST Maria E Bender [facility] POINT OF CARE TEST ENTER/ EDIT ORDERABLES Final Result * Pap Smear (01/08/2025 2:13 PM EST) Swab Cervix uteri structure / Unknown 01/08/2025 2:13 PM EST 01/09/2025 9:45 AM EST Narrative [facility] - 01/11/2025 7:19 AM EST ----- ------- Name: ArjunTabatha M ?Age/Sex: 39/F ? : 1985 Unit#: [id number] ?? Attend Dr: MARIA E BENDER CNM ?Re01/08/25 ?Status: DEP REF ? Location: HO.HHCLNP ? Disch: ? ----- ------- SPEC : [id number] ? RECD: 01/09/25-944 ? STATUS: ??SOUT ? REQ NUM: [id number] ? RASHAUN: 01/08/25-141 ? SUBM DR: MARIA E BENDER CNM ? ENTERED: ??01/09/25-958 ?SP TYPE: Pap Smr ?OTHR : ? ORDERED: ??Pap Smear ? Interpretation ?? Satisfactory for evaluation. ?? Negative for intraepithelial lesion or malignancy. ?? Mild inflammation. ? HPV High Risk: ??Negative ? HPV Genotyping 16: ??Negative ?? HPV Genotyping 18: ??Negative ?Clinical Information LMP: Unknown date Previous PAP test: Unknown date/findings ? Material Received ?? Cervix ----- ------- Signed (signature on file) LATHA Knutson ([facility]) 01/11/[address] ? ----- ------- ? END OF REPORT ? us Maria E Bender CNM LAB CYTOLOGY ORDERABLES F inal Result [facility] [address] [facility] [place] [address] [phone] * POCT fern test, vaginal fluid manually resulted (01/08/2025 2:07 PM EST) SRINIVASAN Prep Positive Comment:pH 5, pos whiff, pos clue, neg wbc, neg yeast, neg trich Vaginal Fluid Vaginal structure / Unknown 01/08/2025 2:07 PM EST Impressions Maria E Bender CNM - 01/08/2025 2:07 PM EST Bacterial vaginosis Maria E Bender CNM POINT OF CARE TEST ENTER/ EDIT ORDERABLES Final Result * XR Knee 3 Views Right (12/05/2024 3:18 PM EST) Anatomical Region Laterality Modality Lower Extremities, Knee Right Radiogra phic Imaging 12/05/2024 3:18 PM EST Narrative 12/05/2024 3:43 PM EST ?[facility] ?[address] ?[place] [address] ?XRay Report ? Signed ? Patient: Colon,Tabatha M ?MR#: [id number] ?? 4 ? : 1985 ?Acct:[id number] ? Age/Sex: 39 / F ?ADM Date: 12/05/24 ? Loc: HO.HHCX ? Attending Dr: Best Craig MD ? Ordering Physician: Best Craig MD ?? Date of Service: 12/05/24 ?? Procedure(s): XR knee RT 3V ?? Accession Number(s): [id number] ? cc: Best Craig MD ? EXAMINATION: [...] DD/ 1518 ? TD/TT: 12/05/24 1531 ? Assistant Womens Volleyball Coach: ? Procedure Note Donnelidater, Image - 12/05/[address] [address] XRay Report Signed Patient: Tabatha Díaz MMR#: [id number] 4 : 1985Acct:[id number] Age/Sex: 39 / FADM Date: 12/05/24 Loc: HO.HHCX Attending Dr: Best Craig MD Ordering Physician: Best Craig MD Date of Service: 12/05/24 Procedure(s): XR knee RT 3V Accession Number(s): [id number] cc: Best Craig MD EXAMINATION: XR KNEE, [...] by: Kvng Sarmiento MD 12/05/2024 03:40 PM [facility] Dictated By: Kvng Sarmiento MD Signed By: <Electronically signed by Kvng Sarmiento MD in OV> 12/05/24 1540 DD/ 1518 TD/TT: 12/05/24 1531 Assistant Womens Volleyball Coach: us Best Guerrero MD IMG XR PROCEDURES Fin al Result * HEPATITIS C AB W/REFL TO HCV RNA, QN, PCR (01/13/2022 10:32 AM EST) HEPATITIS C ANTIBODY NON-REACT YOCASTA NON-REACT YOCASTA [facility] INDEX 0.01 <1.00 [facility] Comment: ?? HCV antibody was non-reactive. There is no laboratory ?? evidence of HCV infection. ?? In most cases, no further action is required. However, if recent HCV exposure is suspected, a test for HCV RNA (test code 87986) is suggested. ?? For additional information please refer to http://Triggit.Offermobi/faq/NLZ36f8 (This link is being provided for informational/ educational purposes only.) ?? 01/13/2022 10:3 2 AM EST us Joseph [facility] HISTORICAL/NON ORDERABLE LABS Fi nal Result [facility] [address] * HIV 1/2 ANTIGEN/ANTIBODY,FOURTH GENERATION W/RFL (01/13/2022 10:32 AM EST) HIV-1/2 ANTIGEN AND ANTIBODIES, 4TH GENERATION W/ REFLEX NON-REACT YOCASTA NON-REACT YOCASTA [facility] Comment: HIV-1 antigen and HIV-1/HIV-2 [...] ? For additional information please refer to http://Triggit.Offermobi/faq/UNH525 (This link is being provided for informational/ educational purposes only.) ? The performance of this assay has not been clinically validated in patients less than 2 years old. ?? 01/13/2022 10:3 2 AM EST Joseph GRACIA LAB BLOOD ORDERABLES Final Resul t [facility] [address] [place] [address], from Last 3 Months or Most Recently Relevant to Health Maintenance Insurance [facility] , [address] [place] [address] Care Teams Heavy Equipment Rental Associate Relationship Specialty Start Date End Date Joseph Lock ANP [address] [place] [address] PCP - General Family Medicine 10/20/22 Joseph Lock ANP [address] [place] [address] Family Medicine 11/08/21
--- OUTSIDE RECORDS SUMMARY | 2025-02-14 14:02 | XMS_ITS | Encounter Summary ---
Author Organization [employer] Address [address] [place] [address] Care Team Providers Care Ross Lift Operator Name Role Phone Suha Mehta Unavailable Suha Mehta Primary Care Provider [phone] Encounter Details Date Type Department Care Team (Late st Contact Info) Description 02/12/2025 2:00 PM EDT Office Visit [facility] [address] [place], [place] [phone] Susan Krishnamurthy MD [address] [place] [address] Viral upper respiratory tract infection (Primary Dx); [...] Indeterminate Final QC Media Lot # 02/12/2025 [id number] Final Lot# Expiration Date 02/12/2025 1,082,026 Final Rapid Strep A Screen 02/12/2025 Negative Negative, None Detected Final QC Media Lot # 02/12/2025 [id number] Final Lot# Expiration Date 02/12/2025 1,252,026 Final Influenza A 02/12/2025 Negative Negative, Indeterminate Final QC Media Lot # 02/12/2025 [id number] Final Lot# Expiration Date 02/12/2025 1,082,026 Final [...] DAY 90 capsule 0 [facility] Saline Nasal [place] 0.65 % nasal spray 1-2 SPRAY ON [...] old female who presents for Walk In [place] s . Denies recent illness, injury, or [...] Indeterminate Final QC Media Lot # 02/12/2025 [id number] Final Lot# Expiration Date 02/12/2025 1,082,026 Final Rapid Strep A Screen 02/12/2025 Negative Negative, None Detected Final QC Media Lot # 02/12/2025 [id number] Final Lot# Expiration Date 02/12/2025 1,252,026 Final Influenza A 02/12/2025 Negative Negative, Indeterminate Final QC Media Lot # 02/12/2025 [id number] Final Lot# Expiration Date 02/12/2025 1,082,026 Final [...] DAY 90 capsule 0 [facility] Saline Nasal [place] 0.65 % nasal spray 1-2 SPRAY ON [...] Description 02/16/2025 2:00 PM EDT Office Visit [facility] [address] [place] [address] Timo Dominguez MD [address] [place] [address] documented as of this encounter Procedures Procedure [...] PM EDT) Influenza B Negative Negative, Indeterminate [facility] QC Media Lot # [id number] [facility] Lot# Expiration Date [facility] Swab 02/12/2025 2:19 PM EDT us Susan Krishnamurthy MD POINT OF CARE TEST ENTER /EDIT ORDERABLES Final Result Performing Organization Address City/[facility]/ZIP Co de Phone Number [facility] [address] [place] [phone] * POCT Rapid Influenza A BOUCHER ID NOW (02/12/2025 2:18 PM EDT) [facility] Influenza A Negative Negative, Indeterminate [facility] QC Media Lot # [id number] [facility] Lot# Expiration Date [facility] Swab 02/12/2025 2:18 PM EDT us Susan Krishnamurthy MD POINT OF CARE TEST ENTER /EDIT ORDERABLES Final Result Performing Organization Address City/[facility]/ZIP Co de Phone Number [facility] [address] [place] [phone] * POCT Rapid Covid-19 BOUCHER ID NOW (02/12/2025 2:13 PM EDT) Coronavirus Antigen PCR Negative Negative, Indeterminate, None Detected, Invalid, Specimen unsatisfactory for evaluation, Weakly Positive QC Media Lot # [id number] Lot# Expiration Date 7896,026 Swab 02/12/2025 2:13 PM EDT Susan Krishnamurthy MD POINT OF CARE TEST ENTER /EDIT ORDERABLES Final Result * POCT Rapid Strep A BOUCHER ID NOW (02/12/2025 2:13 PM EDT) Pathologist [facility] Rapid Strep A Screen Negative Negative, None Detected QC Media Lot # [id number] Lot# Expiration Date 338,026 Swab 02/12/2025 2:13 PM EDT Susan Krishnamurthy [...] documented as of this encounter Care Teams Ross Lift Operator Relationship Specialty Start Date End Date Suha Mehta ANP [address] [place] [address] PCP - General Family Medicine 10/20/22 Suha Mehta ANP [address] [place] [address] Family Medicine 11/08/21 documented as of this encounter
[2025-02-14 15:00] VITALS: BP 96/57; PULSE 65; RESP 14; TEMP 36.3; O2SAT 98
== END 2025-02-14 15:16 | disposition home or self-care (01) ==
PROVIDERS: Emergency Provider Emergency Medicine; PCP Nurse Practitioner Primary Care
DX: S30.0XXA Contusion of lower back and pelvis, initial encounter (principal); M54.50 Low back pain, unspecified; M54.6 Pain in thoracic spine; J45.909 Unspecified asthma, uncomplicated; X58.XXXA Exposure to other specified factors, initial encounter; Y93.9 Activity, unspecified; Y92.9 Unspecified place or not applicable; Y99.8 Other external cause status; Z79.899 Other long term (current) drug therapy
CPT/HCPCS: 72070; 72100; 94640; 94664; 99284

== ENCOUNTER → 2025-02-14 12:18 | Outpatient (BNV) | payer OTHER, SELFPAY | PROVIDERS: Emergency Provider Emergency Medicine; PCP Nurse Practitioner Primary Care; Visit Provider Radiology Diagnostic Radiology | DX: M54.9 Dorsalgia, unspecified (principal) | CPT/HCPCS: 72070; 72100 ==

== ENCOUNTER 2025-03-01 12:19 | Emergency (ER) | payer OTHER, SELFPAY ==
--- NOTE | ~2025-03-01 | MR_ITS ---
CLINICAL HISTORY: back pain and incontinence MR Thoracic Spine WO Contrast COMPARISON: CR/SR - XR THORACIC SPINE 2V - 02/14/25 12:41 EDT FINDINGS: No acute fracture. Vertebrae are normally aligned. No spinal cord compression. 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 Small posterior central zone disc protrusion at T6-T7 resulting in mild spinal canal stenosis. No severe stenosis. The anterior longitudinal, posterior longitudinal, and interspinous ligaments appear intact. No epidural hematoma or collection. Scattered partially visualized T2 hyperintense cystic lesions in the spleen measuring up to 2.6 cm, the largest of which has internal septations (series 25, image 43). Bilateral renal cysts. IMPRESSION: No acute findings in the thoracic spine. Syringohydromyelia between the T3-T9 levels. Consider nonemergent enhanced thoracic spine MRI if not worked up in the past. Multiple cystic lesions in the spleen. Consider nonemergent dedicated enhanced spleen MRI. This document has been electronically signed by: Rodolfo Santacruz MD on 03/02/2025 01:33:33
--- NOTE | ~2025-03-01 | MR_ITS ---
CLINICAL HISTORY: back pain and incontinence MR Lumbar Spine WO Contrast COMPARISON: CR/SR - XR LUMBAR SPINE 2-3V - 02/14/25 12:42 EDT FINDINGS: No acute fracture. Vertebrae are normally aligned. The conus medullaris terminates at the L1-L2 level and appears normal. The anterior longitudinal, posterior longitudinal, and interspinous ligaments appear intact. No epidural hematoma or collection. T12-L1: No disc herniation. No significant stenosis. L1-L2: No disc herniation. No significant stenosis. L2-L3: No disc herniation. No significant stenosis. L3-L4: Anterior midline annular fissure, mild diffuse disc bulge, and mild bilateral facet and ligamentum flavum hypertrophy. Mild spinal canal stenosis and mild bilateral neuroforaminal stenoses. L4-L5: Disc desiccation, posterior midline annular fissure, diffuse disc bulge, and bilateral facet and ligamentum flavum hypertrophy. Mild spinal canal stenosis and moderate bilateral neuroforaminal stenoses. L5-S1: Disc desiccation, posterior midline annular fissure, posterior central zone disc extrusion, and bilateral facet hypertrophy. Mild spinal canal stenosis and mild left neuroforaminal stenosis. IMPRESSION: No acute findings. Degenerative changes. No nerve root impingement. This document has been electronically signed by: Rodolfo Santacruz MD on 03/02/2025 01:36:54
[2025-03-01 12:28] VITALS: BP 124/81; PULSE 95; RESP 16; TEMP 36.9; O2SAT 96; BMI 36.1
--- NOTE | 2025-03-01 12:29 | ED_ITS ---
HPI - Back Pain/Injury General Chief Complaint: Back Pain/Injury Stated Complaint: Back Pain- Numbness, Tingling Sensation Time Seen by Provider: 03/01/25 15:45 History of Present Illness ED Provider: Tammie GAMBOA Narrative: 39-year-old female presenting for back pain. Patient states that she has been experiencing proximally 2 weeks of lower back pain since suffering a fall. She states that the pain is worse with ambulation however it has been constant and interfering with her sleep. She also endorses numbness to her bilateral lower extremities and has had a few episodes of mild urine incontinence. She denies changes in bowel habits and saddle anesthesia Related Data Home Medications ?Medication ?Instructions ?Recorded ?Confirmed albuterol sulfate 90 mcg/actuation 0 mcg inhalation 10/08/21 aerosol inhaler (ProAir HFA) Previous Rx's ?Medication ?Instructions ?Recorded ondansetron 4 mg disintegrating 4 mg PO Q8H 4 days #12 tabs 03/08/23 tablet esomeprazole magnesium 20 mg 20 mg PO DAILY #30 tabs 03/19/23 tablet,delayed release (Nexium 24HR) sennosides 8.6 mg tablet (Natural 17.2 mg (2 x 8.6 mg) PO BEDTIME 03/19/23 Senna Laxative) constipation #60 tabs acetaminophen 500 mg tablet 500 mg PO Q6H PRN fever or pain 10/14/23 (Tylenol Extra Strength) #14 tabs cyclobenzaprine 5 mg tablet 5 mg PO Q8H PRN pain (scale score 10/14/23 7-10) 5 days #14 tabs lidocaine 5 % topical patch 1 patch topical DAILY PRN pain #30 10/14/23 (Lidoderm) ea ketorolac 10 mg tablet 10 mg PO .B.i.d. PRN pain #7 tabs 04/27/24 azithromycin 250 mg tablet See Rx Instructions PO .COMPLEX #6 09/12/24 tabs prednisone 20 mg tablet 40 mg (2 x 20 mg) PO DAILY 4 days 09/12/24 #8 tabs cyclobenzaprine 10 mg tablet 10 mg PO TID PRN muscle spasm/back 02/14/25 pain #14 tabs naproxen 500 mg tablet (Naprosyn) 500 mg PO BID PRN PAIN #20 tabs 02/14/25 cyclobenzaprine 10 mg tablet 10 mg PO Q8H #20 tabs 03/02/25 tramadol 50 mg tablet 50 mg PO Q6H PRN pain #20 tabs 03/02/25 Allergies Allergy/AdvReac Type Severity Reaction Status Date / Time No Known Allergies Allergy Verified 03/01/25 12:33 Review of Systems 2 Review of Systems: Yes all other systems are reviewed and are negative [facility] Past Medical History Medical History Kidney stones GERD (gastroesophageal reflux disease) Depression Anxiety Asthma Surgical History History of esophagogastroduodenoscopy (EGD) Hx of cholecystectomy History of partial hysterectomy Family History Family History Mother Diabetes Father HTN (hypertension) Social History Social History Alcohol intake: current Alcohol intake frequency: holidays/special occasions only Patient Tobacco Use Status: Never used Tobacco Current occupational status: employed 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 Full HPI, ROS and PE to be performed by primary ED provider. 39 yo F w/PMHx GERD, depression, anxiety, asthma presenting to the ED c/o acute on chronic low back pain radiating down b/l LE w/assoc numbness & tingling in toes. Admits to some urinary incontinence/dribbling when going up the stairs. Taking Flexeril & Prednisone w/o relief. Had recent back & knee imaging PE: ambulating w/limping gait, nontoxic appearing Plan: UA, labs Medications Administered Discontinued Medications Generic Name Dose Route Start Last Admin Trade Name Freq PRN Reason Stop Dose Admin Acetaminophen 650 mg 03/01/25 15:51 03/01/25 16:05 Acetaminophen 325 Mg Tablet PO 03/01/25 15:52 650 mg ONCE ONE Administration Ketorolac Tromethamine 15 mg 03/01/25 15:56 03/01/25 16:04 Ketorolac Tromethamine 15 Mg/Ml Vial IM 03/01/25 15:57 15 mg ONCE ONE Administration Lidocaine 1 patch 03/01/25 15:51 03/01/25 16:04 Lidocaine 4 % Patch Adh..Patch TRANSDERMA 03/01/25 15:52 1 patch ONCE ONE Administration Protocol Morphine Sulfate 3 mg 03/01/25 17:58 03/01/25 18:08 Morphine Sulfate 4 Mg/Ml Cartridge SUBCUT 03/01/25 17:59 3 mg ONCE ONE Administration Protocol Medical Decision Making Medical Decision Making [facility] Narrative: 31-year-old female presents for back pain -I am concerned for the following; lumbar/thoracic stenosis, herniated disc, muscular strain/sprain, cord compression -labs and imaging studies ordered My independent lab and imaging interpretation: - mild leukocytosis, stable H&H, electrolytes within normal limits, clean UA - no obvious cord compression; radiology impression pending Patient signed out to night provider. MRI read pending Lab Data 03/01/25 15:04 03/01/25 15:04 Labs: Lab Results 03/01/25 03/01/25 Range/Units 15:04 16:57 WBC 14.7 H (4.8-10.8) X10*3/uL RBC 4.46 (4.20-5.50) X10*6/uL Hgb 13.8 (12.0-16.0) g/dl Hct 40.6 (37.0-47.0) % MCV 91.0 (80.0-98.0) fL MCH 30.9 (27.0-33.0) pg MCHC 34.0 (31.0-35.0) g/dl RDW 13.4 (11.0-16.0) % Plt Count 256 (160-400) X10*3/uL MPV 9.9 (9.4-12.3) fL Immature Gran % (Auto) 0.6 H (0.0-0.4) % Neut % (Auto) 71.7 (45-73) % Lymph % (Auto) 20.8 (20-40) % [place] % (Auto) 5.5 (2-11) % Eos % (Auto) 1.0 (0-4) % Baso % (Auto) 0.4 (0-2) % Lymph # (Auto) 3.1 (1.2-4.9) X10*3/uL [place] # (Auto) 0.8 (0.1-1.2) X10*3/uL Eos # (Auto) 0.1 (0.0-0.4) X10*3/uL Baso # (Auto) 0.1 (0.0-0.2) X10*3/uL Abs Immat Gran (auto) 0.09 H (0.00-0.03) X10*3/uL Absolute Neuts (auto) 10.5 H (2.0-8.3) x10*3/uL Absolute Nucleated RBC 0.000 (0.0-0.012) X10*3/uL Nucleated RBC % (auto) 0.0 (0.0-0.2) /100WBC Sodium 137 (135-145) mmol/L Potassium 4.2 (3.3-5.1) mmol/L Chloride 106 (96-108) mmol/L Carbon Dioxide 26 (22-29) mmol/L Anion Gap 9 L (12-20) BUN 13 (9-16) mg/dL Creatinine 0.74 (0.5-1.4) mg/dL Estim Creat Clear Calc 103.0 Estimated GFR > 60 Random Glucose 93 (60-115) mg/dL Calcium 9.1 (8.4-10.2) mg/dL Magnesium 2.0 (1.6-2.6) mg/dL Total Bilirubin 0.4 (0.0-1.0) mg/dL Direct Bilirubin 0.1 (0.0-0.5) mg/dL AST 22 (5-31) U/L ALT 49 H (0-31) U/L Alkaline Phosphatase 51 (39-117) U/L Total Protein 6.6 (6.5-8.0) g/dL Albumin 3.8 (3.5-5.0) g/dL Urine Color Yellow Urine Appearance Clear Urine pH 7.0 (5.0-9.0) Ur Specific [place] 1.010 (1.005-1.025) Urine Protein Negative (Neg-Trace) mg/dL Urine Glucose (UA) Negative (Negative) mg/dL Urine Ketones Negative (Negative) mg/dL Urine Blood Negative (Negative) Urine Nitrite Negative (Negative) Ur Leukocyte Esterase Negative (Negative) Urine Test NEGATIVE (NEGATIVE) Discharge Plan Discharge Clinical Impression: Back pain, Strain of lumbar region Patient Disposition: Home, Self-Care Instructions: Low Back Strain (ED) Additional Instructions: Your MRI did not show any acute disc herniation You can continue taking Tylenol, naproxen and apply lidocaine patches and cold packs Please follow up with your outpatient providers in next 24-48 hours for reassessment If you develop any new or worsening symptoms please return to the emergency department Prescriptions: New cyclobenzaprine 10 mg tablet 10 mg PO Q8H Qty: 20 0RF tramadol 50 mg tablet 50 mg PO Q6H PRN (Reason: pain) Qty: 20 0RF No Action ondansetron 4 mg tablet,disintegrating 4 mg PO Q8H 4 Days Qty: 12 0RF prednisone 20 mg tablet 40 mg PO DAILY 4 Days Qty: 8 0RF azithromycin 250 mg tablet See Rx Instructions .ROUTE .COMPLEX Qty: 6 0RF Rx Instructions: For 250 mg dose pack: take 500 mg today (day 1), then 250 mg for 4 days (days 2-5) naproxen [Naprosyn] 500 mg tablet 500 mg PO BID PRN (Reason: PAIN) Qty: 20 0RF cyclobenzaprine 10 mg tablet 10 mg PO TID PRN (Reason: muscle spasm/back pain) Qty: 14 0RF acetaminophen [Tylenol Extra Strength] 500 mg tablet 500 mg PO Q6H PRN (Reason: fever or pain) Qty: 14 0RF lidocaine [Lidoderm] 5 % adhesive patch,medicated 1 patch topical DAILY MDD remove after 12 hours PRN (Reason: pain) Qty: 30 0RF Rx Instructions: leave on most painful area for up to 12 hrs cyclobenzaprine 5 mg tablet 5 mg PO Q8H PRN (Reason: pain (scale score 7-10)) 5 Days Qty: 14 0RF ketorolac 10 mg tablet 10 mg PO .B.i.d. PRN (Reason: pain) Qty: 7 0RF albuterol sulfate [ProAir HFA] 90 mcg/actuation HFA aerosol inhaler 0 mcg inhalation esomeprazole magnesium [Nexium 24HR] 20 mg tablet,delayed release (DR/EC) 20 mg PO DAILY Qty: 30 2RF sennosides [Natural Senna Laxative] 8.6 mg tablet 17.2 mg PO BEDTIME Qty: 60 2RF Interventions: ED Discharge Assessment Last Done: 03/02/25 02:20 Discharge Date/Time: 03/02/25 02:20 Print Language: Croatian
[2025-03-01 15:07] LABS: MANUAL DIFF FLAG NO
[2025-03-01 15:30] LABS: Alanine Aminotransferase 49 U/L (0-31); Albumin Level 3.8 g/dL (3.5-5.0); Alkaline Phosphatase 51 U/L (39-117); Anion Gap 9 (12-20); Aspartate Amino Transferase 22 U/L (5-31); Bilirubin Direct 0.1 mg/dL (0.0-0.5); Bilirubin Total 0.4 mg/dL (0.0-1.0); Blood Urea Nitrogen 13 mg/dL (9-16); Calcium 9.1 mg/dL (8.4-10.2); Carbon Dioxide 26 mmol/L (22-29); Chloride 106 mmol/L (96-108); Estimated Glomerular Filt Rate > 60; Glucose Random 93 mg/dL (60-115); Potassium 4.2 mmol/L (3.3-5.1); Sodium 137 mmol/L (135-145); Total Protein 6.6 g/dL (6.5-8.0)
[2025-03-01 15:39] LABS: Basophils Absolute Auto 0.1 X10*3/uL (0.0-0.2); Basophils Percent Auto 0.4 % (0-2); Eosinophils Absolute Auto 0.1 X10*3/uL (0.0-0.4); Hematocrit 40.6 % (37.0-47.0); Hemoglobin 13.8 g/dl (12.0-16.0); Imm Gran Abs Auto 0.09 X10*3/uL (0.00-0.03); Imm Gran Pct Auto 0.6 % (0.0-0.4); Lymphocytes Absolute Auto 3.1 X10*3/uL (1.2-4.9); Lymphocytes Percent Auto 20.8 % (20-40); Mean Corpuscular Hemoglobin 30.9 pg (27.0-33.0); Mean Platelet Volume 9.9 fL (9.4-12.3); Monocytes Absolute Auto 0.8 X10*3/uL (0.1-1.2); Monocytes Percent Auto 5.5 % (2-11); Neutrophils Absolute Auto 10.5 x10*3/uL (2.0-8.3); Neutrophils Percent Auto 71.7 % (45-73); Platelet Count 256 X10*3/uL (160-400); Red Blood Count 4.46 X10*6/uL (4.20-5.50); Red Cell Distribution Width 13.4 % (11.0-16.0); White Blood Count 14.7 X10*3/uL (4.8-10.8)
[2025-03-01] MEDS: Lidocaine 4 % Patch ADH..PATCH 1 PATCH TRANSDERMA (16:04)
[2025-03-01] MEDS: Ketorolac Tromethamine 15 MG/ML VIAL IM (16:04)
[2025-03-01] MEDS: Acetaminophen 325 MG TABLET 650 MG PO (16:05)
--- NOTE | 2025-03-01 16:33 | PC.NURSE ---
patient a&ox3, c/o 08/17 low back pain which pt states began due to her rt knee and difficulty with ambulation. pts labs previously drawn, pt aware we need a urine, medicated per order, call almaguer within reach, plan of care ongoing
[2025-03-01 16:51] VITALS: BP 112/56; PULSE 77; RESP 18; TEMP 36.9; O2SAT 97
[2025-03-01 17:10] LABS: Appearance Urine Clear; Color Urine Yellow; Glucose Urine UA Negative (Negative); Leukocyte Esterase Urine Negative (Negative); Nitrite Urine Negative (Negative); Urine Blood Negative (Negative); Urine Ketones Negative (Negative); Urine Protein Negative (Neg-Trace)
[2025-03-01] MEDS: Morphine Sulfate 4 MG/ML CARTRIDGE 3 MG SUBCUT (18:08)
--- NOTE | 2025-03-01 19:20 | PC.NURSE ---
Report taken from Doris ARTEAGA assumed care of pt at this time. Pt A&Ox3 skin pwd respirations even unlabored. Reports positive pain relief from previously administered medications. Awaiting MRI, aware of plan of care.
--- NOTE | 2025-03-01 20:22 | PC.NURSE ---
Pt remains off floor to MRI.
[2025-03-01 21:06] LABS: UPreg QC Valid YES; Urine Pregnancy NEGATIVE (NEGATIVE)
--- NOTE | 2025-03-01 21:41 | PC.NURSE ---
Pt returned from MRI, no change in physical assessment, awaiting results and MD reeval, aware of plan of care.
[2025-03-01 22:20] VITALS: BP 112/46; PULSE 78; RESP 18; TEMP 36.8; O2SAT 94
--- NOTE | 2025-03-02 01:59 | PC.NURSE ---
Provider to bedside for reeval.
--- NOTE | 2025-03-02 02:06 | ED.BACK ---
HPI - Back Pain/Injury General Chief Complaint: Back Pain/Injury Stated Complaint: Back Pain- Numbness, Tingling Sensation Time Seen by Provider: 03/01/25 15:45 Related Data Home Medications ?Medication ?Instructions ?Recorded ?Confirmed albuterol sulfate 90 mcg/actuation 0 mcg inhalation 10/08/21 aerosol inhaler (ProAir HFA) Previous Rx's ?Medication ?Instructions ?Recorded ondansetron 4 mg disintegrating 4 mg PO Q8H 4 days #12 tabs 03/08/23 tablet esomeprazole magnesium 20 mg 20 mg PO DAILY #30 tabs 03/19/23 tablet,delayed release (Nexium 24HR) sennosides 8.6 mg tablet (Natural 17.2 mg (2 x 8.6 mg) PO BEDTIME 03/19/23 Senna Laxative) constipation #60 tabs acetaminophen 500 mg tablet 500 mg PO Q6H PRN fever or pain 10/14/23 (Tylenol Extra Strength) #14 tabs cyclobenzaprine 5 mg tablet 5 mg PO Q8H PRN pain (scale score 10/14/23 7-10) 5 days #14 tabs lidocaine 5 % topical patch 1 patch topical DAILY PRN pain #30 10/14/23 (Lidoderm) ea ketorolac 10 mg tablet 10 mg PO .B.i.d. PRN pain #7 tabs 04/27/24 azithromycin 250 mg tablet See Rx Instructions PO .COMPLEX #6 09/12/24 tabs prednisone 20 mg tablet 40 mg (2 x 20 mg) PO DAILY 4 days 09/12/24 #8 tabs cyclobenzaprine 10 mg tablet 10 mg PO TID PRN muscle spasm/back 02/14/25 pain #14 tabs naproxen 500 mg tablet (Naprosyn) 500 mg PO BID PRN PAIN #20 tabs 02/14/25 cyclobenzaprine 10 mg tablet 10 mg PO Q8H #20 tabs 03/02/25 tramadol 50 mg tablet 50 mg PO Q6H PRN pain #20 tabs 03/02/25 Allergies Allergy/AdvReac Type Severity Reaction Status Date / Time No Known Allergies Allergy Verified 03/01/25 12:33 [facility] Past Medical History Medical History Kidney stones GERD (gastroesophageal reflux disease) Depression Anxiety Asthma Surgical History History of esophagogastroduodenoscopy (EGD) Hx of cholecystectomy History of partial hysterectomy Family History Family History Mother Diabetes Father HTN (hypertension) Social History Social History Alcohol intake: current Alcohol intake frequency: holidays/special occasions only Patient Tobacco Use Status: Never used Tobacco Current occupational status: employed 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 Physical Exam Vital Signs: Vital Signs: Last Vital Signs Temp 98.3 F 03/02/25 02:20 Pulse 78 03/02/25 02:20 Resp 18 03/02/25 02:20 BP 112/46 L 03/02/25 02:20 Pulse Ox 94 03/02/25 02:20 O2 Del Method Room Air 03/02/25 02:20 BMI result Body Mass Index 36.1 Medications Administered Discontinued Medications Generic Name Dose Route Start Last Admin Trade Name Freq PRN Reason Stop Dose Admin Acetaminophen 650 mg 03/01/25 15:51 03/01/25 16:05 Acetaminophen 325 Mg Tablet PO 03/01/25 15:52 650 mg ONCE ONE Administration Ketorolac Tromethamine 15 mg 03/01/25 15:56 03/01/25 16:04 Ketorolac Tromethamine 15 Mg/Ml Vial IM 03/01/25 15:57 15 mg ONCE ONE Administration Lidocaine 1 patch 03/01/25 15:51 03/01/25 16:04 Lidocaine 4 % Patch Adh..Patch TRANSDERMA 03/01/25 15:52 1 patch ONCE ONE Administration Protocol Morphine Sulfate 3 mg 03/01/25 17:58 03/01/25 18:08 Morphine Sulfate 4 Mg/Ml Cartridge SUBCUT 03/01/25 17:59 3 mg ONCE ONE Administration Protocol Medical Decision Making Medical Decision Making MDM Narrative: Patient was seen by Zach Cho and MRI was ordered for chronic back pain getting worse for last 2 weeks patient is ambulatory no loss of sacral sensation MRI negative for acute disc herniation or conus medullaris. 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 Symptoms are not matching as the pain is in the leg only Patient advised to follow with PCP Lab Data 03/01/25 15:04 03/01/25 15:04 Labs: Lab Results 03/01/25 03/01/25 Range/Units 15:04 16:57 WBC 14.7 H (4.8-10.8) X10*3/uL RBC 4.46 (4.20-5.50) X10*6/uL Hgb 13.8 (12.0-16.0) g/dl Hct 40.6 (37.0-47.0) % MCV 91.0 (80.0-98.0) fL MCH 30.9 (27.0-33.0) pg MCHC 34.0 (31.0-35.0) g/dl RDW 13.4 (11.0-16.0) % Plt Count 256 (160-400) X10*3/uL MPV 9.9 (9.4-12.3) fL Immature Gran % (Auto) 0.6 H (0.0-0.4) % Neut % (Auto) 71.7 (45-73) % Lymph % (Auto) 20.8 (20-40) % [place] % (Auto) 5.5 (2-11) % Eos % (Auto) 1.0 (0-4) % Baso % (Auto) 0.4 (0-2) % Lymph # (Auto) 3.1 (1.2-4.9) X10*3/uL [place] # (Auto) 0.8 (0.1-1.2) X10*3/uL Eos # (Auto) 0.1 (0.0-0.4) X10*3/uL Baso # (Auto) 0.1 (0.0-0.2) X10*3/uL Abs Immat Gran (auto) 0.09 H (0.00-0.03) X10*3/uL Absolute Neuts (auto) 10.5 H (2.0-8.3) x10*3/uL Absolute Nucleated RBC 0.000 (0.0-0.012) X10*3/uL Nucleated RBC % (auto) 0.0 (0.0-0.2) /100WBC Sodium 137 (135-145) mmol/L Potassium 4.2 (3.3-5.1) mmol/L Chloride 106 (96-108) mmol/L Carbon Dioxide 26 (22-29) mmol/L Anion Gap 9 L (12-20) BUN 13 (9-16) mg/dL Creatinine 0.74 (0.5-1.4) mg/dL Estim Creat Clear Calc 103.0 Estimated GFR > 60 Random Glucose 93 (60-115) mg/dL Calcium 9.1 (8.4-10.2) mg/dL Magnesium 2.0 (1.6-2.6) mg/dL Total Bilirubin 0.4 (0.0-1.0) mg/dL Direct Bilirubin 0.1 (0.0-0.5) mg/dL AST 22 (5-31) U/L ALT 49 H (0-31) U/L Alkaline Phosphatase 51 (39-117) U/L Total Protein 6.6 (6.5-8.0) g/dL Albumin 3.8 (3.5-5.0) g/dL Urine Color Yellow Urine Appearance Clear Urine pH 7.0 (5.0-9.0) Ur Specific [place] 1.010 (1.005-1.025) Urine Protein Negative (Neg-Trace) mg/dL Urine Glucose (UA) Negative (Negative) mg/dL Urine Ketones Negative (Negative) mg/dL Urine Blood Negative (Negative) Urine Nitrite Negative (Negative) Ur Leukocyte Esterase Negative (Negative) Urine Test NEGATIVE (NEGATIVE) Radiology Impression Discussion of test interpretation with radiology: I have reviewed the radiologist's reading. Radiologist Impression: [place] [id number] Magnetic Resonance Report Signed Patient: Tabatha Díaz MR#: [id number] : 1985 Acct:[id number] Age/Sex: 39 / F ADM Date: 03/01/25 Loc: HO.ED Attending Dr: Ordering Physician: Zach Cho MD Date of Service: 03/01/25 Procedure(s): MR lumbar spine wo con Accession Number(s): [id number] cc: Zach Cho MD; JOSEPH LOCK NP~ CLINICAL HISTORY: back pain and incontinence MR Lumbar Spine WO Contrast COMPARISON: CR/SR - XR LUMBAR SPINE 2-3V - 02/14/25 12:42 EDT FINDINGS: No acute fracture. Vertebrae are normally aligned. The conus medullaris terminates at the L1-L2 level and appears normal. The anterior longitudinal, posterior longitudinal, and interspinous ligaments appear intact. No epidural hematoma or collection. T12-L1: No disc herniation. No significant stenosis. L1-L2: No disc herniation. No significant stenosis. L2-L3: No disc herniation. No significant stenosis. L3-L4: Anterior midline annular fissure, mild diffuse disc bulge, and mild bilateral facet and ligamentum flavum hypertrophy. Mild spinal canal stenosis and mild bilateral neuroforaminal stenoses. L4-L5: Disc desiccation, posterior midline annular fissure, diffuse disc bulge, and bilateral facet and ligamentum flavum hypertrophy. Mild spinal canal stenosis and moderate bilateral neuroforaminal stenoses. L5-S1: Disc desiccation, posterior midline annular fissure, posterior central zone disc extrusion, and bilateral facet hypertrophy. Mild spinal canal stenosis and mild left neuroforaminal stenosis. IMPRESSION: No acute findings. Degenerative changes. No nerve root impingement. This document has been electronically signed by: Rodolfo Santacruz MD on 03/02/2025 01:36:54 [place] [id number] Magnetic Resonance Report Signed Patient: Tabatha Díaz MR#: [id number] : 1985 Acct:[id number] Age/Sex: 39 / F ADM Date: 03/01/25 Loc: HO.ED Attending Dr: Ordering Physician: Zach Cho MD Date of Service: 03/01/25 Procedure(s): MR thoracic spine wo con Accession Number(s): [id number] cc: Zach Cho MD; JOSEPH LOCK CLINICAL HISTORY: back pain and incontinence MR Thoracic Spine WO Contrast COMPARISON: CR/SR - XR THORACIC SPINE 2V - 02/14/25 12:41 EDT FINDINGS: No acute fracture. Vertebrae are normally aligned. No spinal cord compression. 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 Small posterior central zone disc protrusion at T6-T7 resulting in mild spinal canal stenosis. No severe stenosis. The anterior longitudinal, posterior longitudinal, and interspinous ligaments appear intact. No epidural hematoma or collection. Scattered partially visualized T2 hyperintense cystic lesions in the spleen measuring up to 2.6 cm, the largest of which has internal septations (series 25, image 43). Bilateral renal cysts. IMPRESSION: No acute findings in the thoracic spine. Syringohydromyelia between the T3-T9 levels. Consider nonemergent enhanced thoracic spine MRI if not worked up in the past. Multiple cystic lesions in the spleen. Consider nonemergent dedicated enhanced spleen MRI. This document has been electronically signed by: Rodolfo Santacruz MD on 03/02/2025 01:33:33 Discharge Plan Discharge Clinical Impression: Back pain, Strain of lumbar region Patient Disposition: Home, Self-Care Instructions: Low Back Strain (ED) Additional Instructions: Your MRI did not show any acute disc herniation You can continue taking Tylenol, naproxen and apply lidocaine patches and cold packs Please follow up with your outpatient providers in next 24-48 hours for reassessment If you develop any new or worsening symptoms please return to the emergency department Prescriptions: New cyclobenzaprine 10 mg tablet 10 mg PO Q8H Qty: 20 0RF tramadol 50 mg tablet 50 mg PO Q6H PRN (Reason: pain) Qty: 20 0RF No Action ondansetron 4 mg tablet,disintegrating 4 mg PO Q8H 4 Days Qty: 12 0RF prednisone 20 mg tablet 40 mg PO DAILY 4 Days Qty: 8 0RF azithromycin 250 mg tablet See Rx Instructions .ROUTE .COMPLEX Qty: 6 0RF Rx Instructions: For 250 mg dose pack: take 500 mg today (day 1), then 250 mg for 4 days (days 2-5) naproxen [Naprosyn] 500 mg tablet 500 mg PO BID PRN (Reason: PAIN) Qty: 20 0RF cyclobenzaprine 10 mg tablet 10 mg PO TID PRN (Reason: muscle spasm/back pain) Qty: 14 0RF acetaminophen [Tylenol Extra Strength] 500 mg tablet 500 mg PO Q6H PRN (Reason: fever or pain) Qty: 14 0RF lidocaine [Lidoderm] 5 % adhesive patch,medicated 1 patch topical DAILY MDD remove after 12 hours PRN (Reason: pain) Qty: 30 0RF Rx Instructions: leave on most painful area for up to 12 hrs cyclobenzaprine 5 mg tablet 5 mg PO Q8H PRN (Reason: pain (scale score 7-10)) 5 Days Qty: 14 0RF ketorolac 10 mg tablet 10 mg PO .B.i.d. PRN (Reason: pain) Qty: 7 0RF albuterol sulfate [ProAir HFA] 90 mcg/actuation HFA aerosol inhaler 0 mcg inhalation esomeprazole magnesium [Nexium 24HR] 20 mg tablet,delayed release (DR/EC) 20 mg PO DAILY Qty: 30 2RF sennosides [Natural Senna Laxative] 8.6 mg tablet 17.2 mg PO BEDTIME Qty: 60 2RF Interventions: ED Discharge Assessment Last Done: 03/02/25 02:20 Discharge Date/Time: 03/02/25 02:20 Print Language: Ukrainian
[2025-03-02 02:20] VITALS: BP 112/46; PULSE 78; RESP 18; TEMP 36.8; O2SAT 94
== END 2025-03-02 02:20 | disposition home or self-care (01) ==
PROVIDERS: Physician Assistant; Emergency Provider Student in an Organized Health Care Education/Training Program; PCP Nurse Practitioner Primary Care
DX: M54.50 Low back pain, unspecified (principal); S39.012A Strain of muscle, fascia and tendon of lower back, initial encounter; X58.XXXA Exposure to other specified factors, initial encounter; J45.909 Unspecified asthma, uncomplicated; Y93.9 Activity, unspecified; Y92.9 Unspecified place or not applicable; Y99.9 Unspecified external cause status
CPT/HCPCS: 36415; 51798; 72146; 72148; 80048; 80076; 81003; 81025; 83735; 85025; 96372; 99284; 99285; J1885; J2270

== ENCOUNTER → 2025-03-01 15:51 | Outpatient (BNV) | payer OTHER, SELFPAY | PROVIDERS: Emergency Provider Student in an Organized Health Care Education/Training Program; PCP Nurse Practitioner Primary Care; Visit Provider Radiology Diagnostic Radiology | DX: M54.50 Low back pain, unspecified (principal); R32 Unspecified urinary incontinence; G95.0 Syringomyelia and syringobulbia; D73.4 Cyst of spleen | CPT/HCPCS: 72146; 72148 ==

== ENCOUNTER → 2025-03-15 08:01 | Outpatient (BNV) | payer OTHER, SELFPAY | PROVIDERS: PCP Nurse Practitioner Primary Care; Visit Provider Radiology Diagnostic Radiology | DX: G95.0 Syringomyelia and syringobulbia (principal) | CPT/HCPCS: 72157 ==

== ENCOUNTER 2025-03-15 08:12 | Outpatient (REF) | payer OTHER, SELFPAY ==
--- NOTE | ~2025-03-15 | MR_ITS ---
FINDINGS: MR THORACIC SPINE WITH CONTRAST CLINICAL INFORMATION: Syringohydromyelia on T-spine MRI 03/01/2025. Further evaluation with contrast. COMPARISON: MRI T-spine 03/01/2025 without gadolinium. TECHNIQUE: Multiplanar multisequence MR imaging of the thoracic spine was done following the administration of 8.5 mL Gadavist. Examination performed on a 1.5 [employer] high-field unit. FINDINGS: ALIGNMENT: No scoliosis. Normal kyphosis. No subluxations. VERTEBRAL BODIES AND BONE MARROW: Bone marrow is normal in signal without edema, compression deformity, fracture, or abnormal infiltrating bone marrow signal. DISC SPACES AND ENDPLATES: Discs are essentially normal in height and signal with only minimal loss at C6-7. There are no endplate changes. SPINAL CORD: Redemonstration of minimal prominence of the central canal of the cord spanning the T3-T9 levels, measuring up to 1.4 mm. This is most likely within the realm of normal variation and does not represent a true syrinx of the cord. There is no abnormal enhancement within the cord or in the intra-axial or extra medullary space. No cord impingement or signal abnormality. SPINAL LEVELS: Unchanged from the prior examination. There is a small disc bulge at T6-T7 resulting in minimal central canal stenosis. The remainder of the central canal is widely capacious. The cord is surrounded by CSF signal at all levels. The conus terminates at the L1 level and is normal in signal and morphology. PARASPINAL SOFT TISSUES: Redemonstration of partially imaged multiple cysts within the spleen, nonspecific but likely acquired. There are small cysts within both kidneys. The aorta is normal in caliber. There are no pleural effusions. MR/MR thoracic spine wo/w con IMPRESSION: 1. Minimal prominence of the central canal of the spinal cord spanning T3-T9, measuring up to 1.4 mm. No associated enhancement or lesion. This is most likely within the realm of normal variation and may not represent a true syrinx of the cord. 2. Stable minimal spondylosis at T6-T7 with small disc protrusion resulting in minimal central canal stenosis. 3. No abnormal intra-axial or extra medullary enhancement on this examination. Electronically signed by: Kvng Sarmiento MD 03/15/2025 09:42 AM EDT
[2025-03-15] MEDS: gadobutroL 10 ML VIAL IVPUSH (09:19)
== END 2025-03-15 08:13 | disposition home or self-care (01) ==
LOC: HO.MRI 08:12
PROVIDERS: PCP Nurse Practitioner Primary Care; Visit Provider Family Medicine
DX: G95.0 Syringomyelia and syringobulbia (principal)
CPT/HCPCS: 72157; A9585

== ENCOUNTER 2025-03-31 13:28 | Outpatient (REF) | payer OTHER, SELFPAY ==
--- NOTE | ~2025-03-31 | MR_ITS ---
EXAMINATION: MR ABDOMEN WITHOUT THEN WITH IV CONTRAST HISTORY: Lesion of spleen COMPARISON: Correlation is made with an MRI of the thoracic spine dated 03/15/2025. Correlation is also made with multiple prior abdominal CT scans dating back to 11/14/2019. TECHNIQUE: Axial in and out of phase T1-weighted gradient echo, axial diffusion weighted, and axial and coronal HASTE T2 with fat saturation images were obtained through the abdomen. Subsequently, fat suppressed axial and coronal T1-weighted images were obtained after the intravenous administration of 8.5 mL Gadavist. FINDINGS: Liver: There is mild loss of signal intensity in the liver on opposed phase imaging consistent with steatosis. There is no enhancing liver mass. The hepatic and portal veins are patent. There is no intra- or extrahepatic biliary dilatation. Gallbladder: The patient is status post cholecystectomy. Spleen: The spleen is normal in size. There are numerous cysts within the spleen, the largest of which is at the lower pole measuring 2.2 cm in size and demonstrating multiple enhancing septations. The appearance is similar to prior CT scans dating back to 11/14/2019. Pancreas: The pancreas is unremarkable. The pancreatic duct is normal in caliber. Adrenals: The adrenal glands are unremarkable. Kidneys: There is a 10 mm cyst in the interpolar region of the right kidney and a 12 mm cyst at the upper pole of the left kidney. There is no hydronephrosis. Lymph nodes: There is no retroperitoneal lymphadenopathy in the upper abdomen. Fluid: There is no ascites in the upper abdomen. Visualized bowel: The visualized bowels loops are unremarkable in appearance. Visualized bones: The visualized bones demonstrate normal marrow signal intensity. MR/MR abdomen wo/w con IMPRESSION: 1. Numerous splenic cysts measuring up to 2.2 cm in size, some of which demonstrate enhancing septations. The overall appearance is similar to prior CT scans. Findings are likely congenital or postinfectious in etiology. 2. Hepatic steatosis. Electronically signed by: Zelalem Mariscal MD 04/03/2025 07:19 AM EDT
--- OUTSIDE RECORDS SUMMARY | 2025-03-31 13:31 | XMS_ITS | Clinical Summary ---
Author Organization [email or web address] Address [address] [place] [address] Care Team Providers Care Engineering Technologist Name Role Phone Joseph Lock Unavailable Joseph Lock Primary Care Provider [phone] Allergies No known active allergies Medications * This document contains information received from the source organization and may not represent a complete record from that organization[place] [facility] [place] [facility] [place] 22 Active Spacer/Aero-Ho lding Chambers (Compact Space Chamber) device Use with albuterol as needed. 12/07/19 20 Active tamsulosin (Flomax) 0.4 MG 24 hr capsule Take 1 capsule by mouth before breakfast. 07/21/20 21 Active [facility] Saline Nasal Clutier 0.65 % nasal sprayIndicatio ns:Nasal congestion 1-2 SPRAY ON EACH NOSTRIL EVERY 2-3 HOURS NEEDED FOR NASAL CONGESTION 44 mL 12/18/19 23 Active cholecalcifero l (D3-1000) 25 MCG (1000 UT) capsule TAKE 1 CAPSULE BY MOUTH EVERY DAY 90 capsule 08/24/20 24 Active FLUoxetine (PROzac) 10 MG capsuleIndicat ions:Mixed anxiety and depressive disorder Take 1 capsule (10 mg) by mouth in the morning. 30 capsule 1 01/11/20 25 Active hydrOXYzine HCl (Atarax) 10 MG tabletIndicati ons:Anxiety Take 1 tablet (10 mg) by mouth if needed at bedtime for anxiety. 30 tablet 1 01/11/20 25 Active albuterol (Ventolin HFA) 108 (90 Base) MCG/ACT inhaler INHALE 2 PUFFS BY INHALATION ROUTE EVERY 4 TO 6 HOURS IF NEEDED 18 g 1 02/13/20 25 Active fluticasone (Flonase) 50 MCG/ACT nasal spray Administer 1 spray into each nostril Once per day. Administer 1-2 sprays into affected nostril(s) at bed time. 16 g 02/13/20 25 Active diclofenac (Cataflam) 50 MG tabletIndicati ons:Acute right-sided low back pain with right-sided sciatica Take 1 tablet (50 mg) by mouth 2 times daily. Take with food 14 tablet 02/22/20 25 Active omeprazole (PriLOSEC) [address] capsule Take 1 capsule (20 mg) by mouth before breakfast. 30 capsule 1 02/22/20 25 Active Diclofenac Sodium 1 % gel Apply 2 g topically if needed in the morning, at noon, in the evening, and at bedtime (pain). 150 g 3 03/06/20 25 Active acetaminophen (Tylenol 8 Hour) 650 MG ER tablet Take 1 tablet (650 mg) by mouth every 8 (eight) hours if needed for mild pain. Do not crush, chew, or split. 60 tablet 1 03/06/20 25 026 Active baclofen (Lioresal) 10 MG tablet Take 1 tablet (10 mg) by mouth if needed in the morning, at noon, and at bedtime for muscle spasms. 60 tablet 1 03/06/20 25 025 Active lidocaine (Lidoderm) 5 % patch Apply 2 patches topically if needed each day for mild pain. Remove & discard patch within 12 hours or as directed by MD. 60 patch 03/06/20 25 Active gabapentin (Neurontin) 300 MG capsule Take 1 capsule (300 mg) by mouth at bedtime. 30 capsule 1 03/06/20 25 026 Active diclofenac (Voltaren) 75 MG EC tablet Take 1 tablet (75 mg) by mouth if needed in the morning and at bedtime (pain with breakfast and dinner). Do not crush, chew, or split. 40 tablet 1 03/06/20 25 026 Active Diclofenac Sodium 1 % gel Apply 1 inch topically if needed in the morning and at bedtime (pain). 60 g 02/13/20 025 Discontinued acetaminophen (Tylenol) 500 MG tablet Take 2 tablets (1,000 mg) by mouth every 6 (six) hours if needed for mild pain or moderate pain. Do Not exceed 4000 grams in one day 90 tablet 02/13/20 025 Discontinued predniSONE (Deltasone) 20 MG tabletIndicati ons:Acute right-sided low back pain with right-sided sciatica Take 2 tablets (40 mg) by mouth Once per day for 5 days. Take w/ food. 10 tablet 02/22/20 025 Discontinued Active Problems Problem Noted Date Diagnosed Date [...] knee tenderness Pap: last one 2018 at [facility], will refer to Maria E Bishop. Pt [...] nut containing food for now Referral to health communications specialist Anxiety 07/01/2023 Asthma 07/01/2023 Carrier of [...] but would be interested in seeing our assistant to the dean for med management Had been taking Zoloft [...] organization. Date Type Department Care Team Description 03/15/2025 Orders Only [address] [address] Joseph Lock ANP Lesion of spleen (Primary Dx) 03/15/2025 Telephone [facility] [address] [place] [address] Joseph Lock ANP MRI SPLEEN ORDER 03/06/2025 12:00 PM EDT Office Visit [address] [address] Vicky Silva DO Acute bilateral low back pain with bilateral sciatica (Primary Dx); Syringohydromyelia (CMS/HCC); Lesion of spleen; Leukocytosis, unspecified type 03/06/2025 Travel 03/02/[address] [address] Joseph Lock ANP Results 03/01/2025 Orders Only GENERIC EXTERNAL DATA DEPARTMENT Provider, Generic External Data Splenic lesion (Primary Dx) 02/28/[address] [address] Joseph Lock ANP Med Refill 02/21/2025 3:30 PM EDT Office Visit [address] [address] Joseph Lock ANP Recurrent knee instability, right (Primary Dx); Right hip pain; Acute right-sided low back pain with right-sided sciatica; Acute right-sided low back pain with right-sided sciatica; Mixed anxiety and depressive disorder 02/21/2025 Travel 02/19/2025 Telephone [facility] [address] [place] [id number] Eladia Ahumada MA chart prep 02/12/2025 2:00 PM EDT [facility] [address] [address] Susan Krishnamurthy MD Viral upper respiratory tract infection (Primary Dx); Acute bilateral low back pain without sciatica; Cough, unspecified type 02/01/2025 Refill [facility] [address] [place] [address] Joseph Lock ANP 01/31/2025 10:20 AM EDT Office Visit [facility] [address] [address] Yokasta Gatica FNP Gastroenteritis (Primary Dx) 01/29/2025 Orders Only [address] [address] Maria E Bender CNM Encntr screen for infections w sexl mode of transmiss (Primary Dx) 01/26/[address] [address] Joseph Lock ANP Results 01/08/2025 1:45 PM EST Office Visit [address] [address] Maria E Bender CNM Cervical cancer screening (Primary Dx); Abnormal uterine bleeding; Acute vaginitis; Encntr screen for infections w sexl mode of transmiss 01/08/2025 Orders Only [address] [address] Maria E Bender CNM 01/08/2025 Travel from Last 3 Months Immunizations Immunization Administration Dates Next Due HPV, Quadrivalent 08/30/2012,11/21/2008 [...] the past 12 months, has t he [employer], gas, oil or water company threatened to shut off services in your home? No 11/23/2024 Depression Answer Date Recorded Patient Health Questionnaire-2 Score 2 12/05/2024 Internet Access Answer Date Recorded Internet Access Q1 Yes 11/23/2024 Internet Access Q2 Not on file 11/23/2024 Comments No Intention Date Recorded No desire to become (finding) 0 01/08/2025 Sex and Gender Information Value Date Recorded Sex Assigned at Female 09/07/2022 10:36 AM EDT Legal Sex Female 10:36 AM EDT Gender Identity Female 09/07/2022 10:36 AM EDT Sexual Orientation Choose not to disclose 2021 5:14 PM EDT Sexual Orientation Straight 09/09/2022 5: 14 PM EDT Last Filed Vital Signs Vital Sign Reading Time Taken Comments Blood Pressure 118/68 03/06/2025 12:05 PM EDT Pulse 65 03/06/2025 12:05 PM EDT Temperature 36.7 ??C (98.1 ??F) 03/06/2025 12:05 PM E DT Respiratory Rate 20 03/06/2025 12:05 PM EDT Oxygen Saturation 96% 03/06/2025 12:05 PM EDT Inhaled Oxygen Concentration - - Weight 85.3 kg (188 lb) 03/06/2025 12:05 PM EDT Height 154.9 cm (5' 1 ) 03/06/2025 12:05 PM EDT Body Mass Index 35.52 03/06/2025 12:05 PM EDT Plan of Treatment Upcoming Encounters Date Type Department Care Team (Late st Contact Info) Description 05/04/2025 9:00 AM EDT Office Visit [facility] [address] [place], [place] [phone] Joseph Lock, ANP [address] [place] [address] Health Maintenance Due Date Last Done Comments Lipid Panel 1985 Hepatitis B Vaccines (1 of 3 - 19+ 3-dose series) 2005 Pneumococcal Vaccine: Pediatrics (0 to 5 Years) and At-Risk Patients (6 to 49) Years) (1 of 2 - PCV) 2005 HPV Vaccines (3 - 3-dose series) 11/22/2012 08/30/2012, 11/21/2008 COVID-19 Vaccine ( - 2023- season) 2024 Influenza Vaccine (#1) 2024 2, 08/04/2011, 07/29/2010, Additional history exists Alcohol/Substance Use Screening 12/05/2025 12/05/2024 Depression Screening 12/05/2025 12/05/2024, 12/05/19 SDOH Screening 12/05/2025 12/05/2024 Family Planning (PISQ) 01/08/2026 01/08/2025 Disability Screening 02/21/2026 02/21/2025 Tobacco Screening 03/06/2026 03/06/2025 Cervical Cancer Screening 01/09/2028 HPV/Cotest 01/09/2028 01/08/2025 [...] patient's age to complete this topic Meningococcal B Vaccine Aged Out No l onger eligible based on patient's age to complete [...] Procedure Name Priority Date/Time Associated Diagnosis Comments MR THORACIC SPINE W AND WO CONTRAST Routine 03/15/2025 8:01 AM EDT Syringohydromyelia (CMS/HCC) MR LUMBAR SPINE WO CONTRAST Routine 03/02/2025 1:36 AM EDT MR THORACIC SPINE WO CONTRAST Routine 03/02/2025 1:33 AM EDT HCG, QL, URINE Routine 03/01/2025 4:57 PM EDT URINALYSIS WITH REFLEX MICROSCOPIC Routine 03/01/2025 4:57 PM EDT CBC WITH AUTO DIFFERENTIAL Routine 03/01/2025 3:04 PM EDT MAGNESIUM Routine 03/01/2025 3:04 PM EDT BASIC METABOLIC PANEL Routine 03/01/2025 3:04 PM EDT HEPATIC FUNCTION PANEL Routine 03/01/2025 3:04 PM EDT XR LUMBAR SPINE 2-3 VIEWS Routine 02/14/2025 [...] 01/08/2025 2: 07 PM EST Acute vaginitis ZZZ HISTORICAL HEPATITIS C AB W/REFL TO HCV RNA, QN, PCR Routine 01/13/2022 10:32 AM EST HIV 1/2 ANTIGEN/ANTIBODY, FOURTH GENERATION W/RFL Routine 01/13/2022 10:32 AM EST from Last 3 Months or Most Recently Relevant to Health Maintenance Results * MR Thoracic Spine w/ and w/o Contrast (03/15/2025 8:01 AM EDT) Anatomical Region Laterality Modality Spine, T-spine Magnetic Resonan ce 03/15/2025 8:01 AM EDT Narrative 03/15/2025 9:45 AM EDT ? [facility] ?[address] ?[place] [address] ? Magnetic Resonance Report ? Signed ? Patient: Tabatha Díaz ?MR#: [id number] ?? 4 ? : 1985 ?Acct:[id number] ? Age/Sex: 39 / F ?ADM Date: 03/15/25 ? Loc: HO.MRI ? Attending Dr: Vicky Silva DO ? Ordering Physician: Vicky Silva DO ?? Date of Service: 03/15/25 ?? Procedure(s): MR thoracic spine wo/w con ?? Accession Number(s): [id number] ? cc: Vicky Silva DO; JOSEPH LOCK NP ? FINDINGS: ?? MR THORACIC SPINE WITH CONTRAST ? CLINICAL INFORMATION: ?? Syringohydromyelia on T-spine MRI 03/01/2025. Further evaluation with ?? contrast. ? COMPARISON: ?? MRI T-spine 03/01/2025 without gadolinium. ? TECHNIQUE: ?? Multiplanar multisequence MR imaging of the thoracic spine was done ?? following the administration of 8.5 mL Gadavist. Examination performed ?? on a 1.5 Theresa [employer] high-field unit. ? FINDINGS: ? ALIGNMENT: ?? No scoliosis. Normal kyphosis. No subluxations. ? VERTEBRAL BODIES AND BONE MARROW: ?? Bone marrow is normal in signal without edema, compression deformity, ?? fracture, or abnormal infiltrating bone marrow signal. ? DISC SPACES AND ENDPLATES: ?? Discs are essentially normal in height and signal with only minimal ?? loss at C6-7. There are no endplate changes. ? SPINAL CORD: ?? Redemonstration of minimal prominence of the central canal of the cord ?? spanning the T3-T9 levels, measuring up to 1.4 mm. This is most likely ?? within the realm of normal variation and does not represent a true ?? syrinx of the cord. There is no abnormal enhancement within the cord or ?? in the intra-axial or extra medullary space. ?? No cord impingement or signal abnormality. ? SPINAL LEVELS: ?? Unchanged from the prior examination. There is a small disc bulge at ?? T6-T7 resulting in minimal central canal stenosis. ?? The remainder of the central canal is widely capacious. The cord is ?? surrounded by CSF signal at all levels. ?? The conus terminates at the L1 level and is normal in signal and ?? morphology. ? PARASPINAL SOFT TISSUES: ?? Redemonstration of partially imaged multiple cysts within the spleen, ?? nonspecific but likely acquired. ?? There are small cysts within both kidneys. ?? The aorta is normal in caliber. ?? There are no pleural effusions. ? MR/MR thoracic spine wo/w con ?? IMPRESSION: ?? 1. Minimal prominence of the central canal of the spinal cord spanning ?? T3-T9, measuring up to 1.4 mm. No associated enhancement or lesion. ?? This is most likely within the realm of normal variation and may not ?? represent a true syrinx of the cord. ?? 2. Stable minimal spondylosis at T6-T7 with small disc protrusion ?? resulting in minimal central canal stenosis. ?? 3. No abnormal intra-axial or extra medullary enhancement on this ?? examination. ? Electronically signed by: ??Kvng Sarmiento MD ??03/15/2025 09:42 AM EDT RP ? Dictated By: ?Kvng Sarmiento MD ? Signed By: ?<Electronically signed by Kvng Sarmiento MD in OV> ?03/15/25 0942 ? DD/ 0801 ? TD/TT: 03/15/25 0915 ? [employer] Officer: ? Procedure Note Donotuseinterpreter, Image - 03/15/[address] [address] Magnetic Resonance Report Signed Patient: Tabatha Díaz MMR#: [id number] 4 : 1985Acct:[id number] Age/Sex: 39 / FADM Date: 03/15/25 Loc: HO.MRI Attending Dr: Vicky Silva DO Ordering Physician: Vicky Silva DO Date of Service: 03/15/25 Procedure(s): MR thoracic spine wo/w con Accession Number(s): [id number] cc: Vicky Silva DO; JOSEPH LOCK NP FINDINGS: MR THORACIC SPINE WITH CONTRAST CLINICAL INFORMATION: Syringohydromyelia on T-spine MRI 03/01/2025. Further evaluation with contrast. COMPARISON: MRI T-spine 03/01/2025 without gadolinium. TECHNIQUE: Multiplanar multisequence MR imaging of the thoracic spine was done following the administration of 8.5 mL Gadavist. Examination performed on a 1.5 [employer] high-field unit. FINDINGS: ALIGNMENT: No scoliosis. Normal kyphosis. No subluxations. VERTEBRAL BODIES AND BONE MARROW: Bone marrow is normal in signal without edema, compression deformity, fracture, or abnormal infiltrating bone marrow signal. DISC SPACES AND ENDPLATES: Discs are essentially normal in height and signal with only minimal loss at C6-7. There are no endplate changes. SPINAL CORD: Redemonstration of minimal prominence of the central canal of the cord spanning the T3-T9 levels, measuring up to 1.4 mm. This is most likely within the realm of normal variation and does not represent a true syrinx of the cord. There is no abnormal enhancement within the cord or in the intra-axial or extra medullary space. No cord impingement or signal abnormality. SPINAL LEVELS: Unchanged from the prior examination. There is a small disc bulge at T6-T7 resulting in minimal central canal stenosis. The remainder of the central canal is widely capacious. The cord is surrounded by CSF signal at all levels. The conus terminates at the L1 level and is normal in signal and morphology. PARASPINAL SOFT TISSUES: Redemonstration of partially imaged multiple cysts within the spleen, nonspecific but likely acquired. There are small cysts within both kidneys. The aorta is normal in caliber. There are no pleural effusions. MR/MR thoracic spine wo/w con IMPRESSION: 1. Minimal prominence of the central canal of the spinal cord spanning T3-T9, measuring up to 1.4 mm. No associated enhancement or lesion. This is most likely within the realm of normal variation and may not represent a true syrinx of the cord. 2. Stable minimal spondylosis at T6-T7 with small disc protrusion resulting in minimal central canal stenosis. 3. No abnormal intra-axial or extra medullary enhancement on this examination. Electronically signed by: Kvng Sarmiento MD 03/15/2025 09:42 AM EDT Dictated By: Kvng Sarmiento MD Signed By: <Electronically signed by Kvng Sarmiento MD in OV> 03/15/25 0942 DD/ 0801 TD/TT: 03/15/25 0915 [employer] Officer: us Vicky Shira DO IMG MRI PROCEDURES Edited Re sult - Final * MR Lumbar Spine w/o Contrast (03/02/2025 1:36 AM EDT) Anatomical Region Laterality Modality Spine, L-spine Magnetic Resonan ce 03/02/2025 1:36 AM EDT Narrative 03/02/2025 1:38 AM EDT ? [facility] ?[address] ?[place] [address] ? Magnetic Resonance Report ? Signed ? Patient: Colon,Tabatha M ?MR#: [id number] ?? 4 ? : 1985 ?Acct:[id number] ? Age/Sex: 39 / F ?ADM Date: 04/24/25 ? Loc: HO.ED ? Attending Dr: ? Ordering Physician: Zach Cho MD ?? Date of Service: 03/01/25 ?? Procedure(s): MR lumbar spine wo con ?? Accession Number(s): [id number] ? cc: Zach Cho MD; JOSEPH LOCK NP ? CLINICAL HISTORY: back pain and incontinence ? MR Lumbar Spine WO Contrast ? COMPARISON: CR/SR - XR LUMBAR SPINE 2-3V - 02/14/25 12:42 EDT ? FINDINGS: ?? No acute fracture. Vertebrae are normally aligned. ?? The conus medullaris terminates at the L1-L2 level and appears normal. ?? The anterior longitudinal, posterior longitudinal, and interspinous ?? ligaments appear intact. ?? No epidural hematoma or collection. ? T12-L1: No disc herniation. No significant stenosis. ?? L1-L2: No disc herniation. No significant stenosis. ?? L2-L3: No disc herniation. No significant stenosis. ?? L3-L4: Anterior midline annular fissure, mild diffuse disc bulge, and mild ?? bilateral facet and ligamentum flavum hypertrophy. Mild spinal canal ?? stenosis and mild bilateral neuroforaminal stenoses. ?? L4-L5: Disc desiccation, posterior midline annular fissure, diffuse disc ?? bulge, and bilateral facet and ligamentum flavum hypertrophy. Mild spinal ?? canal stenosis and moderate bilateral neuroforaminal stenoses. ?? L5-S1: Disc desiccation, posterior midline annular fissure, posterior ?? central zone disc extrusion, and bilateral facet hypertrophy. Mild spinal ?? canal stenosis and mild left neuroforaminal stenosis. ? IMPRESSION: ?? No acute findings. ?? Degenerative changes. No nerve root impingement. ? This document has been electronically signed by: Rodolfo Santacruz MD on ?? 03/02/2025 01:36:54 ? Dictated By: ?Rodolfo Santacruz MD ? Signed By: ?<Electronically signed by Rodolfo Santacruz MD in OV> ?03/02/25 0138 ? DD/ 0136 ? TD/TT: 03/02/25 0136 ? [employer] Officer: ? Procedure Note Lion Mackenzie - 03/02/2025 [facility] [address] [place] [address] Magnetic Resonance Report Signed Patient: Tabatha Díaz MMR#: [id number] 4 : 1985Acct:[id number] Age/Sex: 39 / FADM Date: 03/01/25 Loc: HO.ED Attending Dr: Ordering Physician: Zach Cho MD Date of Service: 03/01/25 Procedure(s): MR lumbar spine wo con Accession Number(s): [id number] cc: Zach Cho MD; JOSEPH LOCK NP CLINICAL HISTORY: back pain and incontinence MR Lumbar Spine WO Contrast COMPARISON: CR/SR - XR LUMBAR SPINE 2-3V - 02/14/25 12:42 EDT FINDINGS: No acute fracture. Vertebrae are normally aligned. The conus medullaris terminates at the L1-L2 level and appears normal. The anterior longitudinal, posterior longitudinal, and interspinous ligaments appear intact. No epidural hematoma or collection. T12-L1: No disc herniation. No significant stenosis. L1-L2: No disc herniation. No significant stenosis. L2-L3: No disc herniation. No significant stenosis. L3-L4: Anterior midline annular fissure, mild diffuse disc bulge, and mild bilateral facet and ligamentum flavum hypertrophy. Mild spinal canal stenosis and mild bilateral neuroforaminal stenoses. L4-L5: Disc desiccation, posterior midline annular fissure, diffuse disc bulge, and bilateral facet and ligamentum flavum hypertrophy. Mild spinal canal stenosis and moderate bilateral neuroforaminal stenoses. L5-S1: Disc desiccation, posterior midline annular fissure, posterior central zone disc extrusion, and bilateral facet hypertrophy. Mild spinal canal stenosis and mild left neuroforaminal stenosis. IMPRESSION: No acute findings. Degenerative changes. No nerve root impingement. This document has been electronically signed by: Rodolfo Santacruz MD on 03/02/2025 01:36:54 Dictated By: Rodolfo Santacruz MD Signed By: <Electronically signed by Rodolfo Santacruz MD in OV> 03/02/25137 DD/ 5 TD/TT: 03/02/25135 [employer]: [facility] External Provider IMG MRI PROCEDURES Final Result * MR Thoracic Spine w/o Contrast (03/02/2025 1:33 AM EDT) Anatomical Region Laterality Modality Spine, T-spine Magnetic Resonan ce 03/02/2025 1:33 AM EDT Narrative 03/02/2025 1:36 AM EDT ? [facility] ?[address] ?[place] [address] ? Magnetic Resonance Report ? Signed ? Patient: Colon,Tabatha M ?MR#: [id number] ?? 4 ? : 1985 ?Acct:[id number] ? Age/Sex: 39 / F ?ADM Date: 03/01/25 ? Loc: HO.ED ? Attending Dr: ? Ordering Physician: Zach Cho MD ?? Date of Service: 03/01/25 ?? Procedure(s): MR thoracic spine wo con ?? Accession Number(s): [id number] ? cc: Zach Cho MD; JOSEPH LOCK NP ? CLINICAL HISTORY: back pain and incontinence ? MR Thoracic Spine WO Contrast ? COMPARISON: CR/SR - XR THORACIC SPINE 2V - 02/14/25 12:41 EDT ? FINDINGS: ?? No acute fracture. Vertebrae are normally aligned. ?? No spinal cord compression. Syringohydromyelia measuring up to 1.4 mm in ?? diameter between the T3-T9 levels. ?? Small posterior central zone disc protrusion at T6-T7 resulting in mild ?? spinal canal stenosis. No severe stenosis. ?? The anterior longitudinal, posterior longitudinal, and interspinous ?? ligaments appear intact. ?? No epidural hematoma or collection. ?? Scattered partially visualized T2 hyperintense cystic lesions in the ?? spleen measuring up to 2.6 cm, the largest of which has internal ?? septations (series 25, image 43). ?? Bilateral renal cysts. ? IMPRESSION: ?? No acute findings in the thoracic spine. ?? Syringohydromyelia between the T3-T9 levels. Consider nonemergent enhanced ?? thoracic spine MRI if not worked up in the past. ?? Multiple cystic lesions in the spleen. Consider nonemergent dedicated ?? enhanced spleen MRI. ? This document has been electronically signed by: Rodolfo Santacruz MD on ?? 03/02/2025 01:33:33 ? Dictated By: ?Rodolfo Santacruz MD ? Signed By: ?<Electronically signed by Rodolfo Santacruz MD in OV> ?03/02/25 013 ? DD/ 013 ? TD/TT: 03/02/25 0133 ? [employer] Officer: ? Procedure Note Donotuseinterpreter, Image - 03/02/[address] [address] Magnetic Resonance Report Signed Patient: Tabatha Díaz MMR#: [id number] 4 : 1985Acct:[id number] Age/Sex: 39 / FADM Date: 03/01/25 Loc: HO.ED Attending Dr: Ordering Physician: Zach Cho MD Date of Service: 03/01/25 Procedure(s): MR thoracic spine wo con Accession Number(s): [id number] cc: Zach Cho MD; JOSEPH LOCK NP CLINICAL HISTORY: back pain and incontinence MR Thoracic Spine WO Contrast COMPARISON: CR/SR - XR THORACIC SPINE 2V - 02/14/25 12:41 EDT FINDINGS: No acute fracture. Vertebrae are normally aligned. No spinal cord compression. 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 Small posterior central zone disc protrusion at T6-T7 resulting in mild spinal canal stenosis. No severe stenosis. The anterior longitudinal, posterior longitudinal, and interspinous ligaments appear intact. No epidural hematoma or collection. Scattered partially visualized T2 hyperintense cystic lesions in the spleen measuring up to 2.6 cm, the largest of which has internal septations (series 25, image 43). Bilateral renal cysts. IMPRESSION: No acute findings in the thoracic spine. Syringohydromyelia between the T3-T9 levels. Consider nonemergent enhanced thoracic spine MRI if not worked up in the past. Multiple cystic lesions in the spleen. Consider nonemergent dedicated enhanced spleen MRI. This document has been electronically signed by: Rodolfo Santacruz MD on 03/02/2025 01:33:33 Dictated By: Rodolfo Santacruz MD Signed By: <Electronically signed by Rodolfo Santacruz MD in OV> 03/02/25133 DD/ 2 TD/TT: 03/02/25132 [employer]: [facility] External Provider IMG MRI PROCEDURES Final Result * HCG, Qualitative, Urine (03/01/2025 4:57 PM EDT) Urine NEGATIVE NEGATIVE [facility] Comment:This test was develo ped to detect early . Falsenegative results may occur after the 5th - 7th week ofpregnancy when using this test method. If clinicallyindicated, consider a serum hCG. 03/01/2025 4:57 PM EDT 03/01/2025 9:00 PM EDT Generic External Data Provider LAB URINE ORDERAB LES Final Result Performing Organization Address [facility] Co de Phone Number [facility] [address] [place] [address] [phone] * Urinalysis w/reflex microscopic (03/01/2025 4:57 PM EDT) Color Urine Yellow [facility] Appearance Urine Clear [facility] PH 7.0 5.0 - 9.0 [facility] Glucose Urine UA Negative Negative mg/dL [facility] Urine Blood Negative Negative [facility] Specific [place] - Urine 1.010 1.005 - 1.025 [facility] Urine Protein Negative Neg-Trace mg/dL [facility] Urine Ketones Negative Negative mg/dL [facility] Nitrite Urine Negative Negative [facility] Leukocyte Esterase Urine Negative Negative [facility] 03/01/2025 4:57 PM EDT 03/01/2025 5:02 PM EDT Narrative [facility] - 03/01/2025 5:32 PM EDT [id number], Clean Catch Generic External Data Provider LAB URINE ORDERAB LES Final Result Performing Organization Address [facility] Co de Phone Number [facility] [address] [place] [phone] * (ABNORMAL) CBC auto differential (03/01/2025 3:04 PM EDT) Pathologist [facility] White Blood Count 14.7(H) 4.8 - 10.8 X10*3/uL [facility] Red Blood Count 4.46 4.20 - 5.50 X10*6/uL [facility] Hemoglobin 13.8 12.0 - 16.0 g/dl [facility] Hematocrit 40.6 37.0 - 47.0 % [facility] Mean Corpuscular Volume 91.0 80.0 - 98.0 fL [facility] Mean Corpuscular Hemoglobin 30.9 27.0 - 33.0 pg [facility] Mean Corpuscular HGB Conc 34.0 31.0 - 35.0 g/dl [facility] Red Cell Distribution Width 13.4 11.0 - 16.0 % [facility] Platelet Count 256 160 - 400 X10*3/uL [facility] Mean Platelet Volume 9.9 9.4 - 12.3 fL [facility] Neutrophils Percent Auto 71.7 45 - 73 % [facility] Imm Gran Pct Auto 0.6(H) 0.0 - 0.4 % [facility] Lymphocytes Percent Auto 20.8 20 - 40 % [facility] Monocytes Percent Auto 5.5 2 - 11 % [facility] Eosinophils Percent Auto 1.0 0 - 4 % [facility] Basophils Percent Auto 0.4 0 - 2 % [facility] NRBC Pct Auto 0.0 0.0 - 0.2 /100WBC [facility] Neutrophils Absolute Auto 10.5(H) 2.0 - 8.3 x10*3/uL [facility] Imm Gran Abs Auto 0.09(H) 0.00 - 0.03 X10*3/uL [facility] Lymphocytes Absolute Auto 3.1 1.2 - 4.9 X10*3/uL [facility] Monocytes Absolute Auto 0.8 0.1 - 1.2 X10*3/uL [facility] Eosinophils Absolute Auto 0.1 0.0 - 0.4 X10*3/uL [facility] Basophils Absolute Auto 0.1 0.0 - 0.2 X10*3/uL [facility] NRBC Abs Auto 0.000 0.0 - 0.012 X10*3/uL [facility] 03/01/2025 3:04 PM EDT 03/01/2025 3:06 PM EDT us Generic External Data Provider LAB BLOOD ORDERAB LES Final Result Performing Organization Address [facility]/ZIP Co de Phone Number [facility] [address] [place] [address] [phone] * Magnesium (03/01/2025 3:04 PM EDT) [facility] Magnesium 2.0 1.6 - 2.6 mg/dL [facility] 03/01/2025 3:04 PM EDT 03/01/2025 3:06 PM EDT us Generic External Data Provider LAB BLOOD ORDERAB LES Final Result Performing Organization Address [facility] de Phone Number [facility] [address] [place] [address] [phone] * (ABNORMAL) Hepatic Function Panel (03/01/2025 3:04 PM EDT) Pathologist [facility] Bilirubin, Total 0.4 0.0 - 1.0 mg/dL [facility] Bilirubin, Direct 0.1 0.0 - 0.5 mg/dL [facility] Aspartate Amino Transferase 22 5 - 31 U/L [facility] Alanine Aminotransferase 49(H) 0 - 31 U/L [facility] Total Protein 6.6 6.5 - 8.0 g/dL [facility] Albumin Level 3.8 3.5 - 5.0 g/dL [facility] Alkaline Phosphatase 51 39 - 117 U/L [facility] 03/01/2025 3:04 PM EDT 03/01/2025 3:06 PM EDT us Generic External Data Provider LAB BLOOD ORDERAB LES Final Result Performing Organization Address [facility]/ZIP Co de Phone Number [facility] [address] [place] [phone] [phone] * (ABNORMAL) Basic Metabolic Panel (03/01/2025 3:04 PM EDT) Sodium 137 135 - 145 mmol/L [facility] Potassium 4.2 3.3 - 5.1 mmol/L [facility] Chloride 106 96 - 108 mmol/L [facility] Carbon Dioxide 26 22 - 29 mmol/L [facility] Anion Gap 9(L) 12 - 20 [facility] Urea Nitrogen (BUN) 13 9 - 16 mg/dL [facility] Creatinine, Serum 0.74 0.5 - 1.4 mg/dL [facility] Creatinine Clr Calc Pharmacy 103.0 [facility] Comment:Provided height and weight: 154.94 cm,86.636 kg.eGFR (calculated from the MDRD study equation) and eCrCl(calculated from the Cockcroft-Gault equation) are based ondifferent parameters and may not yield comparable results.If eCrCl result is absurd, please check patient'sheight/weight. Estimated Glomerular Filt Rate >60 [facility] Comment:Chronic Kidney Disea se: Estimated GFR < 60 mL/min/1.91e6Wgivnu Kidney Disease: Estimated GFR < 15 mL/min/1.73m2 Glucose 93 60 - 115 mg/dL [facility] Calcium 9.1 8.4 - 10.2 mg/dL [facility] 03/01/2025 3:04 PM EDT 03/01/2025 3:06 PM EDT us Generic External Data Provider LAB BLOOD ORDERAB LES Final Result Performing Organization Address [facility]/ZIP Co de Phone Number [facility] [address] [place] [phone] * XR Lumbar Spine 2-3 Views (02/14/2025 12:18 PM EDT) Anatomical Region Laterality Modality Spine, L-spine Radiographic Marie ging 02/14/2025 12:1 8 PM EDT Narrative 02/14/2025 1:10 PM EDT ? [facility] ?[address] ?[place] [address] ?XRay Report ? Signed ? Patient: Colon,Tabatha M ?MR#: [id number] ?? 4 ? : 1985 ?Acct:[id number] ? Age/Sex: 39 / F ?ADM Date: 02/14/25 ? Loc: HO.ED ? Attending Dr: ? Ordering Physician: Marques Hernandez MD ?? Date of Service: 02/14/25 ?? Procedure(s): XR lumbar spine 2-3V ?? Accession Number(s): [id number] ? cc: Marques Hernandez MD; JOSEPH LOCK [...] DD/ 1218 ? TD/TT: 02/14/25 1248 ? [employer] Officer: ? Procedure Note Lion Mackenzie - 02/14/[address] [address] XRay Report Signed Patient: Tabatha Díaz MMR#: [id number] 4 : 1985Acct:[id number] Age/Sex: 39 / FADM Date: 02/14/25 Loc: HO.ED Attending Dr: Ordering Physician: Marques Hernandez MD Date of Service: 02/14/25 Procedure(s): XR lumbar spine 2-3V Accession Number(s): [id number] cc: Marques Hernandez MD; JOSEPH LOCK NP [...] 02/14/25 1307 DD/ 1218 TD/TT: 02/14/25 1248 [employer] Officer: [facility] External Provider IMG XR PROCEDURES Final Result * XR Thoracic Spine 2 Views (02/14/2025 12:18 PM EDT) Anatomical Region Laterality Modality Spine, T-spine Radiographic Marie ging 02/14/2025 12:1 8 PM EDT Narrative 02/14/2025 1:08 PM EDT ? [facility] ?[address] ?[place] [address] ?XRay Report ? Signed ? Patient: Colon,Tabatha M ?MR#: [id number] ?? 4 ? : 1985 ?Acct:[id number] ? Age/Sex: 39 / F ?ADM Date: 04//25 ? Loc: HO.ED ? Attending Dr: ? Ordering Physician: Marques Hernandez MD ?? Date of Service: 02/14/25 ?? Procedure(s): XR thoracic spine 2V ?? Accession Number(s): [id number] ? cc: Marques Hernandez MD; JOSEPH LOCK [...] DD/ 1218 ? TD/TT: 02/14/25 1248 ? [employer] Officer: ? Procedure Note Lion Mackenzie - 02/14/2025 [place] [address] XRay Report Signed Patient: Tabahta Díaz MMR#: [id number] 4 : 1985Acct:[id number] Age/Sex: 39 / FADM Date: 02/14/25 Loc: HO.ED Attending Dr: Ordering Physician: Marques Hernandez MD Date of Service: 02/14/25 Procedure(s): XR thoracic spine 2V Accession Number(s): [id number] cc: Marques Hernandez MD; JOSEPH LOCK NP [...] 02/14/25 1305 DD/ 1218 TD/TT: 02/14/25 1248 [employer] Officer: [facility] External Provider IMG XR PROCEDURES Final Result * POCT Rapid Influenza B BOUCHER ID NOW (02/12/2025 2:19 PM EDT) Only the most recent of2 resultswithin the time period is included. Influenza B Negative Negative, Indeterminate [facility] QC Media Lot # [id number] [facility] Lot# Expiration Date [facility] Swab 02/12/2025 2:19 PM EDT Susan Krishnamurthy MD POINT OF CARE TEST ENTER /EDIT ORDERABLES Final Result Performing Organization Address [facility] Co de Phone Number [facility] [address] [place] [address] [phone] * POCT Rapid Influenza A BOUCHER ID NOW (02/12/2025 2:18 PM EDT) Only the most recent of2 resultswithin the time period is included. Influenza A Negative Negative, Indeterminate [facility] QC Media Lot # [id number] [facility] Lot# Expiration Date [facility] Swab 02/12/2025 2:18 PM EDT Susan Krishnamurthy MD POINT OF CARE TEST ENTER /EDIT ORDERABLES Final Result Performing Organization Address [facility]/ZIP Co de Phone Number [facility] [address] [place] [address] [phone] * POCT Rapid Strep A BOUCHER ID NOW (02/12/2025 2:13 PM EDT) Rapid Strep A Screen Negative Negative, None Detected QC Media Lot # [id number] Lot# Expiration Date Swab 02/12/2025 2:13 PM EDT Susan Krishnamurthy MD POINT OF CARE TEST ENTER /EDIT ORDERABLES Final Result * POCT Rapid Covid-19 BOUCHER ID NOW (02/12/2025 2:13 PM EDT) [facility] Coronavirus Antigen PCR Negative Negative, Indeterminate, None Detected, Invalid, Specimen unsatisfactory for evaluation, Weakly Positive QC Media Lot # [id number] Lot# Expiration Date ,506 Swab 02/12/2025 2:13 PM EDT Susan Krishnamurthy MD POINT OF CARE TEST ENTER /EDIT ORDERABLES Final Result * POCT Rapid COVID Ag (01/31/2025 10:24 AM EDT) [facility] Rapid COVID Ag Negative Swab 01/31/2025 10:2 4 AM EDT Yokasta Gatica REVIEW TRAINER POINT OF CARE TEST ENTER/EDIT ORDERABLES Final Result * MR Knee w/o Contrast Right (01/20/2025 7:11 PM EDT) Anatomical Region Laterality Modality Magnetic Resonan ce 01/20/2025 7:11 PM EDT Narrative 01/22/2025 8:10 AM EDT ? [facility] ?[address] ?[place] [address] ? Magnetic Resonance Report ? Signed ? Patient: Colon,Tabatha M ?MR#: [id number] ?? 4 ? : 1985 ?Acct:[id number] ? Age/Sex: 39 / F ?ADM Date: 03/15/25 ? Loc: HO.MRI ? Attending Dr: Kaylee Caraballo PA-C ? Ordering Physician: Kaylee Caraballo PA-C ?? Date of Service: 01/20/25 ?? Procedure(s): MR knee RT wo con ?? Accession Number(s): [id number] ? cc: Kaylee Caraballo PA-C; JOSEPH LOCK [...] ??Zelalem Mariscal MD ??01/22/2025 08:07 AM EDT ?? RP ? Dictated By: ?Zelalem Mariscal MD ? Signed By: ?<Electronically signed by Zelalem Mariscal MD in OV> ?01/22/25 0807 ? DD/ 1911 ? TD/TT: 01/20/25 1937 ? [employer] Officer: ? Procedure Note Gurdeep, Image - 01/22/[address] [address] Magnetic Resonance Report Signed Patient: Tabatha Díaz MMR#: [id number] 4 : 1985Acct:[id number] Age/Sex: 39 / FADM Date: 01/20/25 Loc: HO.MRI Attending Dr: Kaylee Caraballo PA-C Ordering Physician: Kaylee Caraballo PA-C Date of Service: 01/20/25 Procedure(s): MR knee RT wo con Accession Number(s): [id number] cc: Kaylee Caraballo PA-C; JOSEPH LOCK NP [...] OV> 01/22/25 0807 DD/ 10 TD/TT: 01/20/251936 [employer] Officer: [facility] External Provider IMG MRI PROCEDURES Final Result * HPV DNA, Low/High Risk (01/08/2025 2:13 PM EST) HPV High Risk Negative Negative [facility] HPV Genotype 16 Negative Negative [facility] HPV Genotype 18 Negative Negative [facility] Comment:HPV testing performe d at [facility] (CLIA#[id number]), [address] [place] [address].Testing for HPV was performed using the Jayla JUANIS 6800system. The presence of HPV in [...] 01/09/2025 9:45 AM EST Maria E Bender [facility] LAB BLOOD ORDERABLES Monik l Result [facility] [address] [place] [phone] * POCT , urine manually resulted (01/08/2025 2:13 PM EST) Preg Test, Ur Negative Negative, Indeterminate, None Detected, Invalid, Specimen unsatisfactory for evaluation, Weakly Positive QC Media Lot # [id number] Lot# Expiration Date [id number] Urine 01/08/2025 2:13 PM EST Maria E Bender CNM POINT OF CARE TEST ENTER/ EDIT ORDERABLES Final Result * Pap Smear (01/08/2025 2:13 PM EST) Swab Cervix uteri structure / Unknown 01/08/2025 2:13 PM EST 01/09/2025 9:45 AM EST Narrative [facility] - 01/11/2025 7:19 AM EST ----- ------- Name: Arjun,Tabatha Lam ?Age/Sex: 39/F ? : 1985 Unit#: [id number] ?? Attend Dr: MARIA E BENDER CNM ?Re01/08/25 ?Status: DEP REF ? Location: HO.HHCLNP ? Disch: ? ----- ------- SPEC : [id number] ? RECD: 01/09/25-944 ? STATUS: ??SOUT ? REQ NUM: [id number] ? RASHAUN: 01/08/25-1413 ? SUBM DR: MARIA E BENDER CNM ? ENTERED: ??01/09/25 ?SP TYPE: Pap Smr ?OTHR : ? [...] ------- Signed (signature on file) LATHA Knutson ([facility]) 01/11/25718 ? ----- ------- ? END OF REPORT ? Maria E FRANK LAB CYTOLOGY ORDERABLES F inal Result Performing Organization Address [facility] Co de Phone Number [facility] [address] [place] [phone] * POCT fern test, vaginal fluid manually resulted (01/08/2025 2:07 PM EST) SRINIVASAN Prep Positive Comment:pH 5, pos whiff, pos clue, neg wbc, neg yeast, neg trich Vaginal Fluid Vaginal structure / Unknown 01/08/2025 2:07 PM EST Impressions Maria E Bender CNM - 01/08/2025 2:07 PM EST Bacterial vaginosis Maria E FRANK POINT OF CARE TEST ENTER/ EDIT ORDERABLES Final Result * HEPATITIS C AB W/REFL TO HCV RNA, QN, PCR (01/13/2022 10:32 AM EST) Pathologist [facility] HEPATITIS C ANTIBODY NON-REACT YOCASTA NON-REACT YOCASTA [facility] INDEX 0.01 <1.00 [facility] Comment: ?? HCV antibody was non-reactive. There is no laboratory ?? evidence of HCV infection. ?? In most cases, no further action is required. However, if recent HCV exposure is suspected, a test for HCV RNA (test code 52075) is suggested. ?? For additional information please refer to http://education.[employer]/faq/YNN04u9 (This link is being provided for informational/ educational purposes only.) ?? 01/13/2022 10:3 2 AM EST Joseph Lock ANP HISTORICAL/NON ORDERABLE LABS Fi nal Result Performing Organization Address City/State/[facility] de Phone Number [facility] [address] * HIV 1/2 ANTIGEN/ANTIBODY,FOURTH GENERATION W/RFL (01/13/2022 10:32 AM EST) HIV-1/2 ANTIGEN AND ANTIBODIES, 4TH GENERATION W/ REFLEX NON-REACT YOCASTA NON-REACT YOCASTA [facility] Comment: HIV-1 antigen and HIV-1/HIV-2 [...] ? For additional information please refer to http://education.[employer]/faq/WBZ901 (This link is being provided for informational/ educational purposes only.) ? The performance of this assay has not been clinically validated in patients less than 2 years old. ?? 01/13/2022 10:3 2 AM EST [facility] LAB BLOOD ORDERABLES Final Resul t Performing Organization Address [facility] Phone Number [facility] [address] from Last 3 Months or Most Recently Relevant to Health Maintenance Insurance [facility] Care Teams Engineering Technologist Relationship Specialty Start Date End Date Joseph Lock ANP [address] [place] [address] PCP - General Family Medicine 10/20/22 Joseph Lock ANP [address] [place] [address] Family Medicine 11/08/21
[2025-03-31] MEDS: gadobutroL 10 ML VIAL IVPUSH (14:39)
== END 2025-03-31 13:29 | disposition home or self-care (01) ==
LOC: HO.MRI 13:28
PROVIDERS: PCP Nurse Practitioner Primary Care; Visit Provider Nurse Practitioner Primary Care
DX: D72.89 Other specified disorders of white blood cells (principal)
CPT/HCPCS: 74183; A9585

== ENCOUNTER → 2025-03-31 13:36 | Outpatient (BNV) | payer OTHER, SELFPAY | PROVIDERS: PCP Nurse Practitioner Primary Care; Visit Provider Radiology Diagnostic Radiology | DX: D73.4 Cyst of spleen (principal); K76.0 Fatty (change of) liver, not elsewhere classified | CPT/HCPCS: 74183 ==

== ENCOUNTER 2025-04-23 09:16 | Outpatient (RCR) | payer OTHER, SELFPAY | END 2025-05-04 08:03 | disposition home or self-care (01) | LOC: HO.PT 09:16 | PROVIDERS: PCP Nurse Practitioner Primary Care; Visit Provider Nurse Practitioner Primary Care | DX: M23.51 Chronic instability of knee, right knee (principal); M54.41 Lumbago with sciatica, right side; M25.551 Pain in right hip | CPT/HCPCS: 97112; 97140; 97162 ==

== ENCOUNTER 2025-05-03 10:22 | Outpatient (REF) | payer OTHER, SELFPAY ==
--- NOTE | ~2025-05-03 | XR_ITS ---
EXAMINATION: XR HIP, RIGHT CLINICAL INFORMATION: M25.551 - Pain in right hip COMPARISON: None available. TECHNIQUE: Two views of the right hip. FINDINGS: Joint spaces preserved. There are no osteophytes. No fracture is evident. XR/XR hip RT min 2V IMPRESSION: Unremarkable right hip. Electronically signed by: Acosta Estevez MD 05/03/2025 11:25 AM EDT
== END 2025-05-03 10:23 | disposition home or self-care (01) ==
LOC: HO.HOSX 10:22
PROVIDERS: PCP Nurse Practitioner Primary Care; Visit Provider Physical Medicine & Rehabilitation
DX: M25.551 Pain in right hip (principal); M53.3 Sacrococcygeal disorders, not elsewhere classified; M51.9 Unspecified thoracic, thoracolumbar and lumbosacral intervertebral disc disorder
CPT/HCPCS: 73502

== ENCOUNTER 2025-05-03 10:22 | Outpatient (AMB) | payer OTHER, SELFPAY ==
--- NOTE | 2025-05-03 10:26 | A.OFFVIS_ITS ---
Intake Visit Reasons: New Pt - low back pain, DOI 02/11/25 Intake Note: Tabatha is a 40 year old female who presents as a new patient for an evaluation of lower back pain, DOI 02/11/25.Patient stated PCP referred her and she has a follow up appt with them on 05/04. Patient was seen at [facility] on multiple occasions due to her pain and discomfort. Patient reported that she had a fall while getting out of the car in the parking lot of an urgent care. She expressed her pain is localized in her lower back area. MRI was obtained while at ER. Today patient reports that she having sharp pain in her B/L Knees. She reports that she has tingling in both legs but no numbness. Patient noted that she has been out of work since 03/01/25. She stated that she goes twice a week for physical therapy, and added that her legs have been giving out on her. Allergies No Known Allergies Allergy (Verified 05/03/25 10:29) Medication List - Last Reconciled 05/03/25 by Toyin King MD acetaminophen (Tylenol Extra Strength) 500 mg PO Q6H PRN albuterol sulfate 90 mcg/actuation (ProAir HFA) 0 mcg inhalation azithromycin For 250 mg dose pack: take 500 mg today (day 1), then 250 mg for 4 days (days 2-5) cyclobenzaprine 5 mg PO Q8H PRN 5 days cyclobenzaprine 10 mg PO TID PRN cyclobenzaprine 10 mg PO Q8H esomeprazole magnesium (Nexium 24HR) 20 mg PO DAILY ketorolac 10 mg PO .B.i.d. PRN lidocaine 5% (Lidoderm) 1 patch topical DAILY PRN MDD remove after 12 hours ondansetron 4 mg PO Q8H 4 days HPI Comments Details: Fell getting out of car. Admits she's had on/off chronic back pain 5-10 years, but fall made things worse. Pain not as bad today. Usually midline, dull, goes more to right side. Sometimes would go to hip or thigh or knee. Since PT and exercise, hip was realigned, and it has been improved. But says both knees bother her now and even top of left foot. Even other joints flare up . No foot drop. No bladder/bowel changes. 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 Patient was appropriately conversant and oriented. Good historian. MSK: No specific abnormalities found on inspection of the spine and all extremities. No pain with palpation over the lumbar area. Tender on right SI joint. Lumbar ROM was full. Bilateral hip, knee and ankle ROM WNL. No ligamentous laxity or crepitance. No increased effusion. Straight-leg raising test negative. FABERE test positive right lower back pain. Scour test is negative. Strength is 5/5 in all muscle groups tested. No increased tone noted. Neurological: Neurologic examination of the upper and lower extremities was nonfocal with intact sensation, muscle stretch reflexes and without focal motor deficits . Greenwood?s negative bilaterally. Babinski was down going bilaterally. Clonus was negative. Gait is non-antalgic without loss of balance. Results Reviewed Results Reviewed: Ortho notes: Right knee MRI findings are consistent with bone marrow edema on the anterior aspect of medial femoral condyle. I do feel as though the pain that she was experiencing while in the office in this area is directly related to the MRI findings. I have recommended physical therapy to work on lower extremity range of motion and strengthening. Lumbar MRI: Ordering Physician: Zach Cho MD Date of Service: 03/01/25 Procedure(s): MR lumbar spine wo [facility] Accession Number(s): [id number] cc: Zach Cho MD; JOSEPH LOCK NP~ CLINICAL HISTORY: back pain and incontinence MR Lumbar Spine WO Contrast COMPARISON: CR/SR - XR LUMBAR SPINE 2-3V - 02/14/25 12:42 EDT FINDINGS: No acute fracture. Vertebrae are normally aligned. The conus medullaris terminates at the L1-L2 level and appears normal. The anterior longitudinal, posterior longitudinal, and interspinous ligaments appear intact. No epidural hematoma or collection. T12-L1: No disc herniation. No significant stenosis. L1-L2: No disc herniation. No significant stenosis. L2-L3: No disc herniation. No significant stenosis. L3-L4: Anterior midline annular fissure, mild diffuse disc bulge, and mild bilateral facet and ligamentum flavum hypertrophy. Mild spinal canal stenosis and mild bilateral neuroforaminal stenoses. L4-L5: Disc desiccation, posterior midline annular fissure, diffuse disc bulge, and bilateral facet and ligamentum flavum hypertrophy. Mild spinal canal stenosis and moderate bilateral neuroforaminal stenoses. L5-S1: Disc desiccation, posterior midline annular fissure, posterior central zone disc extrusion, and bilateral facet hypertrophy. Mild spinal canal stenosis and mild left neuroforaminal stenosis. IMPRESSION: No acute findings. Degenerative changes. No nerve root impingement. 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 Further evaluation with contrast. COMPARISON: MRI T-spine 03/01/2025 without gadolinium. TECHNIQUE: Multiplanar multisequence MR imaging of the thoracic spine was done following the administration of 8.5 mL Gadavist. Examination performed on a 1.5 Theresa Siemens high-field unit. FINDINGS: ALIGNMENT: No scoliosis. Normal kyphosis. No subluxations. VERTEBRAL BODIES AND BONE MARROW: Bone marrow is normal in signal without edema, compression deformity, fracture, or abnormal infiltrating bone marrow signal. DISC SPACES AND ENDPLATES: Discs are essentially normal in height and signal with only minimal loss at C6-7. There are no endplate changes. SPINAL CORD: Redemonstration of minimal prominence of the central canal of the cord spanning the T3-T9 levels, measuring up to 1.4 mm. This is most likely within the realm of normal variation and does not represent a true syrinx of the cord. There is no abnormal enhancement within the cord or in the intra-axial or extra medullary space. No cord impingement or signal abnormality. SPINAL LEVELS: Unchanged from the prior examination. There is a small disc bulge at T6-T7 resulting in minimal central canal stenosis. The remainder of the central canal is widely capacious. The cord is surrounded by CSF signal at all levels. The conus terminates at the L1 level and is normal in signal and morphology. PARASPINAL SOFT TISSUES: Redemonstration of partially imaged multiple cysts within the spleen, nonspecific but likely acquired. There are small cysts within both kidneys. The aorta is normal in caliber. There are no pleural effusions. MR/MR thoracic spine wo/w con IMPRESSION: 1. Minimal prominence of the central canal of the spinal cord spanning T3-T9, measuring up to 1.4 mm. No associated enhancement or lesion. This is most likely within the realm of normal variation and may not represent a true syrinx of the cord. 2. Stable minimal spondylosis at T6-T7 with small disc protrusion resulting in minimal central canal stenosis. 3. No abnormal intra-axial or extra medullary enhancement on this examination. Assessment & Plan Assessment & Plan (1) Lumbar disc disorder: Code(s): M51.9 - Unspecified thoracic, thoracolumbar and lumbosacral intervertebral disc disorder Category: Medical (2) Pain of right sacroiliac joint: Code(s): M53.3 - Sacrococcygeal disorders, not elsewhere classified Category: Medical Plan Lower back pain, possibly from the lumbar disc bulge seen on MRI, and SI joint dysfunction. She is currently in physical therapy with gradual improvements. Continue physical therapy. Gave instruction to work on SI joint as well. We will get hip x-rays to rule out hip joint pathology. She will see PCP tomorrow. She is complaining of other joint pains which she will discuss with PCP. Assessment and plan discussed with patient, and patient was agreeable. All questions were answered thoroughly. Follow up after 2-3 months, after PT. Toyin King MD, CHRIS Board Certified, [place] Board [employer] and Rehabilitation (ABPMR) Board Certified, [place] Board [employer] Electrodiagnostic [employer] (ABEM) Orders: Orders XR hip RT min 2V Today M25.551 - Pain in right hip Coding Level of Care Code New Pt Level 4 (29649) Diagnoses Lumbar disc disorder M51.9 Pain of right sacroiliac joint M53.3
== END 2025-05-03 11:11 | disposition home or self-care (01) ==
LOC: HO.HOS 10:22
PROVIDERS: PCP Nurse Practitioner Primary Care; Visit Provider Physical Medicine & Rehabilitation
DX: M51.86 Other intervertebral disc disorders, lumbar region (principal); M53.3 Sacrococcygeal disorders, not elsewhere classified
CPT/HCPCS: 99204

== ENCOUNTER → 2025-05-03 10:50 | Outpatient (BNV) | payer OTHER, SELFPAY | PROVIDERS: PCP Nurse Practitioner Primary Care; Visit Provider Radiology Diagnostic Radiology | DX: M25.551 Pain in right hip (principal) | CPT/HCPCS: 73502 ==

== ENCOUNTER 2025-05-08 14:47 | Outpatient (REF) | payer OTHER, SELFPAY ==
[2025-05-08 16:15] LABS: MANUAL DIFF FLAG NO
[2025-05-08 16:18] LABS: Hematocrit 41.7 % (37.0-47.0); Hemoglobin 14.0 g/dl (12.0-16.0); Imm Gran Abs Auto 0.02 X10*3/uL (0.00-0.03); Imm Gran Pct Auto 0.2 % (0.0-0.4); Lymphocytes Absolute Auto 2.8 X10*3/uL (1.2-4.9); Mean Corpuscular HGB Conc 33.6 g/dl (31.0-35.0); Mean Corpuscular Hemoglobin 31.0 pg (27.0-33.0); Mean Corpuscular Volume 92.3 fL (80.0-98.0); NRBC Abs Auto 0.000 X10*3/uL (0.0-0.012); NRBC Pct Auto 0.0 /100WBC (0.0-0.2); Platelet Count 264 X10*3/uL (160-400); Red Blood Count 4.52 X10*6/uL (4.20-5.50); White Blood Count 8.9 X10*3/uL (4.8-10.8)
[2025-05-08 16:57] LABS: Vitamin B12 313 pg/mL (200-900)
[2025-05-09 04:33] LABS: Follicle Stimulating Hormone 7.5 mIU/mL
[2025-05-09 17:54] LABS: Lyme Abs Screen <0.90 index
[2025-05-10 09:19] LABS: Anti Nuclear Antibody Screen NEGATIVE (NEGATIVE)
[2025-05-14 01:33] LABS: Testosterone, Free 5.7 pg/mL (0.1-6.4)
[2025-05-15 07:14] LABS: Estradiol Ultra Sensitive 65 pg/mL
== END 2025-05-08 14:48 | disposition home or self-care (01) ==
LOC: HO.HHCL 14:47
PROVIDERS: PCP Nurse Practitioner Primary Care; Visit Provider Nurse Practitioner Primary Care
DX: R40.0 Somnolence (principal); N92.6 Irregular menstruation, unspecified; M25.50 Pain in unspecified joint
CPT/HCPCS: 36415; 82607; 82670; 83001; 84402; 84403; 84443; 85025; 85652; 86038; 86140; 86200; 86431; 86617; 86618

== ENCOUNTER 2025-06-20 10:41 | Outpatient (REF) | payer OTHER, SELFPAY ==
--- NOTE | ~2025-06-20 | US_ITS ---
CLINICAL HISTORY: irregular menses, R sided pelvic pain Ultrasound of the female pelvis Comparison: None provided Technique: Grayscale ultrasound with assistance of color Doppler. Transabdominal scanning performed for overall anatomy. Transvaginal scanning performed for better anatomic delineation. Findings: Anteverted uterus measures 8.8 x 4.0 x 6.2 cm. Unremarkable myometrium, no focal lesion is seen. Minimal endometrial fluid, otherwise unremarkable endometrium, 6 mm in thickness. Trace fluid in the endocervical canal, simple nabothian cysts. Normal right ovary, 3.4 x 2.1 x 2.1 cm. No abnormal vascular flow. Normal left ovary, 3.4 x 2.8 x 2.4 cm. No abnormal vascular flow. No free fluid. Impression: 1. Minimal fluid in the endometrium and cervix, non-specific. 2. Nabothian cysts. This document has been electronically signed by: Urmila Mason MD on 06/20/2025 12:12:16
--- OUTSIDE RECORDS SUMMARY | 2025-06-20 11:29 | XMS_ITS | Clinical Summary ---
Author Organization [employer] Address [address] [place] [address] Care Team Providers Care Dial Mounter Name Role Phone Joseph Lock Unavailable Joseph Lock Primary Care Provider [phone] Allergies No known active allergies Medications * This document contains information received from the source organization and may not represent a complete record from that organization. [facility] [place] Oximeter[place] [facility] - 2 Active Spacer/Aero-Hol ding Chambers (Compact Space Chamber) device Use with albuterol as needed. 0 Active tamsulosin (Flomax) 0.4 MG 24 hr capsule Take 1 capsule by mouth before breakfast. 1 Active [facility] Saline Nasal Duke 0.65 % nasal sprayIndication s:Nasal congestion 1-2 SPRAY ON EACH NOSTRIL EVERY 2-3 HOURS NEEDED FOR NASAL CONGESTION 44 mL 3 Active cholecalciferol (D3-1000) 25 MCG (1000 UT) capsule TAKE 1 CAPSULE BY MOUTH EVERY DAY 90 capsule 4 Active hydrOXYzine HCl (Atarax) 10 MG tabletIndicatio ns:Anxiety Take 1 tablet (10 mg) by mouth if needed at bedtime for anxiety. 30 tablet 1 5 Active Additional Information Patient not taking.Reported on 05/08/2025 albuterol (Ventolin HFA) 108 (90 Base) MCG/ACT inhaler INHALE 2 PUFFS BY INHALATION ROUTE EVERY 4 TO 6 HOURS IF NEEDED 18 g 1 5 Active fluticasone (Flonase) 50 MCG/ACT nasal spray Administer 1 spray into each nostril Once per day. Administer 1-2 sprays into affected nostril(s) at bed time. 16 g 5 Active diclofenac (Cataflam) 50 MG tabletIndicatio ns:Acute right-sided low back pain with right-sided sciatica Take 1 tablet (50 mg) by mouth 2 times daily. Take with food 14 tablet 5 Active Diclofenac Sodium 1 % gel Apply 2 g topically if needed in the morning, at noon, in the evening, and at bedtime (pain). 150 g 3 5 Active acetaminophen (Tylenol 8 Hour) 650 MG ER tablet Take 1 tablet (650 mg) by mouth every 8 (eight) hours if needed for mild pain. Do not crush, chew, or split. 60 tablet 1 5 03/06/20 26 Active baclofen (Lioresal) 10 MG tablet Take 1 tablet (10 mg) by mouth if needed in the morning, at noon, and at bedtime for muscle spasms. 60 tablet 1 5 Active Additional Information Patient not taking.Reported on 05/08/2025 lidocaine (Lidoderm) 5 % patch Apply 2 patches topically if needed each day for mild pain. Remove & discard patch within 12 hours or as directed by MD. 60 patch 1 5 Active gabapentin (Neurontin) 300 MG capsule Take 1 capsule (300 mg) by mouth at bedtime. 30 capsule 1 5 03/06/20 26 Active diclofenac (Voltaren) 75 MG EC tablet Take 1 tablet (75 mg) by mouth if needed in the morning and at bedtime (pain with breakfast and dinner). Do not crush, chew, or split. 40 tablet 1 5 03/06/20 26 Active omeprazole (PriLOSEC) [address] capsuleIndicati ons:Esophageal stricture,Esoph agitis Take 1 capsule (20 mg) by mouth before breakfast and before evening meal. 60 capsule 2 5 Active FLUoxetine (PROzac) 10 MG capsuleIndicati ons:Mixed anxiety and depressive disorder Take 1 capsule (10 mg) by mouth in the morning. 90 capsule 5 07/09/20 25 Active Active Problems Problem Noted Date Diagnosed Date Esophageal stricture 05/08/2025 Viral upper respiratory tract infection 02/13/20 25 Assessment & Plan (02/12/2025 5:02 PM EDT): Negative rapid viral test today. Rest (sleep at least 8 hours a night). Out of work today and tomorrow Hydrate with plenty of water (avoid caffeine and alcohol). Use saline nose drops to loosen mucus + Flonase nasal Take Acetaminophen (Tylenol )/Ibuprofen as needed to reduce fever, headache, body [...] 72 hours (temperature should be less than 100 F without medication). Acute bilateral low back pain [...] knee tenderness Pap: last one 2018 at [facility], will refer to Maria E Bishop. 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 Date Type Department Care Team Description 05/10/2025 Results Follow-Up [facility] [address] [place], [place] [address] [address] Joseph Lock ANP CBC auto differential, TSH W/Reflex to FT4, Vitamin B12, Additional followed-up results: 6 05/08/2025 1:30 PM EDT Office Visit [facility] [address] [place] [phone] Joseph Lock ANP Acute bilateral low back pain with bilateral sciatica (Primary Dx); Mixed anxiety and depressive disorder; Daytime somnolence; Esophageal stricture; Polyarthralgia; Esophagitis; Irregular menses 05/08/2025 Travel 05/08/[address] [address] Joseph Lock ANP Nurse Triage 05/04/[address] [address] Joseph Lock ANP No Show 05/03/[address] [address] Joseph Lock ANP CHART PREP 05/03/2025 Orders Only [facility] External Provider, [facility] 04/09/2025 Results Follow-Up [address] [address] Joseph Lock ANP MR Abdomen w/ and w/o Contrast 03/31/2025 Orders Only [address] [address] Joseph Lock ANP from Last 3 Months Immunizations Immunization Administration [...] Sign Reading Time Taken Comments Blood Pressure 114/74 05/08/2025 2:09 PM EDT Pulse 80 05/08/2025 2:09 PM EDT Temperature 36.7 C (98.1 F) 03/06/2025 12:05 PM EDT Respiratory Rate 20 05/08/2025 2:09 PM EDT Oxygen Saturation 96% 03/06/2025 12:05 PM EDT Inhaled Oxygen Concentration - - Weight 86.2 kg (190 lb) 05/08/2025 2:09 PM EDT Height 154.9 cm (5' 1 ) 05/08/2025 2:09 PM EDT Body Mass Index 35.9 05/08/2025 2:09 PM EDT Plan of Treatment Upcoming Encounters Date Type Department Care Team (Late st Contact Info) Description 07/30/2025 11:00 AM EDT Telemedicine [facility] [address] [place], [place] [phone] Joseph Lock, ANP [address] [place] [address] Health Maintenance Due Date Last Done Comments Lipid Panel 1985 Hepatitis B Vaccines (1 of 3 - 19+ 3-dose series) 2005 Pneumococcal Vaccine: Pediatrics (0 to 5 Years) and At-Risk Patients (6 to 49) Years (1 of 2 - PCV) 2005 HPV Vaccines (3 - 3-dose series) 11/22/2012 08/30/2012, 11/21/2008 COVID-19 Vaccine ( - season) 2024 Depression Monitoring 06/04/2025 12/05/2024, 025 Influenza Vaccine (#1) 2025 2, 08/04/2011, 07/29/2010, Additional history exists Alcohol/Substance Use Screening 12/05/2025 12/05/2024 SDOH Screening 12/05/2025 12/05/2024 Family Planning (PISQ) 01/08/2026 01/08/2025 Disability Screening 02/21/2026 02/21/2025 Tobacco Screening 05/08/2026 05/08/2025 Cervical Cancer Screening 01/09/2028 HPV/Cotest 01/09/2028 01/08/2025 [...] Procedure Name Priority Date/Time Associated Diagnosis Comments ESTRADIOL Routine 05/08/2025 3:00 PM EDT Irregular menses FSH Routine 05/08/2025 3:00 PM EDT Irregular menses TESTOSTERONE, FREE (DIALYSIS) AND TOTAL,MS Routine 05/08/2025 3:00 PM EDT Irregular menses RHEUMATOID FACTOR Routine 05/08/2025 3:0 0 PM EDT Polyarthralgia SED RATE BY MODIFIED WESTERGREN Routine 05/08/2025 3:00 PM EDT Polyarthralgia C-REACTIVE PROTEIN Routine 05/08/2025 3: 00 PM EDT Polyarthralgia CYCLIC CITRULLINATED PEPTIDE (CCP) AB (IGG) Routine 05/08/2025 3:00 PM EDT Polyarthralgia RANDEE SCREEN, IFA, W/REFL TITER AND PATTERN Routine 05/08/2025 3:00 PM EDT Polyarthralgia LYME DISEASE AB W/REFL TO BLOT (IGG, IGM) Routine 05/08/2025 3:00 PM EDT Polyarthralgia VITAMIN B12 Routine 05/08/2025 3:00 PM EDT Daytime somnolence TSH W/REFLEX TO FT4 Routine 05/08/2025 3 :00 PM EDT Daytime somnolence CBC WITH AUTO DIFFERENTIAL Routine 05/08/2025 3:00 PM EDT Polyarthralgia XR HIP 2 OR 3 VIEWS RIGHT Routine 05/03/2025 9:50 AM EDT MR ABDOMEN W AND WO CONTRAST Routine 03/31/2025 1:36 PM EDT HPV DNA, LOW/HIGH RISK Routine 2:13 PM EST PAP SMEAR Routine 01/08/2025 2:13 PM EST Cervical cancer screening ZZZ HISTORICAL HEPATITIS C AB W/REFL TO HCV RNA, QN, PCR Routine 01/13/2022 10:32 AM EST HIV 1/2 ANTIGEN/ANTIBODY, FOURTH GENERATION W/RFL Routine 01/13/2022 10:32 AM EST from Last 3 Months or Most Recently Relevant to Health Maintenance Results * TSH W/Reflex to FT4 (05/08/2025 3:00 PM EDT) TSH reflex Free T4 1.55 0.32 - 4.0 uIU/mL [facility] Blood Venous blood specimen / Unknown 05/08/2025 3:00 PM EDT 05/08/2025 4:08 PM EDT Joseph Lock [facility] BLOOD ORDERABLES Final Resul t Performing Organization Address [facility] de Phone Number [facility] [address] [place] [phone] * Lyme Disease Ab with Reflex to Blot (IgG, IgM) (05/08/2025 3:00 PM EDT) Pathologist [facility] Lyme Antibody Screen <0.90 index [facility] Comment:Index Interpretation ----- < 0.90 Negative 0.90-1.09 Equivocal > 1.09 PositiveAs recommended by the Food and Drug Administration(FDA), all samples with positive or equivocalresults in a Borrelia burgdorferi antibody screenwill be tested using a blot method. Positive orequivocal screening test results should not beinterpreted as truly positive until verified as suchusing a supplemental assay (e.g., B. burgdorferi blot).The screening test and/or blot for B. burgdorferiantibodies may be falsely negative in early stagesof Lyme disease, including the period when erythemamigrans is apparent.THIS TEST WAS PERFORMED AT:[employer] [address] [id number] CISNEROS MD Lyme Blot TNP [facility] 05/08/2025 3:00 PM EDT 05/08/2025 4:08 PM EDT us Joseph Lock [facility] BLOOD ORDERABLES Final Resul t Performing Organization Address [facility]/ZIP Co de Phone Number [facility] [address] [place] [phone] * CBC auto differential (05/08/2025 3:00 PM EDT) Pathologist [facility] White Blood Count 8.9 4.8 - 10.8 X10*3/uL [facility] Red Blood Count 4.52 4.20 - 5.50 X10*6/uL [facility] Hemoglobin 14.0 12.0 - 16.0 g/dl [facility] Hematocrit 41.7 37.0 - 47.0 % [facility] Mean Corpuscular Volume 92.3 80.0 - 98.0 fL [facility] Mean Corpuscular Hemoglobin 31.0 27.0 - 33.0 pg [facility] Mean Corpuscular HGB Conc 33.6 31.0 - 35.0 g/dl [facility] Red Cell Distribution Width 13.3 11.0 - 16.0 % [facility] Platelet Count 264 160 - 400 X10*3/uL [facility] Mean Platelet Volume 10.2 9.4 - 12.3 fL [facility] Neutrophils Percent Auto 58.1 45 - 73 % [facility] Imm Gran Pct Auto 0.2 0.0 - 0.4 % [facility] Lymphocytes Percent Auto 31.8 20 - 40 % [facility] Monocytes Percent Auto 6.6 2 - 11 % [facility] Eosinophils Percent Auto 2.5 0 - 4 % [facility] Basophils Percent Auto 0.8 0 - 2 % [facility] NRBC Pct Auto 0.0 0.0 - 0.2 /100WBC [facility] Neutrophils Absolute Auto 5.2 2.0 - 8.3 x10*3/uL [facility] Imm Gran Abs Auto 0.02 0.00 - 0.03 X10*3/uL [facility] Lymphocytes Absolute Auto 2.8 1.2 - 4.9 X10*3/uL [facility] Monocytes Absolute Auto 0.6 0.1 - 1.2 X10*3/uL [facility] Eosinophils Absolute Auto 0.2 0.0 - 0.4 X10*3/uL [facility] Basophils Absolute Auto 0.1 0.0 - 0.2 X10*3/uL [facility] NRBC Abs Auto 0.000 0.0 - 0.012 X10*3/uL [facility] Blood Venous blood specimen / Unknown 05/08/2025 3:00 PM EDT 05/08/2025 4:08 PM EDT Joseph Lock [facility] BLOOD ORDERABLES Final Resul t Performing Organization Address [facility] Number [facility] [address] [place] [phone] * Cyclic Citrullinated Peptide (CCP) Antibody (IgG) (05/08/2025 3:00 PM EDT) [facility] Cyclic Citrullinated Peptide <16 UNITS [facility] Comment:Reference RangeNegat yocasta: <20Weak Positive: 20-39Moderate Positive: 40-59Strong Positive: >59THIS TEST WAS PERFORMED AT:[employer] [address] [phone] CISNEROS MD Blood Venous blood specimen / Unknown 05/08/2025 3:00 PM EDT 05/08/2025 4:07 PM EDT Joseph Lock [facility] BLOOD ORDERABLES Final Resul t Performing Organization Address [facility] Number [facility] [address] [place] [phone] * Estradiol (05/08/2025 3:00 PM EDT) [facility] Estradiol Ultra Sensitive 65 pg/mL [facility] Comment:Female Reference Ran ges for Estradiol, Ultrasensitive (pg/mL): Follicular Phase: 39-375 Luteal Phase: 48-440 Postmenopausal Phase: < or = 10This test was developed and its analytical performancecharacteristics have been determined by [employer].It has not been cleared or approved by the FDA. This assayhas been validated pursuant to the CLIA regulations and isused for clinical purposes.THIS TEST WAS PERFORMED AT:[employer] [id number]NE FAULKNER [id number] BERNARD MD,PHD,CHRIS Blood Venous blood specimen / Unknown 05/08/2025 3:00 PM EDT 05/08/2025 4:07 PM EDT Joseph Lock ANP LAB BLOOD ORDERABLES Final Resul t Performing Organization Address [facility] Co de Phone Number [facility] [address] [place] [phone] * Sed Rate by Modified Mitchellergren (05/08/2025 3:00 PM EDT) Erythrocyte Sedimentation Rate 7 0 - 20 MM/HR [facility] Comment:Patients with polycy themia and many hemoglobin abnormalitiesmay have depressed sed rates whereas patients with anemiamay have elevated sed rates. Blood Venous blood specimen / Unknown 05/08/2025 3:00 PM EDT 05/08/2025 4:08 PM EDT Joseph Lock ANP LAB BLOOD ORDERABLES Final Resul t Performing Organization Address [facility] Co de Phone Number [facility] [address] [place] [phone] * Rheumatoid Factor (05/08/2025 3:00 PM EDT) Pathologist [facility] Rheumatoid Factor <13.0 <15.0 IU/mL [facility] Blood Venous blood specimen / Unknown 05/08/2025 3:00 PM EDT 05/08/2025 4:08 PM EDT Joseph Lock ANP LAB BLOOD ORDERABLES Final Resul t Performing Organization Address [facility] Co de Phone Number [facility] [address] [place] [phone] * (ABNORMAL) Testosterone, Free (Dialysis) And Total, MS (05/08/2025 3:00 PM EDT) Pathologist [facility] Testosterone, Total 47(A) 2 - 45 ng/dL [facility] Comment:For additional infor gage, please refer tohttp://education.[facility]see/faq/VumihIpuqbmotmipbSECPPJVNJ803(This link is being provided for informational/educational purposes only.)This test was developed and its analytical performancecharacteristics have been determined by [employer]. It hasnot been cleared or approved by the U.S. Food and DrugAdministration. This assay has been validated pursuantto the CLIA regulations and is used for clinicalpurposes. Testosterone, Free 5.7 0.1 - 6.4 pg/mL [facility] Comment:This test was develo ped and its analytical performancecharacteristics have been determined by [employer]. It hasnot been cleared or approved by the U.S. Food and DrugAdministration. This assay has been validated pursuantto the CLIA regulations and is used for clinicalpurposes.THIS TEST WAS PERFORMED AT:[id number] [place] [address]PURBXYLBETTE LANDA MD,PHD Blood Venous blood specimen / Unknown 05/08/2025 3:00 PM EDT 05/08/2025 4:07 PM EDT us Joseph Lock [facility] BLOOD ORDERABLES Final Resul t Performing Organization Address City/[facility] Co de Phone Number [facility] [address] [place] [phone] * C-reactive Protein (05/08/2025 3:00 PM EDT) C Reactive Protein 0.42 < or = 0.50 mg/dL [facility] Blood Venous blood specimen / Unknown 05/08/2025 3:00 PM EDT 05/08/2025 4:08 PM EDT us Joseph Lock [facility] BLOOD ORDERABLES Final Resul t Performing Organization Address City/[facility]/ZIP Co de Phone Number [facility] [address] [place] [phone] * RANDEE Screen,IFA, with Reflex to Titer and Pattern (05/08/2025 3:00 PM EDT) Anti Nuclear Antibody Screen NEGATIVE NEGATIVE [facility] Comment:RANDEE IFA is a first l ine screen for detecting thepresence of up to approximately 150 autoantibodies invarious autoimmune diseases. A negative RANDEE IFA resultsuggests an RANDEE-associated autoimmune disease is notpresent at this time, but is not definitive. If thereis high clinical suspicion for Sjogren's syndrome,testing for anti-SS-A/Ro antibody should be considered.Anti-Aline-1 antibody should be considered for clinicallysuspected inflammatory myopathies.AC-0: NegativeInternational Consensus on RANDEE Patterns(https://doi.org/10.1515/swlf-0772-7833)For additional information, please refer tohttp://education.[employer] [facility]/faq/AFX467(This link is being provided for informational/educational purposes only.)THIS TEST WAS PERFORMED AT:[employer] [place] [id number] CISNEROS MD RANDEE Titer TNP [facility] RANDEE Pattern [facility] RANDEE TITER 2 (REF LAB) [facility] RANDEE Pattern 2 [facility] RANDEE TITER 3 [facility] RANDEE PATTERN 3 [facility] Blood Venous blood specimen / Unknown 05/08/2025 3:00 PM EDT 05/08/2025 4:08 PM EDT Joseph Lock [facility] BLOOD ORDERABLES Final Resul t Performing Organization Address City/[facility]/ZIP Co de Phone Number [facility] [address] [place] [phone] * FSH (05/08/2025 3:00 PM EDT) Follicle Stimulating Hormone 7.5 mIU/mL [facility] Comment:Reference Range Foll icular Phase 2.5-10.2 Mid-cycle Peak 3.1-17.7 Luteal Phase 1.5- 9.1 Postmenopausal 23.0-116.3THIS TEST WAS PERFORMED AT:[employer] [place] [id number] CISNEROS MD Blood Venous blood specimen / Unknown 05/08/2025 3:00 PM EDT 05/08/2025 4:07 PM EDT Joseph Lock ANP LAB BLOOD ORDERABLES Final Resul t Performing Organization Address [facility] Co de Phone Number [facility] [address] [place] [phone] * Vitamin B12 (05/08/2025 3:00 PM EDT) Vitamin B12 313 200 - 900 pg/mL [facility] Comment:NORMAL 200-900 PG/ML INDETERMINATE 160-199 PG/ML DEFICIENT < 160 PG/ML Blood Venous blood specimen / Unknown 05/08/2025 3:00 PM EDT 05/08/2025 4:08 PM EDT Joseph Lock ANP LAB BLOOD ORDERABLES Final Resul t Performing Organization Address [facility] Co de Phone Number [facility] [address] [place] [phone] * XR Hip 2 or 3 Views Right (05/03/2025 9:50 AM EDT) Anatomical Region Laterality Modality Lower Extremities, Hip Right Radiograp hic Imaging 05/03/2025 9:50 AM EDT Narrative 05/03/2025 11:28 AM EDT [facility] [address] [place] [address] XRay Report Signed Patient: Tabatha Díaz MR#: [id number] [birth year] : 1985 Acct:[id number] Age/Sex: 40 / F ADM Date: 05/03/25 Loc: HO.HOSX Attending Dr: Toyin King MD Ordering Physician: Toyin Carrion Date of Service: 05/03/25 Procedure(s): XR hip RT min 2V Accession Number(s): [id number] cc: JOSEPH Azul HATCHERY MANAGER EXAMINATION: XR HIP, RIGHT CLINICAL INFORMATION: M25.551 - Pain in right hip COMPARISON: None available. TECHNIQUE: Two views of the right hip. FINDINGS: Joint spaces preserved. There are no osteophytes. No fracture is evident. XR/XR hip RT min 2V IMPRESSION: Unremarkable right hip. Electronically signed by: Acosta Estevez MD 05/03/2025 11:25 AM EDT Dictated By: Acosta Estevez MD Signed By: <Electronically signed by Acosta Estevez MD in OV> 05/03/25 1125 DD/ 0950 TD/TT: 05/03/25 1100 Cleaning Matron: Procedure Note Donotuseinterpreter, Image - 05/03/2025 [facility] [address] [place] [address] Drive [address] [place] [address] XRay Report Signed Patient: Tabatha Díaz MMR#: [id number] 4 : 1985Acct:[id number] Age/Sex: 40 / FADM Date: 05/03/25 Loc: HO.FIFIX Attending Dr: Toyin King MD Ordering Physician: Toyin Carrion Date of Service: 05/03/25 Procedure(s): XR hip RT min 2V Accession Number(s): [id number] cc: JOSEPH Azul HATCHERY MANAGER EXAMINATION: XR HIP, RIGHT CLINICAL INFORMATION: M25.551 - Pain in right hip COMPARISON: None available. TECHNIQUE: Two views of the right hip. FINDINGS: Joint spaces preserved. There are no osteophytes. No fracture is evident. XR/XR hip RT min 2V IMPRESSION: Unremarkable right hip. Electronically signed by: Acosta Estevez MD 05/03/2025 11:25 AM EDT RP Dictated By: Acosta Estevez MD Signed By: <Electronically signed by Acosta Estevez MD in OV> 05/03/25 1125 DD/ 0950 TD/TT: 05/03/25 1100 Cleaning Matron: [facility] External Provider IMG XR PROCEDURES Final Result * MR Abdomen w/ and w/o Contrast (03/31/2025 1:36 PM EDT) Anatomical Region Laterality Modality Abdomen Magnetic Resonan ce 03/31/2025 1:36 PM EDT Narrative 04/03/2025 7:22 AM EDT [address] [address] Magnetic Resonance Report Signed Patient: Tabatha Díaz MR#: [id number] 4 : 1985 Acct:[id number] Age/Sex: 40 / F ADM Date: 03/31/25 Loc: HO.MRI Attending Dr: Joseph Lock NP Ordering Physician: JOSEPH LOCK NP Date of Service: 03/31/25 Procedure(s): MR abdomen wo/w con Accession Number(s): [id number] cc: JOSEPH LOCK NP EXAMINATION: MR ABDOMEN WITHOUT THEN WITH IV CONTRAST HISTORY: Lesion of spleen COMPARISON: Correlation is made with an MRI of the thoracic spine dated 03/15/2025. Correlation is also made with multiple prior abdominal CT scans dating back to 11/14/2019. TECHNIQUE: Axial in and out of phase T1-weighted gradient echo, axial diffusion weighted, and axial and coronal HASTE T2 with fat saturation images were obtained through the abdomen. Subsequently, fat suppressed axial and coronal T1-weighted images were obtained after the intravenous administration of 8.5 mL Gadavist. FINDINGS: Liver: There is mild loss of signal intensity in the liver on opposed phase imaging consistent with steatosis. There is no enhancing liver mass. The hepatic and portal veins are patent. There is no intra- or extrahepatic biliary dilatation. Gallbladder: The patient is status post cholecystectomy. Spleen: The spleen is normal in size. There are numerous cysts within the spleen, the largest of which is at the lower pole measuring 2.2 cm in size and demonstrating multiple enhancing septations. The appearance is similar to prior CT scans dating back to 11/14/2019. Pancreas: The pancreas is unremarkable. The pancreatic duct is normal in caliber. Adrenals: The adrenal glands are unremarkable. Kidneys: There is a 10 mm cyst in the interpolar region of the right kidney and a 12 mm cyst at the upper pole of the left kidney. There is no hydronephrosis. Lymph nodes: There is no retroperitoneal lymphadenopathy in the upper abdomen. Fluid: There is no ascites in the upper abdomen. Visualized bowel: The visualized bowels loops are unremarkable in appearance. Visualized bones: The visualized bones demonstrate normal marrow signal intensity. MR/MR abdomen wo/w con IMPRESSION: 1. Numerous splenic cysts measuring up to 2.2 cm in size, some of which demonstrate enhancing septations. The overall appearance is similar to prior CT scans. Findings are likely congenital or postinfectious in etiology. 2. Hepatic steatosis. Electronically signed by: Zelalem Mariscal MD 04/03/2025 07:19 AM EDT Dictated By: Zelalem Mariscal MD Signed By: <Electronically signed by Zelalem Mariscal MD in OV> 04/03/25 0719 DD/ 1336 TD/TT: 03/31/25 1429 Cleaning Matron: Procedure Note Donotuseinterpreter, Image - 04/03/2025 [place] [id number] Magnetic Resonance Report Signed Patient: Tabatha Díaz MMR#: [id number] 4 : 1985Acct:[id number] Age/Sex: 40 / FADM Date: 03/31/25 Loc: HO.MRI Attending Dr: Joseph Lock NP Ordering Physician: JOSEPH LOCK NP Date of Service: 03/31/25 Procedure(s): MR abdomen wo/w con Accession Number(s): [id number] cc: JOSEPH LOCK NP EXAMINATION: MR ABDOMEN WITHOUT THEN WITH IV CONTRAST HISTORY: Lesion of spleen COMPARISON: Correlation is made with an MRI of the thoracic spine dated 03/15/2025. Correlation is also made with multiple prior abdominal CT scans dating back to 11/14/2019. TECHNIQUE: Axial in and out of phase T1-weighted gradient echo, axial diffusion weighted, and axial and coronal HASTE T2 with fat saturation images were obtained through the abdomen. Subsequently, fat suppressed axial and coronal T1-weighted images were obtained after the intravenous administration of 8.5 mL Gadavist. FINDINGS: Liver: There is mild loss of signal intensity in the liver on opposed phase imaging consistent with steatosis. There is no enhancing liver mass. The hepatic and portal veins are patent. There is no intra- or extrahepatic biliary dilatation. Gallbladder: The patient is status post cholecystectomy. Spleen: The spleen is normal in size. There are numerous cysts within the spleen, the largest of which is at the lower pole measuring 2.2 cm in size and demonstrating multiple enhancing septations. The appearance is similar to prior CT scans dating back to 11/14/2019. Pancreas: The pancreas is unremarkable. The pancreatic duct is normal in caliber. Adrenals: The adrenal glands are unremarkable. Kidneys: There is a 10 mm cyst in the interpolar region of the right kidney and a 12 mm cyst at the upper pole of the left kidney. There is no hydronephrosis. Lymph nodes: There is no retroperitoneal lymphadenopathy in the upper abdomen. Fluid: There is no ascites in the upper abdomen. Visualized bowel: The visualized bowels loops are unremarkable in appearance. Visualized bones: The visualized bones demonstrate normal marrow signal intensity. MR/MR abdomen wo/w con IMPRESSION: 1. Numerous splenic cysts measuring up to 2.2 cm in size, some of which demonstrate enhancing septations. The overall appearance is similar to prior CT scans. Findings are likely congenital or postinfectious in etiology. 2. Hepatic steatosis. Electronically signed by: Zelalem Mariscal MD 04/03/2025 07:19 AM EDT Dictated By: Zelalem Mariscal MD Signed By: <Electronically signed by Zelalem Mariscal MD in OV> 04/03/25 0719 DD/ 1336 TD/TT: 03/31/25 1689 Cleaning Matron: Joseph GRACIA IMCarmen MRI PROCEDURES Final Result * HPV DNA, Low/High Risk (01/08/2025 2:13 PM EST) HPV High Risk Negative Negative [facility] HPV Genotype 16 Negative Negative [facility] HPV Genotype 18 Negative Negative [facility] Comment:HPV testing performe d at (CLIA#[id number]), [address] [place] [address].Testing for HPV was performed using the Jayla [...] EST 01/09/2025 9:45 AM EST Maria E FRANK LAB BLOOD ORDERABLES Monik priscila Result [facility] [address] [place] [address] [phone] * Pap Smear (01/08/2025 2:13 PM EST) Swab Cervix uteri structure / Unknown 01/08/2025 2:13 PM EST 01/09/2025 9:45 AM EST Narrative [facility] - 01/11/2025 7:19 AM EST ----- ------- Name: Tabatha Díaz Age/Sex: 39/F : 1985 Unit#: [id number] Attend Dr: MARIA E BENDER CNM Re01/08/25 Status: DEP REF Location: [facility] Disch: ----- ------- SPEC : [id number] RECD: 01/09/25 STATUS: BOB CHUNG NUM: [id number] RASHAUN: 01/08/25-[address] [facility] [address]: MARIA E BENDER CNM ENTERED: 01/09/25 SP TYPE: Pap Smr OTHR DR: ORDERED: Pap Smear Interpretation Satisfactory for evaluation. Negative for intraepithelial lesion or malignancy. Mild inflammation. HPV High Risk: Negative HPV Genotyping 16: Negative HPV Genotyping 18: Negative Clinical Information LMP: Unknown date Previous PAP test: Unknown date/findings Material Received Cervix ----- ------- Signed (signature on file) LATHA Knutson ([facility]) 01/11/25 0719 ----- ------- END OF REPORT Maria E Bender CN LAB CYTOLOGY ORDERABLES F inal Result [facility] [address] [place] [address] [phone] * HEPATITIS C AB W/REFL TO HCV RNA, QN, PCR (01/13/2022 10:32 AM EST) HEPATITIS C ANTIBODY NON-REACT [facility] NON-REACT [facility] INDEX 0.01 <1.00 [facility] Comment: HCV antibody was non-reactive. There is no laboratory evidence of HCV infection. In most cases, no further action is required. However, if recent HCV exposure is suspected, a test for HCV RNA (test code 38795) is suggested. For additional information please refer to http://education.WeTOWNS/faq/UYC78g8 (This link is being provided for informational/ educational purposes only.) 01/13/2022 10:3 2 AM EST Joseph GRACIA HISTORICAL/NON ORDERABLE LABS Fi nal Result [facility] [address] * HIV 1/2 ANTIGEN/ANTIBODY,FOURTH GENERATION W/RFL (01/13/2022 10:32 AM EST) HIV-1/2 ANTIGEN AND ANTIBODIES, 4TH GENERATION W/ REFLEX NON-REACT [facility] NON-REACT [facility] Comment: HIV-1 antigen and HIV-1/HIV-2 antibodies were not detected. There is no laboratory evidence of HIV infection. PLEASE NOTE: This information has been disclosed to you from records whose confidentiality may be protected by state law. If your state requires such protection, then the state law prohibits you from making any further disclosure of the information without the specific written consent of the person to whom it pertains, or as otherwise permitted by law. A general authorization for the release of medical or other information is NOT sufficient for this purpose. For additional information please refer to http://education.[facility].Wymsee/faq/LHB818 (This link is being provided for informational/ educational purposes only.) The performance of this assay has not been clinically validated in patients less than 2 years old. 01/13/2022 10:3 2 AM EST Joseph GRACIA LAB BLOOD ORDERABLES Final Resul t [facility] [address] from Last 3 Months or Most Recently Relevant to Health Maintenance Insurance [facility] , [address] [place] [address] Care Teams Dial Mounter Relationship Specialty Start Date End Date Joseph Lock ANP [address] [place] [id number] PCP - General Family Medicine 10/20/22 Joseph Lock ANP [address] [place] [address] [place] [phone] Family Medicine 11/08/21
== END 2025-06-20 10:42 | disposition home or self-care (01) ==
LOC: HO.US 10:41
PROVIDERS: PCP Nurse Practitioner Primary Care; Visit Provider Nurse Practitioner Primary Care
DX: N92.6 Irregular menstruation, unspecified (principal)
CPT/HCPCS: 76830; 76856

== ENCOUNTER → 2025-06-20 10:43 | Outpatient (BNV) | payer OTHER, SELFPAY | PROVIDERS: PCP Nurse Practitioner Primary Care; Visit Provider Radiology Diagnostic Radiology | DX: R10.2 Pelvic and perineal pain (principal) | CPT/HCPCS: 76830; 76856 ==